=== PATIENT | female | born 1955 | race Two or more races ===

== ENCOUNTER 2022-07-23 09:26 | Emergency (ER) | payer MEDICARE, BC ==
[2022-07-23 09:34] VITALS: TEMP 98.5
[2022-07-23] MEDS ORDERED: SODIUM CHLORIDE 0.9% 500 ML 500 ML IV STA (09:45)
--- NOTE | 2022-07-23 09:54 | ED ---
General Adult HPI - General Chief complaint: Neuro Symptoms/Deficit Stated complaint: poss stroke Time Seen by Provider: 07/23/22 09:26 Source: patient, family, EMS, RN notes reviewed, old records reviewed Mode of arrival: ambulatory Limitations: no limitations - History of Present Illness Initial comments: This is a 67-year-old female who was last seen completely normally p.m. prior to bed last night. In the middle of night she got up and try to go to bathroom and fell she also fell out of bed both times she needed to be helped back to bed by her . This morning when the patient got up she was having some facial droop which was worse than it had been in the past. states she's had just a slight facial droop on the right for the last 6 months and they are having that worked up as an outpatient. Patient now has weakness of the arm and leg such that it's difficult for her to stand or walk. Patient cannot coordinate the left arm at all. did not state that the speech was slurred. Patient has no pain. Patient did not get injured in the fall. Patient denies chest pain difficulty breathing shortness breath per patient denies any palpitations. Patient denies abdominal pain patient denies nausea vomiting diarrhea per patient denies any recent fever chills or cough. - Related Data Allergies Allergy/AdvReac Type Severity Reaction Status Date / Time No Known Allergies Allergy Verified 07/23/22 09:34 Review of Systems ROS Statement: Those systems with pertinent positive or pertinent negative responses have been documented in the HPI. ROS Other: All systems not noted in ROS Statement are negative. Past Medical History Past Medical History: Neurologic Disorder History of Any Multi-Drug Resistant Organisms: None Reported Past Surgical History: Section, Tonsillectomy Past Psychological History: Depression Smoking Status: Never smoker Past Alcohol Use History: Occasional Past Drug Use History: Marijuana General Exam - General Exam Comments Initial Comments: GENERAL: Patient is well-developed and well-nourished. Patient is nontoxic and well- hydrated and is in no acute distress. ENT: Neck is soft and supple. No significant lymphadenopathy is noted. Oropharynx is clear. Moist mucous membranes. Neck has full range of motion without eliciting any pain. EYES: The sclera were anicteric and conjunctiva were pink and moist. Extraocular movements were intact and pupils were equal round and reactive to light. Eyelid s were unremarkable. PULMONARY: Unlabored respirations. Good breath sounds bilaterally. No audible rales rhonchi or wheezing was noted. CARDIOVASCULAR: There is a regular rate and rhythm without any murmurs gallops or rubs. ABDOMEN: Soft and nontender with normal bowel sounds. SKIN: Skin is clear with no lesions or rashes and otherwise unremarkable. NEUROLOGIC: Patient is alert and oriented x3. Patient has left-sided facial droop. Patient also has significant left arm weakness 1 out of 5 strength in lockstitch sleeve setter and patient has some dorsi flexion weakness which is 3 out of 5 compared to the right side. MUSCULOSKELETAL: Normal extremities with adequate strength and full range of motion. No lower extremity swelling or edema. No calf tenderness. LYMPHATICS: No significant lymphadenopathy is noted PSYCHIATRIC: Normal psychiatric evaluation. Patient is very flat affect but has a history of depression Limitations: no limitations Course Vital Signs 07/23/22 07/23/22 07/23/22 09:29 10:00 10:15 Temperature 98.5 F Pulse Rate 93 86 85 Respiratory 18 16 15 Rate Blood Pressure 169/94 185/103 184/98 O2 Sat by Pulse 100 99 100 Oximetry 07/23/22 10:30 Temperature Pulse Rate 82 Respiratory 15 Rate Blood Pressure 176/96 O2 Sat by Pulse 98 Oximetry Medical Decision Making - Medical Decision Making A code stroke was called on this patient after I interviewed the patient and her . I interpreted the EKG. EKG shows a sinus rhythm at 86 bpm [place] interval is 141 QRS is 76 QT interval 354 QTC is 397. Patient's EKG shows no ST segment elevation or depression. Computed tomography scan of the brain was interpreted by me. Scan showed some areas of hypodensity consistent with stroke. CTA showed some narrowing of the right internal carotid but only moderate and a narrowing basilar artery. I spoke with [facility] hospitalist and they agreed to admit the patient admitted the patient remaining orders I consult the neurology. Because of the elevated troponin I also consulted cardiology and I repeated the troponin levels After the patient was admitted the neurointerventionalist called back at 1137 and determined that it would be better if the patient came to [facility] when he can potentially do a procedure and open up the basilar artery. I gave the patient Proventil into 180 mg. I spoke with [facility] and they agreed to accept the patient and I transfer the patient. - Lab Data Result diagrams: 07/23/22 09:53 07/23/22 09:53 Lab Results 07/23/22 07/23/22 07/23/22 Range/Units 09:53 09:53 09:53 WBC 15.5 H (3.8-10.6) k/uL RBC 5.00 (3.80-5.40) m/uL Hgb 15.6 (11.4-16.0) gm/dL Hct 44.6 (34.0-46.0) % MCV 89.1 (80.0-100.0) fL MCH 31.1 (25.0-35.0) pg MCHC 35.0 (31.0-37.0) g/dL RDW 11.8 (11.5-15.5) % Plt Count 351 (150-450) k/uL MPV 7.8 Neutrophils % 84 % Lymphocytes % 10 % Monocytes % 5 % Eosinophils % 1 % Basophils % 0 % Neutrophils # 13.0 H (1.3-7.7) k/uL Lymphocytes # 1.6 (1.0-4.8) k/uL Monocytes # 0.7 (0-1.0) k/uL Eosinophils # 0.1 (0-0.7) k/uL Basophils # 0.0 (0-0.2) k/uL PT 9.9 (9.0-12.0) sec INR 0.9 (<1.2) APTT 22.5 (22.0-30.0) sec Sodium 137 (137-145) mmol/L Potassium 4.4 (3.5-5.1) mmol/L Chloride 99 (98-107) mmol/L Carbon Dioxide 26 (22-30) mmol/L Anion Gap 12 mmol/L BUN 37 H (7-17) mg/dL Creatinine 0.99 (0.52-1.04) mg/dL Est GFR (CKD-EPI)AfAm 69 (>60 ml/min/1.73 sqM) Est GFR (CKD-EPI)NonAf 60 (>60 ml/min/1.73 sqM) Glucose 345 H (74-99) mg/dL Calcium 9.7 (8.4-10.2) mg/dL Total Bilirubin 0.9 (0.2-1.3) mg/dL AST 16 (14-36) U/L ALT 17 (4-34) U/L Alkaline Phosphatase 104 (38-126) U/L Troponin I (0.000-0.034) ng/mL Total Protein 7.2 (6.3-8.2) g/dL Albumin 4.6 (3.5-5.0) g/dL 07/23/22 Range/Units 09:53 WBC (3.8-10.6) k/uL RBC (3.80-5.40) m/uL Hgb (11.4-16.0) gm/dL Hct (34.0-46.0) % MCV (80.0-100.0) fL MCH (25.0-35.0) pg MCHC (31.0-37.0) g/dL RDW (11.5-15.5) % Plt Count (150-450) k/uL MPV Neutrophils % % Lymphocytes % % Monocytes % % Eosinophils % % Basophils % % Neutrophils # (1.3-7.7) k/uL Lymphocytes # (1.0-4.8) k/uL Monocytes # (0-1.0) k/uL Eosinophils # (0-0.7) k/uL Basophils # (0-0.2) k/uL PT (9.0-12.0) sec INR (<1.2) APTT (22.0-30.0) sec Sodium (137-145) mmol/L Potassium (3.5-5.1) mmol/L Chloride (98-107) mmol/L Carbon Dioxide (22-30) mmol/L Anion Gap mmol/L BUN (7-17) mg/dL Creatinine (0.52-1.04) mg/dL Est GFR (CKD-EPI)AfAm (>60 ml/min/1.73 sqM) Est GFR (CKD-EPI)NonAf (>60 ml/min/1.73 sqM) Glucose (74-99) mg/dL Calcium (8.4-10.2) mg/dL Total Bilirubin (0.2-1.3) mg/dL AST (14-36) U/L ALT (4-34) U/L Alkaline Phosphatase (38-126) U/L Troponin I 0.108 H* (0.000-0.034) ng/mL Total Protein (6.3-8.2) g/dL Albumin (3.5-5.0) g/dL Critical Care Time Critical Care Time: Yes Total Critical Care Time: 35 Disposition Clinical Impression: Cerebrovascular accident (CVA), Elevated troponin Disposition: OTHER INSTITUTION NOT DEFINED Referrals: Laura Casas DO [Primary Care Provider] - 1-2 days Time of Disposition: 10:46 - Out of Hospital Transfer - Req. Specs Out of Hospital Transfer - Requested Specifics: Other Emergency Center ([facility])
[2022-07-23 10:04] LABS: Basophils % (A) 0 %; Eosinophils # (A) 0.1 k/uL (0-0.7); Eosinophils % (A) 1 %; HCT 44.6 % (34.0-46.0); HGB 15.6 gm/dL (11.4-16.0); Lymphocytes # (A) 1.6 k/uL (1.0-4.8); Lymphocytes % (A) 10 %; MCH 31.1 pg (25.0-35.0); MCV 89.1 fL (80.0-100.0); Mean Platelet Volume 7.8; Monocytes # (A) 0.7 k/uL (0-1.0); Monocytes % (A) 5 %; Neutrophils % (A) 84 %; Platelet Count 351 k/uL (150-450); RDW 11.8 % (11.5-15.5); WBC 15.5 k/uL (3.8-10.6)
[2022-07-23 10:13] LABS: Albumin 4.6 g/dL (3.5-5.0); Calcium 9.7 mg/dL (8.4-10.2); Potassium 4.4 mmol/L (3.5-5.1); Total Bilirubin 0.9 mg/dL (0.2-1.3); Total Protein 7.2 g/dL (6.3-8.2)
[2022-07-23 10:22] LABS: INR 0.9 (<1.2); Partial Thromboplastin Time 22.5 sec (22.0-30.0); Prothrombin Time 9.9 sec (9.0-12.0)
--- NOTE | 2022-07-23 10:26 | CT ---
EXAMINATION TYPE: CT brain wo con DATE OF EXAM: 07/23/2022 COMPARISON: None HISTORY: 67-year-old female left-sided facial droop and left-sided weakness, Neuro deficit TECHNIQUE: Examination was done in axial plane without intravenous contrast. Coronal and sagittal r econstructions performed. CT DLP: 1155.1 mGycm Automated exposure control for dose reduction was used. FINDINGS: There is a small area of cortical hypodensity right precentral gyrus and a couple larger areas anteri or right parietal lobe, and right parieto-occipital junction. A few areas of encephalomalacia are noted, inferior left frontal lobe and subinsular white matter on the right. On the right, this results in asymmetric enlargement of the anterior body of the right lat eral ventricle due to ex vacuo enlargement. No evidence for acute intracranial hemorrhage. No extra-axial fluid collection. No effacement of basa l subarachnoid cisterns or herniation. Benign basal ganglia calcifications are noted. Leftward nasal septal deviation. Paranasal sinuses and mastoid air cells are well pneumatized. Orbits and globes are intact. IMPRESSION: 1. Areas of cortical/subcortical hypodensity on the right. Small area precentral gyrus and a couple m ore moderate sized areas anterior right parietal lobe and right parieto-occipital junction. Evolving acute infarcts are suspected. No mass effect, midline shift, or acute intracranial hemorrhage is seen . 2. A couple areas of encephalomalacia suggesting old infarcts as above. Critical findings called to Dr. Lopez in the ER at 10:20 AM.
--- NOTE | 2022-07-23 10:38 | CT ---
EXAMINATION TYPE: CT angio head neck DATE OF EXAM: 07/23/2022 COMPARISON: Brain CT same date HISTORY: 67-year-old female left-sided weakness, CODE STROKE TECHNIQUE: Contiguous axial scanning of the head and neck performed with IV Contrast, patient injecte d with 65 ml mL of Isovue 370. Coronal/sagittal MIP reconstructions performed. 3-D reconstructions ge nerated on a dedicated independent workstation. CT DLP: 384.8 mGycm Automated exposure control for dose reduction was used. FINDINGS: Head: Very diminutive vertebral and basilar arteries. There is some loss of opacification of the V4 segment right vertebral artery after the PICA take off suggesting possible severe stenosis. Additional sever e focal stenosis mid basilar artery. Persistent origin bilateral posterior cerebral arteries. Moderate focal stenosis proximal aspec t of the right posterior communicating artery. Otherwise, the posterior circulation appears patent. Atherosclerotic changes are present in the bilateral carotid siphons. There is moderate focal stenosi s cavernous segment right ICA. No hemodynamically significant stenosis of either internal carotid art liam. Slightly hypoplastic A1 segment right anterior cerebral artery. Remainder of the anterior circulation appears patent. No aneurysmal changes seen. NECK: Mild to moderate atherosclerotic plaque is present along the proximal to mid subclavian artery. There is severe focal stenoses at the origin of the bilateral vertebral arteries. Vertebral arteries otherwise patent throughout their cervical course. The right common carotid artery is patent. Moderate atherosclerotic plaque at the right carotid bifurcation with mild, less than 30% narrowing r ight carotid bulb by NASCET criteria. Remainder of the cervical right ICA is patent. The left common carotid artery is patent. Moderate atherosclerotic calcification left carotid bulb with a mild to moderate, just under 50% narr owing at the left carotid bulb by NASCET criteria. Remainder of the cervical left ICA is patent. Asymmetric hypertrophy of soft tissue in the left vallecular space. IMPRESSION: HEAD: 1. 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 Correlate for any chronic symptoms of vertebrobasilar insufficie ncy. Suspect focal severe stenoses distal V4 segment right vertebral artery and mid basilar artery. M oderate focal stenosis proximal right posterior communicating artery. 2. Moderate stenosis cavernous segment right ICA. 3. No aneurysmal change is seen. NECK: 4. Incidental asymmetric hypertrophy of soft tissue in the left vallecular space. This may reflect as ymmetric lingual tonsil hypertrophy. Consider referring the patient for direct inspection to exclude a mucosal lesion. 5. Moderate atherosclerotic change at the bilateral carotid bifurcations. Mild to moderate, just unde r 50% proximal left ICA stenosis. Mild, less than 30% proximal right ICA stenosis. 6. Note severe stenoses at the origin of the bilateral vertebral arteries. This may exacerbate the is maru of the diminutive intracranial caliber of the vertebral and basilar arteries.
--- NOTE | 2022-07-23 10:39 | XR ---
EXAMINATION TYPE: XR chest 2V DATE OF EXAM: 07/23/2022 COMPARISON: None HISTORY: 67-year-old female confusion, stroke like symptoms, altered mental status TECHNIQUE: AP and lateral views FINDINGS: Heart normal size. Mild elongation/ectasia of the thoracic aorta. Mild interstitial prominence of a c hronic appearance. Mild hyperinflation. No consolidation or pleural effusion. IMPRESSION: Correlate for underlying COPD. No acute process seen.
[2022-07-23] MEDS ORDERED: ASPIRIN 325 MG TAB PO STA (10:46)
[2022-07-23] MEDS ORDERED: hydrALAZINE HCL 20 MG/ML 1 ML VIAL IVP STA ×2 (10:51)
[2022-07-23] MEDS ORDERED: TICAGRELOR 90 MG TAB PO STA (11:36)
[2022-07-23 12:13] LABS: Appearance,Urine Clear (Clear); Bacteria,Urine Rare /hpf; Bilirubin,Urine Negative (Negative); Blood,Urine Moderate (Negative); Color,Urine Yellow; Glucose,Urine (UA) 4+ (Negative); Ketones,Urine 1+ (Negative); Leukocyte Esterase,Urine Negative (Negative); Mucus,Urine Rare /hpf; Nitrite,Urine Negative (Negative); Protein,Urine Trace (Negative); RBC,Urine 31 /hpf (0-5); Squamous Epithelial Cell,Urine <1 /hpf (0-4); Urobilinogen,Urine <2.0 mg/dL (<2.0); WBC,Urine 6 /hpf (0-5)
[2022-07-23 12:42] VITALS: BP 169/92; PULSE 89; RESP 18
[2022-07-24] MEDS ORDERED: ASPIRIN 325 MG TAB PO SCH (09:00)
== END 2022-07-23 13:00 | disposition other institution (70) ==
LOC: EC 09:26 → 3SCARD 10:48 → UNDOADMIN 10:48 → 3SCARD 11:26 → EC 13:00
DX: I63.9 Cerebral infarction, unspecified (principal); F32.A Depression, unspecified; F12.90 Cannabis use, unspecified, uncomplicated
CPT/HCPCS: 99291 ×2; 96374 ×2; 36415; 93005; 80053; 84484; 85025; 85610; 85730; 81001; 71046; 70496; 70450; 70498; J0360; Q9967

== ENCOUNTER → 2022-09-14 | Outpatient (CLI) | payer MEDICARE ==
[2022-09-14 14:53] LABS: Basophils # (A) 0.05 X 10*3/uL (0.00-0.10); Basophils % (A) 0.3 %; Eosinophils # (A) 0.09 X 10*3/uL (0.04-0.35); Eosinophils % (A) 0.6 %; HCT 41.4 % (37.2-46.3); HGB 13.1 g/dL (12.0-15.0); Immature Grans, Automated 0.3 %; Lymphocytes # (A) 1.86 X 10*3/uL (0.90-5.00); Lymphocytes % (A) 11.6 %; MCHC 31.6 g/dL (32.0-37.0); MCV 91.6 fL (80.0-97.0); Mean Platelet Volume 9.1 fL (9.5-12.2); Monocytes # (A) 1.15 X 10*3/uL (0.20-1.00); Monocytes % (A) 7.2 %; NRBC Per 100 WBC 0 /100 WBCS (0.0-0.0); Neutrophils # (A) 12.83 X 10*3/uL (1.80-7.70); Platelet Count 566 X 10*3/uL (140-440); RBC 4.52 X 10*6/uL (4.10-5.20); RDW 11.8 % (11.5-14.5); WBC 16.03 X 10*3/uL (4.50-10.00)
[2022-09-14 16:34] LABS: African American GFR (CKD) 105.2 (60.0-200.0); Albumin/Globulin Ratio 1.53 (1.60-3.17); Anion Gap 11.8 mmol/L (10.00-18.00); BUN/Creat Ratio 29.39 Ratio (12.00-20.00); Blood Urea Nitrogen 20.6 mg/dL (9.0-27.0); Calcium 9.5 mg/dL (8.7-10.3); Carbon Dioxide 26.1 mmol/L (20.0-27.5); Globulin 2.6 g/dL (1.6-3.3); Non-African American GFR(CKD) 90.8 (60.0-200.0); Potassium 4.5 mmol/L (3.5-5.5); T4, Free (Free Thyroxine) 1.63 ng/dL (0.800-1.800); Total Bilirubin 0.2 mg/dL (0.30-1.20); Total Protein 6.5 g/dL (6.2-8.2)
[2022-09-14 18:34] LABS: C-Peptide 3.67 ng/mL (0.81-3.85)
== END | disposition home or self-care (01) ==
LOC: LABWHC1 09:06
PROVIDERS: ATTEND Internal Medicine Endocrinology, Diabetes & Metabolism
DX: E11.65 Type 2 diabetes mellitus with hyperglycemia (principal)
CPT/HCPCS: 36415; 80053; 82024; 82533; 83519; 84439; 84443; 84681; 85025

== ENCOUNTER 2023-02-01 07:04 | Day surgery (SDC) | payer MEDICARE, OTHER ==
[2023-01-26 14:03] VITALS: BMI 19.7
[~2023-02-01 07:04] MED LIST: DEXAMETHASONE SOD PHOSPHATE 4 MG/ML 1 ML VIAL IV ONE; ENOXAPARIN 30 MG/0.3 ML SYRINGE SQ PRN; HYDROmorphone 0.5 MG/0.5 ML SYRINGE IVP PRN; LACTATED RINGERS 1,000 ML IV SCH; LIDOCAINE 1% (10MG/ML) FOR IV START INTRADERMA PRN; ONDANSETRON 4 MG/2 ML VIAL IVP ONE
[2023-02-01] MEDS ORDERED: LACTATED RINGERS 1,000 ML IV ONE (07:31)
[2023-02-01 07:56] LABS: Glucose,Whole Blood 172 mg/dL (70-110)
[2023-02-01 08:03] VITALS: TEMP 97.8
[2023-02-01] MEDS ORDERED: MIDAZOLAM 2 MG/2 ML VIAL IV ONE (08:46)
[2023-02-01] MEDS ORDERED: fentaNYL (PF) 50 MCG/ML 2 ML AMP IV ONE (08:46)
[2023-02-01] MEDS ORDERED: ROPIVACAINE 5 MG/ML 30 ML VIAL ONE (09:01)
[2023-02-01] MEDS ORDERED: KETAMINE 10 MG/ML 20 ML VIAL ONE (09:01)
[2023-02-01] MEDS ORDERED: MIDAZOLAM 2 MG/2 ML VIAL ONE (09:01)
--- NOTE | 2023-02-01 10:26 | P.OP ---
Date of Procedure: 02/01/23 Preoperative Diagnosis: Gangrene second, third and fourth toes right foot. Postoperative Diagnosis: Same. Procedure(s) Performed: Transmetatarsal amputation second, third and fourth toes right foot. Implants: None Anesthesia: regional Surgeon: Blayne Iglesias Estimated Blood Loss (ml): 20 Urine output (ml): 0 Pathology: other (Amputated second third and fourth toes right foot) Condition: stable Disposition: no change Indications for Procedure: Patient is a 67-year-old female with a long history of vascular disease status post surgical revascularization for ischemic rest pain and tissue loss of the right foot. Most of her wounds have healed of the right foot after revascularization however the patient did experience gangrene of the second third and fourth toes which is irreversible. Because of the suspicion is off ered transmetatarsal amputation. We discussed transmetatarsal amputation of all 5 digits or the family wished to proceed with transmetatarsal amputation of the 3 digits involved. Risk and benefits were discussed. All questions were answered. Consent form signed. Description of Procedure: Patient is brought the upper and placed in supine position having previously received a regional block administered by the department anesthesiology. She received intravenously administered prophylactic antibiotics in the perioperative phase. The right lower extremity sterilely prepped and draped in usual manner. She was made along the plantar surface of the foot at the base of the second, third and fourth toes. Bleeding was very satisfying. Incision was then carried down in thebetween the first and second toes as well as the fourth and fifth toes and brought anteriorly. Hemostasis was achieved using electrocautery. Soft tissues were taken down to the level of bone. Periosteal elevator was utilized to separate soft tissues from the bony tissues and utilizing power saw transmetatarsal amputation of the second third and fourth toes was performed. Remaining tendon sheaths etc. were debrided. The wound was irrigated. Hemostasis appeared adequate. Surgical hemostatic powder was placed within the wound. Deep tissues were closed with 3-0 Vicryl and skin was reapproximated with 4-0 nylon in vertical mattress form. The patient did have a second wound on the lateral aspect of her foot which had an eshar which was taken down revealing a nearly completely healed wound on the lateral aspect of the foot. Appropriate dressing was applied this area as well. Patient tolerated procedure well and was taken to the recovery area satisfactory and stable condition. Plan - Discharge Summary New Discharge Prescriptions: No Action Sertraline [Zoloft] 75 mg PO DAILY carvediloL [Coreg] 6.25 mg PO BID Atorvastatin [Lipitor] 40 mg PO HS Albuterol Inhaler [Ventolin Hfa Inhaler] 2 puff INHALATION Q6HR PRN PRN Reason: Shortness Of Breath Or Wheezing Multivitamins, Thera [Multivitamin (formulary)] 1 tab PO DAILY Memantine [Namenda] 5 mg PO Q12HR tiZANidine HCL [Zanaflex] 2 mg PO BID PRN PRN Reason: Pain Aspirin EC [Ecotrin Low Dose] 81 mg PO DAILY Acetaminophen [Tylenol] 650 mg PO Q8HR PRN PRN Reason: Pain Ticagrelor [Brilinta] 90 mg PO BID Tamsulosin HCl [Flomax] 0.4 mg PO DAILY Furosemide [Lasix] 20 mg PO DAILY tab amLODIPine [Norvasc] 5 mg PO HS tab lisinopriL [Zestril] 20 mg PO BID tab HYDROcodone/APAP 5-325MG [[place] 5-325] 1 tab PO Q6H PRN #12 tab PRN Reason: Pain metFORMIN HCL [Glucophage] 500 mg PO BID INSULIN ASPART (NovoLOG) [NovoLOG (formulary)] 0 unit SQ TID PRN PRN Reason: CBG ABOVE 151 Insulin Glargine,Hum.rec.anlog [Lantus Solostar Pen] 12 units SQ HS Gabapentin [Neurontin] 300 mg PO TID Melatonin 3 mg PO HS Salonpas Pain Patch 1 dose TOPICAL DAILY Cephalexin [Keflex] 500 mg PO Q8HR Discharge Medication List Aspirin EC [Ecotrin Low Dose] 81 mg PO DAILY 07/23/22 [History] Sertraline [Zoloft] 75 mg PO DAILY 07/23/22 [History] Acetaminophen [Tylenol] 650 mg PO Q8HR PRN 11/03/22 [History] Atorvastatin [Lipitor] 40 mg PO HS 11/03/22 [History] Tamsulosin HCl [Flomax] 0.4 mg PO DAILY 11/03/22 [History] Ticagrelor [Brilinta] 90 mg PO BID 11/03/22 [History] carvediloL [Coreg] 6.25 mg PO BID 11/03/22 [History] Furosemide [Lasix] 20 mg PO DAILY tab 11/10/22 [Rx] HYDROcodone/APAP 5-325MG [[place] 5-325] 1 tab PO Q6H PRN #12 tab 11/10/22 [Rx] amLODIPine [Norvasc] 5 mg PO HS tab 11/10/22 [Rx] lisinopriL [Zestril] 20 mg PO BID tab 11/10/22 [Rx] Albuterol Inhaler [Ventolin Hfa Inhaler] 2 puff INHALATION Q6HR PRN 01/26/23 [History] Cephalexin [Keflex] 500 mg PO Q8HR 01/26/23 [History] Gabapentin [Neurontin] 300 mg PO TID 01/26/23 [History] INSULIN ASPART (NovoLOG) [NovoLOG (formulary)] 0 unit SQ TID PRN 01/26/23 [History] Insulin Glargine,Hum.rec.anlog [Lantus Solostar Pen] 12 units SQ HS 01/26/23 [History] Melatonin 3 mg PO HS 01/26/23 [History] Memantine [Namenda] 5 mg PO Q12HR 01/26/23 [History] Multivitamins, Thera [Multivitamin (formulary)] 1 tab PO DAILY 01/26/23 [History] Salonpas Pain Patch 1 dose TOPICAL DAILY 01/26/23 [History] metFORMIN HCL [Glucophage] 500 mg PO BID 01/26/23 [History] tiZANidine HCL [Zanaflex] 2 mg PO BID PRN 01/26/23 [History]
[2023-02-01 10:48] VITALS: BP 150/77; PULSE 73; RESP 18
--- NOTE | 2023-02-01 11:09 | P.ANPRN ---
Procedure Note - Anesthesia - Nerve Block Performed Right Popliteal Single Time Out Performed: Yes (0845) Date of Procedure: 02/01/23 Procedure Start Time: 08:46 Procedure Stop Time: 08:50 Location of Patient: PreOp Indication: Acute Post-Operative Pain, Requested by Surgeon Specifically requested for management of pain by DrJuliann: Blayne Iglesias Sedation Type: Sedate with meaningful contact maintained Preparation: Sterile Prep Position: Supine Catheter: None Needle Types: Pajunk Needle Gauge: 21 Ultrasound used to visualize needle placement: Yes Ultrasound used to observe medication spread: Yes Injectate: 0.5% Ropivacaine (see comment for volume) (15cc +10cc nacl pf) Blood Aspirated: No Pain Paresthesia on Injection Noted: No Resistance on Injection: Normal Image Stored and Saved: Yes Events: Uneventful and Well Tolerated
--- NOTE | 2023-02-01 11:10 | P.ANPRN ---
Procedure Note - Anesthesia - Nerve Block Performed Right Adductor Canal Single Time Out Performed: Yes (0845) Date of Procedure: 02/01/23 Procedure Start Time: 08:51 Procedure Stop Time: 08:54 Location of Patient: PreOp Indication: Acute Post-Operative Pain, Requested by Surgeon Specifically requested for management of pain by DrJuliann: Blayne Iglesias Sedation Type: Sedate with meaningful contact maintained Preparation: Sterile Prep Position: Supine Catheter: None Needle Types: Pajunk Needle Gauge: 21 Ultrasound used to visualize needle placement: Yes Ultrasound used to observe medication spread: Yes Injectate: 0.5% Ropivacaine (see comment for volume) (15cc +10cc nacl pf) Blood Aspirated: No Pain Paresthesia on Injection Noted: No Resistance on Injection: Normal Image Stored and Saved: Yes Events: Uneventful and Well Tolerated
== END 2023-02-01 11:21 | disposition other institution (70) ==
LOC: OR 07:04
PROVIDERS: ATTEND Surgery
DX: I96 Gangrene, not elsewhere classified (principal); G89.18 Other acute postprocedural pain; I11.0 Hypertensive heart disease with heart failure; I50.9 Heart failure, unspecified; E11.52 Type 2 diabetes mellitus with diabetic peripheral angiopathy with gangrene; K21.9 Gastro-esophageal reflux disease without esophagitis; E78.5 Hyperlipidemia, unspecified; Z86.73 Personal history of transient ischemic attack (TIA), and cerebral infarction without residual deficits; Z79.1 Long term (current) use of non-steroidal anti-inflammatories (NSAID); Z79.84 Long term (current) use of oral hypoglycemic drugs; Z79.899 Other long term (current) drug therapy
CPT/HCPCS: 64447; 64445; 28805; J2250; J1100; J0690; J2405; J3010; J1650; J2795; 88305; 88311

== ENCOUNTER → 2023-03-03 | Outpatient (CLI) | payer MEDICARE, OTHER ==
--- NOTE | 2023-03-03 11:45 | CT ---
EXAMINATION TYPE: CT brain wo con DATE OF EXAM: 03/03/2023 COMPARISON: 07/23/2022 INDICATION: follow up for stroke DLP: 1047.1 mGycm, Automated exposure control for dose reduction was used. CONTRAST: None CT of the brain is performed utilizing 3 mm thick sections through the posterior fossa and 3 mm thick sections through the remaining calvarium. Study is performed within 24 hours of arrival to the hosp ital. No abnormal hyperdensity is present to suggest an acute intracranial hemorrhage. No mass lesion is evident. No acute infarcts are evident. Scattered deep white matter hypodensities are present, likely on the b asis of chronic white matter ischemic changes. This may include an area within the left brain stem. F indings appear stable from comparison. An old infarct within the posterior right occipital lobe is ag ain evident. Additional old infarcts in the right posterior parietal-occipital region and posterior r ight parietal region are noted. Ventricles and sulci are normal in for the patient age. Paranasal sinuses and mastoid air cells within the [id number] are clear. Left septal deviation is noted. IMPRESSIONS: 1. 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 2. Patchy to confluent periventricular and deep chronic appearing white matter ischemic type changes. 2. No acute intracranial process.
== END | disposition home or self-care (01) ==
LOC: RADCTMAIN 09:47
PROVIDERS: ATTEND Psychiatry & Neurology Neurology
DX: I63.541 Cerebral infarction due to unspecified occlusion or stenosis of right cerebellar artery (principal); G90.09 Other idiopathic peripheral autonomic neuropathy; I67.82 Cerebral ischemia
CPT/HCPCS: 70496; 70450; 70498; Q9967

== ENCOUNTER → 2023-03-03 | Outpatient (CLI) | payer MEDICARE, OTHER | END | disposition home or self-care (01) | LOC: RADCTMAIN 09:49 | PROVIDERS: ATTEND Psychiatry & Neurology Neurology | DX: Z53.9 Procedure and treatment not carried out, unspecified reason (principal) ==

== ENCOUNTER 2023-05-09 10:06 | Day surgery (SDC) | payer MEDICARE ==
[~2023-05-09 10:06] MED LIST changes: +ALPRAZolam 0.25 MG TAB PO PRN; +ALPRAZolam 0.5 MG TAB PO PRN; +ASPIRIN 325 MG TAB PO STA; +ATORVASTATIN 80 MG TAB PO STA; -DEXAMETHASONE SOD PHOSPHATE 4 MG/ML 1 ML VIAL IV ONE; -ENOXAPARIN 30 MG/0.3 ML SYRINGE SQ PRN; +HEPARIN SODIUM,PORCINE (1 ML) 2,500 UNIT in SODIUM CHLORIDE 0.9% 250 ML IRRIGATION PRN; +HEPARIN SODIUM,PORCINE 10,000 UNIT in SODIUM CHLORIDE 0.9% 1,000 ML IRRIGATION PRN; -HYDROmorphone 0.5 MG/0.5 ML SYRINGE IVP PRN; -LACTATED RINGERS 1,000 ML IV SCH; -LIDOCAINE 1% (10MG/ML) FOR IV START INTRADERMA PRN; +NITROGLYCERIN SL TABS 0.4 MG TAB SUBLINGUAL PRN; -ONDANSETRON 4 MG/2 ML VIAL IVP ONE; +SODIUM CHLORIDE 0.9% 1,000 ML in EMPTY BAG 1 BAG IV SCH
[2023-05-09 10:43] LABS: Glucose,Whole Blood 179 mg/dL (70-110)
[2023-05-09] MEDS ORDERED: SODIUM CHLORIDE 0.9% 1,000 ML IV ONE (10:43)
[2023-05-09 10:47] VITALS: RESP 16; TEMP 98.8
[2023-05-09] MEDS ORDERED: TAMSULOSIN 0.4 MG CAP.ER.24H PO STA (10:58)
[2023-05-09] MEDS ORDERED: GABAPENTIN 300 MG CAP PO STA (10:58)
[2023-05-09] MEDS ORDERED: lisinopriL 10 MG TAB PO STA (10:58)
[2023-05-09] MEDS ORDERED: carvediloL 6.25 MG TAB PO STA (10:58)
[2023-05-09] MEDS ORDERED: amLODIPine 5 MG TAB PO STA (10:58)
[2023-05-09] MEDS ORDERED: SERTRALINE 25 MG TAB PO STA (10:58)
[2023-05-09] MEDS ORDERED: MEMANTINE 5 MG TAB PO STA (10:58)
[2023-05-09] MEDS ORDERED: ASPIRIN 81 MG ONE (11:03)
[2023-05-09] MEDS: amLODIPine 5 MG TAB ONE ×2 (11:04→11:12)
[2023-05-09] MEDS ORDERED: VERAPAMIL 2.5 MG/ML 2 ML AMP ONE (11:58)
[2023-05-09] MEDS ORDERED: HEPARIN SODIUM 1,000 UN/ML (10ML VL) ONE (11:58)
[2023-05-09] MEDS ORDERED: MIDAZOLAM 2 MG/2 ML VIAL IVP ONE (12:09)
[2023-05-09] MEDS ORDERED: LIDOCAINE 1% INJ 10MG/ML (30 ML VIAL-PF) SQ ONE (12:10)
[2023-05-09] MEDS ORDERED: VERAPAMIL SYRINGE (5 MG/10 ML) INTRAARTER ONE (12:11)
[2023-05-09] MEDS ORDERED: HEPARIN SODIUM 1,000 UN/ML (10ML VL) IV ONE (12:14)
[2023-05-09] MEDS ORDERED: IOPAMIDOL-370 200ML BTL INJ ONE (12:25)
[2023-05-09] MEDS ORDERED: RX INFO: IV CONTRAST WAS GIVEN 1 EACH MISC MISCELLANE PRN (12:27)
[2023-05-09] MEDS ORDERED: SODIUM CHLORIDE 0.9% 1,000 ML IV SCH (12:30)
--- NOTE | 2023-05-09 12:32 | P.PCN ---
Date of Procedure: 05/09/23 Operative Findings: CARDIAC CATHETERIZATION PERFORMING PHYSICIAN: Manpreet Bergeron MD, RPVI PROCEDURE PERFORMED: 1. Selective right and left coronary angiogram 2. Left heart catheterization INDICATION: This is a 68-year-old female patient with lower extremity PAD and prior revascularization surgically as well as history of stroke as well as diabetes and hypertension and dyslipidemia and chronic kidney disease was seen in the office recently for an episode of syncope. She underwent myocardial perfusion imaging stress test and that showed at least moderate area of reversibility in the inferolateral segment of the left ventricle. In the light of that the heart catheterization was advised COMPLICATION: None APPROACH: Right radial artery LEVEL OF SEDATION: Moderate with a sedation length of 13 minutes PROCEDURE DESCRIPTION: After obtaining an informed consent, the patient was brought to cardiac laborer tanbark. Local anesthesia was performed using lidocaine subcutaneously. The right radial artery was cannulated using Seldinger technique, the guidewire passed easily, following that we advanced a 5-Jamaican sheath dilator assembly, the wire and dilator were removed and sheath was flushed. Following that, 2 mg of verapamil along with 5000 unit heparin were given. Selective right and left coronary angiogram using a 6-Jamaican JR4 and JL 3.5 catheters. Following that we did left heart catheterization using 6-Jamaican pigtail [address] ter. The procedure was completed there was no complication. SELECTIVE CORONARY ANGIOGRAM: The right coronary artery: Large caliber vessel and dominant vessel. The RCA is chronically occluded by the proximal portion and fills by contralateral collaterals filled the RCA all the way to the midportion Left main: Calcified was mild disease only. Bifurcates into an ulcer X and LAD The left circumflex: Large caliber vessel nondominant vessel. The proximal and mid LCx are critically diseased. This is by the bifurcation of OM1 and OM 2. The left anterior descending artery: Large caliber vessel. The proximal LAD has severe disease with a tubular lesion appears to be in the range of 80-90%. The mid LAD has another long tubular lesion appears to be in the range of 90-95%. The LAD gives rises into a large diagonal branch which appeared to be also severely diseased with a long tubular lesion HEMODYNAMICS: LVEDP was 22 mmHg was no significant gradient across aortic valve CONCLUSION: 1. Severe triple-vessel coronary artery disease with chronic total occlusion of the right coronary artery and critical long lesions involving the left circumflex and left anterior descending artery 2. Elevated left-sided filling pressure POSTPROCEDURE MANAGEMENT: Medical treatment Consider surgical opinion Follow-up with the patient
[2023-05-09 13:42] LABS: Glucose,Whole Blood 149 mg/dL (70-110)
[2023-05-09] MEDS ORDERED: INSULIN ASPART (NovoLOG) 100 UNIT/ML VIAL SQ SCH (13:43)
--- NOTE | 2023-05-09 16:41 | P.GSCN ---
History of Present Illness Consult date: 05/09/23 Reason for Consult: Multivessel coronary artery disease Requesting physician: Manpreet Bergeron History of present illness: This is a 68-year-old female patient who follows on an outpatient basis with Dr. Laura Casas for her primary care and with Dr. Bergeron for her cardiology care. 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 Currently she is living at an extended care facility where she is working with physical and occupational therapy and is able to occasionally stand with assistance. Recently, the patient has had complaints of progressive fatigue, feeling of having no stamina, shortness of breath and syncope. She denies any recent fever, chills, nausea, vomiting, constipation, headache, palpitations, chest pain/chest pressure, hematemesis, hemoptysis, or lightheadedness. Due to the patient's symptoms she underwent a nuclear Lexiscan Cardiolite stress test on 03/13/2023 which demonstrated nondiagnostic electrocardiographic stress testing in response to Lexiscan, abnormal myocardial perfusion imaging with evidence of reversible defect of moderate size and moderate intensity involving the inferolateral segment of the left ventricle, impaired LV function with an ejection fraction around 45% with mid inferior wall dyskinesia. The patient also underwent a carotid duplex study on 04/03/2023 which showed 16-49% stenosis to her bilateral internal carotid arteries. In November 2022 the patient underwent a 2-D echocardiogram which showed a normal ejection fraction, mild to moderate tricuspid valve regurgitation and mild to moderate mitral valve regurgitation. Subsequently, due to the patient's symptoms and findings on the stress test she was recommended to undergo a cardiac catheterization which was completed today by Dr. Bergeron. The cardiac catheterization severe triple-vessel coronary artery disease with chronic total occlusion of the right coronary artery, critical lung lesions involving the circumflex coronary artery and left anterior descending coronary artery with a proximal 80-90% stenosis to her left anterior descending coronary artery, and a 90-95% stenosis to her mid left anterior descending coronary artery. Also during heart catheterization her LVEDP was 22 mmHg with no significant gradient across aortic valve. Due to the findings on the cardiac catheterization a consult was placed to cardiothoracic surgery for further evaluation and treatment recommendations including myocardial revascularization surgery. Review of Systems A 14 point review of systems was completed and was negative except as mentioned in the HPI. Past Medical History Past Medical History: No Reported History, Heart Failure, CVA/TIA, Diabetes Mellitus, Hyperlipidemia, Hypertension, Pneumonia, Skin Disorder, Vascular Disorder Additional Past Medical History / Comment(s): CVA 2021 with residual left side weakness. , Hx falls, Diverticulitis., PAD, pt has peg tube but is not in use-on regular diet, needs 1-2 staff to pivot -transfer pt., wound on right foot mostly resolved-scabbed, currently resides at [facility] since November 2022. History of Any Multi-Drug Resistant Organisms: None Reported Past Surgical History: Section, Tonsillectomy Additional Past Surgical History / Comment(s): Right Femoral Popliteal bypass 10/19/22, at [facility], amputation of second third and fourth toes on right foot, history of , tonsillectomy Past Anesthesia/Blood Transfusion Reactions: No Reported Reaction Additional Past Anesthesia/Blood Transfusion Reaction / Comm: Never received blood. Past Psychological History: Depression Smoking Status: Never smoker Past Alcohol Use History: None Reported Past Drug Use History: Marijuana (Smokes 1 joint per week) - Past Family History Mother Family Medical History: Cancer (Pancreatic cancer) Additional Family Medical History / Comment(s): History of lower back fusion Father Family Medical History: Coronary Artery Disease (CAD) (History of 5 vessel bypass and mitral valve repair) Medications and Allergies Home Medications Medication Instructions Recorded Confirmed Type Aspirin EC [Ecotrin Low Dose] 81 mg PO DAILY 07/23/22 05/09/23 History Sertraline [Zoloft] 75 mg PO DAILY 07/23/22 05/09/23 History Acetaminophen [Tylenol] 650 mg PO Q8HR PRN 11/03/22 05/05/23 History Atorvastatin [Lipitor] 40 mg PO HS 11/03/22 05/09/23 History Tamsulosin HCl [Flomax] 0.4 mg PO DAILY 11/03/22 05/09/23 History carvediloL [Coreg] 6.25 mg PO BID 11/03/22 05/09/23 History Furosemide [Lasix] 20 mg PO DAILY tab 11/10/22 05/09/23 Rx HYDROcodone/APAP 5-325MG [[place] 1 tab PO Q6H PRN #12 tab 11/10/22 05/05/23 Rx 5-325] amLODIPine [Norvasc] 5 mg PO HS tab 11/10/22 05/09/23 Rx Albuterol Inhaler [Ventolin Hfa 2 puff INHALATION Q6HR PRN 01/26/23 05/05/23 History Inhaler] Gabapentin [Neurontin] 300 mg PO TID 01/26/23 05/05/23 History INSULIN ASPART (NovoLOG) [NovoLOG See Protocol SQ TID PRN 01/26/23 05/09/23 His tory (formulary)] Insulin Glargine,Hum.rec.anlog 12 units SQ HS 01/26/23 05/09/23 History [Lantus Solostar Pen] Melatonin 3 mg PO HS 01/26/23 05/09/23 History Memantine [Namenda] 5 mg PO Q12HR 01/26/23 05/09/23 History Multivitamins, Thera [Multivitamin 1 tab PO DAILY 01/26/23 05/09/23 History (formulary)] metFORMIN HCL [Glucophage] 500 mg PO BID 01/26/23 05/09/23 History tiZANidine HCL [Zanaflex] 2 mg PO HS PRN 01/26/23 05/05/23 History Cetirizine HCl [Zyrtec] 10 mg PO DAILY 05/05/23 05/09/23 History Diflorasone Ointment 1 dose TOPICAL HS 05/05/23 History Ferrous Sulfate [Iron (65 MG 325 mg PO DAILY 05/05/23 05/09/23 History Elemental)] Glucerna Shake 1 can PO TID 05/05/23 05/09/23 History Hydrocortisone 1% Lotion 1 applic TOPICAL HS 05/05/23 05/05/23 History INSULIN LISPRO (HumaLOG) [humaLOG] 3 units SQ BID 05/05/23 05/09/23 History Lactulose 20 gm PO DIRECTED PRN 05/05/23 05/05/23 History Sennosides/Docusate Sodium [Senna 1 each PO DIRECTED PRN 05/05/23 05/05/23 History Plus 8.6-50 mg Softgel] lisinopriL [Zestril] 20 mg PO DAILY 05/05/23 05/09/23 History Allergies Allergy/AdvReac Type Severity Reaction Status Date / Time unknown sleep aid Allergy Rash/Hives Uncoded 05/05/23 09:50 Surgical - Exam Vital Signs Temp Pulse Resp BP Pulse Ox 98.8 F 67 16 170/92 100 05/09/23 10:45 05/09/23 10:45 05/09/23 10:45 05/09/23 10:45 05/09/23 10:45 - General well nourished, no distress, no pain, chronically ill - Eyes PERRL, normal ocular movement, no pale, no icteric - ENT normal pinna, normal nares, normal mucosa, no hearing loss, no congestion, poor retirement - Neck Neck is supple, no lymphadenopathy no masses, no bruits, trachea midline, no venous distension - Respiratory Lungs essentially clear throughout. No wheezes, rhonchi or crackles. Respirations are symmetrical and nonlabored. - Cardiovascular Regular rhythm and rate. S1 and S2 present, negative for S3, or gallop. Soft systolic murmur. - Abdomen Abdomen is soft, nontender nondistended. Active bowel sounds present in all 4 abdominal quadrants. No guarding or rigidity. No organomegaly appreciated. - Genitourinary Deferred - Rectum Deferred - Integumentary Several old scars to her right lower extremity no rash, no growths - Neurologic Left sided hemiparesis - Musculoskeletal Able to move right upper lower extremity. Mostly wheelchair bound. - Psychiatric oriented to time, oriented to person, oriented to place, speech is normal, memory intact Results - Labs Abnormal Lab Results - Last 24 Hours (Table) 05/09/23 05/09/23 Range/Units 10:40 13:39 POC Glucose (mg/dL) 179 H 149 H (70-110) mg/dL - Imaging Additional studies: Cardiac catheterization results reviewed by Dr. Carlos Enrique Arreola. Assessment and Plan Assessment: Severe triple-vessel coronary artery disease Hypertension Dyslipidemia Diastolic dysfunction with chronic congestive heart failure Insulin-dependent diabetes mellitus type 2 Peripheral vascular disease status post right fem-pop bypass and peripheral stenting and subsequent application of toes 2 through 4 on her right foot CVA with left-sided hemiparesis, wheelchair bound History of depression Frequent UTIs Lifetime nonsmoker Marijuana use, smokes one joint per week Plan: The patient was seen and examined at her bedside in the extended stay unit. Her chart diagnostics were reviewed. Her case was discussed in detail with Dr. Carlos Enrique Arreola from cardiothoracic surgery. Due to her multiple comorbidities and her being wheelchair bound, the patient would be considered a high risk surgical candidate. Cardiothoracic surgeon to discuss treatment options with Dr. Bergeron to the possibly pursue PCI versus medical management. The patient and her agree with this plan and also feel like she would be a high risk surgical candidate due to her multiple comorbidities. Continue to maximize her medical management. Thank you Dr. Bergeron for this consult. I have personally seen and examined the patient, performed the documentation and the assessment and plan as written. Number of minutes spent on the visit, 30 minutes. Didier JOINER
[2023-05-09 17:26] VITALS: BP 160/72; PULSE 63
== END 2023-05-09 16:45 | disposition home or self-care (01) ==
LOC: CATHCVL 10:06
PROVIDERS: ATTEND Internal Medicine Interventional Cardiology
DX: I25.10 Atherosclerotic heart disease of native coronary artery without angina pectoris (principal); I25.82 Chronic total occlusion of coronary artery; I13.0 Hypertensive heart and chronic kidney disease with heart failure and stage 1 through stage 4 chronic kidney disease, or unspecified chronic kidney disease; I50.32 Chronic diastolic (congestive) heart failure; N18.9 Chronic kidney disease, unspecified; E78.5 Hyperlipidemia, unspecified; E11.22 Type 2 diabetes mellitus with diabetic chronic kidney disease; F12.90 Cannabis use, unspecified, uncomplicated; F32.A Depression, unspecified; I65.23 Occlusion and stenosis of bilateral carotid arteries; I08.1 Rheumatic disorders of both mitral and tricuspid valves; Z93.1 Gastrostomy status; Z90.89 Acquired absence of other organs; Z98.891 History of uterine scar from previous surgery; Z98.890 Other specified postprocedural states; Z82.49 Family history of ischemic heart disease and other diseases of the circulatory system; Z79.82 Long term (current) use of aspirin; Z79.899 Other long term (current) drug therapy; Z79.51 Long term (current) use of inhaled steroids
CPT/HCPCS: 93458; C1769; C1894; J2250; J2001; J1644; Q9967

== ENCOUNTER 2023-07-06 06:34 | Day surgery (SDC) | payer MEDICARE ==
[~2023-07-06 06:34] MED LIST changes: -SODIUM CHLORIDE 0.9% 1,000 ML in EMPTY BAG 1 BAG IV SCH
[2023-07-06] MEDS ORDERED: SODIUM CHLORIDE 0.9% 1,000 ML IV ONE (06:42)
[2023-07-06] MEDS ORDERED: carvediloL 6.25 MG TAB PO STA (07:00)
[2023-07-06] MEDS ORDERED: lisinopriL 20 MG TAB PO STA (07:00)
[2023-07-06 07:11] LABS: Glucose,Whole Blood 187 mg/dL (70-110)
[2023-07-06] MEDS ORDERED: TICAGRELOR 90 MG TAB ONE (07:58)
[2023-07-06] MEDS ORDERED: fentaNYL (PF) 50 MCG/ML 2 ML AMP ONE (08:04)
[2023-07-06] MEDS ORDERED: LIDOCAINE 1% INJ 10MG/ML (20 ML MDV) SQ ONE (08:14)
[2023-07-06] MEDS ORDERED: fentaNYL (PF) 50 MCG/1 ML VIAL IVP ONE ×2 (08:18)
[2023-07-06] MEDS ORDERED: MIDAZOLAM 2 MG/2 ML VIAL IVP ONE (08:18)
[2023-07-06] MEDS ORDERED: TICAGRELOR 90 MG TAB PO ONE (08:18)
[2023-07-06] MEDS: HEPARIN SODIUM 1,000 UN/ML (10ML VL) IVP ONE ×2 (08:18→08:46)
[2023-07-06] MEDS ORDERED: ENALAPRILAT 1.25 MG/ML 1 ML VIAL ONE (08:39)
[2023-07-06] MEDS ORDERED: hydrALAZINE HCL 20 MG/ML 1 ML VIAL ONE (08:39)
[2023-07-06] MEDS ORDERED: niCARdipine 25 MG/10 ML VIAL ONE (08:42)
[2023-07-06] MEDS ORDERED: ENALAPRILAT 1.25 MG/ML 1 ML VIAL IV ONE (08:43)
[2023-07-06] MEDS ORDERED: hydrALAZINE HCL 20 MG/ML 1 ML VIAL IV ONE (08:46)
[2023-07-06] MEDS ORDERED: IOPAMIDOL-370 200ML BTL INJ ONE (09:08)
[2023-07-06] MEDS ORDERED: ACETAMINOPHEN TAB 325 MG TAB PO PRN (09:11)
[2023-07-06] MEDS ORDERED: LACTULOSE 20 GM/30 ML CUP PO PRN (09:11)
[2023-07-06] MEDS ORDERED: tiZANidine 4 MG TAB PO PRN (09:11)
[2023-07-06] MEDS ORDERED: HYDROcodone/APAP 5-325MG 1 EACH TAB PO PRN (09:11)
[2023-07-06] MEDS ORDERED: SIMETHICONE 80 MG CHEWABLE PO PRN (09:11)
[2023-07-06] MEDS ORDERED: ALBUTEROL HFA INHALER INHALATION PRN (09:11)
[2023-07-06] MEDS ORDERED: SENNOSIDES-DOCUSATE SODIUM 1 EACH TAB PO PRN (09:11)
[2023-07-06] MEDS ORDERED: RX INFO: IV CONTRAST WAS GIVEN 1 EACH MISC MISCELLANE PRN (09:14)
[2023-07-06] MEDS ORDERED: ZOLPIDEM 5 MG TAB PO PRN (09:14)
[2023-07-06] MEDS ORDERED: ATROPINE SULFATE 0.1 MG/ML 10ML SYRINGE IV PRN (09:14)
[2023-07-06] MEDS ORDERED: NITROGLYCERIN SL TABS 0.4 MG TAB SUBLINGUAL PRN (09:14)
[2023-07-06] MEDS ORDERED: MAG HYDROX/AL HYDROX/SIMETH 30 ML CUP PO PRN (09:14)
[2023-07-06] MEDS ORDERED: SODIUM CHLORIDE 0.9% 1,000 ML in EMPTY BAG 1 BAG IV SCH (09:15)
--- NOTE | 2023-07-06 09:22 | P.PCN ---
Date of Procedure: 07/06/23 Operative Findings: PERCUTANEOUS CORONARY INTERVENTION Performing physician Manpreet Bergeron M.D. Procedure Performed: 1. Successful stenting of the distal LAD using 3.25 x 38 mm Xience drug-eluting stent with an excellent angiographic results. 2. Successful stending of the mid LAD using 3.5 x 38 Xience drug-eluting stent with an excellent angiographic result. 3. Adjunctive use of intravascular imaging 4. Left coronary angiogram 5. Ultrasound-guided access of the right radial artery Indication: This is a 68-year-old female patient with multiple comorbidities including history of stroke with severe consequences after the stroke as well as lower extremities PAD with prior revascularization as well as diabetes and hypertension and dyslipidemia who was seen in the office several months ago for further evaluation of syncope concerning for cardiac syncope. She underwent further investigation including an echo which revealed impaired LV function was EF around 45% as well as myocardial perfusion imaging stress test came in to be abnormal. Subsequently she underwent a heart catheterization and that revealed severe triple-vessel coronary artery disease was chronic total occlusion of the RCA and critical disease involving the left circumflex and LAD. She was seen by cardiothoracic surgeon and she was deemed to be high risk for percutaneous coronary intervention. Subsequently after that the patient was treated medically. The family including the hospital and the patient requiring further revascularization with stenting. The patient was brought today to undergo stenting of the LAD. Approach: Right radial artery Complications: None Level of Sedation: Moderate with a sedation length of 57 minutes Procedure Discussion: After obtaining an informed consent the patient was brought to the cardiac laboratory chemical assistant. The right radial artery was cannulated using micropuncture technique under ultrasound guidance and the micropuncture wire passed easily then I placed a 6- [place] sheath 11 cm at the right radial artery. Anticoagulation was initiated using heparin and the patient was given initially 4000 use of heparin at the beginning of the procedure with continuous ACT monitoring additional 5000 use of heparin 2 given as well. After that also the patient was given at the beginning of the procedure 2 mg of verapamil intra-arterial. Subsequently I did engage the left main using a CLS 3 guiding catheter. Left coronary angiogram was performed and showed critical disease involving the LAD and left circumflex appears to be unchanged compared to before. After that I did wire the LAD using a run-through wire. The wire was advanced to the apical LAD. After that I did intravascular ultrasound of the left anterior descending artery and that showed a diameter appeared to be in the range of about 3.25-3.5 mm was calcified but not extremely calcified artery. I did balloon angioplasty using 2.5 mm noncompliant balloon and I did balloon angioplasty of the distal and mid left anterior descending artery. After that I did attempt advancing 3.25 x 38 mm stent but the stent would not cross from the left main to the LAD in spite of using guide liner. Subsequently I did use a sean wire with another run-through wire and the wire was advanced to the distal LAD again. I did at that point balloon angioplasty this time using 3 mm noncompliant balloon of the mid and proximal left anterior descending artery. With that I was able to advance 3.25 x 38 mm stent to the distal LAD and 3.5 x 38 mm stent to the mid LAD. There was about 3 mm overlap between the 2 stents. Both stents were deployed under fluoroscopy guidance and under nominal pressure. Post-isolation asked that was performed using 3.5 mm balloon for the whole stented segments. Final angiogram was performed and showed good angiographic results and the procedure was completed was no complication Postprocedure Management: 1. Dual antiplatelet therapy using Brilinta and aspirin for at least 6 months 2. Aggressive cholesterol control 3. Risk factors modification
[2023-07-06 14:36] VITALS: BMI 20.9
[2023-07-06] MEDS: SODIUM CHLORIDE 0.9% 1,000 ML in EMPTY BAG 1 BAG IV SCH ×2 (15:32→22:16)
[2023-07-06 17:05] LABS: Glucose,Whole Blood 167 mg/dL (70-110)
[2023-07-06] MEDS: TAMSULOSIN 0.4 MG CAP.ER.24H PO SCH (17:54)
[2023-07-06] MEDS: FERROUS SULFATE 325 MG TAB PO SCH (17:55)
[2023-07-06] MEDS: SERTRALINE 50 MG TAB PO SCH (17:55)
[2023-07-06] MEDS: LORATADINE 10 MG TAB PO SCH (17:55)
[2023-07-06] MEDS: GABAPENTIN 300 MG CAP PO SCH ×2 (17:55→20:51)
[2023-07-06 19:32] LABS: Glucose,Whole Blood 180 mg/dL (70-110)
[2023-07-06] MEDS: MEMANTINE 5 MG TAB PO SCH (20:50)
[2023-07-06] MEDS: TICAGRELOR 90 MG TAB PO SCH (20:50)
[2023-07-06] MEDS: carvediloL 6.25 MG TAB PO SCH (20:50)
[2023-07-06] MEDS: INSULIN ASPART (NovoLOG) 100 UNIT/ML VIAL SQ SCH (20:51)
[2023-07-06] MEDS ORDERED: amLODIPine 5 MG TAB PO SCH (21:00)
[2023-07-06] MEDS ORDERED: ATORVASTATIN 80 MG TAB PO SCH (21:00)
[2023-07-06] MEDS ORDERED: MELATONIN 3 MG TABLET PO SCH (21:00)
[2023-07-06] MEDS ORDERED: INSULIN DETEMIR (LEVEMIR) 100 UNIT/ML SYR SQ SCH (21:00)
[2023-07-06] MEDS ORDERED: KETOCONAZOLE 2% SHAMPOO 1 APPLIC/ML TOPICAL PRN (21:00)
[2023-07-06] MEDS ORDERED: ADAPALENE 0.1% TOPICAL SCH (21:00)
[2023-07-07 06:21] LABS: Glucose,Whole Blood 118 mg/dL (70-110)
[2023-07-07 08:20] VITALS: BP 147/89; PULSE 73; RESP 18; TEMP 98.4
[2023-07-07] MEDS ORDERED: MULTIVITAMINS, THERA 1 EACH TAB PO SCH (09:00)
[2023-07-07] MEDS ORDERED: ASPIRIN 81 MG PO SCH (09:00)
[2023-07-07] MEDS ORDERED: FUROSEMIDE 20 MG TAB PO SCH (09:00)
[2023-07-07] MEDS ORDERED: lisinopriL 20 MG TAB PO SCH (09:00)
[2023-07-07] MEDS: FERROUS SULFATE 325 MG TAB PO SCH (09:02)
[2023-07-07] MEDS: TICAGRELOR 90 MG TAB PO SCH (09:02)
[2023-07-07] MEDS: LORATADINE 10 MG TAB PO SCH (09:03)
[2023-07-07] MEDS: carvediloL 6.25 MG TAB PO SCH (09:03)
[2023-07-07] MEDS: GABAPENTIN 300 MG CAP PO SCH (09:03)
[2023-07-07] MEDS: SERTRALINE 50 MG TAB PO SCH (09:03)
[2023-07-07] MEDS: MEMANTINE 5 MG TAB PO SCH (09:03)
[2023-07-07] MEDS: TAMSULOSIN 0.4 MG CAP.ER.24H PO SCH (09:03)
[2023-07-07] MEDS: INSULIN ASPART (NovoLOG) 100 UNIT/ML VIAL SQ SCH (09:03)
[2023-07-07 09:44] LABS: African American GFR (CKD) >90 (>60 ml/min/1.73 sqM); Non-African American GFR(CKD) >90 (>60 ml/min/1.73 sqM)
--- NOTE | 2023-07-07 12:58 | P.DS ---
Providers Attending physician: Manpreet Bergeron Consults: 07/06/23 09:14 Consult Physician Routine Consulting Provider: [facility] Consult Reason/Comments: Post Interventional patient Do you want consulting provider notified?: Already Contacted Primary care physician: Laura Casas [facility] Course: The patient is a pleasant 68-year-old female patient who underwent yesterday successful stenting of the distal and mid left anterior descending artery with a good angiographic results She was seen this morning. She is feeling overall better. The shortness of breath is better. No pain in the chest. She remains hemodynamically stable. The patient is going to be discharged on dual antiplatelet therapy along with a statin. She will be seen in the office in a week The patient was informed about the importance of taking her medications especially dual antiplatelet therapy. Plan - Discharge Summary Discharge Rx Participant: No New Discharge Prescriptions: New Ticagrelor [Brilinta] 90 mg PO BID #180 tab Continue Sertraline [Zoloft] 50 mg PO DAILY carvediloL [Coreg] 6.25 mg PO BID Atorvastatin [Lipitor] 80 mg PO HS Albuterol Inhaler [Ventolin Hfa Inhaler] 2 puff INHALATION Q6HR PRN PRN Reason: Shortness Of Breath Or Wheezing Multivitamins, Thera [Multivitamin (formulary)] 1 tab PO DAILY Memantine [Namenda] 5 mg PO Q12HR tiZANidine HCL [Zanaflex] 2 mg PO HS PRN PRN Reason: Pain lisinopriL [Zestril] 20 mg PO DAILY Ammonium Lactate Lotion [Lac-Hydrin 12% Lotion] 1 applic TOPICAL BID Insulin Aspart [NovoLOG] 3 units SQ BID Simethicone Chew [Mylicon Chew] 80 mg PO QID PRN PRN Reason: gas pain Aspirin EC [Ecotrin Low Dose] 81 mg PO DAILY Acetaminophen [Tylenol] 650 mg PO Q8HR PRN PRN Reason: Pain Tamsulosin HCl [Flomax] 0.4 mg PO DAILY Furosemide [Lasix] 20 mg PO DAILY tab amLODIPine [Norvasc] 5 mg PO HS tab HYDROcodone/APAP 5-325MG [[place] 5-325] 1 tab PO Q6H PRN #12 tab PRN Reason: Pain INSULIN ASPART (NovoLOG) [NovoLOG (formulary)] See Protocol SQ BID PRN PRN Reason: scale Insulin Glargine,Hum.rec.anlog [Lantus Solostar Pen] 12 units SQ HS Gabapentin [Neurontin] 300 mg PO TID Melatonin 3 mg PO HS Cetirizine HCl [Zyrtec] 10 mg PO DAILY Ferrous Sulfate [Iron (65 MG Elemental)] 325 mg PO DAILY Sennosides/Docusate Sodium [Senna Plus 8.6-50 mg Softgel] 1 each PO DIRECTED PRN PRN Reason: Constipation Lactulose 20 gm PO DIRECTED PRN PRN Reason: Constipation Adapalene [Adapalene 0.1% Cream] 1 applic TOPICAL HS Ketoconazole 2% Shampoo [Nizoral] 1 applic TOPICAL DIRECTED Discontinued metFORMIN HCL [Glucophage] 500 mg PO BID Discharge Medication List Aspirin EC [Ecotrin Low Dose] 81 mg PO DAILY 07/23/22 [History] Sertraline [Zoloft] 50 mg PO DAILY 07/23/22 [History] Acetaminophen [Tylenol] 650 mg PO Q8HR PRN 11/03/22 [History] Atorvastatin [Lipitor] 80 mg PO HS 11/03/22 [History] Tamsulosin HCl [Flomax] 0.4 mg PO DAILY 11/03/22 [History] carvediloL [Coreg] 6.25 mg PO BID 11/03/22 [History] Furosemide [Lasix] 20 mg PO DAILY tab 11/10/22 [Rx] HYDROcodone/APAP 5-325MG [[place] 5-325] 1 tab PO Q6H PRN #12 tab 11/10/22 [Rx] amLODIPine [Norvasc] 5 mg PO HS tab 11/10/22 [Rx] Albuterol Inhaler [Ventolin Hfa Inhaler] 2 puff INHALATION Q6HR PRN 01/26/23 [History] Gabapentin [Neurontin] 300 mg PO TID 01/26/23 [History] INSULIN ASPART (NovoLOG) [NovoLOG (formulary)] See Protocol SQ BID PRN 01/26/23 [History] Insulin Glargine,Hum.rec.anlog [Lantus Solostar Pen] 12 units SQ HS 01/26/23 [History] Melatonin 3 mg PO HS 01/26/23 [History] Memantine [Namenda] 5 mg PO Q12HR 01/26/23 [History] Multivitamins, Thera [Multivitamin (formulary)] 1 tab PO DAILY 01/26/23 [History] tiZANidine HCL [Zanaflex] 2 mg PO HS PRN 01/26/23 [History] Cetirizine HCl [Zyrtec] 10 mg PO DAILY 05/05/23 [History] Ferrous Sulfate [Iron (65 MG Elemental)] 325 mg PO DAILY 05/05/23 [History] Lactulose 20 gm PO DIRECTED PRN 05/05/23 [History] Sennosides/Docusate Sodium [Senna Plus 8.6-50 mg Softgel] 1 each PO DIRECTED PRN 05/05/23 [History] lisinopriL [Zestril] 20 mg PO DAILY 05/05/23 [History] Adapalene [Adapalene 0.1% Cream] 1 applic TOPICAL HS 07/05/23 [History] Ammonium Lactate Lotion [Lac-Hydrin 12% Lotion] 1 applic TOPICAL BID 07/05/23 [History] Insulin Aspart [NovoLOG] 3 units SQ BID 07/05/23 [History] Ketoconazole 2% Shampoo [Nizoral] 1 applic TOPICAL DIRECTED 07/05/23 [History] Simethicone Chew [Mylicon Chew] 80 mg PO QID PRN 07/05/23 [History] Ticagrelor [Brilinta] 90 mg PO BID #180 tab 07/07/23 [Rx] Follow up Appointment(s)/Referral(s): Manpreet Bergeron MD [STAFF PHYSICIAN] - 07/14/23 1:30 pm (OFFICE WILL CALL WITH APPOINTMENT. ) Patient Instructions/Handouts: *Surgery [facility] - After Heart Catheterization - Lard Mixer Instructions, After Radial Heart Catheterization (GEN) Activity/Diet/Wound Care/Special Instructions: NO METFORMIN FOR 48 HOURS. No driving for two days Ok to shower tomorrow but no baths, pools, lakes, doing dishes by hand for five days. Signs of infection IE: fever, rash, drainage from puncture site, swelling go to ER/doctor for immediate evaluation. Avoid using right wrist/hand to bend, flex, lift greater than 5 lbs for five days. For Heavy Bleeding of puncture site apply firm direct pressure and return to ER. Do not attempt to drive self. low sodium/low fat diet medications as directed by Cardiologists Discharge Disposition: TRANSFER TO SNF/ECF
== END 2023-07-07 11:35 ==
LOC: CATHCVL 06:34 → 3SCARD 11:15 → CATHCVL 07-07 11:35
PROVIDERS: ATTEND Internal Medicine Interventional Cardiology
DX: I25.10 Atherosclerotic heart disease of native coronary artery without angina pectoris (principal); I38 Endocarditis, valve unspecified; I10 Essential (primary) hypertension; E78.5 Hyperlipidemia, unspecified; Z95.5 Presence of coronary angioplasty implant and graft; Z79.02 Long term (current) use of antithrombotics/antiplatelets; Z79.4 Long term (current) use of insulin; Z79.82 Long term (current) use of aspirin; Z79.899 Other long term (current) drug therapy; Z79.84 Long term (current) use of oral hypoglycemic drugs
CPT/HCPCS: 92978; 82565; C9600; C1887 ×2; C1769 ×3; C1894; C1753; C1874 ×2; C1725 ×3; J2250; J0360; J2001; J1644; J3010; Q9967

== ENCOUNTER → 2023-07-11 | Outpatient (CLI) | payer MEDICARE ==
[2023-07-11 15:59] LABS: Albumin 3.7 d/dL (3.8-4.9); Immunoglobulin M 53.8 mg/dL (40.0-280.0); Protein, Total 6.3 d/dL (6.2-8.2)
[2023-07-11 19:41] LABS: Anti-DNA, DS unit <1.0 IU/mL; Anti-Smith Ab Interp Negative (Negative); Chromatin Antibody <0.2 AI; DNA Double-Stranded Negative (Negative); Scleroderma SC-70 Ab <0.2 AI
== END | disposition home or self-care (01) ==
LOC: LABWHC1 10:46
PROVIDERS: ATTEND Family Medicine
DX: R20.2 Paresthesia of skin (principal); R76.8 Other specified abnormal immunological findings in serum
CPT/HCPCS: 36415; 84165; 86225; 86235; 86334

== ENCOUNTER 2023-08-09 07:54 | Day surgery (SDC) | payer MEDICARE ==
[2023-08-03 16:06] VITALS: BMI 20.8
--- NOTE | 2023-08-08 08:44 | P.HPOR ---
History of Present Illness H&P Date: 08/08/23 Subjective: This is a 68 year old female that presents today for initial evaluation regarding a year history of progressively worsening right hand paresthesias in the thumb, index, middle and ring fingers. The patient has tried a carpal tunnel injection with Dr. Greco on 04/27/23 and has 3 weeks of symptoms relief. She has a history of stroke that has resolved in significant left sided weakness over 1 year ago and has been relying heavily on the right hand since which she thinks may have started some of her symptoms. Physical Examination: RUE: AIN/PIN/Radial/Ulnar/Median motor intact. Radial/Ulnar/SILT. Sensation diminished in median nerve distribution. 2+/4 Radial/Ulnar pulses palpated. 4/5 APB, 5/5 FDI. Negative Finkelsteins, negative CMC grind, positive Durkan's compression. EMG/NCV: EMG/NCV performed on 05/03/23 demonstrates severe right carpal tunnel syndrome Impression: 1.) Right carpal tunnel syndrome Plan: Diagnosis and treatment options were discussed with the patient. The patient has failed conservative treatment and would like to pursue a right open carpal tunnel release under straight local anesthetic due to multiple medical comorbidities. Risks and benefits of surgery including bleeding, infection, damage to surrounding tissue, need for further surgery, residual numbness due to severe findings on EMG were discussed and the patient wished to go forward with surgery. 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 Smoking Status: Never smoker - Past Family History Mother Family Medical History: Cancer Additional Family Medical History / Comment(s): History of lower back fusion Father Family Medical History: Coronary Artery Disease (CAD) Medications and Allergies Home Medications Medication Instructions Recorded Confirmed Type Aspirin EC [Ecotrin Low Dose] 81 mg PO DAILY 07/23/22 08/07/23 History Sertraline [Zoloft] 50 mg PO DAILY 07/23/22 08/07/23 History Acetaminophen [Tylenol] 650 mg PO Q8HR PRN 11/03/22 08/07/23 History Atorvastatin [Lipitor] 80 mg PO HS 11/03/22 08/07/23 History Tamsulosin HCl [Flomax] 0.4 mg PO DAILY 11/03/22 08/07/23 History carvediloL [Coreg] 6.25 mg PO BID 11/03/22 08/07/23 History Furosemide [Lasix] 20 mg PO DAILY tab 11/10/22 08/07/23 Rx HYDROcodone/APAP 5-325MG [[place] 1 tab PO Q6H PRN #12 tab 11/10/22 08/07/23 Rx 5-325] amLODIPine [Norvasc] 5 mg PO HS tab 11/10/22 08/07/23 Rx Albuterol Inhaler [Ventolin Hfa 2 puff INHALATION Q6HR PRN 01/26/23 08/07/23 History Inhaler] Gabapentin [Neurontin] 300 mg PO TID 01/26/23 08/07/23 History INSULIN ASPART (NovoLOG) [NovoLOG See Protocol SQ BID PRN 01/26/23 08/07/23 History (formulary)] Insulin Glargine,Hum.rec.anlog 12 units SQ HS 01/26/23 08/07/23 History [Lantus Solostar Pen] Melatonin 3 mg PO HS 01/26/23 08/07/23 History Memantine [Namenda] 5 mg PO Q12HR 01/26/23 08/07/23 History Multivitamins, Thera [Multivitamin 1 tab PO DAILY 01/26/23 08/07/23 History (formulary)] tiZANidine HCL [Zanaflex] 2 mg PO HS PRN 01/26/23 08/07/23 History Cetirizine HCl [Zyrtec] 10 mg PO DAILY 05/05/23 08/07/23 History Ferrous Sulfate [Iron (65 MG 325 mg PO DAILY 05/05/23 08/07/23 History Elemental)] Lactulose 20 gm PO DIRECTED PRN 05/05/23 08/07/23 History Sennosides/Docusate Sodium [Senna 1 each PO DIRECTED PRN 05/05/23 08/07/23 History Plus 8.6-50 mg Softgel] lisinopriL [Zestril] 20 mg PO DAILY 05/05/23 08/07/23 History Adapalene [Adapalene 0.1% Cream] 1 applic TOPICAL HS 07/05/23 08/07/23 History Ammonium Lactate Lotion 1 applic TOPICAL BID 07/05/23 08/07/23 History [Lac-Hydrin 12% Lotion] Insulin Aspart [NovoLOG] 3 units SQ BID 07/05/23 08/07/23 History Ketoconazole 2% Shampoo [Nizoral] 1 applic TOPICAL DIRECTED 07/05/23 08/07/23 History Simethicone Chew [Mylicon Chew] 80 mg PO QID PRN 07/05/23 08/07/23 History Ticagrelor [Brilinta] 90 mg PO BID #180 tab 07/07/23 08/07/23 Rx Allergies Allergy/AdvReac Type Severity Reaction Status Date / Time unknown sleep aid Allergy Rash/Hives Uncoded 08/03/23 15:48 Physical Examination Osteopathic Statement: *. No significant issues noted on an osteopathic structural exam other than those noted in the History and Physical/Consult.
[~2023-08-09 07:54] MED LIST changes: -ALPRAZolam 0.25 MG TAB PO PRN; -ALPRAZolam 0.5 MG TAB PO PRN; -ASPIRIN 325 MG TAB PO STA; -ATORVASTATIN 80 MG TAB PO STA; +DEXAMETHASONE SOD PHOSPHATE 4 MG/ML 1 ML VIAL IV ONE; -HEPARIN SODIUM,PORCINE (1 ML) 2,500 UNIT in SODIUM CHLORIDE 0.9% 250 ML IRRIGATION PRN; -HEPARIN SODIUM,PORCINE 10,000 UNIT in SODIUM CHLORIDE 0.9% 1,000 ML IRRIGATION PRN; +HYDROmorphone 0.5 MG/0.5 ML SYRINGE IVP PRN; +LACTATED RINGERS 1,000 ML IV SCH; +LIDOCAINE 1% (10MG/ML) FOR IV START INTRADERMA PRN; +MIDAZOLAM 2 MG/2 ML VIAL IV PRN; -NITROGLYCERIN SL TABS 0.4 MG TAB SUBLINGUAL PRN; +ONDANSETRON 4 MG/2 ML VIAL IVP ONE; +Pre Op ABX Message 1 EACH MISC MISCELLANE ONE
[2023-08-09 08:35] LABS: Glucose,Whole Blood 270 mg/dL (70-110)
[2023-08-09 08:44] VITALS: TEMP 97.2
[2023-08-09] MEDS ORDERED: LIDOCAINE 2%-EPI 1:100,000 20 ML VIAL INTRAARTIC ONE (09:03)
--- NOTE | 2023-08-09 09:25 | P.OP ---
Date of Procedure: 08/09/23 Preoperative Diagnosis: Right carpal tunnel syndrome Postoperative Diagnosis: Right carpal tunnel syndrome Procedure(s) Performed: Right open carpal tunnel release Anesthesia: local Surgeon: Jake Moulton Estimated Blood Loss (ml): 10 Pathology: none sent Condition: stable Disposition: PACU Description of Procedure: This is a 68 year old female who presents today for a right open carpal tunnel release after having failed conservative treatment in the past. Risks and benefits of surgery were discussed with the patient including bleeding, damage to surrounding tissue, infection, need for further surgery as well as risks of anesthesia including pulmonary embolism and even and the patient wished to proceed with surgical intervention. The patients was seen in the pre-operative area by myself. Consent and H&P were completed and updated. The correct extremity was marked in the pre-operative area by myself and all other questions were answered. Operative Narrative: The patient was brought to the operating room by the department of anesthes ia. They remained on the portable stretcher and a rolling hand table was brought to the side of the operative extremity. Pre-operative time out was performed indicating the correct patient, procedure and laterality. All in the room agreed. The procedure was done under local anesthetic with 1% Lidocaine with epinephrine which was injected into the subcutaneous tissues of the palmar skin, 12ccs total. A nonsterile tourniquet was then applied to the operative extremity and the right upper extremity was then prepped and draped in normal sterile fashion. The operative extremity was the exsanguinated with an esmarch bandage and the tourniquet was inflated to 250mmHg. 15 blade scalpel was utilized to make a longitudinal incision on the palmar skin in line with the radial boarder of the ring finger to a point distally at the intersection of Kaplans cardinal line. Heiss retractor was utilized to spread subcutaneous tissue and scalpel was used to cut through the superficial palmar fascia to reveal the transverse carpal ligament. The transverse carpal ligament was then sharply incised in line with the incision and tenotomy scissors were used to spread distally and the distal portion of the transverse carpal ligament was released using tenotomy scissors from distal to proximal under direct visualization. The median nerve was directly visualized and was intact. Proximal fascia of the distal forearm was also released under direct visualization taking care to preserve the palmar cutaneous branch of the median nerve. The median nerve was identified and appeared very flattened and compressed in the carpal tunnel. The wound was then closed with 4-0 nylon suture in a horizontal mattress fashion. Sterile dressing was applied consisting of adaptic, 4x4s, webril, and an lima bandage. Tourniquet was let down and the hand immediately was well perfused. The patient was then woken by the department of anesthesia and transferred to PACU in stable condition. Jake Moulton D.O. Orthopedic Hand/Upper Extremity Surgeon
[2023-08-09 09:38] LABS: Glucose,Whole Blood 248 mg/dL (70-110)
[2023-08-09 09:54] VITALS: BP 139/80; PULSE 69; RESP 16
[2023-08-09] MEDS ORDERED: INSULIN ASPART (NovoLOG) 100 UNIT/ML VIAL SQ ONE (09:55)
== END 2023-08-09 10:16 | disposition home or self-care (01) ==
LOC: OR 07:54
PROVIDERS: ATTEND Orthopaedic Surgery Hand Surgery
DX: G56.01 Carpal tunnel syndrome, right upper limb (principal); I25.10 Atherosclerotic heart disease of native coronary artery without angina pectoris; I11.0 Hypertensive heart disease with heart failure; Z86.73 Personal history of transient ischemic attack (TIA), and cerebral infarction without residual deficits; E11.9 Type 2 diabetes mellitus without complications; J18.9 Pneumonia, unspecified organism; I99.9 Unspecified disorder of circulatory system; G81.90 Hemiplegia, unspecified affecting unspecified side; Z93.1 Gastrostomy status; Z82.49 Family history of ischemic heart disease and other diseases of the circulatory system; Z79.82 Long term (current) use of aspirin; Z79.51 Long term (current) use of inhaled steroids; Z79.899 Other long term (current) drug therapy; Z79.4 Long term (current) use of insulin; Z79.02 Long term (current) use of antithrombotics/antiplatelets

== ENCOUNTER → 2023-11-09 | Outpatient (CLI) | payer MEDICARE | END | disposition home or self-care (01) | LOC: LABWHC1 06:55 | PROVIDERS: ATTEND Nurse Practitioner Family | DX: R76.8 Other specified abnormal immunological findings in serum (principal) | CPT/HCPCS: 36415; 86235 ==

== ENCOUNTER → 2024-01-31 | Day surgery (SDC) | payer MEDICARE, OTHER ==
[2024-01-30 12:45] VITALS: BMI 21.9
[~2024-01-31] MED LIST changes: +ALPRAZolam 0.25 MG TAB PO PRN; +ALPRAZolam 0.5 MG TAB PO PRN; +ASPIRIN 325 MG TAB PO PRN; -DEXAMETHASONE SOD PHOSPHATE 4 MG/ML 1 ML VIAL IV ONE; +HEPARIN SODIUM 1,000 UN/ML (10ML VL) ONE; +HEPARIN SODIUM,PORCINE (1 ML) 2,500 UNIT in SODIUM CHLORIDE 0.9% 250 ML IRRIGATION PRN; +HEPARIN SODIUM,PORCINE 10,000 UNIT in SODIUM CHLORIDE 0.9% 1,000 ML IRRIGATION PRN; -HYDROmorphone 0.5 MG/0.5 ML SYRINGE IVP PRN; +INSULIN ASPART (NovoLOG) 100 UNIT/ML VIAL SQ SCH; -LACTATED RINGERS 1,000 ML IV SCH; -LIDOCAINE 1% (10MG/ML) FOR IV START INTRADERMA PRN; +LIDOCAINE 1% INJ 10MG/ML (20 ML MDV) ONE; -MIDAZOLAM 2 MG/2 ML VIAL IV PRN; -ONDANSETRON 4 MG/2 ML VIAL IVP ONE; -Pre Op ABX Message 1 EACH MISC MISCELLANE ONE; +ZOLPIDEM 5 MG TAB PO PRN; +fentaNYL (PF) 50 MCG/ML 2 ML AMP ONE
[2024-01-31] MEDS: IV FLUID CONTINUATION 1,000 ML IV ONE (06:41)
[2024-01-31] MEDS: EMPTY BAG 1 BAG with SODIUM CHLORIDE 0.9% 1,000 ML IV SCH (06:41)
[2024-01-31 07:05] LABS: Glucose,Whole Blood 181 mg/dL (70-110)
[2024-01-31 07:14] VITALS: RESP 16; TEMP 99.3
[2024-01-31] MEDS: LIDOCAINE 1% INJ 10MG/ML (20 ML MDV) SQ ONE (07:39)
[2024-01-31] MEDS: MIDAZOLAM 2 MG/2 ML VIAL IVP ONE (07:39)
[2024-01-31] MEDS: fentaNYL (PF) 50 MCG/ML 2 ML AMP IVP ONE (07:40)
[2024-01-31] MEDS: SODIUM CHLORIDE 0.9% 1,000 ML IV ONE (08:42)
[2024-01-31] MEDS: IOPAMIDOL-370 100ML BTL INJ ONE (08:50)
--- NOTE | 2024-01-31 09:31 | P.OP ---
Date of Procedure: 01/31/24 Preoperative Diagnosis: High-grade stenosis of a right femoral to tibial in situ vein bypass graft. Hemodynamically significant on ultrasound. Postoperative Diagnosis: Same. Procedure(s) Performed: 1: Ultrasound-guided cannulation left common femoral artery. 2: Selective catheterization of the contralateral femoral artery. 3: Right femoral angiogram. 4: Ultrasound-guided cannulation right femoral to tibial artery in situ vein bypass graft. 5: Balloon dilation right common femoral artery and origin of the femoral to tibial in situ vein bypass graft Implants: None. Anesthesia: MAC (With 50 mcg of fentanyl and 2 mg of Versed administered intravenously for moderate conscious sedation purposes.), local (1% Xylocaine) Surgeon: Blayne Iglesias Estimated Blood Loss (ml): 50 Urine output (ml): 0 Pathology: none sent Condition: stable Disposition: no change Indications for Procedure: Patient is a 68-year-old female who had previously presented with ischemia of her right lower extremity for which she underwent a femoral to tibial in situ vein bypass graft. This bypass graft has been well functional for the patient and all her ischemic wounds of healed. In follow-up ultrasound duplex imaging demonstrated a progressively severe origin stenosis of the bypass graft. Otherwise the bypass graft appeared normally patent. Because of the increasing degree of stenosis and concern for graft thrombosis the patient is offered percutaneous intervention. The procedure, risk and benefits were discussed. All questions were answered to patient and spouse satisfaction. Consent form was signed. Description of Procedure: Patient was brought to the cardiac Patient Financial Counselor. She was placed in the supine position. The left groin was sterilely prepped and draped in the usual manner. Patient did receive 2 mg of Versed and 50 mcg of fentanyl for moderate conscious sedation purposes. Utilizing ultrasound the left common femoral artery was identified. 1% Xylocaine was utilized for local anesthesia of the tissues overlying this arterial segment. Through this anesthetized area a multipurpose needle was utilized to cannulate the artery. Once cannulated soft tipped guidewire was advanced easily. The needle was withdrawn and a 6 Slovak sheath was placed. Catheter and guidewire combination were utilized to cannulate the origin of the right common femoral artery. Guidewire was advanced down and into the profundus femoris artery. A angled glide catheter was then advanced over the wire and a right femoral angiogram was performed. The origin of the profundus, superficial femoral as well as the bypass graft were identified. The stenosis was identified. In spite of utilizing multiple guidewire and catheter combinations and obtaining multiple oblique views the origin of the bypass graft could not be successfully cannulated. In an attempt to aid in cannulation of the bypass graft a 5 mm diameter balloon catheter was utilized to balloon dilate the common femoral artery. In spite of this the origin of the bypass graft could be cannulated and this approach was abandoned. As such it was decided to approach the bypass graft stenosis from the mid thigh area of the bypass graft. The right thigh was then sterilely prepped and draped in usual manner. Ultrasound was utilized to identify the bypass graft. 1% Xylocaine was utilized for local anesthesia tissues overlying the bypass graft. Through this anesthetized area with the aid of ultrasound the graft was cannulated and a 5 Slovak sheath was placed. Angiogram was performed and utilizing roadmapping guidewire was advanced into the iliac system. The 5 Slovak sheath was exchanged for a 6 Slovak sheath and a 6 mm drug coated balloon was utilized to balloon dilate the stenotic area. Completion angiogram demonstrated the bypass graft Martin to be widely patent as was the origin of both the superficial femoral and profundus femoris segments. With the above findings noted and an excellent pulse width and the graft both sheaths were withdrawn and pressure was held at each puncture site until all evidence of bleeding ceased. Appropriate dressings were applied to each wound. Patient tolerated the procedure well and was taken to the outpatient area in satisfactory and stable condition. Total fluoroscopy time: 25 minutes. Total contrast volume utilized: 30 mL of [id number]. Total moderate conscious sedation time: 60 minutes. Plan - Discharge Summary Discharge Rx Participant: No New Discharge Prescriptions: No Action carvediloL [Coreg] 6.25 mg PO BID Atorvastatin [Lipitor] 80 mg PO HS tiZANidine HCL [Zanaflex] 2 mg PO HS lisinopriL [Zestril] 20 mg PO DAILY Ammonium Lactate Lotion [Lac-Hydrin 12% Lotion] 1 applic TOPICAL BID Simethicone Chew [Mylicon Chew] 80 mg PO QID PRN PRN Reason: gas pain Ticagrelor [Brilinta] 90 mg PO BID #180 tab Albuterol Inhaler [Ventolin Hfa Inhaler] 2 puff INHALATION Q6H PRN PRN Reason: Shortness Of Breath traMADol HCL 50 mg PO Q6H PRN PRN Reason: Pain Vit C/E/Zn/Coppr/Lutein/Zeaxan [Preservision Areds 2 Softgel] 1 each PO DAILY INSULIN LISPRO (humaLOG) [humaLOG] 5 units SQ AC-TID Insulin Lispro [Insulin Lispro Kwikpen U-100] 100 unit SQ TID PRN PRN Reason: Blood Sugar - High Aspirin EC [Ecotrin Low Dose] 81 mg PO DAILY Acetaminophen [Tylenol] 650 mg PO Q8HR PRN PRN Reason: Pain Tamsulosin HCl [Flomax] 0.4 mg PO DAILY Furosemide [Lasix] 20 mg PO DAILY tab amLODIPine [Norvasc] 5 mg PO HS tab Insulin Glargine,Hum.rec.anlog [Lantus Solostar Pen] 18 units SQ HS Gabapentin [Neurontin] 300 mg PO TID Melatonin 3 mg PO HS Cetirizine HCl [Zyrtec] 10 mg PO DAILY Ferrous Sulfate [Iron (65 MG Elemental)] 325 mg PO DAILY Sennosides/Docusate Sodium [Senna Plus 8.6-50 mg Softgel] 1 each PO Q24H PRN PRN Reason: Constipation Lactulose 30 ml PO Q24H PRN PRN Reason: Constipation Ketoconazole 2% Shampoo [Nizoral] 1 applic TOPICAL MOFR Acetaminophen [Tylenol] 650 mg PO Q4H PRN PRN Reason: Pain/Fever Hydrocortisone Cream [Hydrocortisone 1% Cream] 1 applic TOPICAL BID PRN PRN Reason: Hyperkeratosis Discharge Medication List Aspirin EC [Ecotrin Low Dose] 81 mg PO DAILY 07/23/22 [History] Acetaminophen [Tylenol] 650 mg PO Q8HR PRN 11/03/22 [History] Atorvastatin [Lipitor] 80 mg PO HS 11/03/22 [History] Tamsulosin HCl [Flomax] 0.4 mg PO DAILY 11/03/22 [History] carvediloL [Coreg] 6.25 mg PO BID 11/03/22 [History] Furosemide [Lasix] 20 mg PO DAILY tab 11/10/22 [Rx] amLODIPine [Norvasc] 5 mg PO HS tab 11/10/22 [Rx] Gabapentin [Neurontin] 300 mg PO TID 01/26/23 [History] Insulin Glargine,Hum.rec.anlog [Lantus Solostar Pen] 18 units SQ HS 01/26/23 [History] Melatonin 3 mg PO HS 01/26/23 [History] tiZANidine HCL [Zanaflex] 2 mg PO HS 01/26/23 [History] Cetirizine HCl [Zyrtec] 10 mg PO DAILY 05/05/23 [History] Ferrous Sulfate [Iron (65 MG Elemental)] 325 mg PO DAILY 05/05/23 [History] Lactulose 30 ml PO Q24H PRN 05/05/23 [History] Sennosides/Docusate Sodium [Senna Plus 8.6-50 mg Softgel] 1 each PO Q24H PRN 05/05/23 [History] lisinopriL [Zestril] 20 mg PO DAILY 05/05/23 [History] Ammonium Lactate Lotion [Lac-Hydrin 12% Lotion] 1 applic TOPICAL BID 07/05/23 [History] Ketoconazole 2% Shampoo [Nizoral] 1 applic TOPICAL MOFR 07/05/23 [History] Simethicone Chew [Mylicon Chew] 80 mg PO QID PRN 07/05/23 [History] Ticagrelor [Brilinta] 90 mg PO BID #180 tab 07/07/23 [Rx] Acetaminophen [Tylenol] 650 mg PO Q4H PRN 01/30/24 [History] Albuterol Inhaler [Ventolin Hfa Inhaler] 2 puff INHALATION Q6H PRN 01/30/24 [History] Hydrocortisone Cream [Hydrocortisone 1% Cream] 1 applic TOPICAL BID PRN 01/30/24 [History] INSULIN LISPRO (humaLOG) [humaLOG] 5 units SQ AC-TID 01/30/24 [History] Insulin Lispro [Insulin Lispro Kwikpen U-100] 100 unit SQ TID PRN 01/30/24 [History] Vit C/E/Zn/Coppr/Lutein/Zeaxan [Preservision Areds 2 Softgel] 1 each PO DAILY 01/30/24 [History] traMADol HCL 50 mg PO Q6H PRN 01/30/24 [History] Follow up Appointment(s)/Referral(s): Blayne Iglesias DO [Doctor of Osteopathic Medicine] - 1 Week Patient Instructions/Handouts: Moderate Sedation (DC), Peripheral Vascular Angioplasty (DC), Angiography (DC) Activity/Diet/Wound Care/Special Instructions: RESUME BRILINTA TONIGHT. RESUME ALL REST OF MEDS TODAY. MONITOR PUNCTURE SITE FOR THREE DAYS FOR : RASH, SWELLING OR HARD KNOT, UNUSUAL DRAINAGE, FEVER, OR BLEEDING. FOR HEAVY BLEEDING, APPLY FIRM DIRECT PRESSURE AND CALL [address] BY CAR. FOR PAIN, ACETAMINOPHEN DIRECTED/NEEDED. OK TO SHOWER TOMORROW BUT NO BATHS/SOAKING FOR THREE DAYS TO AVOID RISK OF INFECTION.
--- NOTE | 2024-01-31 09:55 | IR ---
EXAMINATION TYPE: IR group captain femoral popliteal DATE OF EXAM: 01/31/2024 COMPARISON: NONE HISTORY: Fluoroscopy time. Fluoroscopy was provided to the referring clinician.
[2024-01-31 10:03] LABS: Glucose,Whole Blood 175 mg/dL (70-110)
[2024-01-31] MEDS: LORATADINE 10 MG TAB PO STA (10:34)
[2024-01-31] MEDS: TAMSULOSIN 0.4 MG CAP.ER.24H PO SCH (10:34)
[2024-01-31] MEDS: GABAPENTIN 300 MG CAP PO STA (10:45)
[2024-01-31] MEDS: carvediloL 6.25 MG TAB PO STA (11:00)
[2024-01-31 12:20] LABS: Glucose,Whole Blood 180 mg/dL (70-110)
[2024-01-31] MEDS: INSULIN ASPART (NovoLOG) 100 UNIT/ML VIAL SQ SCH (13:01)
[2024-01-31 19:23] VITALS: BP 143/82; PULSE 80
== END ==
LOC: CATHCVL 06:34
PROVIDERS: ATTEND Surgery
DX: T82.858A Stenosis of other vascular prosthetic devices, implants and grafts, initial encounter (principal); I10 Essential (primary) hypertension; E78.5 Hyperlipidemia, unspecified; E11.9 Type 2 diabetes mellitus without complications; I70.92 Chronic total occlusion of artery of the extremities; Z79.02 Long term (current) use of antithrombotics/antiplatelets; Z79.82 Long term (current) use of aspirin; Z86.73 Personal history of transient ischemic attack (TIA), and cerebral infarction without residual deficits; Y83.8 Other surgical procedures as the cause of abnormal reaction of the patient, or of later complication, without mention of misadventure at the time of the procedure
CPT/HCPCS: 37224; 75710; 76937; C1894 ×2; C1769 ×5; C1725; C2623; C1760; J2250; J2001; J3010; Q9967

== ENCOUNTER 2024-05-31 11:09 | Inpatient (IN) | payer MEDICARE, OTHER ==
[2024-05-31] MEDS ORDERED: VANCOMYCIN IV PER PHARMACY 1 EACH MISC MISCELLANE PRN (12:28)
--- NOTE | 2024-05-31 12:51 | ED ---
General Adult HPI - General Chief complaint: Skin/Abscess/Foreign Body Stated complaint: Pressure wound on left foot Time Seen by Provider: 05/31/24 12:11 Source: patient, RN notes reviewed, old records reviewed Mode of arrival: ambulatory Limitations: no limitations - History of Present Illness Initial comments: 69 yo female presenting with wound to the left foot lateral aspect. Patient developed a small pressure ulcer a 1 week ago and this has rapidly progressed. She does follow with wound care for nonhealing wounds on the right foot and has history of both diabetes and peripheral vascular disease. She has been on Keflex for the past 1 week but the wound continues to worsen, there is purulent drainage. There is erythema. - Related Data Home Medications Medication Instructions Recorded Confirmed Aspirin EC [Ecotrin Low Dose] 81 mg PO DAILY 07/23/22 05/31/24 Acetaminophen [Tylenol] 650 mg PO Q4H PRN 11/03/22 05/31/24 carvediloL [Coreg] 6.25 mg PO BID 11/03/22 05/31/24 Gabapentin [Neurontin] 300 mg PO TID@0600,1300,2100 01/26/23 05/31/24 Insulin Glargine,Hum.rec.anlog 18 units SQ HS 01/26/23 05/31/24 [Lantus Solostar Pen] Melatonin 3 mg PO HS 01/26/23 05/31/24 tiZANidine HCL [Zanaflex] 2 mg PO HS 01/26/23 05/31/24 Cetirizine HCl [Zyrtec] 10 mg PO DAILY 05/05/23 05/31/24 Ferrous Sulfate [Iron (65 MG 325 mg PO DAILY 05/05/23 05/31/24 Elemental)] Sennosides/Docusate Sodium [Senna 1 cap PO Q24H PRN 05/05/23 05/31/24 Plus 8.6-50 mg Softgel] lisinopriL [Zestril] 20 mg PO DAILY 05/05/23 05/31/24 Ammonium Lactate Lotion 1 applic TOPICAL BID 07/05/23 05/31/24 [Lac-Hydrin 12% Lotion] Ketoconazole 2% Shampoo [Nizoral] 1 applic TOPICAL MOFR 07/05/23 05/31/24 Simethicone Chew [Mylicon Chew] 80 mg PO Q6H PRN 07/05/23 05/31/24 Acetaminophen [Tylenol] 650 mg PO Q8H 01/30/24 05/31/24 Albuterol Inhaler [Ventolin Hfa 2 puff INHALATION RT-Q6H PRN 01/30/24 05/31/24 Inhaler] Vit C/E/Zn/Coppr/Lutein/Zeaxan 1 cap PO DAILY 01/30/24 05/31/24 [Preservision Areds 2 Softgel] traMADol HCL 50 mg PO Q6H PRN 01/30/24 05/31/24 Atorvastatin [Lipitor] 80 mg PO HS 05/31/24 05/31/24 Cephalexin [Keflex] 500 mg PO TID@0900,1300,2100 05/31/24 05/31/24 Collagenase [Santyl Ointment] 1 applic TOPICAL DAILY 05/31/24 05/31/24 Collagenase [Santyl Ointment] 1 applic TOPICAL DAILY PRN 05/31/24 05/31/24 Furosemide [Lasix] 20 mg PO DAILY@0600 05/31/24 05/31/24 Hydrocortisone Cream 1 applic TOPICAL BID PRN 05/31/24 05/31/24 [Hydrocortisone 1% Cream] INSULIN LISPRO (humaLOG) [humaLOG] 5 units SQ AC-TID@08,,05/31/24 05/31/24 INSULIN LISPRO (humaLOG) [humaLOG] See Protocol SQ AC-TID@08,,18 05/31/24 05/31/24 Lactulose 20 gm PO DAILY PRN 05/31/24 05/31/24 Levothyroxine Sodium [Synthroid] 25 mcg PO DAILY@0600 05/31/24 05/31/24 Previous Rx's Medication Instructions Recorded Ticagrelor [Brilinta] 90 mg PO BID #180 tab 07/07/23 Allergies Allergy/AdvReac Type Severity Reaction Status Date / Time unknown sleep aid Allergy Rash/Hives Uncoded 05/31/24 13:36 Review of Systems ROS Statement: Those systems with pertinent positive or pertinent negative responses have been documented in the HPI. ROS Other: All systems not noted in ROS Statement are negative. 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 Hx falls. Diverticulitis. PVD. Dysphagia. Has peg tube but is not in use. Needs 2 staff to pivot/transfer pt. Currently resides at [facility] since November 2022. Hx acute respiratory failure. Neuromuscular dysfunction of bladder. History of Any Multi-Drug Resistant Organisms: MRSA Date of last positivie culture/infection: 02/15/23 MDRO Source:: rt foot Past Surgical History: Section, Heart Catheterization, Orthopedic Surgery, Tonsillectomy Additional Past Surgical History / Comment(s): Right Femoral Popliteal bypass 10/19/22, at [facility], amputation of second third and fourth toes on right foot, carpal tunnel surgery. Past Anesthesia/Blood Transfusion Reactions: No Reported Reaction Additional Past Anesthesia/Blood Transfusion Reaction / Comment(s): Never received blood. Past Psychological History: Depression Smoking Status: Never smoker Past Alcohol Use History: None Reported Past Drug Use History: None Reported - Past Family History Mother Family Medical History: Cancer Additional Family Medical History / Comment(s): History of lower back fusion Father Family Medical History: Coronary Artery Disease (CAD) General Exam Limitations: no limitations General appearance: alert, in no apparent distress Head exam: Present: atraumatic, normocephalic Respiratory exam: Present: normal lung sounds bilaterally. Absent: respiratory distress, wheezes Cardiovascular Exam: Present: regular rate, normal rhythm Extremities exam: Present: other (Open ulceration at the base of the fifth digit left foot with purulent drainage, surrounding erythema and the fifth digit is purple) Course Vital Signs 05/31/24 05/31/24 11:12 14:05 Temperature 98.5 F Pulse Rate 76 69 Respiratory 18 16 Rate Blood Pressure 136/85 143/78 O2 Sat by Pulse 95 98 Oximetry Medical Decision Making - Medical Decision Making Was pt. sent in by a medical professional or institution (, PA, GLASS BLOCK INSTALLER, urgent care, hospital, or [facility]...) When possible be specific @ -No Did you speak to anyone other than the patient for history (EMS, parent, family, police, friend...)? What history was obtained from this source @ -No Did you review nursing and triage notes (agree or disagree)? Why? @ -I reviewed and agree with nursing and triage notes Were old charts reviewed (outside hosp., previous admission, EMS record, old EKG, old radiological studies, urgent care reports/EKG's, [facility] records)? Report findings @ -No old charts were reviewed Differential Diagnosis diabetic foot ulcer, gangrene, cellulitis, osteomyelitis EKG interpreted by me (3pts min.). @ -As above X-rays interpreted by me (1pt min.). @ -[X-ray of the left foot ordered, results pending CT interpreted by me (1pt min.). @ -None done U/S interpreted by me (1pt. min.). @ -None done What testing was considered but not performed or refused? (CT, X-rays, U/S, labs)? Why? @ -None What meds were considered but not given or refused? Why? @ -None Did you discuss the management of the patient with other professionals (professionals i.e. , PA, GL[employer] BLOCK INSTALLER, lab, RT, psych nurse, oncology social worker, steam and power supervisor, teacher, customs and immigration officer, major case detective)? Give summary @ - Sheet Was smoking cessation discussed for >3mins.? @ -No Was critical care preformed (if so, how long)? @ -No Were there social determinants of health that impacted care today? How? (Homelessness, low income, unemployed, alcoholism, drug addiction, transportation, low edu. Level, literacy, decrease access to med. care, nursing home, rehab)? @ -No Was there de-escalation of care discussed even if they declined (Discuss DNR or withdrawal of care, Hospice)? DNR status @ -No What co-morbidities impacted this encounter? (DM, HTN, Smoking, COPD, CAD, Cancer, CVA, ARF, Chemo, Hep., AIDS, mental health diagnosis, sleep apnea, morbid obesity)? @ -[Diabetes, peripheral vascular disease Was patient admitted / discharged? Hospital course, mention meds given and route, prescriptions, significant lab abnormalities, going to OR and other pertinent info. @69-year-old female with gangrene and ulceration of the left lateral foot at the base of the fifth digit. Patient started on Zosyn and vancomycin. She has an elevated white blood cell count. Remainder of laboratory testing is otherwise unremarkable. Patient admitted to internal medicine with vascular on consult. Undiagnosed new problem with uncertain prognosis? @ -No Drug Therapy requiring intensive monitoring for toxicity (Heparin, Nitro, Insulin, Cardizem)? @ -No Were any procedures done? @ -No Diagnosis/symptom? @ -Gangrene, failed outpatient treatment Acute, or Chronic, or Acute on Chronic? @ -Acute Uncomplicated (without systemic symptoms) or Complicated (systemic symptoms)? @ -Default Side effects of treatment? @ -No Exacerbation, Progression, or Severe Exacerbation? @ -No Poses a threat to life or bodily function? How? (Chest pain, USA, ME, pneumonia, PE, COPD, DKA, ARF, appy, cholecystitis, CVA, Diverticulitis, Homicidal, Suicidal, threat to staff... and all critical care pts) @ -[Yes, sepsis - Lab Data Result diagrams: 05/31/24 13:17 05/31/24 13:17 Lab Results 05/31/24 05/31/24 05/31/24 Range/Units 13:17 13:17 13:17 WBC 17.1 H (3.8-10.6) k/uL RBC 3.92 (3.80-5.40) m/uL Hgb 11.8 (11.4-16.0) gm/dL Hct 36.4 (34.0-46.0) % MCV 92.9 (80.0-100.0) fL MCH 30.2 (25.0-35.0) pg MCHC 32.5 (31.0-37.0) g/dL RDW 12.3 (11.5-15.5) % Plt Count 543 H (150-450) k/uL MPV 6.6 Neutrophils % 79 % Lymphocytes % 14 % Monocytes % 4 % Eosinophils % 2 % Basophils % 0 % Neutrophils # 13.5 H (1.3-7.7) k/uL Lymphocytes # 2.4 (1.0-4.8) k/uL Monocytes # 0.7 (0-1.0) k/uL Eosinophils # 0.3 (0-0.7) k/uL Basophils # 0.0 (0-0.2) k/uL PT 10.1 (10.0-12.5) sec INR 0.9 (<1.2) APTT 27.6 (22.0-30.0) sec Sodium 138 (137-145) mmol/L Potassium 4.2 (3.5-5.1) mmol/L Chloride 106 (98-107) mmol/L Carbon Dioxide 24 (22-30) mmol/L Anion Gap 8 mmol/L BUN 25 H (7-17) mg/dL Creatinine 0.79 (0.52-1.04) mg/dL Est GFR (CKD-EPI)AfAm >90 (>60 ml/min/1.73 sqM) Est GFR (CKD-EPI)NonAf 78 (>60 ml/min/1.73 sqM) Glucose 175 H (74-99) mg/dL Plasma Lactic Acid Jacky (0.7-2.0) mmol/L Calcium 9.4 (8.4-10.2) mg/dL Total Bilirubin 0.5 (0.2-1.3) mg/dL AST 25 (14-36) U/L ALT 22 (4-34) U/L Alkaline Phosphatase 129 H (38-126) U/L Total Protein 6.9 (6.3-8.2) g/dL Albumin 3.7 (3.5-5.0) g/dL 05/31/24 Range/Units 13:17 WBC (3.8-10.6) k/uL RBC (3.80-5.40) m/uL Hgb (11.4-16.0) gm/dL Hct (34.0-46.0) % MCV (80.0-100.0) fL MCH (25.0-35.0) pg MCHC (31.0-37.0) g/dL RDW (11.5-15.5) % Plt Count (150-450) k/uL MPV Neutrophils % % Lymphocytes % % Monocytes % % Eosinophils % % Basophils % % Neutrophils # (1.3-7.7) k/uL Lymphocytes # (1.0-4.8) k/uL Monocytes # (0-1.0) k/uL Eosinophils # (0-0.7) k/uL Basophils # (0-0.2) k/uL PT (10.0-12.5) sec INR (<1.2) APTT (22.0-30.0) sec Sodium (137-145) mmol/L Potassium (3.5-5.1) mmol/L Chloride (98-107) mmol/L Carbon Dioxide (22-30) mmol/L Anion Gap mmol/L BUN (7-17) mg/dL Creatinine (0.52-1.04) mg/dL Est GFR (CKD-EPI)AfAm (>60 ml/min/1.73 sqM) Est GFR (CKD-EPI)NonAf (>60 ml/min/1.73 sqM) Glucose (74-99) mg/dL Plasma Lactic Acid Jacky 0.9 (0.7-2.0) mmol/L Calcium (8.4-10.2) mg/dL Total Bilirubin (0.2-1.3) mg/dL AST (14-36) U/L ALT (4-34) U/L Alkaline Phosphatase (38-126) U/L Total Protein (6.3-8.2) g/dL Albumin (3.5-5.0) g/dL Disposition Clinical Impression: Gangrene, Cellulitis Disposition: ADMITTED IP TO THIS HOSP Condition: Stable Is patient prescribed a controlled substance at d/c from ED?: No Time of Disposition: 13:40
[2024-05-31] MEDS: SODIUM CHLORIDE 0.9% 1,000 ML IV SCH (13:22)
[2024-05-31] MEDS: PIPERACILLIN-TAZOBACTAM 3.375 GM in SODIUM CHLORIDE 0.9% 100 ML IVPB STA (13:25)
[2024-05-31 13:26] LABS: Basophils % (A) 0 %; Eosinophils # (A) 0.3 k/uL (0-0.7); Eosinophils % (A) 2 %; HCT 36.4 % (34.0-46.0); HGB 11.8 gm/dL (11.4-16.0); Lymphocytes # (A) 2.4 k/uL (1.0-4.8); Lymphocytes % (A) 14 %; MCH 30.2 pg (25.0-35.0); MCHC 32.5 g/dL (31.0-37.0); MCV 92.9 fL (80.0-100.0); Mean Platelet Volume 6.6; Monocytes # (A) 0.7 k/uL (0-1.0); Monocytes % (A) 4 %; Neutrophils # (A) 13.5 k/uL (1.3-7.7); Neutrophils % (A) 79 %; Platelet Count 543 k/uL (150-450); RBC 3.92 m/uL (3.80-5.40); RDW 12.3 % (11.5-15.5); WBC 17.1 k/uL (3.8-10.6)
[2024-05-31] MEDS ORDERED: NALOXONE 0.4 MG/ML 1 ML VIAL IV PRN (13:26)
[2024-05-31 13:41] LABS: INR 0.9 (<1.2); Partial Thromboplastin Time 27.6 sec (22.0-30.0); Prothrombin Time 10.1 sec (10.0-12.5)
[2024-05-31 13:58] LABS: ALT 22 U/L (4-34); AST 25 U/L (14-36); African American GFR (CKD) >90 (>60 ml/min/1.73 sqM); Albumin 3.7 g/dL (3.5-5.0); Alkaline Phosphatase 129 U/L (38-126); Anion Gap 8 mmol/L; Blood Urea Nitrogen 25 mg/dL (7-17); Calcium 9.4 mg/dL (8.4-10.2); Carbon Dioxide 24 mmol/L (22-30); Chloride 106 mmol/L (98-107); Glucose 175 mg/dL (74-99); Non-African American GFR(CKD) 78 (>60 ml/min/1.73 sqM); Potassium 4.2 mmol/L (3.5-5.1); Sodium 138 mmol/L (137-145); Total Bilirubin 0.5 mg/dL (0.2-1.3); Total Protein 6.9 g/dL (6.3-8.2)
[2024-05-31] MEDS: VANCOMYCIN 1,250 MG in SODIUM CHLORIDE 0.9% 250 ML IVPB ONE (14:00)
--- NOTE | 2024-05-31 15:03 | P.GSCN ---
History of Present Illness Consult date: 05/31/24 Reason for Consult: Left foot wound, gangrene Requesting physician: Tutu Bhatti History of present illness: This a pleasant 69-year-old female with a history of peripheral arterial disease with previous right femoral to tibial in situ bypass with Dr. Iglesias in 2022 done at [facility] requiring balloon angioplasty in January of this year, diabetes mellitus, CVA with residual left-sided hemiplegia, coronary artery disease, hyperlipidemia, and hypertension. Patient resides at [facility] on the [address], she states that she started with a little pressure wound on her left foot about a week ago and it has progressively gotten worse. She came in for further evaluation. States that she had seen Dr. Iglesias last week but said the wound did not look like it does now. She does have reported pain in the area of the wound on the left foot. She states it has been draining, does not report any fever. Patient with leukocytosis on admission. Foot x-ray ordered, however not completed yet. She currently denies any shortness of breath, chest pain, abdominal pain, nausea or vomiting. No fevers, chills, body aches, diarrhea. Review of Systems A 14 point review systems was completed all pertinent positives and negatives as stated in the HPI. Past Medical History Past Medical History: Coronary Artery Disease (CAD), Heart Failure, CVA/TIA, Diabetes Mellitus, Hyperlipidemia, Hypertension, Pneumonia, Skin Disorder, Vascular Disorder Additional Past Medical History / Comment(s): Hx CVA Jul 2022/Oct 2022 with res idual/hemiplegia left arm and leg, dysphonia/dysarthia - speech is now understandable. Hx falls. Diverticulitis. PVD. Dysphagia. Has peg tube but is not in use. Needs 2 staff to pivot/transfer pt. Currently resides at [facility] since November 2022. Hx acute respiratory failure. Neuromuscular dysfunction of bladder. History of Any Multi-Drug Resistant Organisms: MRSA Year Discovered:: 02/15/23 MDRO Source:: rt foot Past Surgical History: Section, Heart Catheterization, Orthopedic Surgery, Tonsillectomy Additional Past Surgical History / Comment(s): Right Femoral Popliteal bypass 10/19/22, at [facility], amputation of second third and fourth toes on right foot, carpal tunnel surgery. Past Anesthesia/Blood Transfusion Reactions: No Reported Reaction Additional Past Anesthesia/Blood Transfusion Reaction / Comm: Never received blood. Past Psychological History: Depression Smoking Status: Never smoker Past Alcohol Use History: None Reported Past Drug Use History: None Reported - Past Family History Mother Family Medical History: Cancer Additional Family Medical History / Comment(s): History of lower back fusion Father Family Medical History: Coronary Artery Disease (CAD) Medications and Allergies Home Medications Medication Instructions Recorded Confirmed Type Aspirin EC [Ecotrin Low Dose] 81 mg PO DAILY 07/23/22 05/31/24 History Acetaminophen [Tylenol] 650 mg PO Q4H PRN 11/03/22 05/31/24 History carvediloL [Coreg] 6.25 mg PO BID 11/03/22 05/31/24 History Gabapentin [Neurontin] 300 mg PO TID@0600,1300,2100 01/26/23 05/31/24 History Insulin Glargine,Hum.rec.anlog 18 units SQ HS 01/26/23 05/31/24 History [Lantus Solostar Pen] Melatonin 3 mg PO HS 01/26/23 05/31/24 History tiZANidine HCL [Zanaflex] 2 mg PO HS 01/26/23 05/31/24 History Cetirizine HCl [Zyrtec] 10 mg PO DAILY 05/05/23 05/31/24 History Ferrous Sulfate [Iron (65 MG 325 mg PO DAILY 05/05/23 05/31/24 History Elemental)] Sennosides/Docusate Sodium [Senna 1 cap PO Q24H PRN 05/05/23 05/31/24 History Plus 8.6-50 mg Softgel] lisinopriL [Zestril] 20 mg PO DAILY 05/05/23 05/31/24 History Ammonium Lactate Lotion 1 applic TOPICAL BID 07/05/23 05/31/24 History [Lac-Hydrin 12% Lotion] Ketoconazole 2% Shampoo [Nizoral] 1 applic TOPICAL MOFR 07/05/23 05/31/24 History Simethicone Chew [Mylicon Chew] 80 mg PO Q6H PRN 07/05/23 05/31/24 History Ticagrelor [Brilinta] 90 mg PO BID #180 tab 07/07/23 05/31/24 Rx Acetaminophen [Tylenol] 650 mg PO Q8H 01/30/24 05/31/24 History Albuterol Inhaler [Ventolin Hfa 2 puff INHALATION RT-Q6H PRN 01/30/24 05/31/24 History Inhaler] Vit C/E/Zn/Coppr/Lutein/Zeaxan 1 cap PO DAILY 01/30/24 05/31/24 History [Preservision Areds 2 Softgel] traMADol HCL 50 mg PO Q6H PRN 01/30/24 05/31/24 History Atorvastatin [Lipitor] 80 mg PO HS 05/31/24 05/31/24 History Cephalexin [Keflex] 500 mg PO TID@0900,1300,2100 05/31/24 05/31/24 History Collagenase [Santyl Ointment] 1 applic TOPICAL DAILY 05/31/24 05/31/24 History Collagenase [Santyl Ointment] 1 applic TOPICAL DAILY PRN 05/31/24 05/31/24 History Furosemide [Lasix] 20 mg PO DAILY@0600 05/31/24 05/31/24 History Hydrocortisone Cream 1 applic TOPICAL BID PRN 05/31/24 05/31/24 History [Hydrocortisone 1% Cream] INSULIN LISPRO (humaLOG) [humaLOG] 5 units SQ AC-TID@08,,05/31/24 05/31/24 History INSULIN LISPRO (humaLOG) [humaLOG] See Protocol SQ AC-TID@08,13,18 05/31/24 05/31/24 History Lactulose 20 gm PO DAILY PRN 05/31/24 05/31/24 History Levothyroxine Sodium [Synthroid] 25 mcg PO DAILY@0600 05/31/24 05/31/24 History Allergies Allergy/AdvReac Type Severity Reaction Status Date / Time unknown sleep aid Allergy Rash/Hives Uncoded 05/31/24 13:36 Surgical - Exam Vital Signs Temp Pulse Resp BP Pulse Ox 98.5 F 76 18 136/85 95 05/31/24 11:12 05/31/24 11:12 05/31/24 11:12 05/31/24 11:12 05/31/24 11:12 General appearance: The patient is alert, oriented, appears in no acute distress. HET: Head is normocephalic and atraumatic. Pupils are equal and reactive. Neck: Supple. Heart: Regular. Lungs: Equal expansion, normal respiratory effort. Abdomen: Soft, nontender, nondistended. Extremities: Right lower extremity palpable femoral bypass. Left lower extremity contracted. Left palpable femoral pulse, difficult to palpate PT or DP pulse on left foot. PT and DP Doppler signals obtained. Patient with pressure wound to the lateral aspect of distal portion of left foot and fifth toe with nonviable tissue, serosanguineous drainage, erythema along dorsal aspect of foot. Neurological: Left upper and lower extremity hemiparesis. Results - Labs 05/31/24 13:17 05/31/24 13:17 Abnormal Lab Results - Last 24 Hours (Table) 05/31/24 05/31/24 Range/Units 13:17 13:17 WBC 17.1 H (3.8-10.6) k/uL Plt Count 543 H (150-450) k/uL Neutrophils # 13.5 H (1.3-7.7) k/uL BUN 25 H (7-17) mg/dL Glucose 175 H (74-99) mg/dL Alkaline Phosphatase 129 H (38-126) U/L Diabetes panel 05/31/24 Range/Units 13:17 Sodium 138 (137-145) mmol/L Potassium 4.2 (3.5-5.1) mmol/L Chloride 106 (98-107) mmol/L Carbon Dioxide 24 (22-30) mmol/L BUN 25 H (7-17) mg/dL Creatinine 0.79 (0.52-1.04) mg/dL Glucose 175 H (74-99) mg/dL Calcium 9.4 (8.4-10.2) mg/dL AST 25 (14-36) U/L ALT 22 (4-34) U/L Alkaline Phosphatase 129 H (38-126) U/L Total Protein 6.9 (6.3-8.2) g/dL Albumin 3.7 (3.5-5.0) g/dL Calcium panel 05/31/24 Range/Units 13:17 Calcium 9.4 (8.4-10.2) mg/dL Albumin 3.7 (3.5-5.0) g/dL Pituitary panel 05/31/24 Range/Units 13:17 Sodium 138 (137-145) mmol/L Potassium 4.2 (3.5-5.1) mmol/L Chloride 106 (98-107) mmol/L Carbon Dioxide 24 (22-30) mmol/L BUN 25 H (7-17) mg/dL Creatinine 0.79 (0.52-1.04) mg/dL Glucose 175 H (74-99) mg/dL Calcium 9.4 (8.4-10.2) mg/dL Adrenal panel 05/31/24 Range/Units 13:17 Sodium 138 (137-145) mmol/L Potassium 4.2 (3.5-5.1) mmol/L Chloride 106 (98-107) mmol/L Carbon Dioxide 24 (22-30) mmol/L BUN 25 H (7-17) mg/dL Creatinine 0.79 (0.52-1.04) mg/dL Glucose 175 H (74-99) mg/dL Calcium 9.4 (8.4-10.2) mg/dL Total Bilirubin 0.5 (0.2-1.3) mg/dL AST 25 (14-36) U/L ALT 22 (4-34) U/L Alkaline Phosphatase 129 H (38-126) U/L Total Protein 6.9 (6.3-8.2) g/dL Albumin 3.7 (3.5-5.0) g/dL Assessment and Plan Assessment: 1. Left foot/fifth toe diabetic pressure ulcer, gangrene 2. History of peripheral arterial disease 3. History of CVA with left hemiparesis 4. Nonambulatory 5. Diabetes mellitus Plan: 1. Patient may have consistent carbohydrate diet 2. N.p.o. after midnight 3. X-ray pending 4. Plan for left foot debridement and fifth toe amputation with deep tissue cultures tomorrow 5. Continue with recommendations from infectious disease 6. Rest of medical management per primary medical team Thank you for this consultation, we will continue to follow, The impression and plan of care has been dictated as directed. I performed a history and examination of this patient, discussed the same with the dictator. I agree with the dictator's note ,documented as a scribe. Any additional findings or plans will be noted.
--- NOTE | 2024-05-31 16:16 | XR ---
Left foot limited HISTORY: Fifth digit infection COMPARISON: None. TECHNIQUE: 2 portable views of left foot were obtained. FINDINGS: There is marked diffuse osteopenia. There is destruction of the distal aspect of the fifth metatarsal consistent with osteomyelitis. Remaining osseous structures are intact. There is mild degeneration of the talonavicular joint. There is a tiny plantar calcaneal spur. IMPRESSION: 1. Destruction of the distal aspect of the fifth metatarsal consistent with osteomyelitis. 2. Marked diffuse osteopenia [facility], , 05/31/2024 4:14 PM
[2024-05-31] MEDS: PIPERACILLIN-TAZOBACTAM 3.375 GM in SODIUM CHLORIDE 0.9% 100 ML IVPB SCH (16:25)
[2024-05-31] MEDS ORDERED: ALBUTEROL NEBULIZED 2.5 MG/3 ML INHALATION PRN (17:38)
[2024-05-31] MEDS ORDERED: LACTULOSE 20 GM/30 ML CUP PO PRN (18:05)
[2024-05-31] MEDS: HYDROmorphone 0.5 MG/0.5 ML SYRINGE IVP PRN (18:08)
[2024-05-31] MEDS ORDERED: MELATONIN 3 MG TABLET PO PRN (18:28)
[2024-05-31] MEDS ORDERED: SIMETHICONE 80 MG CHEWABLE PO PRN (18:28)
[2024-05-31] MEDS ORDERED: SENNOSIDES-DOCUSATE SODIUM 1 EACH TAB PO PRN (18:28)
--- NOTE | 2024-05-31 19:13 | P.HPIM ---
History of Present Illness This is a pleasant 69 years old female with past medical history of multiple medical problems Patient presents because of infected left foot wound. Information were obtained with the at bedside. Patient has been in [facility] for the last 1-1/2 years related to her history of stroke and left hemiplegia. Patient had a small wound on her left lateral foot about 3 weeks ago, patient underwent wound treatment and she was on antibiotic Keflex prior to hospitalization. Patient presents with worsening infection. Over the last 3 days was really bad Patient denies chest pain or dyspnea. No other new complaint Patient is afebrile Labs showing leukocytosis, BMP and liver enzymes unremarkable Foot x-ray showing dissections of the distal fifth metatarsal bone: Consistent with osteomyelitis Review of Systems Review of systems CONSTITUTIONAL: No fever, no malaise, no fatigue. HEENT: No recent visual problems or hearing problems. Denied any sore throat. CARDIOVASCULAR: No orthopnea, PND, no palpitations, no syncope. PULMONARY: No shortness of breath, no cough, no hemoptysis. GASTROINTESTINAL: No diarrhea, no nausea, no vomiting, no abdominal pain. Normoactive bowel sounds. NEUROLOGICAL: No headaches, no weakness, no numbness. HEMATOLOGICAL: Denies any bleeding or petechiae. GENITOURINARY: Denies any burning micturition, frequency, or urgency. MUSCULOSKELETAL/RHEUMATOLOGICAL: Denies any joint pain, swelling, or any muscle pain. ENDOCRINE: Denies any polyuria or polydipsia. 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 Hx falls. Diverticulitis. PVD. Dysphagia. Has peg tube but is not in use. Needs 2 staff to pivot/transfer pt. Currently resides at [facility] since November 2022. Hx acute respiratory failure. Neuromuscular dysfunction of bladder. History of Any Multi-Drug Resistant Organisms: MRSA Date of last positivie culture/infection: 02/15/23 MDRO Source:: rt foot Past Surgical History: Section, Heart Catheterization, Orthopedic Surgery, Tonsillectomy Additional Past Surgical History / Comment(s): Right Femoral Popliteal bypass 2/15/23, at [facility], amputation of second third and fourth toes on right foot, carpal tunnel surgery. Past Anesthesia/Blood Transfusion Reactions: No Reported Reaction Additional Past Anesthesia/Blood Transfusion Reaction / Comment(s): Never received blood. Past Psychological History: Depression Smoking Status: Never smoker Past Alcohol Use History: None Reported Past Drug Use History: None Reported - Past Family History Mother Family Medical History: Cancer Additional Family Medical History / Comment(s): History of lower back fusion Father Family Medical History: Coronary Artery Disease (CAD) Medications and Allergies Home Medications Medication Instructions Recorded Confirmed Type Aspirin EC [Ecotrin Low Dose] 81 mg PO DAILY 07/23/22 05/31/24 History Acetaminophen [Tylenol] 650 mg PO Q4H PRN 11/03/22 05/31/24 History carvediloL [Coreg] 6.25 mg PO BID 11/03/22 05/31/24 History Gabapentin [Neurontin] 300 mg PO TID@0600,1300,2100 01/26/23 05/31/24 History Insulin Glargine,Hum.rec.anlog 18 units SQ HS 01/26/23 05/31/24 History [Lantus Solostar Pen] Melatonin 3 mg PO HS 01/26/23 05/31/24 History tiZANidine HCL [Zanaflex] 2 mg PO HS 01/26/23 05/31/24 History Cetirizine HCl [Zyrtec] 10 mg PO DAILY 05/05/23 05/31/24 History Ferrous Sulfate [Iron (65 MG 325 mg PO DAILY 05/05/23 05/31/24 History Elemental)] Sennosides/Docusate Sodium [Senna 1 cap PO Q24H PRN 05/05/23 05/31/24 History Plus 8.6-50 mg Softgel] lisinopriL [Zestril] 20 mg PO DAILY 05/05/23 05/31/24 History Ammonium Lactate Lotion 1 applic TOPICAL BID 07/05/23 05/31/24 History [Lac-Hydrin 12% Lotion] Ketoconazole 2% Shampoo [Nizoral] 1 applic TOPICAL MOFR 07/05/23 05/31/24 History Simethicone Chew [Mylicon Chew] 80 mg PO Q6H PRN 07/05/23 05/31/24 History Ticagrelor [Brilinta] 90 mg PO BID #180 tab 07/07/23 05/31/24 Rx Acetaminophen [Tylenol] 650 mg PO Q8H 01/30/24 05/31/24 History Albuterol Inhaler [Ventolin Hfa 2 puff INHALATION RT-Q6H PRN 01/30/24 05/31/24 History Inhaler] Vit C/E/Zn/Coppr/Lutein/Zeaxan 1 cap PO DAILY 01/30/24 05/31/24 History [Preservision Areds 2 Softgel] traMADol HCL 50 mg PO Q6H PRN 01/30/24 05/31/24 History Atorvastatin [Lipitor] 80 mg PO HS 05/31/24 05/31/24 History Cephalexin [Keflex] 500 mg PO TID@0900,1300,2100 05/31/24 05/31/24 History Collagenase [Santyl Ointment] 1 applic TOPICAL DAILY 05/31/24 05/31/24 History Collagenase [Santyl Ointment] 1 applic TOPICAL DAILY PRN 05/31/24 05/31/24 History Furosemide [Lasix] 20 mg PO DAILY@0600 05/31/24 05/31/24 History Hydrocortisone Cream 1 applic TOPICAL BID PRN 05/31/24 05/31/24 History [Hydrocortisone 1% Cream] INSULIN LISPRO (humaLOG) [humaLOG] 5 units SQ AC-TID@08,,05/31/24 05/31/24 History INSULIN LISPRO (humaLOG) [humaLOG] See Protocol SQ AC-TID@08,,18 05/31/24 05/31/24 History Lactulose 20 gm PO DAILY PRN 05/31/24 05/31/24 History Levothyroxine Sodium [Synthroid] 25 mcg PO DAILY@0600 05/31/24 05/31/24 History Allergies Allergy/AdvReac Type Severity Reaction Status Date / Time unknown sleep aid Allergy Rash/Hives Uncoded 05/31/24 13:36 Physical Exam Vitals: Vital Signs Temp Pulse Resp BP Pulse Ox 05/31/24 11:12 98.5 F 76 18 136/85 95 Intake and Output 05/30/24 05/31/24 05/31/24 22:59 06:59 14:59 Other: Weight 58.967 kg GENERAL: The patient is alert and oriented x3, not in any acute distress. Well developed, well nourished. HEENT: Pupils are round and equally reacting to light. EOMI. No scleral icterus. No conjunctival pallor. Normocephalic, atraumatic. No pharyngeal erythema. No thyromegaly. CARDIOVASCULAR: S1 and S2 present. No murmurs, rubs, or gallops. PULMONARY: Chest is clear to auscultation, no wheezing , no crackles. ABDOMEN: Soft, nontender, nondistended, normoactive bowel sounds. No palpable organomegaly. MUSCULOSKELETAL: No joint swelling or deformity. -EXTREMITIES: No cyanosis, clubbing, or pedal edema. Infected left toe with blackish discoloration of the whole fifth toe with surrounding nearby forefoot ulceration. NEUROLOGICAL: Gross neurological examination did not reveal any focal deficits. SKIN: No rashes. no petechiae. Results CBC & Chem 7: 05/31/24 13:17 05/31/24 13:17 Labs: Abnormal Lab Results - Last 24 Hours (Table) 05/31/24 Range/Units 13:17 WBC 17.1 H (3.8-10.6) k/uL Plt Count 543 H (150-450) k/uL Neutrophils # 13.5 H (1.3-7.7) k/uL Assessment and Plan Assessment: Diabetic foot ulcer with gangrene of the left fifth toe, x-ray showing evidence of fifth metatarsal osteomyelitis History of stroke with left hemiplegia Coronary artery disease CHF CVA/TIA Diabetes mellitus Hypertension Hyperlipidemia Peripheral vascular disease, status post right femoropopliteal bypass on 10/2022, amputation of the second, third and fourth right toes Plan: Continue with antibiotic, currently Zosyn and IV vancomycin Follow-up wound culture Patient plan for amputation with deep tissue culture tomorrow Infectious disease consult Vascular surgery team on the case Continue with aspirin. Hold Brilinta. Labs and medication were reviewed.. Continue same treatment. Continue with symptomatic treatment. Resume home medication. Monitor labs and vitals. DVT and GI prophylaxis. Further recommendations as per clinical course of the patient DVT prophylaxis: Subcutaneous heparin GI Prophylaxis: Pepcid PT/OT: Pending Prognosis is guarded
[2024-05-31] MEDS: carvediloL 6.25 MG TAB PO SCH (21:28)
[2024-05-31] MEDS: ATORVASTATIN 80 MG TAB PO SCH (21:28)
[2024-05-31] MEDS: GABAPENTIN 300 MG CAP PO SCH (21:28)
--- NOTE | 2024-05-31 23:09 | P.CONS ---
History of Present Illness - Reason for Consult Consult date: 05/31/24 Diabetic foot ulcer of the left foot Requesting physician: Aramis E Sheet - Chief Complaint Left foot wound and discoloration x days - History of Present Illness Patient is a 69-year-old female with a past medical history significant for diabetes mellitus hypertension hyperlipidemia pneumonia CVA TIA peripheral arterial disease in this patient who did have a right femoral to tibial in situ bypass and balloon angioplasty by Dr. Olguin patient apparently started having a problem with the left foot fifth toe/lateral border pressure ulcer that has been taking care by the wound care physician at the intermediate and apparently the patient has been evaluated by vascular surgeon outpatient setting and did have a vascular workup and noticed to have a good blood flow patient mention the area started getting worse over the last few days and the patient was started on oral Keflex however the patient did have persistent discoloration of the wound to the left foot lateral border and discoloration of the left toe for the patient has been brought into the hospital patient denies having any fever or any chills and no fever was recorded on presentation to the hospital patient was not tachycardic hypotensive or hypoxic patient did have white count of 17.1 creatinine 0.7 and electrolytes are normal liver isms are normal patient was started on Zosyn and vancomycin infectious disease was consulted for further management of antibiotic therapy patient has been complaining of pain to the left leg mostly throbbing moderate intense without radiation and has had minimal foul-smelling drainage Review of Systems Positive point and negatives has been mentioned in the HPI, complete review of systems was performed and all other systems are negative Past Medical History Past Medical History: Coronary Artery Disease (CAD), Heart Failure, CVA/TIA, Diabetes Mellitus, Hyperlipidemia, Hypertension, Pneumonia, Skin Disorder, Vascular Disorder Additional Past Medical History / Comment(s): 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 Hx falls. Diverticulitis. PVD. Dysphagia. Has peg tube but is not in use. Needs 2 staff to pivot/transfer pt. Currently resides at [facility] since November 2022. Hx acute respiratory failure. Neuromuscular dysfunction of bladder. History of Any Multi-Drug Resistant Organisms: MRSA Year Discovered:: 02/15/23 MDRO Source:: rt foot Past Surgical History: Section, Heart Catheterization, Orthopedic Surgery, Tonsillectomy Additional Past Surgical History / Comment(s): Right Femoral Popliteal bypass 10/19/22, at [facility], amputation of second third and fourth toes on right foot, carpal tunnel surgery. Past Anesthesia/Blood Transfusion Reactions: No Reported Reaction Additional Past Anesthesia/Blood Transfusion Reaction / Comm: Never received blood. Past Psychological History: Depression Smoking Status: Never smoker Past Alcohol Use History: None Reported Past Drug Use History: None Reported - Past Family History Mother Family Medical History: Cancer Additional Family Medical History / Comment(s): History of lower back fusion Father Family Medical History: Coronary Artery Disease (CAD) Medications and Allergies Home Medications Medication Instructions Recorded Confirmed Type Aspirin EC [Ecotrin Low Dose] 81 mg PO DAILY 07/23/22 05/31/24 History Acetaminophen [Tylenol] 650 mg PO Q4H PRN 11/03/22 05/31/24 History carvediloL [Coreg] 6.25 mg PO BID 11/03/22 05/31/24 History Gabapentin [Neurontin] 300 mg PO TID@0600,1300,2100 01/26/23 05/31/24 History Insulin Glargine,Hum.rec.anlog 18 units SQ HS 01/26/23 05/31/24 History [Lantus Solostar Pen] Melatonin 3 mg PO HS 01/26/23 05/31/24 History tiZANidine HCL [Zanaflex] 2 mg PO HS 01/26/23 05/31/24 History Cetirizine HCl [Zyrtec] 10 mg PO DAILY 05/05/23 05/31/24 History Ferrous Sulfate [Iron (65 MG 325 mg PO DAILY 05/05/23 05/31/24 History Elemental)] Sennosides/Docusate Sodium [Senna 1 cap PO Q24H PRN 05/05/23 05/31/24 History Plus 8.6-50 mg Softgel] lisinopriL [Zestril] 20 mg PO DAILY 05/05/23 05/31/24 History Ammonium Lactate Lotion 1 applic TOPICAL BID 07/05/23 05/31/24 History [Lac-Hydrin 12% Lotion] Ketoconazole 2% Shampoo [Nizoral] 1 applic TOPICAL MOFR 07/05/23 05/31/24 History Simethicone Chew [Mylicon Chew] 80 mg PO Q6H PRN 07/05/23 05/31/24 History Ticagrelor [Brilinta] 90 mg PO BID #180 tab 07/07/23 05/31/24 Rx Acetaminophen [Tylenol] 650 mg PO Q8H 01/30/24 05/31/24 History Albuterol Inhaler [Ventolin Hfa 2 puff INHALATION RT-Q6H PRN 01/30/24 05/31/24 History Inhaler] Vit C/E/Zn/Coppr/Lutein/Zeaxan 1 cap PO DAILY 01/30/24 05/31/24 History [Preservision Areds 2 Softgel] traMADol HCL 50 mg PO Q6H PRN 01/30/24 05/31/24 History Atorvastatin [Lipitor] 80 mg PO HS 05/31/24 05/31/24 History Cephalexin [Keflex] 500 mg PO TID@0900,1300,2100 05/31/24 05/31/24 History Collagenase [Santyl Ointment] 1 applic TOPICAL DAILY 05/31/24 05/31/24 History Collagenase [Santyl Ointment] 1 applic TOPICAL DAILY PRN 05/31/24 05/31/24 History Furosemide [Lasix] 20 mg PO DAILY@0600 05/31/24 05/31/24 History Hydrocortisone Cream 1 applic TOPICAL BID PRN 05/31/24 05/31/24 History [Hydrocortisone 1% Cream] INSULIN LISPRO (humaLOG) [humaLOG] 5 units SQ AC-TID@,,05/31/24 05/31/24 History INSULIN LISPRO (humaLOG) [humaLOG] See Protocol SQ AC-TID@,,18 05/31/24 05/31/24 History Lactulose 20 gm PO DAILY PRN 05/31/24 05/31/24 History Levothyroxine Sodium [Synthroid] 25 mcg PO DAILY@0600 05/31/24 05/31/24 History Allergies Allergy/AdvReac Type Severity Reaction Status Date / Time unknown sleep aid Allergy Rash/Hives Uncoded 05/31/24 13:36 Physical Exam Vitals: Vital Signs Temp Pulse Resp BP Pulse Ox 05/31/24 14:05 69 16 143/78 98 05/31/24 11:12 98.5 F 76 18 136/85 95 Intake and Output 05/30/24 05/31/24 05/31/24 22:59 06:59 14:59 Other: Weight 58.967 kg GENERAL DESCRIPTION: Elderly female lying in bed, no distress. No tachypnea or accessory muscle of respiration use. HEENT: Shows Pallor , no scleral icterus. Oral mucous membrane is dry. No pharyngeal erythema or thrush NECK: Trachea central, no thyromegaly. LUNGS: Unlabored breathing. Clear to auscultation anteriorly. No wheeze or crackle. HEART: S1, S2, regular rate and rhythm. No loud murmur ABDOMEN: Soft, no tenderness , guarding or rigidity, no organomegaly EXTREMITIES: Left foot lateral border with a necrotic wound some foul-smelling drainage left fifth toe is also discolored minimal foul-smelling SKIN: No rash, no masses palpable. NEUROLOGICAL: The patient is awake, alert, oriented x3, mood and affect normal. Results CBC & Chem 7: 05/31/24 13:17 05/31/24 13:17 Labs: Abnormal Lab Results - Last 24 Hours (Table) 05/31/24 05/31/24 Range/Units 13:17 13:17 WBC 17.1 H (3.8-10.6) k/uL Plt Count 543 H (150-450) k/uL Neutrophils # 13.5 H (1.3-7.7) k/uL BUN 25 H (7-17) mg/dL Glucose 175 H (74-99) mg/dL Alkaline Phosphatase 129 H (38-126) U/L Assessment and Plan (1) Pressure ulcer of left foot, stage 3 Current Visit: Yes Status: Acute Code(s): L89.893 - PRESSURE ULCER OF OTHER SITE, STAGE 3 SNOMED Code(s): 600673058 (2) Gangrene of toe of left foot Current Visit: Yes Status: Acute Code(s): I96 - GANGRENE, NOT ELSEWHERE CLASSIFIED SNOMED Code(s): 22441095807899101 (3) Type 2 diabetes mellitus with foot ulcer Current Visit: No Status: Acute Code(s): E11.621 - TYPE 2 DIABETES MELLITUS WITH FOOT ULCER; L97.509 - NON-PRESSURE CHRONIC ULCER OTH PRT UNSP FOOT W UNSP SEVERITY SNOMED Code(s): 5937535869529 Plan: 1patient presented to hospital with left foot lateral border pressure ulcer with left fifth toe gangrene failing outpatient oral Keflex therapy we will need to cover for the polymicrobial associated with diabetic foot infection as the patient has been having more of a wet gangrene. 2local culture has been obtained to guide further antibiotic therapy and await possible debridement amputation and deep culture by vascular surgery. 3patient to continue with vancomycin pharmacy dose while watching her kidney function closely however switch Zosyn to Unasyn to decrease risk of nephrotoxicity We will follow on clinical condition and cultures to further adjust medication if needed Thank you for this consultation we will follow the patient along with you Dictation was produced using [employer] dictation software. please excuse any grammatical, word or spelling errors. Time with Patient: Greater than 30
[2024-06-01] MEDS: AMPICILLIN-SULBACTAM 3 GM in SODIUM CHLORIDE 0.9% 100 ML IVPB SCH (02:08)
[2024-06-01 05:11] LABS: African American GFR (CKD) >90 (>60 ml/min/1.73 sqM); Non-African American GFR(CKD) 80 (>60 ml/min/1.73 sqM)
[2024-06-01] MEDS ORDERED: DEXTROSE 50% SYRINGE 50 ML IVP PRN ×2 (05:31)
[2024-06-01] MEDS: LEVOTHYROXINE 25 MCG TAB PO SCH (07:48)
[2024-06-01] MEDS: FERROUS SULFATE 325 MG TAB PO SCH (08:53)
[2024-06-01] MEDS: INSULIN ASPART (NovoLOG) 100 UNIT/ML VIAL SQ SCH (08:54)
[2024-06-01] MEDS: VANCOMYCIN 1,000 MG in SODIUM CHLORIDE 0.9% 250 ML IVPB SCH (08:54)
[2024-06-01] MEDS: ASPIRIN 81 MG PO SCH (12:24)
[2024-06-01] MEDS: IV FLUID CONTINUATION 1,000 ML IV ONE (13:37)
[2024-06-01 13:49] LABS: ABG Base Excess 1.1 mmol/L; ABG HCO3 25 mmol/L (21-25); ABG Oxygen Saturation 96.5 % (94-97); ABG PCO2 35 mmHg (35-45); ABG PH 7.46 (7.35-7.45); ABG PO2 75 mmHg (83-108); ABG TCO2 26 mmol/L (19-24); Allen Test Performed? Yes
[2024-06-01] MEDS ORDERED: PROPOFOL 10 MG/ML 20 ML VIAL IV ONE (14:16)
--- NOTE | 2024-06-01 14:56 | P.ANPRN ---
Procedure Note - Anesthesia - Nerve Block Performed Left Popliteal Single Time Out Performed: Yes Date of Procedure: 06/01/24 Procedure Start Time: 14:00 Procedure Stop Time: 14:10 Location of Patient: PreOp Indication: Acute Post-Operative Pain, Requested by Surgeon Sedation Type: Awake Position: Supine Catheter: None Needle Types: Facet Needle Gauge: 20 Ultrasound used to visualize needle placement: Yes Ultrasound used to observe medication spread: Yes Injectate: 0.5% Ropivacaine (see comment for volume) (30 ml) Blood Aspirated: No Pain Paresthesia on Injection Noted: No Resistance on Injection: Normal Image Stored and Saved: Yes Events: Uneventful and Well Tolerated (D/w . Risk and benefit considering pt anticoagulation status)
--- NOTE | 2024-06-01 15:03 | P.OP ---
Date of Procedure: 06/01/24 Preoperative Diagnosis: Left fifth toe gangrene with left foot wound Postoperative Diagnosis: Same Procedure(s) Performed: Left 5th toe amputation with foot wound debridement with wound VAC placement Anesthesia: regional Surgeon: Robert Wong Estimated Blood Loss (ml): 20 Pathology: other (deep wound and tissue culture) Condition: stable Disposition: PACU Indications for Procedure: 69-year-old female who presented to the hospital due to left foot wound and altered mental status presents to the operative suite for left fifth toe amputation and deep wound culture. Description of Procedure: After written and informed consent was obtained with the patient's family and all risk, benefits and complications were described the patient was brought to the operative suite and laid in a supine position. The area of the left foot was prepped and draped in usual sterile fashion. An incision was made at the base of the fifth toe deep into skin and fascia on plantar and dorsal aspect until we reached the head of the metatarsal bone. The head of the metatarsal was from the fifth toe and had osteomyelitis of the head of the metatarsal bone. The tendons were divided in plantar and dorsal aspects. The fifth toe was removed. There was substantial bleeding which were controlled with electrocautery and surgicel. The wound was copiously irrigated with saline. The wound was unable to be closed and therfore a small wound vac was placed in usual fashion. The patient tolerated the procedure well and was sent to PACU for recovery.
--- NOTE | 2024-06-01 17:25 | P.PN ---
Subjective Progress Note Date: 06/01/24 Principal diagnosis: Reason for follow-up is left fifth toe gangrene and osteomyelitis Patient is a 69-year-old female with a past medical history significant for diabetes mellitus hypertension hyperlipidemia pneumonia CVA TIA peripheral arterial disease in this patient who did have a right femoral to tibial in situ bypass and balloon angioplasty by Dr. Olguin patient now presented to the hospital with nonhealing wound to the left foot lateral border and discoloration of the left fifth toe. Patient is status post left fifth toe amputation debridement of the wound bed and wound VAC application wound has reached to the head of metatarsal cultures obtained. On today's evaluation that is 06/01/2024, patient has been afebrile, patient is breathing comfortably and is currently on room air, patient seen to be slightly lethargic postsurgery no vomiting or diarrhea has been reported. No new lab has been repeated today cultures are currently pending Objective - Vital Signs Vital signs: Vital Signs Temp 98.3 F 06/01/24 15:40 Pulse 85 06/01/24 16:11 Resp 18 06/01/24 15:40 BP 179/89 06/01/24 16:11 Pulse Ox 97 06/01/24 16:11 FiO2 Intake & Output 05/31/24 06/01/24 06/01/24 18:59 06:59 18:59 Intake Total 100 Output Total 30 Balance 70 Weight 58.967 kg 58.967 kg Intake: IV 100 Output: Estimated Blood Loss 30 Other: Voiding Method Diaper Incontinent # Voids 1 # Bowel Movements 2 - Exam GENERAL DESCRIPTION: An elderly female lying in bed in no distress RESPIRATORY SYSTEM: Unlabored breathing , decreased breath sounds at bases HEART: S1 S2 regular rate and rhythm , ABDOMEN: Soft , no tenderness EXTREMITIES: Left foot fifth toe amputation site wound is covered with a wound VAC - Labs CBC & Chem 7: 05/31/24 13:17 06/01/24 04:11 Labs: Abnormal Lab Results - Last 24 Hours (Table) 06/01/24 Range/Units 13:45 ABG pH 7.46 H (7.35-7.45) ABG pO2 75 L (83-108) mmHg ABG Total CO2 26 H (19-24) mmol/L Assessment and Plan (1) Pressure ulcer of left foot, stage 3 Current Visit: Yes Status: Acute Code(s): L89.893 - PRESSURE ULCER OF OTHER SITE, STAGE 3 SNOMED Code(s): 104646820 (2) Gangrene of toe of left foot Current Visit: Yes Status: Acute Code(s): I96 - GANGRENE, NOT ELSEWHERE CLASSIFIED SNOMED Code(s): 27322595199899138 (3) Type 2 diabetes mellitus with foot ulcer Current Visit: No Status: Acute Code(s): E11.621 - TYPE 2 DIABETES MELLITUS WITH FOOT ULCER; L97.509 - NON-PRESSURE CHRONIC ULCER OTH PRT UNSP FOOT W UNSP SEVERITY SNOMED Code(s): 6748119020116 Plan: 1patient presented to hospital with left foot lateral border pressure ulcer with left fifth toe gangrene failing outpatient oral Keflex therapy we will need to cover for the polymicrobial associated with diabetic foot infection as the patient has been having more of a wet gangrene. 2local culture has been obtained to guide further antibiotic therapy patient is status post left fifth toe amputation debridement of the wound extending down to the bony and culture which are currently pending 3patient to continue with vancomycin pharmacy dose and Unasyn while waiting for the culture to finalize Dictation was produced using [employer] dictation software. please excuse any grammatical, word or spelling errors. Time with Patient: Less than 30
[2024-06-01] MEDS: INSULIN DETEMIR (LEVEMIR) 100 UNIT/ML SYR SQ SCH (21:26)
[2024-06-01] MEDS: ACETAMINOPHEN TAB 325 MG TAB PO PRN (21:28)
--- NOTE | 2024-06-02 00:17 | P.PN ---
Subjective This is a pleasant 69 years old female with past medical history of multiple medical problems Patient presents because of infected left foot wound. Information were obtained with the at bedside. Patient has been in [facility] for the last 1-1/2 years related to her history of stroke and left hemiplegia. Patient had a small wound on her left lateral foot about 3 weeks ago, patient underwent wound treatment and she was on antibiotic Keflex prior to hospitalization. Patient presents with worsening infection. Over the last 3 days was really bad Patient denies chest pain or dyspnea. No other new complaint Patient is afebrile Labs showing leukocytosis, BMP and liver enzymes unremarkable Foot x-ray showing dissections of the distal fifth metatarsal bone: Consistent with osteomyelitis 06/01 Patient is status post left fifth toe amputation with I&D and wound debridement and wound VAC placement Patient also was found somewhat sleepy earlier this morning but later woke up, ammonia level was low, ABG showing pH within the reference range, pO2 75. Later on her oxygen saturation was 95 to 96% Currently covered with Unasyn and IV vancomycin Also she is on Normal Saline 100 mL/h. Currently patient is on aspirin and Brilinta Objective - Vital Signs Vital signs: Vital Signs Temp 99.8 F H 06/01/24 19:34 Pulse 83 06/01/24 19:34 Resp 18 06/01/24 19:34 BP 163/84 06/01/24 19:34 Pulse Ox 91 L 06/01/24 19:34 FiO2 Intake & Output 06/01/24 06/01/24 06/02/24 06:59 18:59 06:59 Intake Total 100 Output Total 30 Balance 70 Weight 58.967 kg Intake: IV 100 Output: Estimated Blood Loss 30 Other: Voiding Method Diaper Diaper Incontinent Incontinent # Voids 2 # Bowel Movements 2 1 - Exam GENERAL: The patient is alert and oriented x3, not in any acute distress. Well developed, well nourished. HEENT: Pupils are round and equally reacting to light. EOMI. No scleral icterus. No conjunctival pallor. Normocephalic, atraumatic. No pharyngeal erythema. No thyromegaly. CARDIOVASCULAR: S1 and S2 present. No murmurs, rubs, or gallops. PULMONARY: Chest is clear to auscultation, no wheezing , no crackles. ABDOMEN: Soft, nontender, nondistended, normoactive bowel sounds. No palpable organomegaly. MUSCULOSKELETAL: No joint swelling or deformity. -EXTREMITIES: No cyanosis, clubbing, or pedal edema. Left small toe gangrene with surrounding cellulitis NEUROLOGICAL: Gross neurological examination did not reveal any focal deficits. SKIN: No rashes. no petechiae. - Labs CBC & Chem 7: 05/31/24 13:17 06/01/24 04:11 Labs: Abnormal Lab Results - Last 24 Hours (Table) 06/01/24 Range/Units 13:45 ABG pH 7.46 H (7.35-7.45) ABG pO2 75 L (83-108) mmHg ABG Total CO2 26 H (19-24) mmol/L Microbiology - Last 24 Hours (Table) 05/31/24 13:17 Blood Culture - Preliminary Blood Assessment and Plan Assessment: Diabetic foot ulcer with gangrene of the left fifth toe, x-ray showing evidence of fifth metatarsal osteomyelitis. Status post I&D, left fifth toe debridement and I&D of the surgical bed with wound VAC placement on 06/01 History of stroke with left hemiplegia Coronary artery disease CHF CVA/TIA Diabetes mellitus Hypertension Hyperlipidemia Peripheral vascular disease, status post right femoropopliteal bypass on 10/2022, amputation of the second, third and fourth right toes Plan: Continue with antibiotic, currently Unasyn and IV vancomycin Follow-up wound culture Infectious disease consult Vascular surgery team on the case Continue with aspirin. And Brilinta. Labs and medication were reviewed.. Continue same treatment. Continue with symptomatic treatment. Resume home medication. Monitor labs and vitals. DVT and GI prophylaxis. Further recommendations as per clinical course of the patient DVT prophylaxis: Subcutaneous heparin GI Prophylaxis: Pepcid PT/OT: Pending Prognosis is guarded
[2024-06-02] MEDS: TICAGRELOR 90 MG TAB PO SCH (09:50)
[2024-06-02] MEDS: VANCOMYCIN TROUGH DUE 1 EACH MISC MISCELLANE ONE (12:58)
[2024-06-02 13:06] LABS: African American GFR (CKD) >90 (>60 ml/min/1.73 sqM); Non-African American GFR(CKD) >90 (>60 ml/min/1.73 sqM)
--- NOTE | 2024-06-02 14:49 | P.PN ---
Subjective Progress Note Date: 06/02/24 Principal diagnosis: Reason for follow-up is left fifth toe gangrene and osteomyelitis Patient is a 69-year-old female with a past medical history significant for diabetes mellitus hypertension hyperlipidemia pneumonia CVA TIA peripheral arterial disease in this patient who did have a right femoral to tibial in situ bypass and balloon angioplasty by Dr. Olguin patient now presented to the hospital with nonhealing wound to the left foot lateral border and discoloration of the left fifth toe. Patient is status post left fifth toe amputation debridement of the wound bed and wound VAC application wound has reached to the head of metatarsal cultures obtained. On today's evaluation that is 06/02/2024, Patient did have a low-grade fever of 99.8 F last night however is afebrile this morning patient denies having any chest pain shortness of breath did have occasional cough, the patient is breathing comfortably on room air, patient denies any abdominal pain no diarrhea no nausea no vomiting, denies pain to the left foot wound. Patient did have a creatinine 0.64 Vanco trough is 11.3 culture growing Proteus Mirabella's Objective - Vital Signs Vital signs: Vital Signs Temp 98.6 F 06/02/24 11:54 Pulse 78 06/02/24 11:54 Resp 16 06/02/24 11:54 BP 161/67 06/02/24 11:54 Pulse Ox 96 06/02/24 11:54 FiO2 Intake & Output 06/01/24 06/02/24 06/02/24 18:59 06:59 18:59 Intake Total 100 Output Total 30 Balance 70 Weight 58.967 kg Intake: IV 100 Output: Estimated Blood Loss 30 Other: Voiding Method Diaper Diaper Diaper Incontinent Incontinent Incontinent # Voids 2 1 4 # Bowel Movements 2 1 1 - Exam GENERAL DESCRIPTION: An elderly female lying in bed in no distress RESPIRATORY SYSTEM: Unlabored breathing , decreased breath sounds at bases HEART: S1 S2 regular rate and rhythm , ABDOMEN: Soft , no tenderness EXTREMITIES: Left foot fifth toe amputation site wound is covered with a wound VAC - Labs CBC & Chem 7: 05/31/24 13:17 06/02/24 12:35 Labs: Microbiology - Last 24 Hours (Table) 06/01/24 01:30 Gram Stain - Preliminary Foot - Left Wound Culture - Preliminary Proteus mirabilis 06/01/24 14:45 Gram Stain - Preliminary Toe - Left Fifth 05/31/24 13:17 Blood Culture - Preliminary Blood Assessment and Plan (1) Pressure ulcer of left foot, stage 3 Current Visit: Yes Status: Acute Code(s): L89.893 - PRESSURE ULCER OF OTHER SITE, STAGE 3 SNOMED Code(s): 923695730 (2) Gangrene of toe of left foot Current Visit: Yes Status: Acute Code(s): I96 - GANGRENE, NOT ELSEWHERE CLASSIFIED SNOMED Code(s): 00509830346390701 (3) Type 2 diabetes mellitus with foot ulcer Current Visit: No Status: Acute Code(s): E11.621 - TYPE 2 DIABETES MELLITUS WITH FOOT ULCER; L97.509 - NON-PRESSURE CHRONIC ULCER OTH PRT UNSP FOOT W UNSP SEVERITY SNOMED Code(s): 1186583768877 Plan: 1patient presented to hospital with left foot lateral border pressure ulcer with left fifth toe gangrene failing outpatient oral Keflex therapy we will need to cover for the polymicrobial associated with diabetic foot infection as the patient has been having more of a wet gangrene. 2local culture has been obtained to guide further antibiotic therapy patient is status post left fifth toe amputation debridement of the wound extending down to the bony and culture which are currently growing Proteus sensitivities pending 3patient to continue with vancomycin pharmacy dose and Unasyn while waiting for the culture to finalize to determine discharge antibiotic will likely need PICC line and outpatient IV antibiotics Family at the bedside questions answered Dictation was produced using [employer] dictation software. please excuse any grammatical, word or spelling errors. Time with Patient: Less than 30
[2024-06-02] MEDS: traMADol 50 MG TAB PO PRN (17:06)
[2024-06-03] MEDS: VANCOMYCIN 1,000 MG in SODIUM CHLORIDE 0.9% 250 ML IVPB SCH (01:17)
[2024-06-03 06:50] LABS: African American GFR (CKD) >90 (>60 ml/min/1.73 sqM); Non-African American GFR(CKD) >90 (>60 ml/min/1.73 sqM)
--- NOTE | 2024-06-03 12:09 | P.PN ---
Subjective This is a pleasant 69 years old female with past medical history of multiple medical problems Patient presents because of infected left foot wound. Information were obtained with the at bedside. Patient has been in [facility] for the last 1-1/2 years related to her history of stroke and left hemiplegia. Patient had a small wound on her left lateral foot about 3 weeks ago, patient underwent wound treatment and she was on antibiotic Keflex prior to hospitalization. Patient presents with worsening infection. Over the last 3 days was really bad Patient denies chest pain or dyspnea. No other new complaint Patient is afebrile Labs showing leukocytosis, BMP and liver enzymes unremarkable Foot x-ray showing dissections of the distal fifth metatarsal bone: Consistent with osteomyelitis 06/01 Patient is status post left fifth toe amputation with I&D and wound debridement and wound VAC placement Patient also was found somewhat sleepy earlier this morning but later woke up, ammonia level was low, ABG showing pH within the reference range, pO2 75. Later on her oxygen saturation was 95 to 96% Currently covered with Unasyn and IV vancomycin Also she is on Normal Saline 100 mL/h. Currently patient is on aspirin and Brilinta 06/03 Patient feels better today, she is more awake and alert Pain controlled in her wound site Wound culture is growing Proteus pending final culture results Currently on IV vancomycin and Unasyn No IV fluids Objective - Vital Signs Vital signs: Vital Signs Temp 99.0 F 06/03/24 07:08 Pulse 76 06/03/24 07:08 Resp 16 06/03/24 07:08 BP 153/89 06/03/24 07:08 Pulse Ox 94 L 06/03/24 07:08 FiO2 Intake & Output 06/02/24 06/03/24 06/03/24 18:59 06:59 18:59 Weight 75.3 kg Other: Voiding Method Diaper Diaper Diaper Incontinent Incontinent Incontinent # Voids 0 1 # Bowel Movements 1 - Exam GENERAL: The patient is alert and oriented x3, not in any acute distress. Well developed, well nourished. HEENT: Pupils are round and equally reacting to light. EOMI. No scleral icterus. No conjunctival pallor. Normocephalic, atraumatic. No pharyngeal erythema. No thyromegaly. CARDIOVASCULAR: S1 and S2 present. No murmurs, rubs, or gallops. PULMONARY: Chest is clear to auscultation, no wheezing , no crackles. ABDOMEN: Soft, nontender, nondistended, normoactive bowel sounds. No palpable organomegaly. MUSCULOSKELETAL: No joint swelling or deformity. -EXTREMITIES: No cyanosis, clubbing, or pedal edema. Left small toe gangrene with surrounding cellulitis NEUROLOGICAL: Gross neurological examination did not reveal any focal deficits. SKIN: No rashes. no petechiae. - Labs CBC & Chem 7: 05/31/24 13:17 06/03/24 05:18 Labs: Abnormal Lab Results - Last 24 Hours (Table) 05/31/24 Range/Units 13:17 Hemoglobin A1c 7.9 H (<=6.0) % Microbiology - Last 24 Hours (Table) 05/28/24 16:45 Gram Stain - Final Foot - Left Wound Culture - Final Proteus mirabilis 06/01/24 01:30 Gram Stain - Final Foot - Left Wound Culture - Final Proteus mirabilis 05/31/24 13:17 Blood Culture - Preliminary Blood 06/01/24 14:45 Gram Stain - Preliminary Toe - Left Fifth Tissue Culture - Preliminary Proteus mirabilis Assessment and Plan Assessment: Diabetic foot ulcer with gangrene of the left fifth toe, x-ray showing evidence of fifth metatarsal osteomyelitis. Status post I&D, left fifth toe debridement and I&D of the surgical bed with wound VAC placement on 06/01 History of stroke with left hemiplegia Coronary artery disease CHF CVA/TIA Diabetes mellitus Hypertension Hyperlipidemia Peripheral vascular disease, status post right femoropopliteal bypass on 10/2022, amputation of the second, third and fourth right toes Plan: Continue with antibiotic, currently Unasyn and IV vancomycin Follow-up wound culture Infectious disease consult Vascular surgery team on the case Continue with aspirin. And Brilinta. Labs and medication were reviewed.. Continue same treatment. Continue with symptomatic treatment. Resume home medication. Monitor labs and vitals. DVT and GI prophylaxis. Further recommendations as per clinical course of the patient DVT prophylaxis: Subcutaneous heparin GI Prophylaxis: Pepcid PT/OT: Pending Prognosis is guarded
--- NOTE | 2024-06-03 12:17 | P.PN ---
Subjective Progress Note Date: 06/03/24 Principal diagnosis: Reason for follow-up is left fifth toe gangrene and osteomyelitis Patient is a 69-year-old female with a past medical history significant for diabetes mellitus hypertension hyperlipidemia pneumonia CVA TIA peripheral arterial disease in this patient who did have a right femoral to tibial in situ bypass and balloon angioplasty by Dr. Olguin patient now presented to the hospital with nonhealing wound to the left foot lateral border and discoloration of the left fifth toe. Patient is status post left fifth toe amputation debridement of the wound bed and wound VAC application wound has reached to the head of metatarsal cultures obtained. On today's evaluation that is 06/03/2024,the patient denies any fever or any chills, patient is breathing comfortably on room air, the patient denies chest pain shortness of breath and no significant cough, patient denies abdominal pain, no nausea vomiting or diarrhea. Denies pain to the left foot wound, mention feeling better. Patient did have a creatinine 0.67 local culture finalized with the Bharti Disla'karla Objective - Vital Signs Vital signs: Vital Signs Temp 99.0 F 06/03/24 07:08 Pulse 76 06/03/24 07:08 Resp 16 06/03/24 07:08 BP 153/89 06/03/24 07:08 Pulse Ox 94 L 06/03/24 07:08 FiO2 Intake & Output 06/02/24 06/03/24 06/03/24 18:59 06:59 18:59 Weight 75.3 kg Other: Voiding Method Diaper Diaper Diaper Incontinent Incontinent Incontinent # Voids 0 1 # Bowel Movements 1 - Exam GENERAL DESCRIPTION: An elderly female lying in bed in no distress RESPIRATORY SYSTEM: Unlabored breathing , decreased breath sounds at bases HEART: S1 S2 regular rate and rhythm , ABDOMEN: Soft , no tenderness EXTREMITIES: Left foot fifth toe amputation site wound is covered with a wound VAC - Labs CBC & Chem 7: 05/31/24 13:17 06/03/24 05:18 Labs: Abnormal Lab Results - Last 24 Hours (Table) 05/31/24 Range/Units 13:17 Hemoglobin A1c 7.9 H (<=6.0) % Microbiology - Last 24 Hours (Table) 05/28/24 16:45 Gram Stain - Final Foot - Left Wound Culture - Final Proteus mirabilis 06/01/24 01:30 Gram Stain - Final Foot - Left Wound Culture - Final Proteus mirabilis 05/31/24 13:17 Blood Culture - Preliminary Blood 06/01/24 14:45 Gram Stain - Preliminary Toe - Left Fifth Tissue Culture - Preliminary Proteus mirabilis Assessment and Plan (1) Pressure ulcer of left foot, stage 3 Current Visit: Yes Status: Acute Code(s): L89.893 - PRESSURE ULCER OF OTHER SITE, STAGE 3 SNOMED Code(s): 566785507 (2) Gangrene of toe of left foot Current Visit: Yes Status: Acute Code(s): I96 - GANGRENE, NOT ELSEWHERE CLASSIFIED SNOMED Code(s): 47045035925130798 (3) Type 2 diabetes mellitus with foot ulcer Current Visit: No Status: Acute Code(s): E11.621 - TYPE 2 DIABETES MELLITUS WITH FOOT ULCER; L97.509 - NON-PRESSURE CHRONIC ULCER OTH PRT UNSP FOOT W UNSP SEVERITY SNOMED Code(s): 2802649679261 Plan: 1patient presented to hospital with left foot lateral border pressure ulcer with left fifth toe gangrene failing outpatient oral Keflex therapy we will need to cover for the polymicrobial associated with diabetic foot infection as the patient has been having more of a wet gangrene. 2local culture has been obtained to guide further antibiotic therapy patient is status post left fifth toe amputation debridement of the wound extending down to the bony and culture which are currently growing Proteus that is resistant to Unasyn 3we will discontinue vancomycin and Unasyn, start the patient on Rocephin 2 g daily and oral Flagyl we will evaluate the wound at the time of next wound VAC change hopefully tomorrow discussed with the nursing staff Dictation was produced using [employer] software. please excuse any grammatical, word or spelling errors. Time with Patient: Less than 30
--- NOTE | 2024-06-03 13:10 | P.PN ---
Subjective Progress Note Date: 06/03/24 Principal diagnosis: left foot wound patient seen and examined. Doing well with current wound vac therapy after amputation Objective - Vital Signs Vital signs: Vital Signs Temp 98.5 F 06/03/24 11:54 Pulse 71 06/03/24 11:54 Resp 16 06/03/24 11:54 BP 174/94 06/03/24 11:54 Pulse Ox 96 06/03/24 11:54 FiO2 Intake & Output 06/02/24 06/03/24 06/03/24 18:59 06:59 18:59 Weight 75.3 kg Other: Voiding Method Diaper Diaper Diaper Incontinent Incontinent Incontinent # Voids 0 1 3 # Bowel Movements 1 - Exam left foot amputation site with wound vac intact no significant purulent drainage noted minimal pain - Labs CBC & Chem 7: 05/31/24 13:17 06/03/24 05:18 Labs: Abnormal Lab Results - Last 24 Hours (Table) 05/31/24 Range/Units 13:17 Hemoglobin A1c 7.9 H (<=6.0) % Microbiology - Last 24 Hours (Table) 05/28/24 16:45 Gram Stain - Final Foot - Left Wound Culture - Final Proteus mirabilis 06/01/24 01:30 Gram Stain - Final Foot - Left Wound Culture - Final Proteus mirabilis 05/31/24 13:17 Blood Culture - Preliminary Blood 06/01/24 14:45 Gram Stain - Preliminary Toe - Left Fifth Tissue Culture - Preliminary Proteus mirabilis Assessment and Plan Assessment: left 5th toe gangrene and foot wound POD 2 left 5th toe amputation and foot debridement with wound VAC placement Plan: Continue wound VAC and antibiotics no further surgical intervention at this time.
[2024-06-03 13:36] LABS: Basophils % (A) 0 %; Eosinophils # (A) 0.2 k/uL (0-0.7); Eosinophils % (A) 2 %; Hypochromasia Slight; Lymphocytes # (A) 1.9 k/uL (1.0-4.8); Lymphocytes % (A) 14 %; MCH 30.7 pg (25.0-35.0); MCHC 32.9 g/dL (31.0-37.0); MCV 93.4 fL (80.0-100.0); Mean Platelet Volume 6.9; Monocytes # (A) 0.8 k/uL (0-1.0); Monocytes % (A) 6 %; Neutrophils # (A) 10.8 k/uL (1.3-7.7); Neutrophils % (A) 78 %; Platelet Count 446 k/uL (150-450); RBC 3.21 m/uL (3.80-5.40); RDW 12.3 % (11.5-15.5); WBC 13.9 k/uL (3.8-10.6)
[2024-06-03 13:45] LABS: HGB 9.9 gm/dL (11.4-16.0)
[2024-06-03] MEDS: LIDOCAINE 1% INJ 10MG/ML (20 ML MDV) SQ ONE (14:35)
[2024-06-03] MEDS: IOPAMIDOL-250 100ML BTL IVP ONE (14:35)
[2024-06-03] MEDS: metroNIDAZOLE 500 MG TAB PO SCH (15:36)
--- NOTE | 2024-06-03 15:56 | P.OP ---
Date of Procedure: 06/03/24 Preoperative Diagnosis: 1: Need for long-term IV antibiotic therapy. 2: Inability to properly obtain positioning of PICC line. Postoperative Diagnosis: Same. Procedure(s) Performed: 1: Repositioning of PICC line with fluoroscopic guidance. 2: Superior venacavogram. Anesthesia: local, none Surgeon: Blayne Iglesias Estimated Blood Loss (ml): 0 IV fluids (ml): 0 Urine output (ml): 0 Pathology: none sent Condition: stable Disposition: no change Indications for Procedure: Patient is a 69-year-old female who presented with ischemic changes of her left fifth toe. She underwent left fifth toe amputation and has felt that the pa tient will require long-term IV antibiotic therapy. The PICC team was unable to properly position the catheter and consultation was requested regarding repositioning. Description of Procedure: Patient was brought to the catheterization laboratory. The PICC line was noted to cross into the contralateral innominate vein. Under fluoroscopy and with the use of a guidewire the catheter was properly positioned. Superior venacavogram demonstrated no anatomic abnormalities within the central venous system. The catheter was then flushed and secured to the skin with nylon suture. Patient tolerated the procedure well. Total fluoroscopy time: 0.7 seconds. Total contrast volume utilized: 10 mL.
[2024-06-04 08:36] LABS: Basophils # (A) 0.05 X 10*3/uL (0.00-0.10); Basophils % (A) 0.4 %; Eosinophils # (A) 0.32 X 10*3/uL (0.04-0.35); Eosinophils % (A) 2.4 %; HCT 30.1 % (37.2-50.0); HGB 9.9 g/dL (12.0-17.0); Lymphocytes # (A) 1.84 X 10*3/uL (0.90-5.00); MCH 30.1 pg (27.0-32.0); MCHC 32.9 g/dL (32.0-37.0); MCV 91.5 FL (80.0-97.0); Mean Platelet Volume 9.1 FL (9.5-12.2); Monocytes % (A) 7.6 %; NRBC Per 100 WBC 0 X 10*3/uL (0.00-0.01); Neutrophils # (A) 9.87 X 10*3/uL (1.80-7.70); Neutrophils % (A) 75.3 %; Platelet Count 410 X 10*3/uL (140-440); RBC 3.29 X 10*6/uL (4.10-5.60); RDW 12.3 % (11.5-14.5); WBC 13.12 X 10*3/uL (4.50-10.00)
[2024-06-04 08:40] LABS: BUN/Creat Ratio 9.71 Ratio (12.00-20.00); Blood Urea Nitrogen 6.8 mg/dL (9.0-27.0); Calcium 7.9 mg/dL (8.7-10.3); Carbon Dioxide 23.2 mmol/L (21.6-31.8); Chloride 107 mmol/L (96-109); Glucose 123 mg/dL (70-110); Potassium 3.1 mmol/L (3.5-5.5); Sodium 140 mmol/L (135-145)
--- NOTE | 2024-06-04 11:00 | P.PN ---
Subjective Progress Note Date: 06/04/24 Principal diagnosis: Left foot wound Patient is seen and examined today as a follow-up. She is postop day #3 for left fifth toe amputation. Wound VAC is currently in place with good suction. Patient had PICC line placed yesterday. Deep tissue cultures positive for Proteus Mirabilis. Objective - Vital Signs Vital signs: Vital Signs Temp 98.0 F 06/04/24 00:50 Pulse 73 06/04/24 00:50 Resp 16 06/04/24 00:50 BP 165/93 06/04/24 00:50 Pulse Ox 93 L 06/04/24 00:50 FiO2 Intake & Output 06/03/24 06/04/24 06/04/24 18:59 06:59 18:59 Weight 71 kg Other: Voiding Method Diaper Diaper Incontinent Incontinent # Voids 1 1 - Exam General appearance: The patient is alert, oriented, appears in no acute distress. HET: Head is normocephalic and atraumatic. Neck: Supple. Abdomen: Soft, nondistended. Extremities: Left fifth toe amputation site with wound VAC in place with good suction. Neurological: Left-sided hemiparesis, left lower extremity contracture. - Labs CBC & Chem 7: 06/04/24 05:08 06/04/24 05:08 Labs: Abnormal Lab Results - Last 24 Hours (Table) 06/03/24 06/04/24 Range/Units 12:08 05:08 WBC 13.9 H 13.12 H (3.8-10.6) k/uL RBC 3.21 L 3.29 L (3.80-5.40) m/uL Hgb 9.9 L D 9.9 L (11.4-16.0) gm/dL Hct 30.0 L 30.1 L (34.0-46.0) % MPV 9.1 L (9.5-12.2) FL Neutrophils # 10.8 H 9.87 H (1.3-7.7) k/uL Microbiology - Last 24 Hours (Table) 05/31/24 13:17 Blood Culture - Preliminary Blood 06/01/24 14:45 Gram Stain - Preliminary Toe - Left Fifth Tissue Culture - Preliminary Proteus mirabilis 05/28/24 16:45 Gram Stain - Final Foot - Left Wound Culture - Final Proteus mirabilis 06/01/24 01:30 Gram Stain - Final Foot - Left Wound Culture - Final Proteus mirabilis Assessment and Plan Assessment: 1. Left foot/fifth toe diabetic pressure ulcer, gangrene status post fifth toe amputation and wound debridement with wound VAC placement 2. History of peripheral arterial disease 3. History of CVA with left hemiparesis 4. Nonambulatory 5. Diabetes mellitus Plan: 1. Continue wound VAC, change today, then schedule will be Tuesdays, and Saturdays 2. Consult to wound center for care of wound VAC and outpatient follow-up 3. Antibiotics per recommendations from infectious disease 4. Offload pressure to left foot, apply soft green offloading boot Patient is cleared from vascular surgery for discharge, recommend outpatient follow-up with [facility] Thank you for this consultation, we will sign off at this time. The impression and plan of care has been dictated as directed. I performed a history and examination of this patient, discussed the same with the dictator. I agree with the dictator's note ,documented as a scribe. Any additional findings or plans will be noted.
[2024-06-04] MEDS ORDERED: Potassium Replacement Protocol 1 EACH MISC MISCELLANE PRN (11:22)
[2024-06-04 11:27] VITALS: BMI 26.0
[2024-06-04] MEDS: PANTOPRAZOLE 40 MG TABLET PO SCH (12:36)
[2024-06-04] MEDS: POTASSIUM CHLORIDE ER 20 MEQ TAB.ER PO SCH (12:36)
--- NOTE | 2024-06-04 12:38 | P.CONS ---
History of Present Illness - Reason for Consult Consult date: 06/04/24 wound care - History of Present Illness This is a 69-year-old patient being seen on 5 N. for a nonhealing ulceration to the left lateral foot. Patient underwent a amputation of her fifth digit currently has a negative pressure wound VAC in place. Wound VAC was removed today revealing a ulceration measuring approximately 3 x 3 x 1.2 cm with granulation seen throughout the wound bed slough and nonviable tissue present. Wound edges are attached to the wound base there is no tunneling or undermining noted. Review Of Systems: Constitutional: No fever, no chills, no night sweats. No weight change. No weakness, fatigue or lethargy. No daytime sleepiness. Integumentary:reports wounds, no lesions. No rash or pruritus. No unusual bruising. No change in hair or nails. Physical exam: General Appearance: Alert, cooperative, no distress, appears stated age. Skin: See HPI all other Skin color, texture, tugor normal, no rashes or lesions. Neurologic: Alert oriented x3 Assessment: 1. Nonhealing ulceration with bone necrosis left foot 2. Atherosclerosis with ulceration of left forefoot 3. Diabetic foot ulcer Plan: 1.Apply skin prep, Negative pressure wound VAC with black foam at 125 mmHg continuous pressure. Patient would benefit from advanced wound care and wound care clinic. Would be happy to see her upon discharge. Thank you for the consultation any questions please contact the wound care center DNP note has been reviewed and discussed with Dr. Kaplan and the impression and plan of care has been directed as dictated. 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 Hx falls. Diverticulitis. PVD. Dysphagia. Needs 2 staff to pivot/transfer pt. Currently resides at [facility] since November 2022. Hx acute respiratory failure. Neuromuscular dysfunction of bladder. History of Any Multi-Drug Resistant Organisms: MRSA Year Discovered:: 02/15/23 MDRO Source:: rt foot Past Surgical History: Section, Heart Catheterization, Orthopedic Surgery, Tonsillectomy Additional Past Surgical History / Comment(s): Right Femoral Popliteal bypass 10/19/22, at [facility], amputation of second third and fourth toes on right foot, carpal tunnel surgery. Past Anesthesia/Blood Transfusion Reactions: No Reported Reaction Additional Past Anesthesia/Blood Transfusion Reaction / Comm: Never received blood. Past Psychological History: Depression Smoking Status: Never smoker Past Alcohol Use History: None Reported Past Drug Use History: None Reported - Past Family History Mother Family Medical History: Cancer Additional Family Medical History / Comment(s): History of lower back fusion Father Family Medical History: Coronary Artery Disease (CAD) Medications and Allergies Home Medications Medication Instructions Recorded Confirmed Type Aspirin EC [Ecotrin Low Dose] 81 mg PO DAILY 07/23/22 05/31/24 History Acetaminophen [Tylenol] 650 mg PO Q4H PRN 11/03/22 05/31/24 History carvediloL [Coreg] 6.25 mg PO BID 11/03/22 05/31/24 History Gabapentin [Neurontin] 300 mg PO TID@0600,1300,2100 01/26/23 05/31/24 History Insulin Glargine,Hum.rec.anlog 18 units SQ HS 01/26/23 05/31/24 History [Lantus Solostar Pen] Melatonin 3 mg PO HS 01/26/23 05/31/24 History tiZANidine HCL [Zanaflex] 2 mg PO HS 01/26/23 05/31/24 History Cetirizine HCl [Zyrtec] 10 mg PO DAILY 05/05/23 05/31/24 History Ferrous Sulfate [Iron (65 MG 325 mg PO DAILY 05/05/23 05/31/24 History Elemental)] Sennosides/Docusate Sodium [Senna 1 cap PO Q24H PRN 05/05/23 05/31/24 History Plus 8.6-50 mg Softgel] lisinopriL [Zestril] 20 mg PO DAILY 05/05/23 05/31/24 History Ammonium Lactate Lotion 1 applic TOPICAL BID 07/05/23 05/31/24 History [Lac-Hydrin 12% Lotion] Ketoconazole 2% Shampoo [Nizoral] 1 applic TOPICAL MOFR 07/05/23 05/31/24 History Simethicone Chew [Mylicon Chew] 80 mg PO Q6H PRN 07/05/23 05/31/24 History Ticagrelor [Brilinta] 90 mg PO BID #180 tab 07/07/23 05/31/24 Rx Acetaminophen [Tylenol] 650 mg PO Q8H 01/30/24 05/31/24 History Albuterol Inhaler [Ventolin Hfa 2 puff INHALATION RT-Q6H PRN 01/30/24 05/31/24 History Inhaler] Vit C/E/Zn/Coppr/Lutein/Zeaxan 1 cap PO DAILY 01/30/24 05/31/24 History [Preservision Areds 2 Softgel] traMADol HCL 50 mg PO Q6H PRN 01/30/24 05/31/24 History Atorvastatin [Lipitor] 80 mg PO HS 05/31/24 05/31/24 History Cephalexin [Keflex] 500 mg PO TID@0900,1300,2100 05/31/24 05/31/24 History Collagenase [Santyl Ointment] 1 applic TOPICAL DAILY 05/31/24 05/31/24 History Collagenase [Santyl Ointment] 1 applic TOPICAL DAILY PRN 05/31/24 05/31/24 History Furosemide [Lasix] 20 mg PO DAILY@0600 05/31/24 05/31/24 History Hydrocortisone Cream 1 applic TOPICAL BID PRN 05/31/24 05/31/24 History [Hydrocortisone 1% Cream] INSULIN LISPRO (humaLOG) [humaLOG] 5 units SQ AC-TID@08,,05/31/24 05/31/24 History INSULIN LISPRO (humaLOG) [humaLOG] See Protocol SQ AC-TID@08,,18 05/31/24 05/31/24 History Lactulose 20 gm PO DAILY PRN 05/31/24 05/31/24 History Levothyroxine Sodium [Synthroid] 25 mcg PO DAILY@0600 05/31/24 05/31/24 History Allergies Allergy/AdvReac Type Severity Reaction Status Date / Time unknown sleep aid Allergy Rash/Hives Uncoded 05/31/24 13:36 Physical Exam Vitals: Vital Signs Temp Pulse Resp BP Pulse Ox 06/04/24 08:00 18 06/04/24 07:04 98.2 F 72 17 154/88 93 L 10/01/24 00:50 98.0 F 73 16 165/93 93 L 06/03/24 20:00 18 06/03/24 18:59 98.7 F 83 18 170/96 96 06/03/24 17:56 78 159/90 Intake and Output 06/03/24 06/04/24 06/04/24 22:59 06:59 14:59 Other: Voiding Method Diaper Diaper Incontinent Incontinent # Voids 1 1 1 Weight 71 kg 71 kg Results CBC & Chem 7: 06/04/24 05:08 06/04/24 05:08 Labs: Abnormal Lab Results - Last 24 Hours (Table) 06/03/24 06/04/24 06/04/24 Range/Units 12:08 05:08 05:08 WBC 13.9 H 13.12 H (3.8-10.6) k/uL RBC 3.21 L 3.29 L (3.80-5.40) m/uL Hgb 9.9 L D 9.9 L (11.4-16.0) gm/dL Hct 30.0 L 30.1 L (34.0-46.0) % MPV 9.1 L (9.5-12.2) FL Neutrophils # 10.8 H 9.87 H (1.3-7.7) k/uL Potassium 3.1 L (3.5-5.5) mmol/L BUN 6.8 L (9.0-27.0) mg/dL BUN/Creatinine Ratio 9.71 L (12.00-20.00) Ratio Glucose 123 H (70-110) mg/dL Calcium 7.9 L (8.7-10.3) mg/dL Microbiology - Last 24 Hours (Table) 05/31/24 13:17 Blood Culture - Preliminary Blood 06/01/24 14:45 Gram Stain - Preliminary Toe - Left Fifth Tissue Culture - Preliminary Proteus mirabilis 05/28/24 16:45 Gram Stain - Final Foot - Left Wound Culture - Final Proteus mirabilis 06/01/24 01:30 Gram Stain - Final Foot - Left Wound Culture - Final Proteus mirabilis Assessment and Plan (1) Non-pressure 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 Current Visit: Yes Status: Acute Code(s): L97.524 - NON-PRS CHRONIC ULCER OTH PRT LEFT FOOT W NECROSIS OF BONE SNOMED Code(s): 85942823024021676 (2) Atherosclerosis of [place] arteries of left leg with ulceration of other part of foot Current Visit: Yes Status: Acute Code(s): I70.245 - ATHSCL [place] ARTERIES OF LEFT LEG W ULCERATION OTH PRT FOOT SNOMED Code(s): 4943442588 (3) Type 2 diabetes mellitus with foot ulcer Current Visit: No Status: Acute Code(s): E11.621 - TYPE 2 DIABETES MELLITUS WITH FOOT ULCER; L97.509 - NON-PRESSURE CHRONIC ULCER OTH PRT UNSP FOOT W UNSP SEVERITY SNOMED Code(s): 7208679449554
[2024-06-04] MEDS ORDERED: VANCOMYCIN TROUGH DUE 1 EACH MISC MISCELLANE ONE (13:00)
--- NOTE | 2024-06-04 13:06 | P.PN ---
Subjective Progress Note Date: 06/04/24 Principal diagnosis: Reason for follow-up is left fifth toe gangrene and osteomyelitis Patient is a 69-year-old female with a past medical history significant for diabetes mellitus hypertension hyperlipidemia pneumonia CVA TIA peripheral arterial disease in this patient who did have a right femoral to tibial in situ bypass and balloon angioplasty by Dr. Olguin patient now presented to the hospital with nonhealing wound to the left foot lateral border and discoloration of the left fifth toe. Patient is status post left fifth toe amputation debridement of the wound bed and wound VAC application wound has reached to the head of metatarsal cultures obtained. On today's evaluation that is 06/04/2024,the patient remains to be afebrile, patient is on room air not requiring supplemental oxygen and denies any shortness of breath no chest pain or cough.Patient denies having any nausea or vomiting, no abdominal pain and no diarrhea has been reported pain to the left foot is controlled. Patient white count is 13.12, creatinine 0.7 Objective - Vital Signs Vital signs: Vital Signs Temp 98.2 F 06/04/24 07:04 Pulse 72 06/04/24 07:04 Resp 18 06/04/24 08:00 BP 154/88 06/04/24 07:04 Pulse Ox 93 L 06/04/24 07:04 FiO2 Intake & Output 06/03/24 06/04/24 06/04/24 18:59 06:59 18:59 Weight 71 kg 71 kg Other: Voiding Method Diaper Diaper Diaper Incontinent Incontinent Incontinent # Voids 1 1 1 - Exam GENERAL DESCRIPTION: An elderly female lying in bed in no distress RESPIRATORY SYSTEM: Unlabored breathing , decreased breath sounds at bases HEART: S1 S2 regular rate and rhythm , ABDOMEN: Soft , no tenderness EXTREMITIES: Left foot fifth toe amputation site wound is covered with a wound VAC - Labs CBC & Chem 7: 06/04/24 05:08 06/04/24 05:08 Labs: Abnormal Lab Results - Last 24 Hours (Table) 06/03/24 06/04/24 06/04/24 Range/Units 12:08 05:08 05:08 WBC 13.9 H 13.12 H (3.8-10.6) k/uL RBC 3.21 L 3.29 L (3.80-5.40) m/uL Hgb 9.9 L D 9.9 L (11.4-16.0) gm/dL Hct 30.0 L 30.1 L (34.0-46.0) % MPV 9.1 L (9.5-12.2) FL Neutrophils # 10.8 H 9.87 H (1.3-7.7) k/uL Potassium 3.1 L (3.5-5.5) mmol/L BUN 6.8 L (9.0-27.0) mg/dL BUN/Creatinine Ratio 9.71 L (12.00-20.00) Ratio Glucose 123 H (70-110) mg/dL Calcium 7.9 L (8.7-10.3) mg/dL Microbiology - Last 24 Hours (Table) 05/31/24 13:17 Blood Culture - Preliminary Blood 06/01/24 14:45 Gram Stain - Preliminary Toe - Left Fifth Tissue Culture - Preliminary Proteus mirabilis 05/28/24 16:45 Gram Stain - Final Foot - Left Wound Culture - Final Proteus mirabilis 06/01/24 01:30 Gram Stain - Final Foot - Left Wound Culture - Final Proteus mirabilis Assessment and Plan (1) Pressure ulcer of left foot, stage 3 Current Visit: Yes Status: Acute Code(s): L89.893 - PRESSURE ULCER OF OTHER SITE, STAGE 3 SNOMED Code(s): 209555289 (2) Gangrene of toe of left foot Current Visit: Yes Status: Acute Code(s): I96 - GANGRENE, NOT ELSEWHERE CLASSIFIED SNOMED Code(s): 13666842639231153 (3) Type 2 diabetes mellitus with foot ulcer Current Visit: No Status: Acute Code(s): E11.621 - TYPE 2 DIABETES MELLITUS WITH FOOT ULCER; L97.509 - NON-PRESSURE CHRONIC ULCER OTH PRT UNSP FOOT W UNSP SEVERITY SNOMED Code(s): 4406248084260 Plan: 1patient presented to hospital with left foot lateral border pressure ulcer with left fifth toe gangrene failing outpatient oral Keflex therapy we will need to cover for the polymicrobial associated with diabetic foot infection as the patient has been having more of a wet gangrene. 2local culture has been obtained to guide further antibiotic therapy patient is status post left fifth toe amputation debridement of the wound extending down to the bony and culture which are currently growing Proteus that is resistant to Unasyn 3patient to continue with Rocephin 2 g daily and oral Flagyl patient only has a PICC line plan is for 5 weeks of antibiotic on discharge Dictation was produced using [employer] dictation software. please excuse any grammatical, word or spelling errors. Time with Patient: Less than 30
[2024-06-04 13:28] VITALS: RESP 16
--- NOTE | 2024-06-04 18:14 | IR ---
EXAMINATION TYPE: IR cvc insert >=5 years DATE OF EXAM: 06/03/2024 2:57 PM COMPARISON: Pre Operative Images if available both CT/MRI or plain film CLINICAL INDICATION: Female, 69 years old with history of Abx, 0.7m/4.7DAP, Lt brachial 42cm 4F picc line; TECHNIQUE: IR cvc insert >=5 years, multiple fluoroscopic images provided for procedure. Total fluoroscopy time: 0.7 minutes Total submitted images to PACS: 50 DAP: 0.441 Gycm2 . FINDINGS: Fluoroscopic images during venography for central venous catheter insertion. No evidence for pneumoth orax or extravasation of contrast outside the vasculature.. IMPRESSION: 1. No evidence for intraoperative complication. 2. Please see the operative/procedural note for further details. [facility], , 06/04/2024 6:11 PM
--- NOTE | 2024-06-05 05:45 | P.PN ---
Subjective Progress Note Date: 06/04/24 This is a pleasant 69 years old female with past medical history of multiple medical problems Patient presents because of infected left foot wound. Information were obtained with the at bedside. Patient has been in [facility] for the last 1-1/2 years related to her history of stroke and left hemiplegia. Patient had a small wound on her left lateral foot about 3 weeks ago, patient underwent wound treatment and she was on antibiotic Keflex prior to hospitalization. Patient presents with worsening infection. Over the last 3 days was really bad Patient denies chest pain or dyspnea. No other new complaint Patient is afebrile Labs showing leukocytosis, BMP and liver enzymes unremarkable Foot x-ray showing dissections of the distal fifth metatarsal bone: Consistent with osteomyelitis 06/01 Patient is status post left fifth toe amputation with I&D and wound debridement and wound VAC placement Patient also was found somewhat sleepy earlier this morning but later woke up, ammonia level was low, ABG showing pH within the reference range, pO2 75. Later on her oxygen saturation was 95 to 96% Currently covered with Unasyn and IV vancomycin Also she is on Normal Saline 100 mL/h. Currently patient is on aspirin and Brilinta 06/03 Patient feels better today, she is more awake and alert Pain controlled in her wound site Wound culture is growing Proteus pending final culture results Currently on IV vancomycin and Unasyn No IV fluids 06/04/2024 Patient is seen in follow-up with infectious disease and vascular surgery following. Wound care consulted for left foot recommendations. Patient is currently maintained on a wound VAC along with IV antibiotics and has received a PICC line. Patient will continue on Rocephin along with oral Flagyl for 5 weeks per ID recommendations. Plan is to return to [facility] with case management following and making arrangements for probable discharge planning in the next 24 hours. Potassium mildly low and will replace per protocol and follow-up on r epeat labs. Review of systems: Constitutional: No reports of fatigue, fever, or chills Cardiovascular: No reports of chest pain or palpitations Respiratory: No reports of shortness of breath or cough GI: No reports of nausea, vomiting, or diarrhea : No reports of dysuria or retention Neurovascular: reports of generalized weakness and some left foot pain. All medications have been reviewed Physical exam: GENERAL: The patient is alert and oriented x3, not in any acute distress. Well developed, well nourished. HEENT: Pupils are round and equally reacting to light. EOMI. No scleral icterus. No conjunctival pallor. Normocephalic, atraumatic. No pharyngeal erythema. No thyromegaly. CARDIOVASCULAR: S1 and S2 present. No murmurs, rubs, or gallops. PULMONARY: Chest is clear to auscultation, no wheezing , no crackles. ABDOMEN: Soft, nontender, nondistended, normoactive bowel sounds. No palpable organomegaly. MUSCULOSKELETAL: No joint swelling or deformity. -EXTREMITIES: No cyanosis, clubbing, or pedal edema. Left small toe gangrene with surrounding cellulitis NEUROLOGICAL: Gross neurological examination did not reveal any focal deficits. Diffusely weak, wound VAC noted on the left foot SKIN: No rashes. no petechiae. Assessment: Diabetic foot ulcer with gangrene of the left fifth toe, x-ray showing evidence of fifth metatarsal osteomyelitis. Status post I&D, left fifth toe debridement and I&D of the surgical bed with wound VAC placement on 06/01 History of stroke with left hemiplegia Coronary artery disease Hypokalemia, being replaced CHF CVA/TIA Diabetes mellitus Hypertension Hyperlipidemia Peripheral vascular disease, status post right femoropopliteal bypass on 10/2022, amputation of the second, third and fourth right toes GI prophylaxis DVT prophylaxis Full code Plan: Continue with antibiotic, currently on Rocephin and oral Flagyl and will continue for 5-week course per ID recommendations. Patient has received a PICC line and will be returning to [facility] Follow-up wound culture showing Proteus [facility] Vascular surgery team on the case and have cleared the patient for discharge, wound care nurse consulted and appreciate input and recommendations Continue with aspirin. And Brilinta. Given significant comorbidities, overall prognosis is guarded Probable discharge to [facility] on the porum in the next 24 hours The impression and plan of care has been dictated by Britany Zavala, Nurse Practitioner as directed. Dr. Jitendra MD I have performed a history and examination and MDM of this patient, discussed t he same with the dictator, and agree with the dictator's assessment and plan as written ,documented as a scribe. Based on total visit time, I have performed more than 50% of the visit. Objective - Vital Signs Vital signs: Vital Signs Temp 98.2 F 06/04/24 07:04 Pulse 72 06/04/24 07:04 Resp 18 06/04/24 08:00 BP 154/88 06/04/24 07:04 Pulse Ox 93 L 06/04/24 07:04 FiO2 Intake & Output 06/03/24 06/04/24 06/04/24 18:59 06:59 18:59 Weight 71 kg Other: Voiding Method Diaper Diaper Diaper Incontinent Incontinent Incontinent # Voids 1 1 - Labs CBC & Chem 7: 06/04/24 05:08 06/04/24 05:08 Labs: Abnormal Lab Results - Last 24 Hours (Table) 06/03/24 06/04/24 06/04/24 Range/Units 12:08 05:08 05:08 WBC 13.9 H 13.12 H (3.8-10.6) k/uL RBC 3.21 L 3.29 L (3.80-5.40) m/uL Hgb 9.9 L D 9.9 L (11.4-16.0) gm/dL Hct 30.0 L 30.1 L (34.0-46.0) % MPV 9.1 L (9.5-12.2) FL Neutrophils # 10.8 H 9.87 H (1.3-7.7) k/uL Potassium 3.1 L (3.5-5.5) mmol/L BUN 6.8 L (9.0-27.0) mg/dL BUN/Creatinine Ratio 9.71 L (12.00-20.00) Ratio Glucose 123 H (70-110) mg/dL Calcium 7.9 L (8.7-10.3) mg/dL Microbiology - Last 24 Hours (Table) 05/31/24 13:17 Blood Culture - Preliminary Blood 06/01/24 14:45 Gram Stain - Preliminary Toe - Left Fifth Tissue Culture - Preliminary Proteus mirabilis 05/28/24 16:45 Gram Stain - Final Foot - Left Wound Culture - Final Proteus mirabilis 06/01/24 01:30 Gram Stain - Final Foot - Left Wound Culture - Final Proteus mirabilis
[2024-06-05 08:48] LABS: BUN/Creat Ratio 7.14 Ratio (12.00-20.00); Calcium 8.5 mg/dL (8.7-10.3); Carbon Dioxide 23.2 mmol/L (21.6-31.8); Chloride 108 mmol/L (96-109); Glucose 139 mg/dL (70-110); Magnesium 1.7 mg/dL (1.5-2.4); Potassium 3.5 mmol/L (3.5-5.5); Sodium 141 mmol/L (135-145)
[2024-06-05 08:56] LABS: Basophils # (A) 0.05 X 10*3/uL (0.00-0.10); Basophils % (A) 0.4 %; Eosinophils # (A) 0.28 X 10*3/uL (0.04-0.35); Eosinophils % (A) 2.2 %; HCT 31.4 % (37.2-50.0); HGB 10.2 g/dL (12.0-17.0); Lymphocytes # (A) 1.84 X 10*3/uL (0.90-5.00); Lymphocytes % (A) 14.7 %; MCH 29.4 pg (27.0-32.0); MCHC 32.5 g/dL (32.0-37.0); MCV 90.5 FL (80.0-97.0); Mean Platelet Volume 9.1 FL (9.5-12.2); Monocytes # (A) 0.89 X 10*3/uL (0.20-1.00); Monocytes % (A) 7.1 %; NRBC Per 100 WBC 0 X 10*3/uL (0.00-0.01); Neutrophils # (A) 9.42 X 10*3/uL (1.80-7.70); Neutrophils % (A) 75.2 %; Platelet Count 438 X 10*3/uL (140-440); RBC 3.47 X 10*6/uL (4.10-5.60); RDW 12.3 % (11.5-14.5); WBC 12.53 X 10*3/uL (4.50-10.00)
--- NOTE | 2024-06-05 11:48 | P.PN ---
Subjective Progress Note Date: 06/05/24 Principal diagnosis: Reason for follow-up is left fifth toe gangrene and osteomyelitis Patient is a 69-year-old female with a past medical history significant for diabetes mellitus hypertension hyperlipidemia pneumonia CVA TIA peripheral arterial disease in this patient who did have a right femoral to tibial in situ bypass and balloon angioplasty by Dr. Olguin patient now presented to the hospital with nonhealing wound to the left foot lateral border and discoloration of the left fifth toe. Patient is status post left fifth toe amputation debridement of the wound bed and wound VAC application wound has reached to the head of metatarsal cultures obtained. On today's evaluation that is 06/05/2024, the patient continues to be afebrile, the patient is on room air and breathing comfortably, the Pt denies having any chest pain or cough, the patient denies having any abdominal pain no vomiting or any diarrhea has been reported by the nursing staff, denies pain to the left foot wound. Patient white count is down to 12.53, creatinine 0.7 local culture growing bacteroids and Proteus with repeat 1 hours ESBL Objective - Vital Signs Vital signs: Vital Signs Temp 98.3 F 06/05/24 08:00 Pulse 79 06/05/24 08:00 Resp 16 06/05/24 08:00 BP 183/96 06/05/24 08:00 Pulse Ox 94 L 06/05/24 08:00 FiO2 Intake & Output 06/04/24 06/05/24 06/05/24 18:59 06:59 18:59 Intake Total 1320 590 Balance 1320 590 Weight 71 kg 68.5 kg Intake: Oral 1320 590 Other: Voiding Method Diaper Diaper Diaper Incontinent Incontinent # Voids 3 4 - Exam GENERAL DESCRIPTION: An elderly female lying in bed in no distress RESPIRATORY SYSTEM: Unlabored breathing , decreased breath sounds at bases HEART: S1 S2 regular rate and rhythm , ABDOMEN: Soft , no tenderness EXTREMITIES: Left foot fifth toe amputation site wound is covered with a wound VAC - Labs CBC & Chem 7: 06/05/24 05:13 06/05/24 05:13 Labs: Abnormal Lab Results - Last 24 Hours (Table) 06/05/24 06/05/24 Range/Units 05:13 05:13 WBC 12.53 H (4.50-10.00) X 10*3/uL RBC 3.47 L (4.10-5.60) X 10*6/uL Hgb 10.2 L (12.0-17.0) g/dL Hct 31.4 L (37.2-50.0) % MPV 9.1 L (9.5-12.2) FL Immature Gran # 0.05 H (0.00-0.04) X 10*3/uL Neutrophils # 9.42 H (1.80-7.70) X 10*3/uL BUN 5.0 L (9.0-27.0) mg/dL BUN/Creatinine Ratio 7.14 L (12.00-20.00) Ratio Glucose 139 H (70-110) mg/dL Calcium 8.5 L (8.7-10.3) mg/dL Microbiology - Last 24 Hours (Table) 06/01/24 14:45 Gram Stain - Final Toe - Left Fifth Tissue Culture - Final Proteus mirabilis 06/01/24 14:45 Anaerobic Culture - Final Toe - Left Fifth Bacteroides fragilis Group Assessment and Plan (1) Pressure ulcer of left foot, stage 3 Current Visit: Yes Status: Acute Code(s): L89.893 - PRESSURE ULCER OF OTHER SITE, STAGE 3 SNOMED Code(s): 375669796 (2) Gangrene of toe of left foot Current Visit: Yes Status: Acute Code(s): I96 - GANGRENE, NOT ELSEWHERE CLASSIFIED SNOMED Code(s): 55131990252958919 (3) Type 2 diabetes mellitus with foot ulcer Current Visit: No Status: Acute Code(s): E11.621 - TYPE 2 DIABETES MELLITUS WITH FOOT ULCER; L97.509 - NON-PRESSURE CHRONIC ULCER OTH PRT UNSP FOOT W UNSP SEVERITY SNOMED Code(s): 7097513044144 Plan: 1patient presented to hospital with left foot lateral border pressure ulcer with left fifth toe gangrene failing outpatient oral Keflex therapy we will need to cover for the polymicrobial associated with diabetic foot infection as the patient has been having more of a wet gangrene. 2local culture has been obtained to guide further antibiotic therapy patient is status post left fifth toe amputation debridement of the wound extending down to the bony and culture which are currently growing Proteus that is resistant to Unasyn 3patient OR culture from the left fifth toe is now growing ESBL Proteus along with Bacteroides species we will discontinue Rocephin start the patient on Invanz 1 g daily with the patient will need to continue on discharge to finish 6-week course of therapy. at the bedside questions were answered Dictation was produced using [employer] software. please excuse any grammatical, word or spelling errors. Time with Patient: Less than 30
[2024-06-05] MEDS: ERTAPENEM 1 GM in SODIUM CHLORIDE 0.9% 50 ML IVPB SCH (13:23)
[2024-06-05 13:27] VITALS: BP 117/62; PULSE 71; TEMP 98.5
--- NOTE | 2024-06-05 13:52 | P.DS ---
Providers Date of admission: 05/31/24 13:26 Expected date of discharge: 06/05/24 Attending physician: Aramis Galeano MD Consults: 05/31/24 13:26 Consult Physician Routine Consulting Provider: Blayne Iglesias Consult Reason/Comments: Gangrene left foot Do you want consulting provider notified?: Yes 05/31/24 13:48 Consult Physician Routine Consulting Provider: Jose Thapa Consult Reason/Comments: diabetic foot ulcer of the left foot Do you want consulting provider notified?: Yes Primary care physician: [facility] Hospital Course: Final diagnosis Diabetic foot ulcer with gangrene of the left fifth toe, x-ray showing evidence of fifth metatarsal osteomyelitis. Status post I&D, left fifth toe debridement and I&D of the surgical bed with wound VAC placement on 06/01 History of stroke with left hemiplegia Coronary artery disease Hypokalemia, being replaced CHF CVA/TIA Diabetes mellitus Hypertension Hyperlipidemia Peripheral vascular disease, status post right femoropopliteal bypass on 10/2022, amputation of the second, third and fourth right toes GI prophylaxis DVT prophylaxis Full code Discharge disposition Patient is being discharged in a stable condition with guarded prognosis to [facility]. Patient will follow-up with Dr. Hartman in the outpatient setting upon discharge. Patient is to continue with IV antibiotics and has received a PICC line along with oral antibiotics and close outpatient follow-up with infectious disease in 1 to 2 weeks as scheduled. Patient to continue with local wound care as well. Total time taken is greater than 35 minutes. Hospital course This is a 69-year-old female who was recently admitted with diabetic foot ulcer with cellulitis and x-ray evidence showing fifth metatarsal osteomyelitis status postdebridement and continues with a wound VAC with multiple consultations following. Patient was evaluated by vascular surgery underwent debridement and wound culture showing Proteus Mirabella's with a ESBL and multi resistance. Patient being followed by infectious disease maintained on IV antibiotics showing some clinical improvement and will continue on IV Invanz along with oral Flagyl for the next 6 weeks and has received a PICC line. Patient will be going to [facility] for continued PT/OT therapy as well as IV antibiotics and wound care. Patient does have a wound VAC as mentioned below and will continue with close outpatient follow-up. Patient has been cleared by consultations for discharge and will be discharged to [facility] today. Please refer to other consultation notes for further HPI. Currently no reports of chest pain, shortness of breath, or palpitations. Patient is afebrile. No reports of nausea or vomiting and patient is tolerating diet. Patient will be going to [facility] [place] today. High risk for readmissions given significant comorbidities Physical exam: Gen: This is a 69-year-old female who is awake, alert and oriented x 3, well-developed, elderly appearing HEENT: Head is atraumatic, normocephalic. Pupils equal, round. Sclerae is anicteric. NECK: Supple. No JVD. No lymphadenopathy. No thyromegaly. LUNGS: Diminished breath sounds bilaterally otherwise clear to auscultation. No wheezes or rhonchi. No intercostal retractions. HEART: S1, S2 are muffled ABDOMEN: Soft. Bowel sounds are present. No masses. No tenderness. EXTREMITIES: No pedal edema. No calf tenderness. Left fifth toe foot noted to have a wound VAC with good suction NEUROLOGICAL: Patient is awake, alert and oriented x3. Cranial nerves 2 through 12 are grossly intact. Diffusely weak Please refer to medication reconciliation sheet for a list of medications. The impression and plan of care has been dictated by Britany Zavala, Nurse Practitioner as directed. Dr. Jitendra MD I have performed a history and examination and MDM of this patient, discussed the same with the dictator, and agree with the dictator's assessment and plan as written ,documented as a scribe. Based on total visit time, I have performed more than 50% of the visit. Patient Condition at Discharge: Stable Plan - Discharge Summary Discharge Rx Participant: No New Discharge Prescriptions: New INSULIN ASPART (NovoLOG) [NovoLOG (formulary)] 0 unit SQ ACHS each metroNIDAZOLE [Flagyl] 500 mg PO TID 42 Days #126 tab Ertapenem [INVanz] 1 gm IVPB DAILY@1300 42 Days #42 each Pantoprazole [Protonix] 40 mg PO AC-BRKFST tab Continue carvediloL [Coreg] 6.25 mg PO BID Ammonium Lactate Lotion [Lac-Hydrin 12% Lotion] 1 applic TOPICAL BID Simethicone Chew [Mylicon Chew] 80 mg PO Q6H PRN PRN Reason: gas pain Ticagrelor [Brilinta] 90 mg PO BID #180 tab Albuterol Inhaler [Ventolin Hfa Inhaler] 2 puff INHALATION RT-Q6H PRN PRN Reason: Shortness Of Breath Vit C/E/Zn/Coppr/Lutein/Zeaxan [Preservision Areds 2 Softgel] 1 cap PO DAILY Lactulose 20 gm PO DAILY PRN PRN Reason: Constipation traMADol HCL 50 mg PO Q6H PRN #4 tab PRN Reason: Pain Aspirin EC [Ecotrin Low Dose] 81 mg PO DAILY Acetaminophen [Tylenol] 650 mg PO Q4H PRN PRN Reason: Fever And/ Or Pain Insulin Glargine,Hum.rec.anlog [Lantus Solostar Pen] 18 units SQ HS Gabapentin [Neurontin] 300 mg PO TID@0600,1300,2100 Melatonin 3 mg PO HS Cetirizine HCl [Zyrtec] 10 mg PO DAILY Ferrous Sulfate [Iron (65 MG Elemental)] 325 mg PO DAILY Sennosides/Docusate Sodium [Senna Plus 8.6-50 mg Softgel] 1 cap PO Q24H PRN PRN Reason: Constipation Ketoconazole 2% Shampoo [Nizoral] 1 applic TOPICAL MOFR Atorvastatin [Lipitor] 80 mg PO HS Levothyroxine Sodium [Synthroid] 25 mcg PO DAILY@0600 Discontinued tiZANidine HCL [Zanaflex] 2 mg PO HS lisinopriL [Zestril] 20 mg PO DAILY INSULIN LISPRO (humaLOG) [humaLOG] 5 units SQ AC-TID@, Acetaminophen [Tylenol] 650 mg PO Q8H Collagenase [Santyl Ointment] 1 applic TOPICAL DAILY PRN PRN Reason: LEFT LATERAL FOOT WOUND CARE Collagenase [Santyl Ointment] 1 applic TOPICAL DAILY Hydrocortisone Cream [Hydrocortisone 1% Cream] 1 applic TOPICAL BID PRN PRN Reason: FACE INFLAMMATION INSULIN LISPRO (humaLOG) [humaLOG] See Protocol SQ AC-TID@,, Cephalexin [Keflex] 500 mg PO TID@0900,1300,2100 Furosemide [Lasix] 20 mg PO DAILY@0600 Discharge Medication List Aspirin EC [Ecotrin Low Dose] 81 mg PO DAILY 07/23/22 [History] Acetaminophen [Tylenol] 650 mg PO Q4H PRN 11/03/22 [History] carvediloL [Coreg] 6.25 mg PO BID 11/03/22 [History] Gabapentin [Neurontin] 300 mg PO TID@0600,1300,2100 01/26/23 [History] Insulin Glargine,Hum.rec.anlog [Lantus Solostar Pen] 18 units SQ HS 01/26/23 [History] Melatonin 3 mg PO HS 01/26/23 [History] Cetirizine HCl [Zyrtec] 10 mg PO DAILY 05/05/23 [History] Ferrous Sulfate [Iron (65 MG Elemental)] 325 mg PO DAILY 05/05/23 [History] Sennosides/Docusate Sodium [Senna Plus 8.6-50 mg Softgel] 1 cap PO Q24H PRN 05/05/23 [History] Ammonium Lactate Lotion [Lac-Hydrin 12% Lotion] 1 applic TOPICAL BID 07/05/23 [History] Ketoconazole 2% Shampoo [Nizoral] 1 applic TOPICAL MOFR 07/05/23 [History] Simethicone Chew [Mylicon Chew] 80 mg PO Q6H PRN 07/05/23 [History] Ticagrelor [Brilinta] 90 mg PO BID #180 tab 07/07/23 [Rx] Albuterol Inhaler [Ventolin Hfa Inhaler] 2 puff INHALATION RT-Q6H PRN 01/30/24 [History] Vit C/E/Zn/Coppr/Lutein/Zeaxan [Preservision Areds 2 Softgel] 1 cap PO DAILY 01/30/24 [History] Atorvastatin [Lipitor] 80 mg PO HS 05/31/24 [History] Lactulose 20 gm PO DAILY PRN 05/31/24 [History] Levothyroxine Sodium [Synthroid] 25 mcg PO DAILY@0600 05/31/24 [History] Ertapenem [INVanz] 1 gm IVPB DAILY@1300 42 Days #42 each 06/05/24 [Rx] INSULIN ASPART (NovoLOG) [NovoLOG (formulary)] 0 unit SQ ACHS each 06/05/24 [Rx] Pantoprazole [Protonix] 40 mg PO AC-BRKFST tab 06/05/24 [Rx] metroNIDAZOLE [Flagyl] 500 mg PO TID 42 Days #126 tab 06/05/24 [Rx] traMADol HCL 50 mg PO Q6H PRN #4 tab 06/05/24 [Rx] Follow up Appointment(s)/Referral(s): Blayne Iglesias DO [Doctor of Osteopathic Medicine] - 2 Weeks [facility] [NON-STAFF] - 1 Week [facility] on the [place], [Primary Care Provider] - 1-2 days Jose Thapa MD [STAFF PHYSICIAN] - 1 Week Ambulatory/Diagnostic Orders: Basic Metabolic Panel [LAB.AMB] Location: None Selected C Reactive Protein [LAB.AMB] Location: None Selected Complete Blood Count w/diff [LAB.AMB] Location: None Selected Erythrocyte Sedimentation Rate [LAB.AMB] Location: None Selected Activity/Diet/Wound Care/Special Instructions: Patient is going to [facility] [place] Activity as tolerated Continue with antibiotic therapy of Flagyl and advance per ID recommendations for 6 weeks Continue with local wound care Follow-up with infectious disease Dr. Thapa in 1 to 2 weeks Continue diabetic diet with Accu-Cheks before meals and at bedtime along with sliding scale and long-acting NovoLog sliding scale 0-150 equals 0 units 151-200 equals 2 units 201-250 equals 4 units 251-300 equals 6 units 301-350 equals 8 units 351-400 equals 10 units Please notify provider if blood sugar is 400 or above Negative pressure wound VAC to left foot surgical wound at 125 mmHg, change Saturdays Discharge Disposition: TRANSFER TO SNF/ECF
[2024-06-07 11:54] LABS: Glucose,Whole Blood 217 mg/dL (70-110)
[2024-06-07 11:54] LABS: Glucose,Whole Blood 206 mg/dL (70-110)
[2024-06-07 11:55] LABS: Glucose,Whole Blood 133 mg/dL (70-110)
[2024-06-07 11:55] LABS: Glucose,Whole Blood 143 mg/dL (70-110)
[2024-06-07 11:55] LABS: Glucose,Whole Blood 189 mg/dL (70-110)
[2024-06-07 11:55] LABS: Glucose,Whole Blood 114 mg/dL (70-110)
[2024-06-07 11:55] LABS: Glucose,Whole Blood 164 mg/dL (70-110)
[2024-06-07 11:55] LABS: Glucose,Whole Blood 145 mg/dL (70-110)
[2024-06-07 11:55] LABS: Glucose,Whole Blood 189 mg/dL (70-110)
[2024-06-07 11:56] LABS: Glucose,Whole Blood 107 mg/dL (70-110)
[2024-06-07 11:56] LABS: Glucose,Whole Blood 101 mg/dL (70-110)
[2024-06-07 11:56] LABS: Glucose,Whole Blood 183 mg/dL (70-110)
[2024-06-07 11:56] LABS: Glucose,Whole Blood 154 mg/dL (70-110)
[2024-06-07 11:57] LABS: Glucose,Whole Blood 139 mg/dL (70-110)
[2024-06-07 11:57] LABS: Glucose,Whole Blood 182 mg/dL (70-110)
[2024-06-07 11:57] LABS: Glucose,Whole Blood 165 mg/dL (70-110)
[2024-06-07 11:57] LABS: Glucose,Whole Blood 100 mg/dL (70-110)
[2024-06-07 11:58] LABS: Glucose,Whole Blood 134 mg/dL (70-110)
[2024-06-07 11:58] LABS: Glucose,Whole Blood 289 mg/dL (70-110)
== END 2024-06-05 16:22 | DRG 616 ==
LOC: EC 11:09 → 4SSUR 13:26 → 5NMEDONC 21:09
PROVIDERS: ADMIT Internal Medicine; ATTEND Internal Medicine
PROC: 0Y6Y0Z0 Detachment at Left 5th Toe, Complete, Open Approach (ICD-10-PCS; principal; 2024-05-31)
PROC: 3E0T3BZ Introduction of Anesthetic Agent into Peripheral Nerves and Plexi, Percutaneous Approach (ICD-10-PCS; principal; 2024-05-31)
PROC: 02HV33Z Insertion of Infusion Device into Superior Vena Cava, Percutaneous Approach (ICD-10-PCS; 2024-05-31)
PROC: B5181ZZ Fluoroscopy of Superior Vena Cava using Low Osmolar Contrast (ICD-10-PCS; 2024-05-31)
PROC: 3E0T3BZ Introduction of Anesthetic Agent into Peripheral Nerves and Plexi, Percutaneous Approach (ICD-10-PCS; 2024-05-31)
DX: E11.621 Type 2 diabetes mellitus with foot ulcer (principal); L89.893 Pressure ulcer of other site, stage 3; I69.354 Hemiplegia and hemiparesis following cerebral infarction affecting left non-dominant side; E11.52 Type 2 diabetes mellitus with diabetic peripheral angiopathy with gangrene; M86.8X7 Other osteomyelitis, ankle and foot; E11.69 Type 2 diabetes mellitus with other specified complication; I11.0 Hypertensive heart disease with heart failure; I25.10 Atherosclerotic heart disease of native coronary artery without angina pectoris; I50.9 Heart failure, unspecified; L97.529 Non-pressure chronic ulcer of other part of left foot with unspecified severity; I70.245 Atherosclerosis of native arteries of left leg with ulceration of other part of foot; L97.524 Non-pressure chronic ulcer of other part of left foot with necrosis of bone; B96.4 Proteus (mirabilis) (morganii) as the cause of diseases classified elsewhere; E78.5 Hyperlipidemia, unspecified; E87.6 Hypokalemia; F32.A Depression, unspecified; N31.9 Neuromuscular dysfunction of bladder, unspecified; Z79.01 Long term (current) use of anticoagulants; Z79.02 Long term (current) use of antithrombotics/antiplatelets; Z79.4 Long term (current) use of insulin; Z79.82 Long term (current) use of aspirin; Z79.899 Other long term (current) drug therapy; Z82.49 Family history of ischemic heart disease and other diseases of the circulatory system; Z93.1 Gastrostomy status; Z79.890 Hormone replacement therapy; Z95.828 Presence of other vascular implants and grafts; L03.032 Cellulitis of left toe
CPT/HCPCS: 36415; 36573; 80048; 80053; 80202; 82140; 82565; 82805; 83036; 83605; 83735; 85025; 85610; 85730; 87040; 87070; 87075; 87077; 87186; 87205; 87324; 88305; 88311; 96365; 96366; 96367; 96368; 99285

== ENCOUNTER 2024-06-20 01:05 | Emergency (ER) | payer MEDICARE, OTHER ==
[2024-06-20] MEDS: SODIUM CHLORIDE 0.9% 500 ML 500 ML IV ONE (01:37)
[2024-06-20 01:42] LABS: Basophils % (A) 0 %; Eosinophils # (A) 0.1 k/uL (0-0.7); Eosinophils % (A) 1 %; HCT 43.2 % (34.0-46.0); Lymphocytes # (A) 0.7 k/uL (1.0-4.8); Lymphocytes % (A) 4 %; MCH 29.2 pg (25.0-35.0); MCHC 31.6 g/dL (31.0-37.0); MCV 92.2 fL (80.0-100.0); Mean Platelet Volume 6.5; Monocytes # (A) 0.3 k/uL (0-1.0); Monocytes % (A) 2 %; Neutrophils # (A) 16.2 k/uL (1.3-7.7); Neutrophils % (A) 93 %; Platelet Count 490 k/uL (150-450); RBC 4.68 m/uL (3.80-5.40); RDW 13.2 % (11.5-15.5); WBC 17.3 k/uL (3.8-10.6)
[2024-06-20 01:54] LABS: HGB 13.7 gm/dL (11.4-16.0)
[2024-06-20] MEDS: amLODIPine 5 MG TAB PO STA (02:15)
--- NOTE | 2024-06-20 02:25 | ED ---
General Adult HPI - General Chief complaint: Recheck/Abnormal Lab/Rx Stated complaint: Hypertension Time Seen by Provider: 06/20/24 01:12 Source: patient, EMS, RN notes reviewed, old records reviewed Mode of arrival: EMS - History of Present Illness Initial comments: 69-year-old female presented from jail for evaluation of elevated blood pressure. Patient denies specific complaints, does report some mild nausea, no headache, no chest pain, no dyspnea. She has history of hypertension and takes 6.25 mg of Coreg, no other antihypertensive medications. Patient was noted to have elevated blood pressure at the jail and was sent to the emergency department for evaluation. - Related Data Home Medications Medication Instructions Recorded Confirmed Aspirin EC [Ecotrin Low Dose] 81 mg PO DAILY 07/23/22 05/31/24 Acetaminophen [Tylenol] 650 mg PO Q4H PRN 11/03/22 05/31/24 carvediloL [Coreg] 6.25 mg PO BID 11/03/22 05/31/24 Gabapentin [Neurontin] 300 mg PO TID@0600,1300,2100 01/26/23 05/31/24 Insulin Glargine,Hum.rec.anlog 18 units SQ HS 01/26/23 05/31/24 [Lantus Solostar Pen] Melatonin 3 mg PO HS 01/26/23 05/31/24 Cetirizine HCl [Zyrtec] 10 mg PO DAILY 05/05/23 05/31/24 Ferrous Sulfate [Iron (65 MG 325 mg PO DAILY 05/05/23 05/31/24 Elemental)] Sennosides/Docusate Sodium [Senna 1 cap PO Q24H PRN 05/05/23 05/31/24 Plus 8.6-50 mg Softgel] Ammonium Lactate Lotion 1 applic TOPICAL BID 07/05/23 05/31/24 [Lac-Hydrin 12% Lotion] Ketoconazole 2% Shampoo [Nizoral] 1 applic TOPICAL MOFR 07/05/23 05/31/24 Simethicone Chew [Mylicon Chew] 80 mg PO Q6H PRN 07/05/23 05/31/24 Albuterol Inhaler [Ventolin Hfa 2 puff INHALATION RT-Q6H PRN 01/30/24 05/31/24 Inhaler] Vit C/E/Zn/Coppr/Lutein/Zeaxan 1 cap PO DAILY 01/30/24 05/31/24 [Preservision Areds 2 Softgel] Atorvastatin [Lipitor] 80 mg PO HS 05/31/24 05/31/24 Lactulose 20 gm PO DAILY PRN 05/31/24 05/31/24 Levothyroxine Sodium [Synthroid] 25 mcg PO DAILY@0600 05/31/24 05/31/24 Previous Rx's Medication Instructions Recorded Ticagrelor [Brilinta] 90 mg PO BID #180 tab 07/07/23 Ertapenem [INVanz] 1 gm IVPB DAILY@1300 42 Days #42 06/05/24 each INSULIN ASPART (NovoLOG) [NovoLOG 0 unit SQ ACHS each 06/05/24 (formulary)] Pantoprazole [Protonix] 40 mg PO AC-BRKFST tab 06/05/24 metroNIDAZOLE [Flagyl] 500 mg PO TID 42 Days #126 tab 06/05/24 traMADol HCL 50 mg PO Q6H PRN #4 tab 06/05/24 amLODIPine [Norvasc] 5 mg PO DAILY 15 Days #15 tab 06/20/24 Allergies Allergy/AdvReac Type Severity Reaction Status Date / Time unknown sleep aid Allergy Severe Rash/Hives Uncoded 06/20/24 01:14 Review of Systems ROS Statement: Those systems with pertinent positive or pertinent negative responses have been documented in the HPI. ROS Other: All systems not noted in ROS Statement are negative. 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 Hx falls. Diverticulitis. PVD. Dysphagia. Has peg tube but is not in use. Needs 2 staff to pivot/transfer pt. Currently resides at [facility] since November 2022. Hx acute respiratory failure. Neuromuscular dysfunction of bladder. History of Any Multi-Drug Resistant Organisms: MRSA Date of last positivie culture/infection: 02/15/23 MDRO Source:: rt foot Past Surgical History: Section, Heart Catheterization, Orthopedic Surgery, Tonsillectomy Additional Past Surgical History / Comment(s): Right Femoral Popliteal bypass 10/19/22, at [facility], amputation of second third and fourth toes on right foot, carpal tunnel surgery. Past Anesthesia/Blood Transfusion Reactions: No Reported Reaction Additional Past Anesthesia/Blood Transfusion Reaction / Comment(s): Never receiv ed blood. Past Psychological History: Depression Smoking Status: Never smoker Past Alcohol Use History: None Reported Past Drug Use History: None Reported - Past Family History Mother Family Medical History: Cancer Additional Family Medical History / Comment(s): History of lower back fusion Father Family Medical History: Coronary Artery Disease (CAD) General Exam General appearance: alert, in no apparent distress Head exam: Present: atraumatic, normocephalic Eye exam: Present: normal appearance ENT exam: Present: mucous membranes dry Neck exam: Present: normal inspection. Absent: tenderness, meningismus Respiratory exam: Present: normal lung sounds bilaterally. Absent: respiratory distress, wheezes Cardiovascular Exam: Present: regular rate, normal rhythm GI/Abdominal exam: Present: soft, distended. Absent: tenderness Neurological exam: Present: alert, motor sensory deficit (Hemiplegic on the left) Skin exam: Present: warm, dry, intact Course Vital Signs 06/20/24 06/20/24 06/20/24 01:06 01:39 02:17 Temperature 98.3 F Pulse Rate 81 82 Respiratory 20 Rate Blood Pressure 205/109 196/113 207/100 O2 Sat by Pulse 97 Oximetry 06/20/24 06/20/24 02:52 03:16 Temperature Pulse Rate 86 84 Respiratory 20 Rate Blood Pressure 189/112 165/91 O2 Sat by Pulse 96 94 L Oximetry Medical Decision Making - Medical Decision Making Was pt. sent in by a medical professional or institution (, PA, OPTICAL BRIGHTENER MAKER HELPER, urgent care, hospital, or jail...) When possible be specific @ -No Did you speak to anyone other than the patient for history (EMS, parent, family, police, friend...)? What history was obtained from this source @ -No Did you review nursing and triage notes (agree or disagree)? Why? @ -I reviewed and agree with nursing and triage notes Were old charts reviewed (outside hosp., previous admission, EMS record, old EKG, old radiological studies, urgent care reports/EKG's, jail records)? Report findings @ -No old charts were reviewed Differential Diagnosis: asymptomatic hypertension, hypertensive urgency or emergency, EKG interpreted by me (3pts min.). @ -Sinus rhythm rate of 80, ND interval 164, QRS duration 85, QTc 429 X-rays interpreted by me (1pt min.). @KUB shows moderate stool burden CT interpreted by me (1pt min.). @ -None done U/S interpreted by me (1pt. min.). @ -None done What testing was considered but not performed or refused? (CT, X-rays, U/S, labs)? Why? @ -None What meds were considered but not given or refused? Why? @ -None Did you discuss the management of the patient with other professionals (professionals i.e. , PA, OPTICAL BRIGHTENER MAKER HELPER, lab, RT, psych nurse, social services director, freight tallier, teacher, community liaison officer, dependency case manager)? Give summary @ -No Was smoking cessation discussed for >3mins.? @ -No Was critical care preformed (if so, how long)? @ -No Were there social determinants of health that impacted care today? How? (Homelessness, low income, unemployed, alcoholism, drug addiction, transportation, low edu. Level, literacy, decrease access to med. care, chcf, rehab)? @ -No Was there de-escalation of care discussed even if they declined (Discuss DNR or withdrawal of care, Hospice)? DNR status @ -No What co-morbidities impacted this encounter? (DM, HTN, Smoking, COPD, CAD, Cancer, CVA, ARF, Chemo, Hep., AIDS, mental health diagnosis, sleep apnea, morbid obesity)? @ -[Previous CVA, left foot infection currently on parenteral antibiotics with wound VAC. Was patient admitted / discharged? Hospital course, mention meds given and route, prescriptions, significant lab abnormalities, going to OR and other pertinent info. @69-year-old female presenting for elevated blood pressure. No chest pain, no headache, history of CVA with left hemiplegia which is unchanged no new neurologic findings. Patient did complain of some mild nausea and constipation. X-ray does confirm moderate stool burden. Patient is given an enema. She is also given 1 dose of Norvasc in the emergency department with downtrending blood pressure. She is stable for discharge back to the jail, will prescribe Norvasc for blood pressure control. Undiagnosed new problem with uncertain prognosis? @ -No Drug Therapy requiring intensive monitoring for toxicity (Heparin, Nitro, Insulin, Cardizem)? @ -No Were any procedures done? @ -No Diagnosis/symptom? @ -Elevated blood pressure Acute, or Chronic, or Acute on Chronic? @ -Acute on chronic Uncomplicated (without systemic symptoms) or Complicated (systemic symptoms)? @ -Default Side effects of treatment? @ -No Exacerbation, Progression, or Severe Exacerbation? @ -No Poses a threat to life or bodily function? How? (Chest pain, USA, VT, pneumonia, PE, COPD, DKA, ARF, appy, cholecystitis, CVA, Diverticulitis, Homicidal, Suicidal, threat to staff... and all critical care pts) @Low risk - Lab Data Result diagrams: 06/20/24 01:35 06/20/24 01:35 Lab Results 06/20/24 06/20/24 Range/Units 01:35 01:35 WBC 17.3 H (3.8-10.6) k/uL RBC 4.68 (3.80-5.40) m/uL Hgb 13.7 D (11.4-16.0) gm/dL Hct 43.2 (34.0-46.0) % MCV 92.2 (80.0-100.0) fL MCH 29.2 (25.0-35.0) pg MCHC 31.6 (31.0-37.0) g/dL RDW 13.2 (11.5-15.5) % Plt Count 490 H (150-450) k/uL MPV 6.5 Neutrophils % 93 % Lymphocytes % 4 % Monocytes % 2 % Eosinophils % 1 % Basophils % 0 % Neutrophils # 16.2 H (1.3-7.7) k/uL Lymphocytes # 0.7 L (1.0-4.8) k/uL Monocytes # 0.3 (0-1.0) k/uL Eosinophils # 0.1 (0-0.7) k/uL Basophils # 0.0 (0-0.2) k/uL Sodium 135 L (137-145) mmol/L Potassium 5.3 H (3.5-5.1) mmol/L Chloride 104 (98-107) mmol/L Carbon Dioxide 24 (22-30) mmol/L Anion Gap 7 mmol/L BUN 20 H (7-17) mg/dL Creatinine 0.75 (0.52-1.04) mg/dL Est GFR (CKD-EPI)AfAm >90 (>60 ml/min/1.73 sqM) Est GFR (CKD-EPI)NonAf 83 (>60 ml/min/1.73 sqM) Glucose 239 H (74-99) mg/dL Calcium 9.3 (8.4-10.2) mg/dL Total Bilirubin 1.2 (0.2-1.3) mg/dL AST 83 H (14-36) U/L ALT 27 (4-34) U/L Alkaline Phosphatase 123 (38-126) U/L Total Protein 7.4 (6.3-8.2) g/dL Albumin 3.8 (3.5-5.0) g/dL Disposition Clinical Impression: Hypertension Disposition: HOME SELF-CARE Condition: Fair Instructions (If sedation given, give patient instructions): Hypertension (ED) Prescriptions: amLODIPine [Norvasc] 5 mg PO DAILY 15 Days #15 tab Is patient prescribed a controlled substance at d/c from ED?: No Referrals: Artemio Hartman MD [Primary Care Provider] - 1-2 days Time of Disposition: 03:30
[2024-06-20 02:26] LABS: ALT 27 U/L (4-34); African American GFR (CKD) >90 (>60 ml/min/1.73 sqM); Anion Gap 7 mmol/L; Blood Urea Nitrogen 20 mg/dL (7-17); Calcium 9.3 mg/dL (8.4-10.2); Carbon Dioxide 24 mmol/L (22-30); Chloride 104 mmol/L (98-107); Non-African American GFR(CKD) 83 (>60 ml/min/1.73 sqM); Sodium 135 mmol/L (137-145)
[2024-06-20 02:31] LABS: Glucose 239 mg/dL (74-99)
[2024-06-20 02:32] LABS: AST 83 U/L (14-36); Albumin 3.8 g/dL (3.5-5.0); Alkaline Phosphatase 123 U/L (38-126); Potassium 5.3 mmol/L (3.5-5.1); Total Bilirubin 1.2 mg/dL (0.2-1.3); Total Protein 7.4 g/dL (6.3-8.2)
--- NOTE | 2024-06-20 02:51 | XR ---
EXAM: XR Abdomen, 1 View CLINICAL HISTORY: nausea TECHNIQUE: AP supine view of the abdomen/pelvis. COMPARISON: No relevant prior studies available. FINDINGS: Gastrointestinal tract: Moderate amount of stool throughout the colon. Nonspecific bowel gas pattern. Bones/joints: Moderate degenerative changes. Vasculature: Vascular calcifications. IMPRESSION: Moderate amount of stool throughout the colon.
[2024-06-20 06:14] VITALS: BP 172/98; TEMP 98.8
[2024-06-20 06:31] VITALS: PULSE 86; RESP 20
== END 2024-06-20 06:35 | disposition home or self-care (01) ==
LOC: EC 01:05
CPT/HCPCS: 36415; 74018; 80053; 85025; 93005; 96360; 96361; 99284

== ENCOUNTER 2024-06-24 12:19 | Inpatient (IN) | payer MEDICARE, OTHER ==
--- NOTE | 2024-06-24 12:43 | ED ---
General Adult HPI - General Chief complaint: Recheck/Abnormal Lab/Rx Stated complaint: Elevated White Blood Cell count Time Seen by Provider: 06/24/24 12:22 Source: patient, EMS Mode of arrival: EMS Limitations: no limitations - History of Present Illness Initial comments: Dictation was produced using [employer] dictation software. please excuse any grammatical, word or spelling errors. Chief Complaint: 69-year-old female with multiple comorbidities presents to the emergency department for leukocytosis. History of Present Illness: Patient 69-year-old female she has left upper extremity PICC line. She has multiple comorbidities. Apparently she has PICC line for treatment of antibiotics. Patient is a poor historian due to mental debility. States that she feels fatigued. Apparently she is here because she had blood work drawn recently. According to EMS patient recently had amputation of the left foot. The ROS documented in this emergency department record has been reviewed and confirmed by me. Those systems with pertinent positive or negative responses have been documented in the HPI. All other systems are other negative and/or noncontributory. - Related Data Home Medications Medication Instructions Recorded Confirmed Aspirin EC [Ecotrin Low Dose] 81 mg PO DAILY@0907/23/22 06/24/24 Acetaminophen [Tylenol] 650 mg PO Q4H PRN 11/03/22 06/24/24 carvediloL [Coreg] 6.25 mg PO BID@0900,209911/03/22 06/24/24 Gabapentin [Neurontin] 300 mg PO TID@0600,1300,209901/26/23 06/24/24 Insulin Glargine,Hum.rec.anlog 18 units SQ HS@209901/26/23 06/24/24 [Lantus Solostar Pen] Melatonin 3 mg PO HS@209901/26/23 06/24/24 Cetirizine HCl [Zyrtec] 10 mg PO DAILY@89905/05/23 06/24/24 Ferrous Sulfate [Iron (65 MG 325 mg PO DAILY@89905/05/23 06/24/24 Elemental)] Sennosides/Docusate Sodium [Senna 1 cap PO DAILY PRN 05/05/23 06/24/24 Plus 8.6-50 mg Softgel] Ammonium Lactate Lotion 1 applic TOPICAL BID 07/05/23 06/24/24 [Lac-Hydrin 12% Lotion] Ketoconazole 2% Shampoo [Nizoral] 1 applic TOPICAL MOFR 07/05/23 06/24/24 Simethicone Chew [Mylicon Chew] 80 mg PO Q6H PRN 07/05/23 06/24/24 Albuterol Inhaler [Ventolin Hfa 2 puff INHALATION RT-Q6H PRN 01/30/24 06/24/24 Inhaler] Vit C/E/Zn/Coppr/Lutein/Zeaxan 1 cap PO DAILY@0900 01/30/24 06/24/24 [Preservision Areds 2 Softgel] Atorvastatin [Lipitor] 80 mg PO HS@2100 05/31/24 06/24/24 Lactulose 20 gm PO DAILY PRN 05/31/24 06/24/24 Levothyroxine Sodium [Synthroid] 25 mcg PO SUTUTHSA@0600 05/31/24 06/24/24 Ertapenem [INVanz] 1 gm IVPB HS 06/24/24 06/24/24 Glucerna Shake 1 can PO DAILY@0900 06/24/24 06/24/24 Insulin Aspart [NovoLOG Flexpen] See Protocol SQ ACHS 06/24/24 06/24/24 Levothyroxine Sodium [Synthroid] 50 mcg PO MOWEFR@0600 06/24/24 06/24/24 Magnesium Hydroxide [Milk of 2,400 mg PO ONETIME 06/24/24 06/24/24 Magnesia] Nuclezyme Forte Dietary Supplement 1 cap PO TID@0900,1300,1700 06/24/24 06/24/24 Pantoprazole [Protonix] 40 mg PO AC-BRKFST@0600 06/24/24 06/24/24 Ticagrelor [Brilinta] 90 mg PO BID@0900,2100 06/24/24 06/24/24 Z-Guard 1 applic TOPICAL HS 06/24/24 06/24/24 amLODIPine [Norvasc] 5 mg PO HS@2100 06/24/24 06/24/24 metroNIDAZOLE [Flagyl] 500 mg PO TID@0600,1300,2100 06/24/24 06/24/24 Previous Rx's Medication Instructions Recorded traMADol HCL 50 mg PO Q6H PRN #4 tab 06/05/24 Allergies Allergy/AdvReac Type Severity Reaction Status Date / Time unknown sleep aid Allergy Severe Rash/Hives Uncoded 06/24/24 12:52 Review of Systems ROS Statement: Those systems with pertinent positive or pertinent negative responses have been documented in the HPI. ROS Other: All systems not noted in ROS Statement are negative. 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 Hx falls. Diverticulitis. PVD. Dysphagia. Has peg tube but is not in use. Needs 2 staff to pivot/transfer pt. Currently resides at [facility] since November 2022. Hx acute respiratory failure. Neuromuscular dysfunction of bladder. History of Any Multi-Drug Resistant Organisms: MRSA Date of last positivie culture/infection: 02/15/23 MDRO Source:: rt foot Past Surgical History: Section, Heart Catheterization, Orthopedic Surgery, Tonsillectomy Additional Past Surgical History / Comment(s): Right Femoral Popliteal bypass , at [facility], amputation of second third and fourth toes on right foot, carpal tunnel surgery. Past Anesthesia/Blood Transfusion Reactions: No Reported Reaction Additional Past Anesthesia/Blood Transfusion Reaction / Comment(s): Never re ceived blood. Past Psychological History: Depression Smoking Status: Never smoker Past Alcohol Use History: None Reported Past Drug Use History: None Reported - Past Family History Mother Family Medical History: Cancer Additional Family Medical History / Comment(s): History of lower back fusion Father Family Medical History: Coronary Artery Disease (CAD) General Exam - General Exam Comments Initial Comments: PHYSICAL EXAM: General Impression: Alert and oriented x3, not in acute distress HEENT: Normocephalic atraumatic, extra-ocular movements intact, pupils equal and reactive to light bilaterally, mucous membranes moist. Cardiovascular: Heart regular rate and rhythm Chest: Able to complete full sentences, no retractions, no tachypnea Abdomen: abdomen soft, non-tender, non-distended, no organomegaly Musculoskeletal: Pulses present and equal in all extremities, no peripheral edema Motor: no focal deficits noted Neurological: CN II-XII grossly intact, no focal motor or sensory deficits noted Skin: Chronic wound to the left lateral foot without any surrounding erythema or drainage Psych: Normal affect and mood Limitations: no limitations Course Vital Signs 06/24/24 06/24/24 06/24/24 12:37 13:45 15:04 Temperature 98.4 F 98.2 F Pulse Rate 72 74 71 Respiratory 18 18 16 Rate Blood Pressure 125/69 120/70 107/53 O2 Sat by Pulse 95 96 95 Oximetry EKG Findings - EKG Comments: EKG Findings:: My EKG interpretation: Ventricular rate 73, sinus rhythm,. 167, QRS 85, QTc 412. No NV prolongation, no QTC prolongation, no ST or T-wave changes noted. Overall, this EKG is unremarkable Medical Decision Making - Medical Decision Making Was pt. sent in by a medical professional or institution (, PA, PROMOTIONS EXECUTIVE, urgent care, hospital, or [place] health care facility...) When possible be specific @ -No Did you speak to anyone other than the patient for history (EMS, parent, family, police, friend...)? What history was obtained from this source @ -No Did you review nursing and triage notes (agree or disagree)? Why? @ -I reviewed and agree with nursing and triage notes Were old charts reviewed (outside hosp., previous admission, EMS record, old EKG, old radiological studies, urgent care reports/EKG's, [place] health care facility records)? Report findings @ -No old charts were reviewed Differential Diagnosis (chest pain, altered mental status, abdominal pain women, abdominal pain men, vaginal bleeding, musculoskeletal, weakness, fever, dyspnea, syncope, headache, dizziness, GI bleed, back pain, seizure, CVA, palpat ations, mental health)? @ -Bacteremia, pneumonia, serious bacterial illness EKG interpreted by me (3pts min.). @ -See above X-rays interpreted by me (1pt min.). @ -Chest x-ray shows no acute processes CT interpreted by me (1pt min.). @ -None done U/S interpreted by me (1pt. min.). @ -None done What testing was considered but not performed or refused? (CT, X-rays, U/S, labs)? Why? @ -None What meds were considered but not given or refused? Why? @ -None Was smoking cessation discussed for >3mins.? @ -No Were there social determinants of health that impacted care today? How? (Homelessness, low income, unemployed, alcoholism, drug addiction, transportation, low edu. Level, literacy, decrease access to med. care, longterm, rehab)? @ -No Was there de-escalation of care discussed even if they declined (Discuss DNR or withdrawal of care, Hospice)? DNR status @ -No What co-morbidities impacted this encounter? (DM, HTN, Smoking, COPD, CAD, Cancer, CVA, ARF, Chemo, Hep., AIDS, mental health diagnosis, sleep apnea, morbid obesity)? @ -Indwelling PICC line Was patient admitted / discharged? Hospital course, mention meds given and route, prescriptions, significant lab abnormalities, going to OR and other pertinent info. @ -69-year-old female presents with leukocytosis. Vital signs stable. Patient has no focal symptoms. She does appear to be fatigued. Patient has indwelling PICC line. Recent labs from 2 days ago were reviewed showing leukocytosis. Patient is white count of 18.4 initial hemoglobin 6.4 however repeat is 10.7 she appears to make more sense. Coag panel metabolic panel is unremarkable. C stool occult blood is negative. Viral testing negative. Patient covered with antibiotics will be admitted with consultation to infectious disease Did you discuss the management of the patient with other professionals (professionals i.e. , PA, PROMOTIONS EXECUTIVE, lab, RT, psych nurse, social service assistant, yarn dumper, teacher, aoc airspace control officer, manager case management)? Give summary @ -Case discussed with hospitalist for admission Was critical care preformed (if so, how long)? @ -No Undiagnosed new problem with uncertain prognosis? @ -No Drug Therapy requiring intensive monitoring for toxicity (Heparin, Nitro, Insulin, Cardizem)? @ -No Were any procedures done? @ -No Diagnosis/symptom? Acute, or Chronic, or Acute on Chronic? Uncomplicated (without systemic symptoms) or Complicated (systemic symptoms)? @ -Leukocytosis, suspect bacteremia secondary to PICC line Side effects of treatment? @ -No Exacerbation, Progression, or Severe Exacerbation? @ -No Poses a threat to life or bodily function? How? (Chest pain, [place], [place], pneumonia, PE, COPD, DKA, ARF, appy, cholecystitis, CVA, Diverticulitis, Homicidal, Suicidal, threat to staff... and all critical care pts) @ -yes - Lab Data Result diagrams: 06/24/24 14:30 06/24/24 12:53 Lab Results 06/24/24 06/24/24 06/24/24 Range/Units 12:53 12:53 12:53 WBC 18.4 H (3.8-10.6) k/uL RBC 2.12 L (3.80-5.40) m/uL Hgb 6.4 L* D (11.4-16.0) gm/dL Hct 19.3 L* (34.0-46.0) % MCV 91.3 (80.0-100.0) fL MCH 30.2 (25.0-35.0) pg MCHC 33.0 (31.0-37.0) g/dL RDW 13.7 (11.5-15.5) % Plt Count 589 H (150-450) k/uL MPV 7.4 Neutrophils % 76 % Lymphocytes % 13 % Monocytes % 7 % Eosinophils % 3 % Basophils % 0 % Neutrophils # 14.0 H (1.3-7.7) k/uL Lymphocytes # 2.4 (1.0-4.8) k/uL Monocytes # 1.2 H (0-1.0) k/uL Eosinophils # 0.5 (0-0.7) k/uL Basophils # 0.0 (0-0.2) k/uL PT 11.3 (10.0-12.5) sec INR 1.0 (<1.2) APTT 24.3 (22.0-30.0) sec Sodium 136 L (137-145) mmol/L Potassium 4.3 (3.5-5.1) mmol/L Chloride 107 (98-107) mmol/L Carbon Dioxide 23 (22-30) mmol/L Anion Gap 6 mmol/L BUN 33 H (7-17) mg/dL Creatinine 1.12 H (0.52-1.04) mg/dL Est GFR (CKD-EPI)AfAm 59 (>60 ml/min/1.73 sqM) Est GFR (CKD-EPI)NonAf 51 (>60 ml/min/1.73 sqM) Glucose 186 H (74-99) mg/dL Plasma Lactic Acid Jacky (0.7-2.0) mmol/L Calcium 8.2 L (8.4-10.2) mg/dL Magnesium 2.1 (1.6-2.3) mg/dL Total Bilirubin 0.5 (0.2-1.3) mg/dL AST 25 (14-36) U/L ALT 14 (4-34) U/L Alkaline Phosphatase 106 (38-126) U/L Total Protein 5.4 L (6.3-8.2) g/dL Albumin 2.7 L (3.5-5.0) g/dL Stool Occult Blood (Negative) Influenza Type A (PCR) (Not Detectd) Influenza Type B (PCR) (Not Detectd) RSV (PCR) (Not Detectd) SARS-CoV-2 (PCR) (Not Detectd) 06/24/24 06/24/24 06/24/24 Range/Units 12:53 12:53 14:30 WBC 12.9 H (3.8-10.6) k/uL RBC 3.60 L (3.80-5.40) m/uL Hgb 10.7 L D (11.4-16.0) gm/dL Hct 33.3 L (34.0-46.0) % MCV 92.4 (80.0-100.0) fL MCH 29.8 (25.0-35.0) pg MCHC 32.2 (31.0-37.0) g/dL RDW 13.3 (11.5-15.5) % Plt Count 438 (150-450) k/uL MPV 7.2 Neutrophils % % Lymphocytes % % Monocytes % % Eosinophils % % Basophils % % Neutrophils # (1.3-7.7) k/uL Lymphocytes # (1.0-4.8) k/uL Monocytes # (0-1.0) k/uL Eosinophils # (0-0.7) k/uL Basophils # (0-0.2) k/uL PT (10.0-12.5) sec INR (<1.2) APTT (22.0-30.0) sec Sodium (137-145) mmol/L Potassium (3.5-5.1) mmol/L Chloride (98-107) mmol/L Carbon Dioxide (22-30) mmol/L Anion Gap mmol/L BUN (7-17) mg/dL Creatinine (0.52-1.04) mg/dL Est GFR (CKD-EPI)AfAm (>60 ml/min/1.73 sqM) Est GFR (CKD-EPI)NonAf (>60 ml/min/1.73 sqM) Glucose (74-99) mg/dL Plasma Lactic Acid Jacky 1.3 (0.7-2.0) mmol/L Calcium (8.4-10.2) mg/dL Magnesium (1.6-2.3) mg/dL Total Bilirubin (0.2-1.3) mg/dL AST (14-36) U/L ALT (4-34) U/L Alkaline Phosphatase (38-126) U/L Total Protein (6.3-8.2) g/dL Albumin (3.5-5.0) g/dL Stool Occult Blood (Negative) Influenza Type A (PCR) Not Detected (Not Detectd) Influenza Type B (PCR) Not Detected (Not Detectd) RSV (PCR) Not Detected (Not Detectd) SARS-CoV-2 (PCR) Not Detected (Not Detectd) 06/24/24 Range/Units 14:30 WBC (3.8-10.6) k/uL RBC (3.80-5.40) m/uL Hgb (11.4-16.0) gm/dL Hct (34.0-46.0) % MCV (80.0-100.0) fL MCH (25.0-35.0) pg MCHC (31.0-37.0) g/dL RDW (11.5-15.5) % Plt Count (150-450) k/uL MPV Neutrophils % % Lymphocytes % % Monocytes % % Eosinophils % % Basophils % % Neutrophils # (1.3-7.7) k/uL Lymphocytes # (1.0-4.8) k/uL Monocytes # (0-1.0) k/uL Eosinophils # (0-0.7) k/uL Basophils # (0-0.2) k/uL PT (10.0-12.5) sec INR (<1.2) APTT (22.0-30.0) sec Sodium (137-145) mmol/L Potassium (3.5-5.1) mmol/L Chloride (98-107) mmol/L Carbon Dioxide (22-30) mmol/L Anion Gap mmol/L BUN (7-17) mg/dL Creatinine (0.52-1.04) mg/dL Est GFR (CKD-EPI)AfAm (>60 ml/min/1.73 sqM) Est GFR (CKD-EPI)NonAf (>60 ml/min/1.73 sqM) Glucose (74-99) mg/dL Plasma Lactic Acid Jacky (0.7-2.0) mmol/L Calcium (8.4-10.2) mg/dL Magnesium (1.6-2.3) mg/dL Total Bilirubin (0.2-1.3) mg/dL AST (14-36) U/L ALT (4-34) U/L Alkaline Phosphatase (38-126) U/L Total Protein (6.3-8.2) g/dL Albumin (3.5-5.0) g/dL Stool Occult Blood Negative (Negative) Influenza Type A (PCR) (Not Detectd) Influenza Type B (PCR) (Not Detectd) RSV (PCR) (Not Detectd) SARS-CoV-2 (PCR) (Not Detectd) Disposition Clinical Impression: Leukocytosis Disposition: ADMITTED IP TO THIS HOSP Condition: Fair Referrals: Artemio Hartman MD [Primary Care Provider] - 1-2 days Decision Time: 15:22
[2024-06-24 13:24] LABS: Basophils % (A) 0 %; Eosinophils # (A) 0.5 k/uL (0-0.7); Eosinophils % (A) 3 %; Lymphocytes # (A) 2.4 k/uL (1.0-4.8); Lymphocytes % (A) 13 %; MCH 30.2 pg (25.0-35.0); MCV 91.3 fL (80.0-100.0); Mean Platelet Volume 7.4; Monocytes # (A) 1.2 k/uL (0-1.0); Monocytes % (A) 7 %; Neutrophils % (A) 76 %; Platelet Count 589 k/uL (150-450); RBC 2.12 m/uL (3.80-5.40); RDW 13.7 % (11.5-15.5); WBC 18.4 k/uL (3.8-10.6)
[2024-06-24 13:33] LABS: ALT 14 U/L (4-34); AST 25 U/L (14-36); African American GFR (CKD) 59 (>60 ml/min/1.73 sqM); Albumin 2.7 g/dL (3.5-5.0); Alkaline Phosphatase 106 U/L (38-126); Anion Gap 6 mmol/L; Blood Urea Nitrogen 33 mg/dL (7-17); Calcium 8.2 mg/dL (8.4-10.2); Carbon Dioxide 23 mmol/L (22-30); Chloride 107 mmol/L (98-107); Glucose 186 mg/dL (74-99); Magnesium 2.1 mg/dL (1.6-2.3); Non-African American GFR(CKD) 51 (>60 ml/min/1.73 sqM); Potassium 4.3 mmol/L (3.5-5.1); Sodium 136 mmol/L (137-145); Total Bilirubin 0.5 mg/dL (0.2-1.3); Total Protein 5.4 g/dL (6.3-8.2)
[2024-06-24 13:43] LABS: HGB 6.4 gm/dL (11.4-16.0)
[2024-06-24 13:44] LABS: HCT 19.3 % (34.0-46.0)
[2024-06-24 13:49] LABS: Prothrombin Time 11.3 sec (10.0-12.5)
[2024-06-24 13:50] LABS: Partial Thromboplastin Time 24.3 sec (22.0-30.0)
--- NOTE | 2024-06-24 13:56 | XR ---
EXAMINATION TYPE: XR chest 2V DATE OF EXAM: 06/24/2024 1:51 PM COMPARISON: Chest radiographs from TECHNIQUE: XR chest 2V . CLINICAL INDICATION:Female, 69 years old with history of leukocytosis; FINDINGS: Lungs/Pleura: There is no evidence of pleural effusion, focal consolidation, or pneumothorax. Pulmonary vascularity: Mild pulmonary vascular congestion. Heart/mediastinum: Cardiomediastinal silhouette is enlarged and stable. Musculoskeletal: No acute osseous pathology. Other findings: Anterior left chest loop recorder. Left PICC line with distal tip terminating at this mid SVC. IMPRESSION: Cardiomegaly and mild pulmonary vascular congestion. Correlate with BNP for congestive heart failure. [facility], , 06/24/2024 1:54 PM
[2024-06-24 14:49] LABS: MCH 29.8 pg (25.0-35.0); MCHC 32.2 g/dL (31.0-37.0); MCV 92.4 fL (80.0-100.0); Mean Platelet Volume 7.2; Platelet Count 438 k/uL (150-450); RDW 13.3 % (11.5-15.5); WBC 12.9 k/uL (3.8-10.6)
[2024-06-24 14:59] LABS: HCT 33.3 % (34.0-46.0); HGB 10.7 gm/dL (11.4-16.0)
[2024-06-24] MEDS ORDERED: VANCOMYCIN IV PER PHARMACY 1 EACH MISC MISCELLANE PRN (15:15)
[2024-06-24] MEDS ORDERED: NALOXONE 0.4 MG/ML 1 ML VIAL IV PRN (15:18)
[2024-06-24] MEDS: SODIUM CHLORIDE 0.9% 1,000 ML IV SCH (15:25)
[2024-06-24] MEDS: VANCOMYCIN 1,000 MG in SODIUM CHLORIDE 0.9% 250 ML IVPB STA (16:13)
[2024-06-24] MEDS ORDERED: ALBUTEROL NEBULIZED 2.5 MG/3 ML INHALATION PRN (17:34)
[2024-06-24] MEDS ORDERED: SIMETHICONE 80 MG CHEWABLE PO PRN (17:34)
[2024-06-24] MEDS ORDERED: LACTULOSE 20 GM/30 ML CUP PO PRN (17:34)
[2024-06-24] MEDS: TICAGRELOR 90 MG TAB PO SCH (20:59)
[2024-06-24] MEDS: carvediloL 6.25 MG TAB PO SCH (20:59)
[2024-06-24] MEDS: ATORVASTATIN 80 MG TAB PO SCH (20:59)
[2024-06-24] MEDS: GABAPENTIN 300 MG CAP PO SCH (20:59)
[2024-06-24 21:08] LABS: Glucose,Whole Blood 120 mg/dL (70-110)
[2024-06-24] MEDS: INSULIN DETEMIR (LEVEMIR) 100 UNIT/ML SYR SQ SCH (21:21)
--- NOTE | 2024-06-24 21:23 | P.CONS ---
History of Present Illness - Reason for Consult Consult date: 06/24/24 Leukocytosis Requesting physician: Ho Smith - Chief Complaint Elevated white count x 1 day - History of Present Illness Patient is a 69-year-old female with a past medical history significant for diabetes mellitus hypertension hyperlipidemia pneumonia coronary artery disease who was recently admitted at this facility with left fifth toe gangrene diabetic foot infection status post amputation local culture positive for ESBL Proteus Mirabella's and Bacteroides patient is patient did get a PICC line and was advised a 6-week course of IV Invanz 1 g daily with initial local wound care with wound VAC patient has been sent to the ER from the local long-term concerning for elevated white count patient denies having any fever or any chills denies any headache or URI symptoms no chest pain shortness of breath or cough denies any nausea no vomiting no abdominal pain no diarrhea patient denies any problem with her PICC line or any worsening pain to the left foot wound wound VAC has been discontinued she is not very clear about the local treatment being provided to the left foot or any drainage patient on presentation to the hospital was afebrile and no fever have been ordered subsequently patient was not tachycardic or hypotensive he did have hemoglobin of 6.4 white count of 18.4 with a repeat white count down to 12.9 creatinine is 1.12 liver isms are normal influenza RSV COVID testing was negative stool for occult blood is negative blood cultures obtained which are currently pending urine is pending patient has been admitted to hospital infectious he was consulted for elevated white count Review of Systems Positive point and negatives has been mentioned in the HPI, complete review of systems was performed and all other systems are negative Past Medical History Past Medical History: Coronary Artery Disease (CAD), Heart Failure, CVA/TIA, Diabetes Mellitus, Hyperlipidemia, Hypertension, Pneumonia, Skin Disorder, Vascular Disorder Additional Past Medical History / Comment(s): 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 Hx falls. Diverticulitis. PVD. Dysphagia. Has peg tube but is not in use. Needs 2 staff to pivot/transfer pt. Currently resides at [facility] November 2022. Hx acute respiratory failure. Neuromuscular dysfunction of bladder. History of Any Multi-Drug Resistant Organisms: MRSA Year Discovered:: 02/15/23 MDRO Source:: rt foot Past Surgical History: Section, Heart Catheterization, Orthopedic Surgery, Tonsillectomy Additional Past Surgical History / Comment(s): Right Femoral Popliteal bypass 10/19/22, at [facility], amputation of second third and fourth toes on right foot, carpal tunnel surgery. Past Anesthesia/Blood Transfusion Reactions: No Reported Reaction Additional Past Anesthesia/Blood Transfusion Reaction / Comm: Never received blood. Past Psychological History: Depression Smoking Status: Never smoker Past Alcohol Use History: None Reported Past Drug Use History: None Reported - Past Family History Mother Family Medical History: Cancer Additional Family Medical History / Comment(s): History of lower back fusion Father Family Medical History: Coronary Artery Disease (CAD) Medications and Allergies Home Medications Medication Instructions Recorded Confirmed Type Aspirin EC [Ecotrin Low Dose] 81 mg PO DAILY@0900 07/23/22 06/24/24 History Acetaminophen [Tylenol] 650 mg PO Q4H PRN 11/03/22 06/24/24 History carvediloL [Coreg] 6.25 mg PO BID@0900,209911/03/22 06/24/24 History Gabapentin [Neurontin] 300 mg PO TID@0600,1300,209901/26/23 06/24/24 History Insulin Glargine,Hum.rec.anlog 18 units SQ HS@209901/26/23 06/24/24 History [Lantus Solostar Pen] Melatonin 3 mg PO HS@209901/26/23 06/24/24 History Cetirizine HCl [Zyrtec] 10 mg PO DAILY@89905/05/23 06/24/24 History Ferrous Sulfate [Iron (65 MG 325 mg PO DAILY@89905/05/23 06/24/24 History Elemental)] Sennosides/Docusate Sodium [Senna 1 cap PO DAILY PRN 05/05/23 06/24/24 History Plus 8.6-50 mg Softgel] Ammonium Lactate Lotion 1 applic TOPICAL BID 07/05/23 06/24/24 History [Lac-Hydrin 12% Lotion] Ketoconazole 2% Shampoo [Nizoral] 1 applic TOPICAL MOFR 07/05/23 06/24/24 History Simethicone Chew [Mylicon Chew] 80 mg PO Q6H PRN 07/05/23 06/24/24 History Albuterol Inhaler [Ventolin Hfa 2 puff INHALATION RT-Q6H PRN 01/30/24 06/24/24 History Inhaler] Vit C/E/Zn/Coppr/Lutein/Zeaxan 1 cap PO DAILY@0900 01/30/24 06/24/24 History [Preservision Areds 2 Softgel] Atorvastatin [Lipitor] 80 mg PO HS@209905/31/24 06/24/24 History Lactulose 20 gm PO DAILY PRN 05/31/24 06/24/24 History Levothyroxine Sodium [Synthroid] 25 mcg PO SUTUTHSA@0600 05/31/24 06/24/24 History traMADol HCL 50 mg PO Q6H PRN #4 tab 06/05/24 06/24/24 Rx Ertapenem [INVanz] 1 gm IVPB HS 06/24/24 06/24/24 History Glucerna Shake 1 can PO DAILY@0900 06/24/24 06/24/24 History Insulin Aspart [NovoLOG Flexpen] See Protocol SQ ACHS 06/24/24 06/24/24 History Levothyroxine Sodium [Synthroid] 50 mcg PO MOWEFR@0600 06/24/24 06/24/24 History Magnesium Hydroxide [Milk of 2,400 mg PO ONETIME 06/24/24 06/24/24 History Magnesia] Nuclezyme Forte Dietary Supplement 1 cap PO TID@0900,1300,1700 06/24/24 06/24/24 History Pantoprazole [Protonix] 40 mg PO AC-BRKFST@0600 06/24/24 06/24/24 History Ticagrelor [Brilinta] 90 mg PO BID@0900,2100 06/24/24 06/24/24 History Z-Guard 1 applic TOPICAL HS 06/24/24 06/24/24 History amLODIPine [Norvasc] 5 mg PO HS@209906/24/24 06/24/24 History metroNIDAZOLE [Flagyl] 500 mg PO TID@0600,1300,2100 06/24/24 06/24/24 History Allergies Allergy/AdvReac Type Severity Reaction Status Date / Time unknown sleep aid Allergy Severe Rash/Hives Uncoded 06/24/24 12:52 Physical Exam Vitals: Vital Signs Temp Pulse Resp BP Pulse Ox 06/24/24 15:04 71 16 107/53 95 06/24/24 13:45 98.2 F 74 18 120/70 96 06/24/24 12:37 98.4 F 72 18 125/69 95 Intake and Output 06/24/24 06/24/24 06/24/24 06:59 14:59 22:59 Other: Weight 58.967 kg GENERAL DESCRIPTION: Elderly female lying in bed, no distress. No tachypnea or accessory muscle of respiration use. HEENT: Shows Pallor , no scleral icterus. Oral mucous membrane is dry. NECK: Trachea central, no thyromegaly. LUNGS: Unlabored breathing. Clear to auscultation anteriorly. No wheeze or crackle. HEART: S1, S2, regular rate and rhythm. No loud murmur ABDOMEN: Soft, no tenderness , guarding or rigidity, no organomegaly EXTREMITIES: Left foot lateral border wound which is deep tendon exposed some slough tissue no significant redness or drainage SKIN: No rash, no masses palpable. NEUROLOGICAL: The patient is lethargic but arousable, mood and affect normal. Results CBC & Chem 7: 06/25/24 02:48 06/25/24 02:48 Labs: Abnormal Lab Results - Last 24 Hours (Table) 06/24/24 06/24/24 06/24/24 Range/Units 12:53 12:53 14:30 WBC 18.4 H 12.9 H (3.8-10.6) k/uL RBC 2.12 L 3.60 L (3.80-5.40) m/uL Hgb 6.4 L* D 10.7 L D (11.4-16.0) gm/dL Hct 19.3 L* 33.3 L (34.0-46.0) % Plt Count 589 H (150-450) k/uL Neutrophils # 14.0 H (1.3-7.7) k/uL Monocytes # 1.2 H (0-1.0) k/uL Sodium 136 L (137-145) mmol/L BUN 33 H (7-17) mg/dL Creatinine 1.12 H (0.52-1.04) mg/dL Glucose 186 H (74-99) mg/dL Calcium 8.2 L (8.4-10.2) mg/dL Total Protein 5.4 L (6.3-8.2) g/dL Albumin 2.7 L (3.5-5.0) g/dL Assessment and Plan (1) Diabetic foot infection Current Visit: Yes Status: Acute Code(s): E11.628 - TYPE 2 DIABETES MELLITUS WITH OTHER SKIN COMPLICATIONS; L08.9 - LOCAL INFECTION OF THE SKIN AND SUBCUTANEOUS TISSUE, UNSP SNOMED Code(s): 727996192 (2) Foot osteomyelitis, left Current Visit: Yes Status: Acute Code(s): M86.9 - OSTEOMYELITIS, UNSPECIFIED SNOMED Code(s): 2321215034561594 (3) Leukocytosis Current Visit: Yes Status: Acute Code(s): D72.829 - ELEVATED WHITE BLOOD CELL COUNT, UNSPECIFIED SNOMED Code(s): 053653290 Plan: 1patient presented to hospital from local long-term for elevated white count questionably reactive and the patient was noticed to have a drop in her hemoglobin with subsequent white count has shown a downward trend patient not running any fever other etiology could be PICC line however have no significant swelling redness was noticed at the left arm PICC site 2-blood culture have been obtained results we will follow check inflammatory markers 3-continue the vancomycin watching kidney function closely will restart her Invanz 1 g daily for left foot osteomyelitis 4-local wound care per the wound care team which has been consulted We will follow on clinical condition and cultures to further adjust medication if needed Thank you for this consultation we will follow the patient along with you Dictation was produced using [employer] dictation software. please excuse any grammatical, word or spelling errors. Time with Patient: Greater than 30
--- NOTE | 2024-06-24 22:02 | P.HPIM ---
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 Patient had left fifth metatarsal osteomyelitis and currently on antibiotics, ertapenem and Flagyl via PICC line on the left upper extremity. Otherwise denies any fever or chills. No cough or sputum production. No nausea or vomiting or diarrhea. Denied any worsening left foot pain. Chest x-ray showed cardiomegaly and mild pulmonary vascular congestion. Correlate with BNP for CHF. EKG showed sinus rhythm Laboratory showed WBC 18.4 and hemoglobin 6.4and subsequently repeated CBC showed WBC improved to 12.9 hemoglobin 10.7 and platelets 438 Sodium 136 potassium 4.3 chloride 107 bicarb is 23 BUN 33 and creatinine 1.12 and blood sugar 186 and calcium 8.2 liver enzymes not elevated albumin 2.7 FOBT negative Influenza A B RSV and and COVID-19 PCR not detected. Review of Systems Constitutional: Patient denies any fever or chills . No generalized weakness or weight loss. Abdomen: Patient denied nausea vomiting and diarrhea and abdominal pain. Cardiovascular: Patient denies any chest pain or short of breath no palpitations. Respiratory: patient denied any cough or sputum production. No shortness of breath Neurologic: Patient denied any numbness or tingling. no headache. Musculoskeletal: Patient denies any complaints of joint swelling or deformity. Skin: Negative Psychiatric: Negative Endocrine: No heat or cold intolerance. No recent weight gain. Genitourinary: No dysuria or hematuria. All other 14 point ROS negative except the above Past Medical History Past Medical History: Coronary Artery Disease (CAD), Heart Failure, CVA/TIA, Diabetes Mellitus, Hyperlipidemia, Hypertension, Pneumonia, Skin Disorder, Vascular Disorder Additional Past Medical History / Comment(s): 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 Hx falls. Diverticulitis. PVD. Dysphagia. Has peg tube but is not in use. Needs 2 staff to pivot/transfer pt. Currently resides at [facility] since November 2022. Hx acute respiratory failure. Neuromuscular dysfunction of bladder. History of Any Multi-Drug Resistant Organisms: MRSA Date of last positivie culture/infection: 02/15/23 MDRO Source:: rt foot Past Surgical History: Section, Heart Catheterization, Orthopedic Surgery, Tonsillectomy Additional Past Surgical History / Comment(s): Right Femoral Popliteal bypass 10/19/22, at [facility], amputation of second third and fourth toes on right foot, carpal tunnel surgery. Past Anesthesia/Blood Transfusion Reactions: No Reported Reaction Additional Past Anesthesia/Blood Transfusion Reaction / Comment(s): Never received blood. Past Psychological History: Depression Smoking Status: Never smoker Past Alcohol Use History: None Reported Past Drug Use History: None Reported - Past Family History Mother Family Medical History: Cancer Additional Family Medical History / Comment(s): History of lower back fusion Father Family Medical History: Coronary Artery Disease (CAD) Medications and Allergies Home Medications Medication Instructions Recorded Confirmed Type Aspirin EC [Ecotrin Low Dose] 81 mg PO DAILY@0907/23/22 06/24/24 History Acetaminophen [Tylenol] 650 mg PO Q4H PRN 11/03/22 06/24/24 History carvediloL [Coreg] 6.25 mg PO BID@0900,209911/03/22 06/24/24 History Gabapentin [Neurontin] 300 mg PO TID@0600,1300,209901/26/23 06/24/24 History Insulin Glargine,Hum.rec.anlog 18 units SQ HS@209901/26/23 06/24/24 History [Lantus Solostar Pen] Melatonin 3 mg PO HS@209901/26/23 06/24/24 History Cetirizine HCl [Zyrtec] 10 mg PO DAILY@89905/05/23 06/24/24 History Ferrous Sulfate [Iron (65 MG 325 mg PO DAILY@89905/05/23 06/24/24 History Elemental)] Sennosides/Docusate Sodium [Senna 1 cap PO DAILY PRN 05/05/23 06/24/24 History Plus 8.6-50 mg Softgel] Ammonium Lactate Lotion 1 applic TOPICAL BID 07/05/23 06/24/24 History [Lac-Hydrin 12% Lotion] Ketoconazole 2% Shampoo [Nizoral] 1 applic TOPICAL MOFR 07/05/23 06/24/24 History Simethicone Chew [Mylicon Chew] 80 mg PO Q6H PRN 07/05/23 06/24/24 History Albuterol Inhaler [Ventolin Hfa 2 puff INHALATION RT-Q6H PRN 01/30/24 06/24/24 History Inhaler] Vit C/E/Zn/Coppr/Lutein/Zeaxan 1 cap PO DAILY@0900 01/30/24 06/24/24 History [Preservision Areds 2 Softgel] Atorvastatin [Lipitor] 80 mg PO HS@209905/31/24 06/24/24 History Lactulose 20 gm PO DAILY PRN 05/31/24 06/24/24 History Levothyroxine Sodium [Synthroid] 25 mcg PO SUTUTHSA@0600 05/31/24 06/24/24 History traMADol HCL 50 mg PO Q6H PRN #4 tab 06/05/24 06/24/24 Rx Ertapenem [INVanz] 1 gm IVPB HS 06/24/24 06/24/24 History Glucerna Shake 1 can PO DAILY@0900 06/24/24 06/24/24 History Insulin Aspart [NovoLOG Flexpen] See Protocol SQ ACHS 06/24/24 06/24/24 History Levothyroxine Sodium [Synthroid] 50 mcg PO MOWEFR@0600 06/24/24 06/24/24 History Magnesium Hydroxide [Milk of 2,400 mg PO ONETIME 06/24/24 06/24/24 History Magnesia] Nuclezyme Forte Dietary Supplement 1 cap PO TID@0900,1300,1700 06/24/24 06/24/24 History Pantoprazole [Protonix] 40 mg PO AC-BRKFST@0600 06/24/24 06/24/24 History Ticagrelor [Brilinta] 90 mg PO BID@0900,2100 06/24/24 06/24/24 History Z-Guard 1 applic TOPICAL HS 06/24/24 06/24/24 History amLODIPine [Norvasc] 5 mg PO HS@2100 06/24/24 06/24/24 History metroNIDAZOLE [Flagyl] 500 mg PO TID@0600,1300,2100 06/24/24 06/24/24 History Allergies Allergy/AdvReac Type Severity Reaction Status Date / Time unknown sleep aid Allergy Severe Rash/Hives Uncoded 06/24/24 12:52 Physical Exam Vitals: Vital Signs Temp Pulse Resp BP Pulse Ox 06/24/24 16:35 74 16 124/61 96 06/24/24 15:04 71 16 107/53 95 06/24/24 13:45 98.2 F 74 18 120/70 96 06/24/24 12:37 98.4 F 72 18 125/69 95 Intake and Output 06/24/24 06/24/24 06/24/24 06:59 14:59 22:59 Other: Weight 58.967 kg PHYSICAL EXAMINATION: Patient is lying in the bed comfortably, no acute distress, awake alert and oriented but dysarthric.. HEENT: Normocephalic. Neck is supple. Pupils reactive. Nostrils clear. Oral cavity is moist. Neck reveals no JVD, carotid bruits, or thyromegaly. CHEST EXAMINATION: Trachea is central. Symmetrical expansion. Lung m[place] clear to auscultation and percussion. CARDIAC: Normal S1, S2 with no gallops. No murmurs ABDOMEN: Soft. Bowel sounds normal. No organomegaly. No abdominal bruits. Extremities: Right foot second third and fourth toe amputation and left fifth toe diabetic ulcer/wound.. No clubbing or cyanosis Neurologically awake, alert, oriented x3 with left-sided weakness and dysarthria. Skin: No rash or skin lesions. Psychiatric: Coperative. Nonsuicidal Musculoskeletal: No joint swelling or deformity. Results CBC & Chem 7: 06/24/24 14:30 06/24/24 12:53 Labs: Abnormal Lab Results - Last 24 Hours (Table) 06/24/24 06/24/24 06/24/24 Range/Units 12:53 12:53 14:30 WBC 18.4 H 12.9 H (3.8-10.6) k/uL RBC 2.12 L 3.60 L (3.80-5.40) m/uL Hgb 6.4 L* D 10.7 L D (11.4-16.0) gm/dL Hct 19.3 L* 33.3 L (34.0-46.0) % Plt Count 589 H (150-450) k/uL Neutrophils # 14.0 H (1.3-7.7) k/uL Monocytes # 1.2 H (0-1.0) k/uL Sodium 136 L (137-145) mmol/L BUN 33 H (7-17) mg/dL Creatinine 1.12 H (0.52-1.04) mg/dL Glucose 186 H (74-99) mg/dL Calcium 8.2 L (8.4-10.2) mg/dL Total Protein 5.4 L (6.3-8.2) g/dL Albumin 2.7 L (3.5-5.0) g/dL Thrombosis Risk Factor Assmnt - DVT/VTE Prophylaxis DVT/VTE Prophylaxis: Pharmacologic Prophylaxis ordered Assessment and Plan Assessment: Worsening leukocytosis possible reactive with no complaints of fever or chills and no signs of infection of the left upper extremity PICC line insertion site. Diabetic foot infection with left fifth metatarsal osteomyelitis currently on antibiotics Flagyl via left arm PICC line History of CVA with left-sided weakness and dysarthria Coronary artery disease no history of PCI Peripheral vascular disease status post right Fuentes popliteal bypass on 10/17/2022 and an amputation of the second third and fourth on the right foot. Chronic CHF with raster dysfunction Hypertension Diabetes type 2 Hyperlipidemia Medical debility DVT prophylax with heparin subcu Plan: Patient will be continued on Vanco and also started back on ertapenem. Blood cultures were obtained. Wound dressing.. Continue with insulin regimen and titrate dose as needed. Continue with other home medications. Continue with aspirin and Brilinta and statins. ID consult for evaluation. Ordered CBC and BMP. Follow-up closely. Time with Patient: Greater than 30
[2024-06-25 03:47] LABS: African American GFR (CKD) 52 (>60 ml/min/1.73 sqM); Anion Gap 2 mmol/L; Blood Urea Nitrogen 32 mg/dL (7-17); Calcium 8.4 mg/dL (8.4-10.2); Carbon Dioxide 27 mmol/L (22-30); Chloride 108 mmol/L (98-107); Glucose 104 mg/dL (74-99); Non-African American GFR(CKD) 45 (>60 ml/min/1.73 sqM); Potassium 4.1 mmol/L (3.5-5.1); Sodium 137 mmol/L (137-145)
[2024-06-25] MEDS: PANTOPRAZOLE 40 MG TABLET PO SCH (06:30)
[2024-06-25] MEDS: LEVOTHYROXINE 25 MCG TAB PO SCH (06:30)
[2024-06-25 06:50] LABS: Glucose,Whole Blood 108 mg/dL (70-110)
[2024-06-25] MEDS: ASPIRIN 81 MG PO SCH (08:34)
[2024-06-25] MEDS: ERTAPENEM 1 GM in SODIUM CHLORIDE 0.9% 50 ML IVPB SCH (08:34)
[2024-06-25] MEDS: VANCOMYCIN 1,000 MG in SODIUM CHLORIDE 0.9% 250 ML IVPB SCH (08:35)
[2024-06-25 08:54] LABS: Basophils # (A) 0.06 X 10*3/uL (0.00-0.10); Basophils % (A) 0.4 %; Eosinophils # (A) 0.47 X 10*3/uL (0.04-0.35); Eosinophils % (A) 3.5 %; HCT 33.4 % (37.2-50.0); HGB 10.6 g/dL (12.0-17.0); Lymphocytes # (A) 2.22 X 10*3/uL (0.90-5.00); Lymphocytes % (A) 16.5 %; MCH 29.7 pg (27.0-32.0); MCHC 31.7 g/dL (32.0-37.0); MCV 93.6 FL (80.0-97.0); Monocytes # (A) 1.36 X 10*3/uL (0.20-1.00); Monocytes % (A) 10.1 %; NRBC Per 100 WBC 0 X 10*3/uL (0.00-0.01); Neutrophils # (A) 9.29 X 10*3/uL (1.80-7.70); Neutrophils % (A) 69.1 %; Platelet Count 393 X 10*3/uL (140-440); RBC 3.57 X 10*6/uL (4.10-5.60); RDW 13.7 % (11.5-14.5); WBC 13.45 X 10*3/uL (4.50-10.00)
[2024-06-25] MEDS ORDERED: NON FORMULARY DRUG (Glucerna Shake 1 CAN Ml) PO SCH (09:00)
[2024-06-25 11:54] LABS: Glucose,Whole Blood 162 mg/dL (70-110)
[2024-06-25] MEDS: SODIUM CHLORIDE 0.9% 1,000 ML IV SCH (13:09)
[2024-06-25] MEDS ORDERED: ZINC OXIDE PASTE (Z-GUARD) 1 APPLIC TOPICAL PRN (13:11)
[2024-06-25 15:01] LABS: Appearance,Urine Cloudy (Clear); Bacteria,Urine Occasional /hpf; Bilirubin,Urine Negative (Negative); Blood,Urine Large (Negative); Budding Yeast,Urine Many /hpf; Color,Urine Yellow; Glucose,Urine (UA) Negative (Negative); Ketones,Urine Negative (Negative); Leukocyte Esterase,Urine Large (Negative); Nitrite,Urine Negative (Negative); Protein,Urine 1+ (Negative); RBC,Urine 55 /hpf (0-5); Squamous Epithelial Cell,Urine 2 /hpf (0-4); Urobilinogen,Urine <2.0 mg/dL (<2.0); WBC,Urine >182 /hpf (0-5)
[2024-06-25 16:57] LABS: Glucose,Whole Blood 204 mg/dL (70-110)
[2024-06-25] MEDS: SENNOSIDES-DOCUSATE SODIUM 1 EACH TAB PO PRN (18:26)
[2024-06-25] MEDS: traMADol 50 MG TAB PO PRN (20:46)
[2024-06-25 21:12] LABS: Glucose,Whole Blood 185 mg/dL (70-110)
--- NOTE | 2024-06-25 22:42 | P.PN ---
Subjective Progress Note Date: 06/25/24 Principal diagnosis: Reason for follow-up is leukocytosis Patient is a 69-year-old female with a past medical history significant for diabetes mellitus hypertension hyperlipidemia pneumonia coronary artery disease who was recently admitted at this facility with left fifth toe gangrene diabetic foot infection status post amputation local culture positive for ESBL Proteus was on IV Invanz has been brought to the hospital concerning for elevated white count patient also noticed to have significant anemia no fever. On today's evaluation that is 06/25/2024, patient has been afebrile, patient is breathing comfortably and is currently on room air, patient denies having any significant cough no chest pain, patient denies nausea vomiting or diarrhea and no abdominal pain, no worsening pain to the left foot. Patient white count is down to 13.45 creatinine is 1.25 urine is positive cultures are currently pending Objective - Vital Signs Vital signs: Vital Signs Temp 99.1 F 06/25/24 07:44 Pulse 74 06/25/24 07:44 Resp 12 06/25/24 07:44 BP 129/77 06/25/24 07:44 Pulse Ox 95 06/25/24 02:00 FiO2 Intake & Output 06/24/24 06/25/24 06/25/24 18:59 06:59 18:59 Intake Total 240 Balance 240 Weight 58.967 kg 58.967 kg Intake: Oral 240 Other: Voiding Method External Catheter External Catheter - Exam GENERAL DESCRIPTION: An elderly female lying in bed in no distress RESPIRATORY SYSTEM: Unlabored breathing , decreased breath sounds at bases HEART: S1 S2 regular rate and rhythm , ABDOMEN: Soft , no tenderness EXTREMITIES: Left foot is currently dressed - Labs CBC & Chem 7: 06/25/24 02:48 06/25/24 02:48 Labs: Abnormal Lab Results - Last 24 Hours (Table) 06/24/24 06/24/24 06/25/24 Range/Units 14:30 21:06 02:48 WBC 12.9 H (3.8-10.6) k/uL RBC 3.60 L (3.80-5.40) m/uL Hgb 10.7 L D (11.4-16.0) gm/dL Hct 33.3 L (34.0-46.0) % MCHC (32.0-37.0) g/dL Immature Gran # (0.00-0.04) X 10*3/uL Neutrophils # (1.80-7.70) X 10*3/uL Monocytes # (0.20-1.00) X 10*3/uL Eosinophils # (0.04-0.35) X 10*3/uL Chloride 108 H (98-107) mmol/L BUN 32 H (7-17) mg/dL Creatinine 1.25 H (0.52-1.04) mg/dL Glucose 104 H (74-99) mg/dL POC Glucose (mg/dL) 120 H (70-110) mg/dL 06/25/24 06/25/24 Range/Units 02:48 11:31 WBC 13.45 H (3.8-10.6) k/uL RBC 3.57 L (3.80-5.40) m/uL Hgb 10.6 L (11.4-16.0) gm/dL Hct 33.4 L (34.0-46.0) % MCHC 31.7 L (32.0-37.0) g/dL Immature Gran # 0.05 H (0.00-0.04) X 10*3/uL Neutrophils # 9.29 H (1.80-7.70) X 10*3/uL Monocytes # 1.36 H (0.20-1.00) X 10*3/uL Eosinophils # 0.47 H (0.04-0.35) X 10*3/uL Chloride (98-107) mmol/L BUN (7-17) mg/dL Creatinine (0.52-1.04) mg/dL Glucose (74-99) mg/dL POC Glucose (mg/dL) 162 H (70-110) mg/dL Assessment and Plan (1) Diabetic foot infection Current Visit: Yes Status: Acute Code(s): E11.628 - TYPE 2 DIABETES MELLITUS WITH OTHER SKIN COMPLICATIONS; L08.9 - LOCAL INFECTION OF THE SKIN AND SUBCUTANEOUS TISSUE, UNSP SNOMED Code(s): 525704655 (2) Foot osteomyelitis, left Current Visit: Yes Status: Acute Code(s): M86.9 - OSTEOMYELITIS, UNSPECIFIED SNOMED Code(s): 0918029703168788 (3) Leukocytosis Current Visit: Yes Status: Acute Code(s): D72.829 - ELEVATED WHITE BLOOD CELL COUNT, UNSPECIFIED SNOMED Code(s): 255291039 Plan: 1patient presented to hospital from local correction for elevated white count questionably reactive and the patient was noticed to have a drop in her hemoglobin with subsequent white count has shown a downward trend patient not running any fever other etiology could be PICC line however have no significant swelling redness was noticed at the left arm PICC site 2-blood culture have been obtained which are currently pending 3-patient to continue the vancomycin watching kidney function closely along with Invanz 1 g daily for left foot osteomyelitis 4-local wound care per the wound care team which has been consulted Dictation was produced using [employer] dictation software. please excuse any grammatical, word or spelling errors. Time with Patient: Less than 30
[2024-06-26] MEDS: LEVOTHYROXINE 50 MCG TAB PO SCH (06:00)
[2024-06-26 07:01] LABS: Glucose,Whole Blood 60 mg/dL (70-110)
[2024-06-26 08:47] LABS: Basophils # (A) 0.06 X 10*3/uL (0.00-0.10); Basophils % (A) 0.5 %; Eosinophils # (A) 0.51 X 10*3/uL (0.04-0.35); HCT 31.8 % (37.2-50.0); HGB 10.1 g/dL (12.0-17.0); Lymphocytes # (A) 1.92 X 10*3/uL (0.90-5.00); Lymphocytes % (A) 15.2 %; MCHC 31.8 g/dL (32.0-37.0); MCV 91.4 FL (80.0-97.0); Mean Platelet Volume 9.7 FL (9.5-12.2); Monocytes # (A) 1.26 X 10*3/uL (0.20-1.00); NRBC Per 100 WBC 0 X 10*3/uL (0.00-0.01); Neutrophils # (A) 8.79 X 10*3/uL (1.80-7.70); Neutrophils % (A) 69.8 %; Platelet Count 400 X 10*3/uL (140-440); RBC 3.48 X 10*6/uL (4.10-5.60); RDW 13.6 % (11.5-14.5)
--- NOTE | 2024-06-26 10:14 | P.PN ---
Subjective Progress Note Date: 06/25/24 Patient is a 69-year-old female with a past medical history of coronary artery disease, peripheral vascular disease with history of right femoral popliteal bypass on 10/19/2022, amputation of the second third and fourth of right foot, history of CVA with residual left-sided weakness and dysarthria, neurogenic bladder, depression who is currently at retirement was sent to hospital due to worsening leukocytosis. Patient had left fifth metatarsal osteomyelitis and currently on antibiotics, ertapenem and Flagyl via PICC line on the left upper extremity. Otherwise denies any fever or chills. No cough or sputum production. No nausea or vomiting or diarrhea. Denied any worsening left foot pain. Chest x-ray showed cardiomegaly and mild pulmonary vascular congestion. Correlate with BNP for CHF. EKG showed sinus rhythm Laboratory showed WBC 18.4 and hemoglobin 6.4and subsequently repeated CBC minal wed WBC improved to 12.9 hemoglobin 10.7 and platelets 438 Sodium 136 potassium 4.3 chloride 107 bicarb is 23 BUN 33 and creatinine 1.12 and blood sugar 186 and calcium 8.2 liver enzymes not elevated albumin 2.7 FOBT negative Influenza A B RSV and and COVID-19 PCR not detected. 06/25/2024 Patient is lying in the bed. Awake alert and oriented. Currently on room air. Has been afebrile overnight. No complaints of chest pain or shortness of breath. Leg pain is controlled. Patient has been continued on antibiotics of vancomycin. Lab data showed WBC increased to 13.4 hemoglobin 10.6 and platelets 393 Sodium 137 potassium 4.1 chloride 108 bicarb is 27 BUN 32 and creatinine 1.25 and blood sugar 104 and calcium 8.4. FOBT negative. Urinalysis showed cloudy with 1+ protein large blood large leukocyte esterase with RBCs 55 and WBCs greater than 182. ID is on board. Current medications reviewed. Objective - Vital Signs Vital signs: Vital Signs Temp 99.1 F 06/25/24 07:44 Pulse 74 06/25/24 07:44 Resp 12 06/25/24 07:44 BP 129/77 06/25/24 07:44 Pulse Ox 95 06/25/24 02:00 FiO2 Intake & Output 06/24/24 06/25/24 06/25/24 18:59 06:59 18:59 Weight 58.967 kg 58.967 kg Other: Voiding Method External Catheter - Exam PHYSICAL EXAMINATION: Patient is lying in the bed comfortably, no acute distress, awake alert and oriented but dysarthric.. HEENT: Normocephalic. Neck is supple. Pupils reactive. Nostrils clear. Oral cavity is moist. Neck reveals no JVD, carotid bruits, or thyromegaly. CHEST EXAMINATION: Trachea is central. Symmetrical expansion. Lung [place] clear to auscultation and percussion. CARDIAC: Normal S1, S2 with no gallops. No murmurs ABDOMEN: Soft. Bowel sounds normal. No organomegaly. No abdominal bruits. Extremities: Right foot second third and fourth toe amputation and left fifth toe diabetic ulcer/wound.. No clubbing or cyanosis Neurologically awake, alert, oriented x3 with left-sided weakness and dysarthria . Skin: No rash or skin lesions. Psychiatric: Coperative. Nonsuicidal Musculoskeletal: No joint swelling or deformity. - Labs CBC & Chem 7: 06/26/24 04:18 06/25/24 02:48 Labs: Abnormal Lab Results - Last 24 Hours (Table) 06/24/24 06/24/24 06/24/24 Range/Units 12:53 12:53 14:30 WBC 18.4 H 12.9 H (3.8-10.6) k/uL RBC 2.12 L 3.60 L (3.80-5.40) m/uL Hgb 6.4 L* D 10.7 L D (11.4-16.0) gm/dL Hct 19.3 L* 33.3 L (34.0-46.0) % MCHC (32.0-37.0) g/dL Plt Count 589 H (150-450) k/uL Immature Gran # (0.00-0.04) X 10*3/uL Neutrophils # 14.0 H (1.3-7.7) k/uL Monocytes # 1.2 H (0-1.0) k/uL Eosinophils # (0.04-0.35) X 10*3/uL Sodium 136 L (137-145) mmol/L Chloride (98-107) mmol/L BUN 33 H (7-17) mg/dL Creatinine 1.12 H (0.52-1.04) mg/dL Glucose 186 H (74-99) mg/dL POC Glucose (mg/dL) (70-110) mg/dL Calcium 8.2 L (8.4-10.2) mg/dL Total Protein 5.4 L (6.3-8.2) g/dL Albumin 2.7 L (3.5-5.0) g/dL 06/24/24 06/25/24 06/25/24 Range/Units 21:06 02:48 02:48 WBC 13.45 H (3.8-10.6) k/uL RBC 3.57 L (3.80-5.40) m/uL Hgb 10.6 L (11.4-16.0) gm/dL Hct 33.4 L (34.0-46.0) % MCHC 31.7 L (32.0-37.0) g/dL Plt Count (150-450) k/uL Immature Gran # 0.05 H (0.00-0.04) X 10*3/uL Neutrophils # 9.29 H (1.3-7.7) k/uL Monocytes # 1.36 H (0-1.0) k/uL Eosinophils # 0.47 H (0.04-0.35) X 10*3/uL Sodium (137-145) mmol/L Chloride 108 H (98-107) mmol/L BUN 32 H (7-17) mg/dL Creatinine 1.25 H (0.52-1.04) mg/dL Glucose 104 H (74-99) mg/dL POC Glucose (mg/dL) 120 H (70-110) mg/dL Calcium (8.4-10.2) mg/dL Total Protein (6.3-8.2) g/dL Albumin (3.5-5.0) g/dL Assessment and Plan Assessment: Worsening leukocytosis possible reactive with no complaints of fever or chills and no signs of infection of the left upper extremity PICC line insertion site. Diabetic foot infection with left fifth metatarsal osteomyelitis currently on antibiotics Flagyl via left arm PICC line Possible urinary tract infection History of CVA with left-sided weakness and dysarthria Coronary artery disease no history of PCI Peripheral vascular disease status post right Fuentes popliteal bypass on 10/17/2022 and an amputation of the second third and fourth on the right foot. Chronic CHF with raster dysfunction Hypertension Diabetes type 2 Hyperlipidemia Medical debility DVT prophylax with heparin subcu Plan: Patient will be continued on Vanco and also started back on ertapenem. Blood cultures negative so far.. Wound dressing is being done.. Continue with insulin regimen and titrate dose as needed. Continue with other home medications. Continue with aspirin and Brilinta and statins. ID consult for evaluation. Ordered CBC and BMP. Follow-up closely. Time with Patient: Greater than 30
--- NOTE | 2024-06-26 11:20 | P.CONS ---
History of Present Illness - Reason for Consult Consult date: 06/26/24 wound care - History of Present Illness This is a 69-year-old patient known to the wound care center with a nonhealing ulceration to the left lateral foot. Patient had a amputation of her fifth digit of the left foot with Dr. Olguin. Patient was utilizing a negative pressure wound VAC. However the wound VAC was removed prior to coming to the hospital for concerns of constipation. Due to the appearance of the ulceration wound cultures were obtained that showed a positive infection to the ulceration. Ulceration measures 6 x 3.5 x 0.8 with significant amount of nonviable tissue including slough and necrotic tissue. Minimal granulation noted to the site. At this time we will discontinue the negative pressure wound VAC. voiced concerns of a ulceration to the sacrum. Patient has a stage II ulceration to the midline sacrum measuring approximately 0.1 x 0.2 x 0.1 cm excoriation noted to the periwound. Review Of Systems: Constitutional: No fever, no chills, no night sweats. No weight change. No wea kness, fatigue or lethargy. No daytime sleepiness. Integumentary:reports wounds, no lesions. No rash or pruritus. No unusual bruising. No change in hair or nails. Physical exam: General Appearance: Alert, cooperative, no distress, appears stated age. Skin: See HPI all other Skin color, texture, tugor normal, no rashes or lesions. Neurologic: Alert oriented x3 Assessment: 1. Nonpressure ulcer of other part of left foot with necrosis of muscle 2. Peripheral vascular disease 3. Stage II pressure ulcer sacrum 4. Osteomyelitis of left fifth digit Plan: 1.Left lateral foot: Apply Santyl, saline moist gauze, dry gauze, rolled gauze and secure with tape. Continue to use heel protectors. Sacrum: Zinc barrier cream. Turn [id number], air filled cushion when sitting. Patient will return to the wound care center July 05 at 9 AM Thank you for the consultation any questions please contact the wound care center DNP note has been reviewed and discussed with Dr. Kaplan and the impression and plan of care has been directed as dictated. 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 Hx falls. Diverticulitis. PVD. Dysphagia. Has peg tube but is not in use. Needs 2 staff to pivot/transfer pt. Currently resides at [facility] since November 2022. Hx acute respiratory failure. Neuromuscular dysfunction of bladder. History of Any Multi-Drug Resistant Organisms: MRSA Year Discovered:: 02/15/23 MDRO Source:: rt foot Past Surgical History: Section, Heart Catheterization, Orthopedic Surgery, Tonsillectomy Additional Past Surgical History / Comment(s): Right Femoral Popliteal bypass 10/19/22, at [facility], amputation of second third and fourth toes on right foot, carpal tunnel surgery. Past Anesthesia/Blood Transfusion Reactions: No Reported Reaction Additional Past Anesthesia/Blood Transfusion Reaction / Comm: Never received blood. Past Psychological History: Depression Smoking Status: Never smoker Past Alcohol Use History: None Reported Past Drug Use History: None Reported - Past Family History Mother Family Medical History: Cancer Additional Family Medical History / Comment(s): History of lower back fusion Father Family Medical History: Coronary Artery Disease (CAD) Medications and Allergies Home Medications Medication Instructions Recorded Confirmed Type Aspirin EC [Ecotrin Low Dose] 81 mg PO DAILY@0900 07/23/22 06/24/24 History Acetaminophen [Tylenol] 650 mg PO Q4H PRN 11/03/22 06/24/24 History carvediloL [Coreg] 6.25 mg PO BID@0900,209911/03/22 06/24/24 History Gabapentin [Neurontin] 300 mg PO TID@0600,1300,209901/26/23 06/24/24 History Insulin Glargine,Hum.rec.anlog 18 units SQ HS@209901/26/23 06/24/24 History [Lantus Solostar Pen] Melatonin 3 mg PO HS@209901/26/23 06/24/24 History Cetirizine HCl [Zyrtec] 10 mg PO DAILY@00 05/05/23 06/24/24 History Ferrous Sulfate [Iron (65 MG 325 mg PO DAILY@89905/05/23 06/24/24 History Elemental)] Sennosides/Docusate Sodium [Senna 1 cap PO DAILY PRN 05/05/23 06/24/24 History Plus 8.6-50 mg Softgel] Ammonium Lactate Lotion 1 applic TOPICAL BID 07/05/23 06/24/24 History [Lac-Hydrin 12% Lotion] Ketoconazole 2% Shampoo [Nizoral] 1 applic TOPICAL MOFR 07/05/23 06/24/24 History Simethicone Chew [Mylicon Chew] 80 mg PO Q6H PRN 07/05/23 06/24/24 History Albuterol Inhaler [Ventolin Hfa 2 puff INHALATION RT-Q6H PRN 01/30/24 06/24/24 History Inhaler] Vit C/E/Zn/Coppr/Lutein/Zeaxan 1 cap PO DAILY@0900 01/30/24 06/24/24 History [Preservision Areds 2 Softgel] Atorvastatin [Lipitor] 80 mg PO HS@2100 05/31/24 06/24/24 History Lactulose 20 gm PO DAILY PRN 05/31/24 06/24/24 History Levothyroxine Sodium [Synthroid] 25 mcg PO SUTUTHSA@0600 05/31/24 06/24/24 History traMADol HCL 50 mg PO Q6H PRN #4 tab 06/05/24 06/24/24 Rx Ertapenem [INVanz] 1 gm IVPB HS 06/24/24 06/24/24 History Glucerna Shake 1 can PO DAILY@0900 06/24/24 06/24/24 History Insulin Aspart [NovoLOG Flexpen] See Protocol SQ ACHS 06/24/24 06/24/24 History Levothyroxine Sodium [Synthroid] 50 mcg PO MOWEFR@0600 06/24/24 06/24/24 History Magnesium Hydroxide [Milk of 2,400 mg PO ONETIME 06/24/24 06/24/24 History Magnesia] Nuclezyme Forte Dietary Supplement 1 cap PO TID@0900,1300,1700 06/24/24 06/24/24 History Pantoprazole [Protonix] 40 mg PO AC-BRKFST@0600 06/24/24 06/24/24 History Ticagrelor [Brilinta] 90 mg PO BID@0900,2100 06/24/24 06/24/24 History Z-Guard 1 applic TOPICAL HS 06/24/24 06/24/24 History amLODIPine [Norvasc] 5 mg PO HS@2100 06/24/24 06/24/24 History metroNIDAZOLE [Flagyl] 500 mg PO TID@0600,1300,2100 06/24/24 06/24/24 History Allergies Allergy/AdvReac Type Severity Reaction Status Date / Time unknown sleep aid Allergy Severe Rash/Hives Uncoded 06/24/24 12:52 Physical Exam Vitals: Vital Signs Temp Pulse Resp BP Pulse Ox 06/26/24 07:58 97.8 F 76 113/73 92 L 06/26/24 01:43 99.3 F 77 17 105/66 96 06/25/24 20:44 99.9 F H 84 17 133/80 92 L 06/25/24 14:00 97.8 F 83 109/49 Intake and Output 06/25/24 06/26/24 06/26/24 22:59 06:59 14:59 Intake Total 360 650 120 Balance 360 650 120 Intake: Intake, IV Titration 650 Amount Sodium Chloride 0.9% 1, 400 000 ml @ 75 mls/hr IV . [id number] [facility] Rx#:[id number] Vancomycin 1,000 mg In 250 Sodium Chloride 0.9% 250 ml @ 125 mls/hr IVPB Q16H [facility] Rx#:[id number] Oral 360 120 Other: Voiding Method External Catheter Diaper # Voids 1 1 1 # Bowel Movements 1 Results CBC & Chem 7: 06/26/24 04:18 06/25/24 02:48 Labs: Abnormal Lab Results - Last 24 Hours (Table) 06/25/24 06/25/24 06/25/24 Range/Units 11:31 14:30 16:54 WBC (4.50-10.00) X 10*3/uL RBC (4.10-5.60) X 10*6/uL Hgb (12.0-17.0) g/dL Hct (37.2-50.0) % MCHC (32.0-37.0) g/dL Immature Gran # (0.00-0.04) X 10*3/uL Neutrophils # (1.80-7.70) X 10*3/uL Monocytes # (0.20-1.00) X 10*3/uL Eosinophils # (0.04-0.35) X 10*3/uL POC Glucose (mg/dL) 162 H 204 H (70-110) mg/dL Urine Appearance Cloudy H (Clear) Urine Protein 1+ H (Negative) Urine Blood Large H (Negative) Ur Leukocyte Esterase Large H (Negative) Urine RBC 55 H (0-5) /hpf Urine WBC >182 H (0-5) /hpf Urine Bacteria Occasional H (None) /hpf Urine Yeast (Budding) Many H (None) /hpf 06/25/24 06/26/24 06/26/24 Range/Units 21:11 04:18 06:59 WBC 12.60 H (4.50-10.00) X 10*3/uL RBC 3.48 L (4.10-5.60) X 10*6/uL Hgb 10.1 L (12.0-17.0) g/dL Hct 31.8 L (37.2-50.0) % MCHC 31.8 L (32.0-37.0) g/dL Immature Gran # 0.06 H (0.00-0.04) X 10*3/uL Neutrophils # 8.79 H (1.80-7.70) X 10*3/uL Monocytes # 1.26 H (0.20-1.00) X 10*3/uL Eosinophils # 0.51 H (0.04-0.35) X 10*3/uL POC Glucose (mg/dL) 185 H 60 L (70-110) mg/dL Urine Appearance (Clear) Urine Protein (Negative) Urine Blood (Negative) Ur Leukocyte Esterase (Negative) Urine RBC (0-5) /hpf Urine WBC (0-5) /hpf Urine Bacteria (None) /hpf Urine Yeast (Budding) (None) /hpf Microbiology - Last 24 Hours (Table) 06/24/24 13:03 Blood Culture - Preliminary Blood Assessment and Plan (1) Non-pressure chronic ulcer of other part of left foot with necrosis of muscle Current Visit: Yes Status: Acute Code(s): L97.523 - NON-PRS CHRONIC ULCER OTH PRT LEFT FOOT W NECROSIS OF MUSCLE SNOMED Code(s): 11827292475752802 (2) Foot osteomyelitis, left Current Visit: Yes Status: Acute Code(s): M86.9 - OSTEOMYELITIS, UNSPECIFIED SNOMED Code(s): 7424161553882472 (3) Atherosclerosis of [place] arteries of left leg with ulceration of other part of foot Current Visit: No Status: Acute Code(s): I70.245 - ATHSCL [place] ARTERIES OF LEFT LEG W ULCERATION OTH PRT FOOT SNOMED Code(s): 5262398909 (4) Stage II pressure ulcer of sacral region Current Visit: No Status: Acute Code(s): L89.152 - PRESSURE ULCER OF SACRAL REGION, STAGE 2 SNOMED Code(s): 25799646753876 (5) Type 2 diabetes mellitus with foot ulcer Current Visit: No Status: Acute Code(s): E11.621 - TYPE 2 DIABETES MELLITUS WITH FOOT ULCER; L97.509 - NON-PRESSURE CHRONIC ULCER OTH PRT UNSP FOOT W UNSP SEVERITY SNOMED Code(s): 0483147495699
[2024-06-26 11:27] LABS: Glucose,Whole Blood 165 mg/dL (70-110)
--- NOTE | 2024-06-26 12:32 | US ---
EXAMINATION TYPE: US venous doppler duplex UE LT DATE OF EXAM: 06/26/2024 COMPARISON: NONE CLINICAL INDICATION: Female, 69 years old with history of swollen arm; Swelling. TECHNIQUE: Grayscale, color Doppler and spectral Doppler imaging of the upper extremity. SIDE PERFORMED: Left FINDINGS: Color and Doppler ultrasound images of the bilateral internal jugular veins, bilateral subclavian, le ft axillary, left cephalic, left basilic, left brachial, left radial and ulnar veins were obtained. Left Arm: Echoes seen within all of the visualized subclavian vein, axillary vein, and basilic vein. Line seen within subclavian vein and basilic vein. These veins do not compress or show color flow. Color flow seen within remaining veins. Unable to visualize lower brachial veins due to large bandag e. IMPRESSION: 1. Deep venous thrombosis within the left subclavian vein, axillary, and basilic veins. 2. Central venous catheter identified within the left subclavian and basilic veins. [facility], , 06/26/2024 12:30 PM
[2024-06-26 14:46] LABS: Basophils % (A) 0 %; Eosinophils # (A) 0.4 k/uL (0-0.7); Eosinophils % (A) 3 %; Lymphocytes # (A) 1.7 k/uL (1.0-4.8); Lymphocytes % (A) 14 %; MCH 29.3 pg (25.0-35.0); MCHC 32.3 g/dL (31.0-37.0); MCV 90.8 fL (80.0-100.0); Mean Platelet Volume 7.2; Monocytes # (A) 0.8 k/uL (0-1.0); Monocytes % (A) 6 %; Neutrophils # (A) 9.7 k/uL (1.3-7.7); Neutrophils % (A) 76 %; Platelet Count 380 k/uL (150-450); RBC 3.74 m/uL (3.80-5.40); RDW 13.6 % (11.5-15.5); WBC 12.7 k/uL (3.8-10.6)
[2024-06-26 14:49] LABS: Partial Thromboplastin Time 24.7 sec (22.0-30.0); Prothrombin Time 10.9 sec (10.0-12.5)
[2024-06-26] MEDS: COLLAGENASE 250 UNIT/GM OINTMENT 30 GM TUBE TOPICAL SCH (14:58)
[2024-06-26] MEDS: HEPARIN SOD,PORK IN 0.45% NACL 25,000 UNIT in 0.45% NACL 1 250ML.BAG IV SCH (14:58)
[2024-06-26] MEDS: bisacodyL 10 MG SUPP RECTAL STA (14:58)
[2024-06-26 15:02] LABS: African American GFR (CKD) 54 (>60 ml/min/1.73 sqM); Anion Gap 7 mmol/L; Blood Urea Nitrogen 24 mg/dL (7-17); Calcium 8.2 mg/dL (8.4-10.2); Carbon Dioxide 25 mmol/L (22-30); Chloride 107 mmol/L (98-107); Glucose 135 mg/dL (74-99); Non-African American GFR(CKD) 47 (>60 ml/min/1.73 sqM); Potassium 4.1 mmol/L (3.5-5.1); Sodium 139 mmol/L (137-145)
[2024-06-26] MEDS: HEPARIN SODIUM 1,000 UN/ML (10ML VL) IV ONE (15:13)
[2024-06-26 16:18] LABS: Glucose,Whole Blood 183 mg/dL (70-110)
[2024-06-26] MEDS: VANCOMYCIN TROUGH DUE 1 EACH MISC MISCELLANE ONE (16:59)
[2024-06-26 21:02] LABS: Glucose,Whole Blood 172 mg/dL (70-110)
[2024-06-26] MEDS: HEPARIN SODIUM 1,000 UN/ML (10ML VL) IV PRN (22:29)
[2024-06-27 05:43] LABS: INR 1.4 (<1.2); Partial Thromboplastin Time 46.4 sec (22.0-30.0); Prothrombin Time 14.3 sec (10.0-12.5)
[2024-06-27 05:51] LABS: African American GFR (CKD) 53 (>60 ml/min/1.73 sqM); Anion Gap 3 mmol/L; Blood Urea Nitrogen 23 mg/dL (7-17); Calcium 8.1 mg/dL (8.4-10.2); Carbon Dioxide 22 mmol/L (22-30); Chloride 109 mmol/L (98-107); Glucose 85 mg/dL (74-99); Non-African American GFR(CKD) 46 (>60 ml/min/1.73 sqM); Potassium 3.8 mmol/L (3.5-5.1); Sodium 134 mmol/L (137-145)
[2024-06-27 06:50] LABS: Glucose,Whole Blood 98 mg/dL (70-110)
[2024-06-27 08:27] LABS: Basophils # (A) 0.06 X 10*3/uL (0.00-0.10); Basophils % (A) 0.5 %; Eosinophils # (A) 0.58 X 10*3/uL (0.04-0.35); Eosinophils % (A) 4.8 %; HCT 31.3 % (37.2-50.0); Lymphocytes # (A) 1.94 X 10*3/uL (0.90-5.00); Lymphocytes % (A) 16.1 %; MCH 29.7 pg (27.0-32.0); MCHC 31.9 g/dL (32.0-37.0); MCV 92.9 FL (80.0-97.0); Mean Platelet Volume 10.2 FL (9.5-12.2); Monocytes # (A) 1.18 X 10*3/uL (0.20-1.00); Monocytes % (A) 9.8 %; NRBC Per 100 WBC 0 X 10*3/uL (0.00-0.01); Neutrophils # (A) 8.25 X 10*3/uL (1.80-7.70); Neutrophils % (A) 68.2 %; Platelet Count 373 X 10*3/uL (140-440); RBC 3.37 X 10*6/uL (4.10-5.60); RDW 13.6 % (11.5-14.5); WBC 12.08 X 10*3/uL (4.50-10.00)
[2024-06-27 09:59] LABS: Glucose,Whole Blood 41 mg/dL (70-110)
[2024-06-27] MEDS: DEXTROSE 50% SYRINGE 50 ML IVP PRN (10:00)
[2024-06-27 10:12] LABS: Glucose,Whole Blood 204 mg/dL (70-110)
[2024-06-27] MEDS ORDERED: DEXTROSE 50% SYRINGE 50 ML IVP PRN (10:34)
[2024-06-27 11:18] LABS: Glucose,Whole Blood 139 mg/dL (70-110)
[2024-06-27 12:33] LABS: Glucose,Whole Blood 98 mg/dL (70-110)
[2024-06-27 12:41] LABS: Glucose,Whole Blood 92 mg/dL (70-110)
[2024-06-27 12:54] LABS: Glucose,Whole Blood 93 mg/dL (70-110)
[2024-06-27] MEDS: VANCOMYCIN 1,000 MG in SODIUM CHLORIDE 0.9% 250 ML IVPB SCH (13:15)
--- NOTE | 2024-06-27 13:24 | P.PN ---
Subjective Progress Note Date: 06/26/24 Principal diagnosis: Reason for follow-up is leukocytosis Patient is a 69-year-old female with a past medical history significant for diabetes mellitus hypertension hyperlipidemia pneumonia coronary artery disease who was recently admitted at this facility with left fifth toe gangrene diabetic foot infection status post amputation local culture positive for ESBL Proteus was on IV Invanz has been brought to the hospital concerning for elevated white count patient also noticed to have significant anemia no fever. On today's evaluation that is 06/26/2024, Patient is afebrile this morning patient is breathing comfortably on room air , patient slightly more awake and alert today denies any chest pain shortness of breath or cough no abdominal pain or diarrhea. Patient white count is 12.7, creatinine is 1.20 blood and urine cultures currently pending Objective - Vital Signs Vital signs: Vital Signs Temp 97.8 F 06/26/24 07:58 Pulse 76 06/26/24 07:58 Resp 17 06/26/24 01:43 BP 113/73 06/26/24 07:58 Pulse Ox 92 L 06/26/24 07:58 FiO2 Intake & Output 06/25/24 06/26/24 06/26/24 18:59 06:59 18:59 Intake Total 462 1010 120 Output Total 600 Balance -138 1010 120 Intake: Intake, IV Titration 650 Amount Sodium Chloride 0.9% 1, 400 000 ml @ 75 mls/hr IV . [id number] [facility] Rx#:[id number] Vancomycin 1,000 mg In 250 Sodium Chloride 0.9% 250 ml @ 125 mls/hr IVPB Q16H [facility] Rx#:[id number] Oral 462 360 120 Output: Urine 600 Other: Voiding Method External Catheter External Catheter Diaper # Voids 1 1 # Bowel Movements 1 1 - Exam GENERAL DESCRIPTION: An elderly female lying in bed in no distress RESPIRATORY SYSTEM: Unlabored breathing , decreased breath sounds at bases HEART: S1 S2 regular rate and rhythm , ABDOMEN: Soft , no tenderness EXTREMITIES: Left foot is currently dressed - Labs CBC & Chem 7: 06/27/24 05:07 06/27/24 05:07 Labs: Abnormal Lab Results - Last 24 Hours (Table) 06/25/24 06/25/24 06/25/24 Range/Units 14:30 16:54 21:11 WBC (4.50-10.00) X 10*3/uL RBC (4.10-5.60) X 10*6/uL Hgb (12.0-17.0) g/dL Hct (37.2-50.0) % MCHC (32.0-37.0) g/dL Immature Gran # (0.00-0.04) X 10*3/uL Neutrophils # (1.80-7.70) X 10*3/uL Monocytes # (0.20-1.00) X 10*3/uL Eosinophils # (0.04-0.35) X 10*3/uL POC Glucose (mg/dL) 204 H 185 H (70-110) mg/dL Urine Appearance Cloudy H (Clear) Urine Protein 1+ H (Negative) Urine Blood Large H (Negative) Ur Leukocyte Esterase Large H (Negative) Urine RBC 55 H (0-5) /hpf Urine WBC >182 H (0-5) /hpf Urine Bacteria Occasional H (None) /hpf Urine Yeast (Budding) Many H (None) /hpf 06/26/24 06/26/24 06/26/24 Range/Units 04:18 06:59 11:25 WBC 12.60 H (4.50-10.00) X 10*3/uL RBC 3.48 L (4.10-5.60) X 10*6/uL Hgb 10.1 L (12.0-17.0) g/dL Hct 31.8 L (37.2-50.0) % MCHC 31.8 L (32.0-37.0) g/dL Immature Gran # 0.06 H (0.00-0.04) X 10*3/uL Neutrophils # 8.79 H (1.80-7.70) X 10*3/uL Monocytes # 1.26 H (0.20-1.00) X 10*3/uL Eosinophils # 0.51 H (0.04-0.35) X 10*3/uL POC Glucose (mg/dL) 60 L 165 H (70-110) mg/dL Urine Appearance (Clear) Urine Protein (Negative) Urine Blood (Negative) Ur Leukocyte Esterase (Negative) Urine RBC (0-5) /hpf Urine WBC (0-5) /hpf Urine Bacteria (None) /hpf Urine Yeast (Budding) (None) /hpf Microbiology - Last 24 Hours (Table) 06/24/24 13:03 Blood Culture - Preliminary Blood Assessment and Plan (1) Diabetic foot infection Current Visit: Yes Status: Acute Code(s): E11.628 - TYPE 2 DIABETES MELLITUS WITH OTHER SKIN COMPLICATIONS; L08.9 - LOCAL INFECTION OF THE SKIN AND SUBCUTANEOUS TISSUE, UNSP SNOMED Code(s): 568207809 (2) Foot osteomyelitis, left Current Visit: Yes Status: Acute Code(s): M86.9 - OSTEOMYELITIS, UNSPECIFIED SNOMED Code(s): 5684033968388466 (3) Leukocytosis Current Visit: Yes Status: Acute Code(s): D72.829 - ELEVATED WHITE BLOOD CELL COUNT, UNSPECIFIED SNOMED Code(s): 909594506 Plan: 1patient presented to hospital from local senior care for elevated white count questionably reactive and the patient was noticed to have a drop in her hemoglobin with subsequent white count has shown a downward trend patient not running any fever other etiology could be PICC line however have no significant swelling redness was noticed at the left arm PICC site 2-blood culture are currently pending, also have a positive UA with cultures currently pending 3-patient to continue the vancomycin and Invanz 1 g daily for left foot osteomyelitis while waiting for repeat culture to be finalized Dictation was produced using [employer] dictation software. please excuse any grammatical, word or spelling errors. Time with Patient: Less than 30
[2024-06-27 13:32] VITALS: BMI 21.6
[2024-06-27] MEDS: DEXTROSE 5%-0.9% NACL 1,000 ML IV SCH (13:35)
--- NOTE | 2024-06-27 13:59 | XR ---
EXAMINATION TYPE: XR chest 1V portable DATE OF EXAM: 06/27/2024 1:54 PM COMPARISON: Chest radiographs from 06/24/2024 TECHNIQUE: XR chest 1V portable Portable AP radiograph of the chest. CLINICAL INDICATION:Female, 69 years old with history of history DVT, AMS; FINDINGS: Lungs/Pleura: There is no evidence of pleural effusion, focal consolidation, or pneumothorax. Pulmonary vascularity: Mild pulmonary vascular congestion. Heart/mediastinum: Cardiomediastinal silhouette is enlarged and stable. Musculoskeletal: No acute osseous pathology. Other findings: Loop recorder overlies the left anterior chest. IMPRESSION: Cardiomegaly and mild pulmonary vascular congestion. Correlate with BNP for congestive heart failure. [facility], , 06/27/2024 1:57 PM
--- NOTE | 2024-06-27 14:01 | XR ---
EXAMINATION TYPE: XR abdomen 1V DATE OF EXAM: 06/27/2024 COMPARISON: KUB 06/20/2024 HISTORY: Altered mental status, abdominal distention TECHNIQUE: Single supine KUB image of the abdomen is obtained FINDINGS: Small bowel demonstrates no evidence for dilatation or air fluid levels. Moderate to large colonic stool burden. No convincing evidence for pneumoperitoneum. No unusual calcifications. Splenic artery calcifications within the left upper quadrant. Pelvic phle boliths. Multilevel degenerative changes of the visualized spine. IMPRESSION: 1. Overall nonobstructive bowel gas pattern. 2. Moderate to large colonic stool burden. [facility], , 06/27/2024 1:59 PM
[2024-06-27 16:26] LABS: Glucose,Whole Blood 139 mg/dL (70-110)
[2024-06-27 20:30] LABS: Glucose,Whole Blood 221 mg/dL (70-110)
--- NOTE | 2024-06-27 21:59 | P.PN ---
Subjective Progress Note Date: 06/27/24 Principal diagnosis: Reason for follow-up is leukocytosis Patient is a 69-year-old female with a past medical history significant for diabetes mellitus hypertension hyperlipidemia pneumonia coronary artery disease who was recently admitted at this facility with left fifth toe gangrene diabetic foot infection status post amputation local culture positive for ESBL Proteus was on IV Invanz has been brought to the hospital concerning for elevated white count patient also noticed to have significant anemia no fever. On today's evaluation that is 06/27/2024,the patient remains to be afebrile he seemed to have a low blood sugar problem this morning and was noted to be slightly sleepy lethargic and did not provide any history no vomiting diarrhea or any other changes has been reported. Patient white count is down to 12.08 creat is 1.22 blood and urine culture curr ently pending Objective - Vital Signs Vital signs: Vital Signs Temp 98.6 F 06/27/24 07:13 Pulse 65 06/27/24 07:13 Resp 17 06/27/24 07:13 BP 98/61 06/27/24 07:13 Pulse Ox 94 L 06/27/24 07:13 FiO2 Intake & Output 06/26/24 06/27/24 06/27/24 18:59 06:59 18:59 Intake Total 360 52.362 Balance 360 52.362 Intake: Intake, IV Titration 52.362 Amount Heparin Sod,Pork in 0.45% 52.362 NaCl 25,000 unit In 0.45 % NaCl 1 250ml.bag @ 12 UNITS/KG/HR 7.076 mls/hr IV .Q24H [facility] Rx#: [id number] Oral 360 Other: Voiding Method Diaper Diaper # Voids 1 1 - Exam GENERAL DESCRIPTION: An elderly female lying in bed in no distress RESPIRATORY SYSTEM: Unlabored breathing , decreased breath sounds at bases HEART: S1 S2 regular rate and rhythm , ABDOMEN: Soft , no tenderness EXTREMITIES: Left foot is currently dressed - Labs CBC & Chem 7: 06/27/24 05:07 06/27/24 05:07 Labs: Abnormal Lab Results - Last 24 Hours (Table) 06/26/24 06/26/24 06/26/24 Range/Units 14:10 14:10 16:17 WBC 12.7 H (3.8-10.6) k/uL RBC 3.74 L (3.80-5.40) m/uL Hgb 11.0 L (11.4-16.0) gm/dL Hct (37.2-50.0) % MCHC (32.0-37.0) g/dL Immature Gran # (0.00-0.04) X 10*3/uL Neutrophils # 9.7 H (1.3-7.7) k/uL Monocytes # (0.20-1.00) X 10*3/uL Eosinophils # (0.04-0.35) X 10*3/uL PT (10.0-12.5) sec INR (<1.2) APTT (22.0-30.0) sec Sodium (137-145) mmol/L Chloride (98-107) mmol/L BUN 24 H (7-17) mg/dL Creatinine 1.20 H (0.52-1.04) mg/dL Glucose 135 H (74-99) mg/dL POC Glucose (mg/dL) 183 H (70-110) mg/dL Calcium 8.2 L (8.4-10.2) mg/dL 06/26/24 06/26/24 06/27/24 Range/Units 21:00 21:04 05:07 WBC 12.08 H (3.8-10.6) k/uL RBC 3.37 L (3.80-5.40) m/uL Hgb 10.0 L (11.4-16.0) gm/dL Hct 31.3 L (37.2-50.0) % MCHC 31.9 L (32.0-37.0) g/dL Immature Gran # 0.07 H (0.00-0.04) X 10*3/uL Neutrophils # 8.25 H (1.3-7.7) k/uL Monocytes # 1.18 H (0.20-1.00) X 10*3/uL Eosinophils # 0.58 H (0.04-0.35) X 10*3/uL PT (10.0-12.5) sec INR (<1.2) APTT 31.2 H (22.0-30.0) sec Sodium (137-145) mmol/L Chloride (98-107) mmol/L BUN (7-17) mg/dL Creatinine (0.52-1.04) mg/dL Glucose (74-99) mg/dL POC Glucose (mg/dL) 172 H (70-110) mg/dL Calcium (8.4-10.2) mg/dL 06/27/24 06/27/24 06/27/24 Range/Units 05:07 05:07 09:57 WBC (3.8-10.6) k/uL RBC (3.80-5.40) m/uL Hgb (11.4-16.0) gm/dL Hct (37.2-50.0) % MCHC (32.0-37.0) g/dL Immature Gran # (0.00-0.04) X 10*3/uL Neutrophils # (1.3-7.7) k/uL Monocytes # (0.20-1.00) X 10*3/uL Eosinophils # (0.04-0.35) X 10*3/uL PT 14.3 H (10.0-12.5) sec INR 1.4 H (<1.2) APTT 46.4 H (22.0-30.0) sec Sodium 134 L (137-145) mmol/L Chloride 109 H (98-107) mmol/L BUN 23 H (7-17) mg/dL Creatinine 1.22 H (0.52-1.04) mg/dL Glucose (74-99) mg/dL POC Glucose (mg/dL) 41 L* (70-110) mg/dL Calcium 8.1 L (8.4-10.2) mg/dL 06/27/24 06/27/24 Range/Units 10:10 11:17 WBC (3.8-10.6) k/uL RBC (3.80-5.40) m/uL Hgb (11.4-16.0) gm/dL Hct (37.2-50.0) % MCHC (32.0-37.0) g/dL Immature Gran # (0.00-0.04) X 10*3/uL Neutrophils # (1.3-7.7) k/uL Monocytes # (0.20-1.00) X 10*3/uL Eosinophils # (0.04-0.35) X 10*3/uL PT (10.0-12.5) sec INR (<1.2) APTT (22.0-30.0) sec Sodium (137-145) mmol/L Chloride (98-107) mmol/L BUN (7-17) mg/dL Creatinine (0.52-1.04) mg/dL Glucose (74-99) mg/dL POC Glucose (mg/dL) 204 H 139 H (70-110) mg/dL Calcium (8.4-10.2) mg/dL Microbiology - Last 24 Hours (Table) 06/25/24 14:30 Urine Culture - Preliminary Urine,Voided 06/24/24 13:03 Blood Culture - Preliminary Blood Assessment and Plan (1) Diabetic foot infection Current Visit: Yes Status: Acute Code(s): E11.628 - TYPE 2 DIABETES MELLITUS WITH OTHER SKIN COMPLICATIONS; L08.9 - LOCAL INFECTION OF THE SKIN AND SUBCUTANEOUS TISSUE, UNSP SNOMED Code(s): 847218761 (2) Foot osteomyelitis, left Current Visit: Yes Status: Acute Code(s): M86.9 - OSTEOMYELITIS, UNSPECIFIED SNOMED Code(s): 1103964584973088 (3) Leukocytosis Current Visit: Yes Status: Acute Code(s): D72.829 - ELEVATED WHITE BLOOD CELL COUNT, UNSPECIFIED SNOMED Code(s): 103206997 Plan: 1patient presented to hospital from local care home for elevated white count questionably reactive and the patient was noticed to have a drop in her hemoglobin with subsequent white count has shown a downward trend patient not running any fever other etiology could be PICC line however have no significant swelling redness was noticed at the left arm PICC site 2-blood culture are currently pending, also have a positive UA with cultures currently pending as well 3-patient did have improvement in her white count, to continue the vancomycin and Invanz 1 g daily for left foot osteomyelitis while waiting for repeat c ulture to be finalized to determine her discharge antibiotics at the bedside questions answered Dictation was produced using [employer] dictation software. please excuse any grammatical, word or spelling errors. Time with Patient: Less than 30
--- NOTE | 2024-06-27 22:28 | P.PN ---
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 Patient had left fifth metatarsal osteomyelitis and currently on antibiotics, ertapenem and Flagyl via PICC line on the left upper extremity. Otherwise denies any fever or chills. No cough or sputum production. No nausea or vomiting or diarrhea. Denied any worsening left foot pain. Chest x-ray showed cardiomegaly and mild pulmonary vascular congestion. Correlate with BNP for CHF. EKG showed sinus rhythm Laboratory showed WBC 18.4 and hemoglobin 6.4and subsequently repeated CBC minal wed WBC improved to 12.9 hemoglobin 10.7 and platelets 438 Sodium 136 potassium 4.3 chloride 107 bicarb is 23 BUN 33 and creatinine 1.12 and blood sugar 186 and calcium 8.2 liver enzymes not elevated albumin 2.7 FOBT negative Influenza A B RSV and and COVID-19 PCR not detected. 06/25/2024 Patient is lying in the bed. Awake alert and oriented. Currently on room air. Has been afebrile overnight. No complaints of chest pain or shortness of breath. Leg pain is controlled. Patient has been continued on antibiotics of vancomycin. Lab data showed WBC increased to 13.4 hemoglobin 10.6 and platelets 393 Sodium 137 potassium 4.1 chloride 108 bicarb is 27 BUN 32 and creatinine 1.25 and blood sugar 104 and calcium 8.4. FOBT negative. Urinalysis showed cloudy with 1+ protein large blood large leukocyte esterase with RBCs 55 and WBCs greater than 182. ID is on board. 06/26/2024 Patient is lying in the bed. Awake alert and oriented. States that she is not feeling very well. No complaints of chest pain or abdominal pain. No involvement for the past few days. Patient was noted to have left upper extremity swelling. Venous duplex was done which showed DVT within the left subclavian vein axillary and basilic veins. PICC line has been removed. Patient was started on heparin drip. Laboratory data showed WBC 12.7, hemoglobin 11.0 and platelets 380 BUN 24 and creatinine 1.2 and blood sugar 135 and calcium 8.2. Patient is being continued on antibiotics in the form of vancomycin and ertapenem. Cultures showed no growth so far. Current medications reviewed. Objective - Vital Signs Vital signs: Vital Signs Temp 99.0 F 06/26/24 19:31 Pulse 73 06/26/24 19:31 Resp 19 06/26/24 19:31 BP 118/82 06/26/24 19:31 Pulse Ox 97 06/26/24 19:31 FiO2 Intake & Output 06/26/24 06/26/24 06/27/24 06:59 18:59 06:59 Intake Total 1010 360 Balance 1010 360 Intake: Intake, IV Titration 650 Amount Sodium Chloride 0.9% 1, 400 000 ml @ 75 mls/hr IV . [id number] [facility] Rx#:[id number] Vancomycin 1,000 mg In 250 Sodium Chloride 0.9% 250 ml @ 125 mls/hr IVPB Q16H [facility] Rx#:[id number] Oral 360 360 Other: Voiding Method External Catheter Diaper # Voids 1 1 # Bowel Movements 1 - Exam PHYSICAL EXAMINATION: Patient is lying in the bed comfortably, no acute distress, awake alert and oriented but dysarthric.. HEENT: Normocephalic. Neck is supple. Pupils reactive. Nostrils clear. Oral cavity is moist. Neck reveals no JVD, carotid bruits, or thyromegaly. CHEST EXAMINATION: Trachea is central. Symmetrical expansion. Lung m[place] clear to auscultation and percussion. CARDIAC: Normal S1, S2 with no gallops. No murmurs ABDOMEN: Soft. Bowel sounds normal. No organomegaly. No abdominal bruits. Extremities: Right foot second third and fourth toe amputation and left fifth toe diabetic ulcer/wound.. Left upper extremity swelling about the elbow. No discharge from the PICC line site. No clubbing or cyanosis Neurologically awake, alert, oriented x3 with left-sided weakness and dysarthria. Skin: No rash or skin lesions. Psychiatric: Coperative. Nonsuicidal Musculoskeletal: No joint swelling or deformity. - Labs CBC & Chem 7: 06/27/24 05:07 06/27/24 05:07 Labs: Abnormal Lab Results - Last 24 Hours (Table) 06/26/24 06/26/24 06/26/24 Range/Units 04:18 06:59 11:25 WBC 12.60 H (4.50-10.00) X 10*3/uL RBC 3.48 L (4.10-5.60) X 10*6/uL Hgb 10.1 L (12.0-17.0) g/dL Hct 31.8 L (37.2-50.0) % MCHC 31.8 L (32.0-37.0) g/dL Immature Gran # 0.06 H (0.00-0.04) X 10*3/uL Neutrophils # 8.79 H (1.80-7.70) X 10*3/uL Monocytes # 1.26 H (0.20-1.00) X 10*3/uL Eosinophils # 0.51 H (0.04-0.35) X 10*3/uL APTT (22.0-30.0) sec BUN (7-17) mg/dL Creatinine (0.52-1.04) mg/dL Glucose (74-99) mg/dL POC Glucose (mg/dL) 60 L 165 H (70-110) mg/dL Calcium (8.4-10.2) mg/dL 06/26/24 06/26/24 06/26/24 Range/Units 14:10 14:10 16:17 WBC 12.7 H (4.50-10.00) X 10*3/uL RBC 3.74 L (4.10-5.60) X 10*6/uL Hgb 11.0 L (12.0-17.0) g/dL Hct (37.2-50.0) % MCHC (32.0-37.0) g/dL Immature Gran # (0.00-0.04) X 10*3/uL Neutrophils # 9.7 H (1.80-7.70) X 10*3/uL Monocytes # (0.20-1.00) X 10*3/uL Eosinophils # (0.04-0.35) X 10*3/uL APTT (22.0-30.0) sec BUN 24 H (7-17) mg/dL Creatinine 1.20 H (0.52-1.04) mg/dL Glucose 135 H (74-99) mg/dL POC Glucose (mg/dL) 183 H (70-110) mg/dL Calcium 8.2 L (8.4-10.2) mg/dL 06/26/24 06/26/24 Range/Units 21:00 21:04 WBC (4.50-10.00) X 10*3/uL RBC (4.10-5.60) X 10*6/uL Hgb (12.0-17.0) g/dL Hct (37.2-50.0) % MCHC (32.0-37.0) g/dL Immature Gran # (0.00-0.04) X 10*3/uL Neutrophils # (1.80-7.70) X 10*3/uL Monocytes # (0.20-1.00) X 10*3/uL Eosinophils # (0.04-0.35) X 10*3/uL APTT 31.2 H (22.0-30.0) sec BUN (7-17) mg/dL Creatinine (0.52-1.04) mg/dL Glucose (74-99) mg/dL POC Glucose (mg/dL) 172 H (70-110) mg/dL Calcium (8.4-10.2) mg/dL Microbiology - Last 24 Hours (Table) 06/24/24 13:03 Blood Culture - Preliminary Blood Assessment and Plan Assessment: Worsening leukocytosis possible reactive with no complaints of fever or chills and no signs of infection of the left upper extremity PICC line insertion site. WBC improving to 12.7 Diabetic foot infection with left fifth metatarsal osteomyelitis currently on antibiotics Flagyl via left arm PICC line Left upper extremity acute DVT likely with the presence of PICC line which has been removed.. Possible urinary tract infection History of CVA with left-sided weakness and dysarthria Coronary artery disease no history of PCI Peripheral vascular disease status post right Fuentes popliteal bypass on 10/17/2022 and an amputation of the second third and fourth on the right foot. Chronic CHF with raster dysfunction Hypertension Diabetes type 2 Hyperlipidemia Medical debility DVT prophylax with heparin subcu Plan: Patient was started on heparin drip due to left upper extremity DVT.. PICC line has been discontinued. Patient will be continued on Vanco and also started back on ertapenem. Blood cultures and urine cultures negative so far.. Wound dressing is being done.. Continue with insulin regimen and titrate dose as needed. Continue with other home medications. Continue with aspirin and Brilinta and statins. Continues to shortness and laxatives for constipation. ID is on board. Ordered CBC and BMP. Follow-up closely. Time with Patient: Greater than 30
--- NOTE | 2024-06-27 22:32 | P.PN ---
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 Patient had left fifth metatarsal osteomyelitis and currently on antibiotics, ertapenem and Flagyl via PICC line on the left upper extremity. Otherwise denies any fever or chills. No cough or sputum production. No nausea or vomiting or diarrhea. Denied any worsening left foot pain. Chest x-ray showed cardiomegaly and mild pulmonary vascular congestion. Correlate with BNP for CHF. EKG showed sinus rhythm Laboratory showed WBC 18.4 and hemoglobin 6.4and subsequently repeated CBC minal wed WBC improved to 12.9 hemoglobin 10.7 and platelets 438 Sodium 136 potassium 4.3 chloride 107 bicarb is 23 BUN 33 and creatinine 1.12 and blood sugar 186 and calcium 8.2 liver enzymes not elevated albumin 2.7 FOBT negative Influenza A B RSV and and COVID-19 PCR not detected. 06/25/2024 Patient is lying in the bed. Awake alert and oriented. Currently on room air. Has been afebrile overnight. No complaints of chest pain or shortness of breath. Leg pain is controlled. Patient has been continued on antibiotics of vancomycin. Lab data showed WBC increased to 13.4 hemoglobin 10.6 and platelets 393 Sodium 137 potassium 4.1 chloride 108 bicarb is 27 BUN 32 and creatinine 1.25 and blood sugar 104 and calcium 8.4. FOBT negative. Urinalysis showed cloudy with 1+ protein large blood large leukocyte esterase with RBCs 55 and WBCs greater than 182. ID is on board. 06/26/2024 Patient is lying in the bed. Awake alert and oriented. States that she is not feeling very well. No complaints of chest pain or abdominal pain. No involvement for the past few days. Patient was noted to have left upper extremity swelling. Venous duplex was done which showed DVT within the left subclavian vein axillary and basilic veins. PICC line has been removed. Patient was started on heparin drip. Laboratory data showed WBC 12.7, hemoglobin 11.0 and platelets 380 BUN 24 and creatinine 1.2 and blood sugar 135 and calcium 8.2. Patient is being continued on antibiotics in the form of vancomycin and ertapenem. Cultures showed no growth so far. 06/27/2024 Patient is lethargic and drowsy today. Able to answer appropriately with some baseline dysarthria. However his blood sugar was 41 this morning. Patient was given D50 and was started on D5 normal saline at 50 cc/h. Abdominal x-ray showed colonic stool burden. Other laboratory showed WBC 12.0 hemoglobin 10.0 and platelets 373 INR 1.4 sodium 134 potassium 3.8 chloride 109 bicarb is 22 BUN 23 and creatinine 1.22 and blood sugar 85. Calcium 8.1. Current medications reviewed. Objective - Vital Signs Vital signs: Vital Signs Temp 97.6 F 06/27/24 14:00 Pulse 66 06/27/24 14:00 Resp 16 06/27/24 14:00 BP 126/86 06/27/24 14:00 Pulse Ox 98 06/27/24 14:00 FiO2 Intake & Output 06/27/24 06/27/24 06/28/24 06:59 18:59 06:59 Intake Total 52.362 152.533 Balance 52.362 152.533 Weight 58.967 kg Intake: Intake, IV Titration 52.362 152.533 Amount Heparin Sod,Pork in 0.45% 52.362 152.533 NaCl 25,000 unit In 0.45 % NaCl 1 250ml.bag @ 12 UNITS/KG/HR 7.076 mls/hr IV .Q24H [facility] Rx#: [id number] Other: Voiding Method Diaper Diaper # Voids 1 1 - Exam PHYSICAL EXAMINATION: Patient is lying in the bed comfortably, no acute distress, awake alert and oriented but dysarthric. Patient is drowsy and weak.. HEENT: Normocephalic. Neck is supple. Pupils reactive. Nostrils clear. Oral cavity is moist. Neck reveals no JVD, carotid bruits, or thyromegaly. CHEST EXAMINATION: Trachea is central. Symmetrical expansion. Lung [place] clear to auscultation and percussion. CARDIAC: Normal S1, S2 with no gallops. No murmurs ABDOMEN: Soft. Bowel sounds normal. No organomegaly. No abdominal bruits. Extremities: Right foot second third and fourth toe amputation and left fifth toe diabetic ulcer/wound.. Left upper extremity swelling about the elbow.. No clubbing or cyanosis Neurologically awake, alert, oriented x 2-3 with left-sided weakness and dysarthria. Skin: No rash or skin lesions. Psychiatric: Coperative. Nonsuicidal Musculoskeletal: No joint swelling or deformity. - Labs CBC & Chem 7: 06/27/24 05:07 06/27/24 05:07 Labs: Abnormal Lab Results - Last 24 Hours (Table) 06/27/24 06/27/24 06/27/24 Range/Units 05:07 05:07 05:07 WBC 12.08 H (4.50-10.00) X 10*3/uL RBC 3.37 L (4.10-5.60) X 10*6/uL Hgb 10.0 L (12.0-17.0) g/dL Hct 31.3 L (37.2-50.0) % MCHC 31.9 L (32.0-37.0) g/dL Immature Gran # 0.07 H (0.00-0.04) X 10*3/uL Neutrophils # 8.25 H (1.80-7.70) X 10*3/uL Monocytes # 1.18 H (0.20-1.00) X 10*3/uL Eosinophils # 0.58 H (0.04-0.35) X 10*3/uL PT 14.3 H (10.0-12.5) sec INR 1.4 H (<1.2) APTT 46.4 H (22.0-30.0) sec Sodium 134 L (137-145) mmol/L Chloride 109 H (98-107) mmol/L BUN 23 H (7-17) mg/dL Creatinine 1.22 H (0.52-1.04) mg/dL POC Glucose (mg/dL) (70-110) mg/dL Calcium 8.1 L (8.4-10.2) mg/dL 06/27/24 06/27/24 06/27/24 Range/Units 09:57 10:10 11:17 WBC (4.50-10.00) X 10*3/uL RBC (4.10-5.60) X 10*6/uL Hgb (12.0-17.0) g/dL Hct (37.2-50.0) % MCHC (32.0-37.0) g/dL Immature Gran # (0.00-0.04) X 10*3/uL Neutrophils # (1.80-7.70) X 10*3/uL Monocytes # (0.20-1.00) X 10*3/uL Eosinophils # (0.04-0.35) X 10*3/uL PT (10.0-12.5) sec INR (<1.2) APTT (22.0-30.0) sec Sodium (137-145) mmol/L Chloride (98-107) mmol/L BUN (7-17) mg/dL Creatinine (0.52-1.04) mg/dL POC Glucose (mg/dL) 41 L* 204 H 139 H (70-110) mg/dL Calcium (8.4-10.2) mg/dL 06/27/24 06/27/24 Range/Units 16:24 20:28 WBC (4.50-10.00) X 10*3/uL RBC (4.10-5.60) X 10*6/uL Hgb (12.0-17.0) g/dL Hct (37.2-50.0) % MCHC (32.0-37.0) g/dL Immature Gran # (0.00-0.04) X 10*3/uL Neutrophils # (1.80-7.70) X 10*3/uL Monocytes # (0.20-1.00) X 10*3/uL Eosinophils # (0.04-0.35) X 10*3/uL PT (10.0-12.5) sec INR (<1.2) APTT (22.0-30.0) sec Sodium (137-145) mmol/L Chloride (98-107) mmol/L BUN (7-17) mg/dL Creatinine (0.52-1.04) mg/dL POC Glucose (mg/dL) 139 H 221 H (70-110) mg/dL Calcium (8.4-10.2) mg/dL Microbiology - Last 24 Hours (Table) 06/24/24 13:03 Blood Culture - Preliminary Blood 06/25/24 14:30 Urine Culture - Preliminary Urine,Voided Assessment and Plan Assessment: Acute hypoglycemic episode Worsening leukocytosis possible reactive with no complaints of fever or chills and no signs of infection of the left upper extremity PICC line insertion site. WBC improving to 12.7 Diabetic foot infection with left fifth metatarsal osteomyelitis currently on antibiotics Flagyl via left arm PICC line Left upper extremity acute DVT likely with the presence of PICC line which has been removed.. Possible urinary tract infection History of CVA with left-sided weakness and dysarthria Coronary artery disease no history of PCI Peripheral vascular disease status post right Fuentes popliteal bypass on 10/17/2022 and an amputation of the second third and fourth on the right foot. Chronic CHF with raster dysfunction Hypertension Diabetes type 2 Hyperlipidemia Medical debility DVT prophylax with heparin subcu Plan: Patient was given D50 IV push and continue to monitor CBG. Patient was started on D5 normal saline at 50 cc/h. Patient will be continued on heparin drip due to left upper extremity DVT.. PIC C line has been discontinued. Continue with Vanco and also started back on ertapenem as per ID recom mendations.. Blood cultures and urine cultures negative so far.. Wound dressing is being done.. Continue with insulin regimen and titrate dose as needed. Continue with other home medications. Continue with aspirin and Brilinta and statins. Continues to shortness and laxatives for constipation. ID is on board. Ordered CBC and BMP. Follow-up closely. Time with Patient: Greater than 30
[2024-06-28 06:49] LABS: Glucose,Whole Blood 223 mg/dL (70-110)
[2024-06-28 07:37] LABS: Basophils % (A) 0 %; Eosinophils # (A) 0.4 k/uL (0-0.7); Eosinophils % (A) 3 %; HCT 32.4 % (34.0-46.0); HGB 10.3 gm/dL (11.4-16.0); Lymphocytes # (A) 1.8 k/uL (1.0-4.8); Lymphocytes % (A) 15 %; MCH 29.5 pg (25.0-35.0); MCHC 31.8 g/dL (31.0-37.0); MCV 92.7 fL (80.0-100.0); Mean Platelet Volume 7.2; Monocytes # (A) 0.9 k/uL (0-1.0); Monocytes % (A) 7 %; Neutrophils # (A) 9.1 k/uL (1.3-7.7); Neutrophils % (A) 73 %; Platelet Count 371 k/uL (150-450); RBC 3.49 m/uL (3.80-5.40); RDW 13.4 % (11.5-15.5); WBC 12.4 k/uL (3.8-10.6)
[2024-06-28 11:43] LABS: Glucose,Whole Blood 236 mg/dL (70-110)
[2024-06-28] MEDS: SODIUM CHLORIDE 0.9% 1,000 ML IV SCH (14:03)
[2024-06-28 15:22] LABS: BUN/Creat Ratio 16.22 Ratio (12.00-20.00); Blood Urea Nitrogen 14.6 mg/dL (9.0-27.0); Calcium 7.9 mg/dL (8.7-10.3); Carbon Dioxide 22.1 mmol/L (21.6-31.8); Chloride 109 mmol/L (96-109); Glucose 225 mg/dL (70-110); Potassium 3.7 mmol/L (3.5-5.5); Sodium 142 mmol/L (135-145)
[2024-06-28 16:57] LABS: Glucose,Whole Blood 189 mg/dL (70-110)
[2024-06-28 20:42] LABS: Glucose,Whole Blood 191 mg/dL (70-110)
--- NOTE | 2024-06-28 21:51 | P.PN ---
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 Patient had left fifth metatarsal osteomyelitis and currently on antibiotics, ertapenem and Flagyl via PICC line on the left upper extremity. Otherwise denies any fever or chills. No cough or sputum production. No nausea or vomiting or diarrhea. Denied any worsening left foot pain. Chest x-ray showed cardiomegaly and mild pulmonary vascular congestion. Correlate with BNP for CHF. EKG showed sinus rhythm Laboratory showed WBC 18.4 and hemoglobin 6.4and subsequently repeated CBC minal wed WBC improved to 12.9 hemoglobin 10.7 and platelets 438 Sodium 136 potassium 4.3 chloride 107 bicarb is 23 BUN 33 and creatinine 1.12 and blood sugar 186 and calcium 8.2 liver enzymes not elevated albumin 2.7 FOBT negative Influenza A B RSV and and COVID-19 PCR not detected. 06/25/2024 Patient is lying in the bed. Awake alert and oriented. Currently on room air. Has been afebrile overnight. No complaints of chest pain or shortness of breath. Leg pain is controlled. Patient has been continued on antibiotics of vancomycin. Lab data showed WBC increased to 13.4 hemoglobin 10.6 and platelets 393 Sodium 137 potassium 4.1 chloride 108 bicarb is 27 BUN 32 and creatinine 1.25 and blood sugar 104 and calcium 8.4. FOBT negative. Urinalysis showed cloudy with 1+ protein large blood large leukocyte esterase with RBCs 55 and WBCs greater than 182. ID is on board. 06/26/2024 Patient is lying in the bed. Awake alert and oriented. States that she is not feeling very well. No complaints of chest pain or abdominal pain. No involvement for the past few days. Patient was noted to have left upper extremity swelling. Venous duplex was done which showed DVT within the left subclavian vein axillary and basilic veins. PICC line has been removed. Patient was started on heparin drip. Laboratory data showed WBC 12.7, hemoglobin 11.0 and platelets 380 BUN 24 and creatinine 1.2 and blood sugar 135 and calcium 8.2. Patient is being continued on antibiotics in the form of vancomycin and ertapenem. Cultures showed no growth so far. 06/27/2024 Patient is lethargic and drowsy today. Able to answer appropriately with some baseline dysarthria. However his blood sugar was 41 this morning. Patient was given D50 and was started on D5 normal saline at 50 cc/h. Abdominal x-ray showed colonic stool burden. Other laboratory showed WBC 12.0 hemoglobin 10.0 and platelets 373 INR 1.4 sodium 134 potassium 3.8 chloride 109 bicarb is 22 BUN 23 and creatinine 1.22 and blood sugar 85. Calcium 8.1. 06/28/2024 Patient is lying in the bed. Awake alert and oriented. Mentation is much improved today. No complaints of chest pain or shortness breath. Patient states that she feels better. Continued on heparin drip. Left upper extremity swelling is much improved. Will transition to Eliquis tomorrow. Rest patient did not have any involvement today. Abdominal x-ray showed overall nonobstructive bowel gas pattern. Moderate to large colonic stool burden. Enema was ordered. Otherwise urine cultures growing Enterococcus species. Daptomycin was added. Patient is also on EpiPen on. ID is on board. Laboratory data showed WBC 12.4 hemoglobin 10.3 and platelets 371 sodium 142 potassium 3.7 chloride 109 bicarb is 22.1 BUN 14.6 and creatinine 0.9 and calcium 7.9. Blood sugar is improved. IV fluids changed to normal saline at 50 cc/h. Current medications reviewed. Objective - Vital Signs Vital signs: Vital Signs Temp 99.6 F 06/28/24 07:58 Pulse 78 06/28/24 07:58 Resp 18 06/28/24 07:58 BP 118/87 06/28/24 07:58 Pulse Ox 99 06/28/24 07:58 FiO2 Intake & Output 06/27/24 06/28/24 06/28/24 18:59 06:59 18:59 Intake Total 152.533 Balance 152.533 Weight 58.967 kg Intake: Intake, IV Titration 152.533 Amount Heparin Sod,Pork in 0.45% 152.533 NaCl 25,000 unit In 0.45 % NaCl 1 250ml.bag @ 12 UNITS/KG/HR 7.076 mls/hr IV .Q24H [facility] Rx#: [id number] Other: Voiding Method Diaper Diaper Diaper # Voids 1 3 - Exam PHYSICAL EXAMINATION: Patient is lying in the bed comfortably, no acute distress, awake alert and oriented but dysarthric. HEENT: Normocephalic. Neck is supple. Pupils reactive. Nostrils clear. Oral cavity is moist. Neck reveals no JVD, carotid bruits, or thyromegaly. CHEST EXAMINATION: Trachea is central. Symmetrical expansion. Lung [place] clear to auscultation and percussion. CARDIAC: Normal S1, S2 with no gallops. No murmurs ABDOMEN: Soft. Bowel sounds normal. No organomegaly. No abdominal bruits. Extremities: Right foot second third and fourth toe amputation and left fifth toe diabetic ulcer/wound.. Left upper extremity minimal swelling above the elbow.. No clubbing or cyanosis Neurologically awake, alert, oriented x 2-3 with left-sided weakness and dysarthria. Skin: No rash or skin lesions except above. Psychiatric: Coperative. Nonsuicidal Musculoskeletal: No joint swelling or deformity. - Labs CBC & Chem 7: 06/28/24 06:41 06/28/24 06:41 Labs: Abnormal Lab Results - Last 24 Hours (Table) 06/27/24 06/27/24 06/28/24 Range/Units 16:24 20:28 06:41 WBC (3.8-10.6) k/uL RBC (3.80-5.40) m/uL Hgb (11.4-16.0) gm/dL Hct (34.0-46.0) % Neutrophils # (1.3-7.7) k/uL APTT 38.1 H (22.0-30.0) sec POC Glucose (mg/dL) 139 H 221 H (70-110) mg/dL 06/28/24 06/28/24 06/28/24 Range/Units 06:41 06:47 11:41 WBC 12.4 H (3.8-10.6) k/uL RBC 3.49 L (3.80-5.40) m/uL Hgb 10.3 L (11.4-16.0) gm/dL Hct 32.4 L (34.0-46.0) % Neutrophils # 9.1 H (1.3-7.7) k/uL APTT (22.0-30.0) sec POC Glucose (mg/dL) 223 H 236 H (70-110) mg/dL Microbiology - Last 24 Hours (Table) 06/25/24 14:30 Urine Culture - Final Urine,Voided Enterococ casseliflavus(grp d) 06/24/24 13:03 Blood Culture - Preliminary Blood Assessment and Plan Assessment: Acute hypoglycemic episode/metabolic encephalopathy improved. Worsening leukocytosis possible reactive with no complaints of fever or chills and no signs of infection of the left upper extremity PICC line insertion site. WBC improving. Diabetic foot infection with left fifth metatarsal osteomyelitis currently on antibiotics Flagyl via left arm PICC line Left upper extremity acute DVT likely with the presence of PICC line which has been removed.. Acute urinary tract infection with Enterococcus species. History of CVA with left-sided weakness and dysarthria Coronary artery disease no history of PCI Peripheral vascular disease status post right Fuentes popliteal bypass on 10/17/2022 and an amputation of the second third and fourth on the right foot. Chronic CHF with raster dysfunction Hypertension Diabetes type 2 Hyperlipidemia Medical debility DVT prophylax with heparin subcu Plan: IV fluids changed to normal segmental Disprol. Blood sugar level did improve. Patient will be continued on heparin drip due to left upper extremity DVT.. PICC line has been discontinued. Will transition to Eliquis tomorrow. Patient is being continued on ertapenem as per ID recommendations.. Added daptomycin. Blood cultures and urine cultures negative so far.. Wound dressing is being done.. Continue with insulin regimen and titrate dose as needed. Continue with other home medications. Continue with aspirin and Brilinta and statins. Continues to shortness and laxatives for constipation. ID is on board. Ordered CBC and BMP. Follow-up closely. Time with Patient: Greater than 30
[2024-06-28] MEDS: INSULIN DETEMIR (LEVEMIR) 100 UNIT/ML SYR SQ SCH (22:01)
[2024-06-29 06:28] LABS: Glucose,Whole Blood 133 mg/dL (70-110)
--- NOTE | 2024-06-29 10:00 | P.PN ---
Subjective Progress Note Date: 06/28/24 Principal diagnosis: Reason for follow-up is leukocytosis Patient is a 69-year-old female with a past medical history significant for diabetes mellitus hypertension hyperlipidemia pneumonia coronary artery disease who was recently admitted at this facility with left fifth toe gangrene diabetic foot infection status post amputation local culture positive for ESBL Proteus was on IV Invanz has been brought to the hospital concerning for elevated white count patient also noticed to have significant anemia no fever. On today's evaluation that is 06/28/2024,the patient remains to be afebrile, patient is on room air not requiring supplemental oxygen and denies any sh ortness of breath no chest pain or cough.Patient denies having any nausea or vomiting, no abdominal pain and no diarrhea has been reported. Patient white count is 12.4 creatinine 0.9 urine has been finalized with the VRE Objective - Vital Signs Vital signs: Vital Signs Temp 99.6 F 06/28/24 07:58 Pulse 78 06/28/24 07:58 Resp 18 06/28/24 07:58 BP 118/87 06/28/24 07:58 Pulse Ox 99 06/28/24 07:58 FiO2 Intake & Output 06/27/24 06/28/24 06/28/24 18:59 06:59 18:59 Intake Total 152.533 Balance 152.533 Weight 58.967 kg Intake: Intake, IV Titration 152.533 Amount Heparin Sod,Pork in 0.45% 152.533 NaCl 25,000 unit In 0.45 % NaCl 1 250ml.bag @ 12 UNITS/KG/HR 7.076 mls/hr IV .Q24H [facility] Rx#: [id number] Other: Voiding Method Diaper Diaper Diaper # Voids 1 3 - Exam GENERAL DESCRIPTION: An elderly female lying in bed in no distress RESPIRATORY SYSTEM: Unlabored breathing , decreased breath sounds at bases HEART: S1 S2 regular rate and rhythm , ABDOMEN: Soft , no tenderness EXTREMITIES: Left foot is currently dressed - Labs CBC & Chem 7: 06/28/24 06:41 06/28/24 06:41 Labs: Abnormal Lab Results - Last 24 Hours (Table) 06/27/24 06/27/24 06/28/24 Range/Units 16:24 20:28 06:41 WBC (3.8-10.6) k/uL RBC (3.80-5.40) m/uL Hgb (11.4-16.0) gm/dL Hct (34.0-46.0) % Neutrophils # (1.3-7.7) k/uL APTT 38.1 H (22.0-30.0) sec POC Glucose (mg/dL) 139 H 221 H (70-110) mg/dL 06/28/24 06/28/24 Range/Units 06:41 06:47 WBC 12.4 H (3.8-10.6) k/uL RBC 3.49 L (3.80-5.40) m/uL Hgb 10.3 L (11.4-16.0) gm/dL Hct 32.4 L (34.0-46.0) % Neutrophils # 9.1 H (1.3-7.7) k/uL APTT (22.0-30.0) sec POC Glucose (mg/dL) 223 H (70-110) mg/dL Microbiology - Last 24 Hours (Table) 06/25/24 14:30 Urine Culture - Final Urine,Voided Enterococ casseliflavus(grp d) 06/24/24 13:03 Blood Culture - Preliminary Blood Assessment and Plan (1) Diabetic foot infection Current Visit: Yes Status: Acute Code(s): E11.628 - TYPE 2 DIABETES MELLITUS WITH OTHER SKIN COMPLICATIONS; L08.9 - LOCAL INFECTION OF THE SKIN AND SUBCUTANEOUS TISSUE, UNSP SNOMED Code(s): 315388866 (2) Foot osteomyelitis, left Current Visit: Yes Status: Acute Code(s): M86.9 - OSTEOMYELITIS, UNSPECIFIED SNOMED Code(s): 8987321180665068 (3) Leukocytosis Current Visit: Yes Status: Acute Code(s): D72.829 - ELEVATED WHITE BLOOD CELL COUNT, UNSPECIFIED SNOMED Code(s): 379437603 Plan: 1patient presented to hospital from local intermediate for elevated white count questionably reactive and the patient was noticed to have a drop in her hemoglobin with subsequent white count has shown a downward trend patient not running any fever other etiology could be PICC line however have no significant swelling redness was noticed at the left arm PICC site 2-blood culture negative urine is growing out VRE 3-vancomycin has been discontinued patient started on daptomycin to cover for the VRE UTI continue with the Invanz for her left diabetic foot infection osteomyelitis Care discussed detail with as well as the admitting physician Dictation was produced using [employer] dictation software. please excuse any grammatical, word or spelling errors. Time with Patient: Less than 30
[2024-06-29 12:06] LABS: Glucose,Whole Blood 185 mg/dL (70-110)
--- NOTE | 2024-06-29 14:34 | P.PN ---
Subjective Progress Note Date: 06/29/24 Principal diagnosis: Reason for follow-up is leukocytosis Patient is a 69-year-old female with a past medical history significant for diabetes mellitus hypertension hyperlipidemia pneumonia coronary artery disease who was recently admitted at this facility with left fifth toe gangrene diabetic foot infection status post amputation local culture positive for ESBL Proteus was on IV Invanz has been brought to the hospital concerning for elevated white count patient also noticed to have significant anemia no fever. On today's evaluation that is 06/29/2024, the patient did have a low-grade fever of 99.9 negative for at this point the patient is afebrile since then, the patient is on room air and breathing comfortably, the Pt denies having any chest pain or cough, the patient denies having any abdominal pain no vomiting or any diarrhea has been reported by the nursing staff. Noted availability today blood culture negative Objective - Vital Signs Vital signs: Vital Signs Temp 99.9 F H 06/29/24 07:01 Pulse 73 06/29/24 07:01 Resp 17 06/29/24 07:01 BP 138/84 06/29/24 07:01 Pulse Ox 95 06/29/24 07:01 FiO2 Intake & Output 06/28/24 06/29/24 06/29/24 18:59 06:59 18:59 Intake Total 197.16 Balance 197.16 Intake: Intake, IV Titration 197.16 Amount Heparin Sod,Pork in 0.45% 197.16 NaCl 25,000 unit In 0.45 % NaCl 1 250ml.bag @ 12 UNITS/KG/HR 7.076 mls/hr IV .Q24H [facility] Rx#: [id number] Other: Voiding Method Diaper Diaper # Voids 4 - Exam GENERAL DESCRIPTION: An elderly female lying in bed in no distress RESPIRATORY SYSTEM: Unlabored breathing , decreased breath sounds at bases HEART: S1 S2 regular rate and rhythm , ABDOMEN: Soft , no tenderness EXTREMITIES: Left foot is currently dressed - Labs CBC & Chem 7: 06/28/24 06:41 06/28/24 06:41 Labs: Abnormal Lab Results - Last 24 Hours (Table) 06/28/24 06/28/24 06/28/24 Range/Units 06:41 14:48 16:55 APTT 47.5 H (22.0-30.0) sec Glucose 225 H (70-110) mg/dL POC Glucose (mg/dL) 189 H (70-110) mg/dL Calcium 7.9 L (8.7-10.3) mg/dL 06/28/24 06/29/24 06/29/24 Range/Units 20:38 05:24 06:26 APTT 47.6 H (22.0-30.0) sec Glucose (70-110) mg/dL POC Glucose (mg/dL) 191 H 133 H (70-110) mg/dL Calcium (8.7-10.3) mg/dL 06/29/24 Range/Units 12:05 APTT (22.0-30.0) sec Glucose (70-110) mg/dL POC Glucose (mg/dL) 185 H (70-110) mg/dL Calcium (8.7-10.3) mg/dL Assessment and Plan (1) Diabetic foot infection Current Visit: Yes Status: Acute Code(s): E11.628 - TYPE 2 DIABETES MELLITUS WITH OTHER SKIN COMPLICATIONS; L08.9 - LOCAL INFECTION OF THE SKIN AND SUBCUTANEOUS TISSUE, UNSP SNOMED Code(s): 090138090 (2) Foot osteomyelitis, left Current Visit: Yes Status: Acute Code(s): M86.9 - OSTEOMYELITIS, UNSPECIFIED SNOMED Code(s): 1917445185801835 (3) Leukocytosis Current Visit: Yes Status: Acute Code(s): D72.829 - ELEVATED WHITE BLOOD CELL COUNT, UNSPECIFIED SNOMED Code(s): 009711475 Plan: 1patient presented to hospital from local [place] [facility] for elevated white count questionably reactive and the patient was noticed to have a drop in her hemoglobin with subsequent white count has shown a downward trend patient not running any fever other etiology could be PICC line however have no significant swelling redness was noticed at the left arm PICC site 2-blood culture negative urine is growing out VRE 3-patient is currently covered with the daptomycin and Invanz she will get her PICC line on Monday and able to go back to the [place] [facility] at the bedside question answered Dictation was produced using [employer] dictation software. please excuse any grammatical, word or spelling errors. Time with Patient: Less than 30
[2024-06-29 16:44] LABS: Glucose,Whole Blood 215 mg/dL (70-110)
--- NOTE | 2024-06-29 20:23 | P.PN ---
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 Patient had left fifth metatarsal osteomyelitis and currently on antibiotics, ertapenem and Flagyl via PICC line on the left upper e xtremity. Otherwise denies any fever or chills. No cough or sputum production. No nausea or vomiting or diarrhea. Denied any worsening left foot pain. Chest x-ray showed cardiomegaly and mild pulmonary vascular congestion. Correlate with BNP for CHF. EKG showed sinus rhythm Laboratory showed WBC 18.4 and hemoglobin 6.4and subsequently repeated CBC showed WBC improved to 12.9 hemoglobin 10.7 and platelets 438 Sodium 136 potassium 4.3 chloride 107 bicarb is 23 BUN 33 and creatinine 1.12 and blood sugar 186 and calcium 8.2 liver enzymes not elevated albumin 2.7 FOBT negative Influenza A B RSV and and COVID-19 PCR not detected. 06/25/2024 Patient is lying in the bed. Awake alert and oriented. Currently on room air. Has been afebrile overnight. No complaints of chest pain or shortness of breath. Leg pain is controlled. Patient has been continued on antibiotics of vancomycin. Lab data showed WBC increased to 13.4 hemoglobin 10.6 and platelets 393 Sodium 137 potassium 4.1 chloride 108 bicarb is 27 BUN 32 and creatinine 1.25 and blood sugar 104 and calcium 8.4. FOBT negative. Urinalysis showed cloudy with 1+ protein large blood large leukocyte esterase with RBCs 55 and WBCs g reater than 182. ID is on board. 06/26/2024 Patient is lying in the bed. Awake alert and oriented. States that she is not feeling very well. No complaints of chest pain or abdominal pain. No invo lvement for the past few days. Patient was noted to have left upper extremity swelling. Venous duplex was done which showed DVT within the left subclavian vein axillary and basilic veins. PICC line has been removed. Patient was started on heparin drip. Laboratory data showed WBC 12.7, hemoglobin 11.0 and platelets 380 BUN 24 and creatinine 1.2 and blood sugar 135 and calcium 8.2. Patient is being continued on antibiotics in the form of vancomycin and ertapenem. Cultures showed no growth so far. 06/27/2024 Patient is lethargic and drowsy today. Able to answer appropriately with some baseline dysarthria. However his blood sugar was 41 this morning. Patient was given D50 and was started on D5 normal saline at 50 cc/h. Abdominal x-ray showed colonic stool burden. Other laboratory showed WBC 12.0 hemoglobin 10.0 and platelets 373 INR 1.4 sodium 134 potassium 3.8 chloride 109 bicarb is 22 BUN 23 and creatinine 1.22 and blood sugar 85. Calcium 8.1. 06/28/2024 Patient is lying in the bed. Awake alert and oriented. Mentation is much improved today. No complaints of chest pain or shortness breath. Patient states that she feels better. Continued on heparin drip. Left upper extremity swelling is much improved. Will transition to Eliquis tomorrow. Rest patient did not have any involvement today. Abdominal x-ray showed overall nonobstructive bowel gas pattern. Moderate to large colonic stool burden. Enema was ordered. Otherwise urine cultures growing Enterococcus species. Daptomycin was added. Patient is also on EpiPen on. ID is on board. Laboratory data showed WBC 12.4 hemoglobin 10.3 and platelets 371 sodium 142 potassium 3.7 chloride 109 bicarb is 22.1 BUN 14.6 and creatinine 0.9 and calcium 7.9. Blood sugar is improved. IV fluids changed to normal saline at 50 cc/h. 06/29/24 Patient still feels weak and lethargic. Also patient able to communicate through nodding her head yes/no when she is sleepy. Patient did not talk to me but per staff she was able to communicate through talking in earlier with mild facial droop on the left side She is mildly tachypneic. Patient also with severe left hemiplegia. also patient has dysarthria Left foot is in dressing Patient denies specific complaints Patient is a known case of coronary artery disease status post PCI to mid left anterior descending artery by Dr. Perez on 07/06/2023. At that time patient was started on dual antiplatelet therapy with Brilinta and aspirin. Since been almost a year since she got her stent and she was started on heparin we will going to hold Brilinta and continue with aspirin as well as heparin drip with a plan to switch to Eliquis upon discharge Objective - Vital Signs Vital signs: Vital Signs Temp 99.9 F H 06/29/24 07:01 Pulse 73 06/29/24 07:01 Resp 17 06/29/24 07:01 BP 138/84 06/29/24 07:01 Pulse Ox 95 06/29/24 07:01 FiO2 Intake & Output 06/28/24 06/29/24 06/29/24 18:59 06:59 18:59 Intake Total 197.16 Balance 197.16 Intake: Intake, IV Titration 197.16 Amount Heparin Sod,Pork in 0.45% 197.16 NaCl 25,000 unit In 0.45 % NaCl 1 250ml.bag @ 12 UNITS/KG/HR 7.076 mls/hr IV .Q24H [facility] Rx#: [id number] Other: Voiding Method Diaper Diaper # Voids 4 - Exam -Patient is lying in the bed comfortably, no acute distress, awake alert and oriented but dysarthric. HEENT: Normocephalic. Neck is supple. Pupils reactive. Nostrils clear. Oral cavity is moist. Neck reveals no JVD, carotid bruits, or thyromegaly. CHEST EXAMINATION: Trachea is central. Symmetrical expansion. Lung [place] clear to auscultation and percussion. CARDIAC: Normal S1, S2 with no gallops. No murmurs ABDOMEN: Soft. Bowel sounds normal. No organomegaly. No abdominal bruits. -Extremities: Right foot second third and fourth toe amputation and left fifth toe diabetic ulcer/wound. Seen in place. Left upper extremity minimal swelling. No clubbing or cyanosis -Neurologically awake, alert, oriented x 2-3 with left-sided weakness and dysarthria. Skin: No rash or skin lesions except above. Psychiatric: Coperative. Nonsuicidal Musculoskeletal: No joint swelling or deformity. - Labs CBC & Chem 7: 06/28/24 06:41 06/28/24 06:41 Labs: Abnormal Lab Results - Last 24 Hours (Table) 06/28/24 06/28/24 06/28/24 Range/Units 06:41 14:48 16:55 APTT 47.5 H (22.0-30.0) sec Glucose 225 H (70-110) mg/dL POC Glucose (mg/dL) 189 H (70-110) mg/dL Calcium 7.9 L (8.7-10.3) mg/dL 06/28/24 06/29/24 06/29/24 Range/Units 20:38 05:24 06:26 APTT 47.6 H (22.0-30.0) sec Glucose (70-110) mg/dL POC Glucose (mg/dL) 191 H 133 H (70-110) mg/dL Calcium (8.7-10.3) mg/dL 06/29/24 Range/Units 12:05 APTT (22.0-30.0) sec Glucose (70-110) mg/dL POC Glucose (mg/dL) 185 H (70-110) mg/dL Calcium (8.7-10.3) mg/dL Assessment and Plan Assessment: Acute hypoglycemic episode/metabolic encephalopathy improved. Worsening leukocytosis possible reactive with no complaints of fever or chills and no signs of infection of the left upper extremity PICC line insertion site. WBC improving. Diabetic foot infection with left fifth metatarsal osteomyelitis currently on antibiotics Flagyl via left arm PICC line Left upper extremity acute DVT likely with the presence of PICC line which has been removed.. Acute urinary tract infection with Enterococcus species. History of CVA with left-sided weakness and dysarthria Coronary artery disease no history of PCI Peripheral vascular disease status post right Fuentes popliteal bypass on 10/17/2022 and an amputation of the second third and fourth on the right foot. Chronic CHF with raster dysfunction Hypertension Diabetes type 2 Hyperlipidemia Medical debility Plan: Continue with antibiotic per ID team, currently on ertapenem and Daptomycin Plan for PICC line on Monday then discharged to senior living if she remains clinically stable On heparin drip for left upper extremity DVT patient currently is on aspirin and Brilinta. We will discontinue Brilinta continue with aspirin and heparin drip with a plan to switch to Eliquis upon discharge. To decrease the chances of bleeding Infectious disease consult on the case Labs and medication were reviewed.. Continue same treatment. Continue with symptomatic treatment. Resume home medication. Monitor labs and vitals. DVT and GI prophylaxis. Further recommendations as per clinical course of the patient DVT prophylaxis: heparin drip GI Prophylaxis: Ppi Prognosis is guarded
[2024-06-29 21:02] LABS: Glucose,Whole Blood 161 mg/dL (70-110)
[2024-06-30 06:51] LABS: Glucose,Whole Blood 100 mg/dL (70-110)
[2024-06-30 11:40] LABS: Glucose,Whole Blood 125 mg/dL (70-110)
--- NOTE | 2024-06-30 12:48 | P.PN ---
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 Patient had left fifth metatarsal osteomyelitis and currently on antibiotics, ertapenem and Flagyl via PICC line on the left upper e xtremity. Otherwise denies any fever or chills. No cough or sputum production. No nausea or vomiting or diarrhea. Denied any worsening left foot pain. Chest x-ray showed cardiomegaly and mild pulmonary vascular congestion. Correlate with BNP for CHF. EKG showed sinus rhythm Laboratory showed WBC 18.4 and hemoglobin 6.4and subsequently repeated CBC showed WBC improved to 12.9 hemoglobin 10.7 and platelets 438 Sodium 136 potassium 4.3 chloride 107 bicarb is 23 BUN 33 and creatinine 1.12 and blood sugar 186 and calcium 8.2 liver enzymes not elevated albumin 2.7 FOBT negative Influenza A B RSV and and COVID-19 PCR not detected. 06/25/2024 Patient is lying in the bed. Awake alert and oriented. Currently on room air. Has been afebrile overnight. No complaints of chest pain or shortness of breath. Leg pain is controlled. Patient has been continued on antibiotics of vancomycin. Lab data showed WBC increased to 13.4 hemoglobin 10.6 and platelets 393 Sodium 137 potassium 4.1 chloride 108 bicarb is 27 BUN 32 and creatinine 1.25 and blood sugar 104 and calcium 8.4. FOBT negative. Urinalysis showed cloudy with 1+ protein large blood large leukocyte esterase with RBCs 55 and WBCs g reater than 182. ID is on board. 06/26/2024 Patient is lying in the bed. Awake alert and oriented. States that she is not feeling very well. No complaints of chest pain or abdominal pain. No invo lvement for the past few days. Patient was noted to have left upper extremity swelling. Venous duplex was done which showed DVT within the left subclavian vein axillary and basilic veins. PICC line has been removed. Patient was started on heparin drip. Laboratory data showed WBC 12.7, hemoglobin 11.0 and platelets 380 BUN 24 and creatinine 1.2 and blood sugar 135 and calcium 8.2. Patient is being continued on antibiotics in the form of vancomycin and ertapenem. Cultures showed no growth so far. 06/27/2024 Patient is lethargic and drowsy today. Able to answer appropriately with some baseline dysarthria. However his blood sugar was 41 this morning. Patient was given D50 and was started on D5 normal saline at 50 cc/h. Abdominal x-ray showed colonic stool burden. Other laboratory showed WBC 12.0 hemoglobin 10.0 and platelets 373 INR 1.4 sodium 134 potassium 3.8 chloride 109 bicarb is 22 BUN 23 and creatinine 1.22 and blood sugar 85. Calcium 8.1. 06/28/2024 Patient is lying in the bed. Awake alert and oriented. Mentation is much improved today. No complaints of chest pain or shortness breath. Patient states that she feels better. Continued on heparin drip. Left upper extremity swelling is much improved. Will transition to Eliquis tomorrow. Rest patient did not have any involvement today. Abdominal x-ray showed overall nonobstructive bowel gas pattern. Moderate to large colonic stool burden. Enema was ordered. Otherwise urine cultures growing Enterococcus species. Daptomycin was added. Patient is also on EpiPen on. ID is on board. Laboratory data showed WBC 12.4 hemoglobin 10.3 and platelets 371 sodium 142 potassium 3.7 chloride 109 bicarb is 22.1 BUN 14.6 and creatinine 0.9 and calcium 7.9. Blood sugar is improved. IV fluids changed to normal saline at 50 cc/h. 06/29/24 Patient still feels weak and lethargic. Also patient able to communicate through nodding her head yes/no when she is sleepy. Patient did not talk to me but per staff she was able to communicate through talking in earlier with mild facial droop on the left side She is mildly tachypneic. Patient also with severe left hemiplegia. also patient has dysarthria Left foot is in dressing Patient denies specific complaints Patient is a known case of coronary artery disease status post PCI to mid left anterior descending artery by Dr. Perez on 07/06/2023. At that time patient was started on dual antiplatelet therapy with Brilinta and aspirin. Since been almost a year since she got her stent and she was started on heparin we will going to hold Brilinta and continue with aspirin as well as heparin drip with a plan to switch to Eliquis upon discharge 06/30 Patient awake alert today, she has mild dysarthria but answering questions appropriately Son at bedside Her left arm looks stable but weak for 1.5-year as patient explains. No redness or tenderness She remains on broad-spectrum antibiotics for her foot infection, no foot pain She is on heparin drip for her left upper extremity DVT. We will stop her Brilinta as she had a stent 1 year ago and continue with aspirin. This was discussed with the patient and son at bedside and they are agreeable Risk of bleeding explained extensively Objective - Vital Signs Vital signs: Vital Signs Temp 99.2 F 06/30/24 06:53 Pulse 69 06/30/24 06:53 Resp 17 06/30/24 06:53 BP 148/79 06/30/24 06:53 Pulse Ox 94 L 06/30/24 06:53 FiO2 Intake & Output 06/29/24 06/30/24 06/30/24 18:59 06:59 18:59 Intake Total 250 173.16 Balance 250 173.16 Intake: Intake, IV Titration 250 173.16 Amount Heparin Sod,Pork in 0.45% 250 173.16 NaCl 25,000 unit In 0.45 % NaCl 1 250ml.bag @ 12 UNITS/KG/HR 7.076 mls/hr IV .Q24H [facility] Rx#: [id number] Other: Voiding Method Diaper Diaper # Voids 5 2 # Bowel Movements 1 - Exam -Patient is lying in the bed comfortably, no acute distress, awake alert and oriented but dysarthric. HEENT: Normocephalic. Neck is supple. Pupils reactive. Nostrils clear. Oral cavity is moist. Neck reveals no JVD, carotid bruits, or thyromegaly. CHEST EXAMINATION: Trachea is central. Symmetrical expansion. Lung [place] clear to auscultation and percussion. CARDIAC: Normal S1, S2 with no gallops. No murmurs ABDOMEN: Soft. Bowel sounds normal. No organomegaly. No abdominal bruits. -Extremities: Right foot second third and fourth toe amputation and left fifth toe diabetic ulcer/wound. Seen in place. Left upper extremity minimal swelling. No clubbing or cyanosis -Neurologically awake, alert, oriented x 2-3 with left-sided weakness and dysarthria. Skin: No rash or skin lesions except above. Psychiatric: Coperative. Nonsuicidal Musculoskeletal: No joint swelling or deformity. - Labs CBC & Chem 7: 06/28/24 06:41 06/28/24 06:41 Labs: Abnormal Lab Results - Last 24 Hours (Table) 06/29/24 06/29/24 06/30/24 Range/Units 16:42 21:00 06:20 APTT 41.4 H (22.0-30.0) sec POC Glucose (mg/dL) 215 H 161 H (70-110) mg/dL 06/30/24 Range/Units 11:39 APTT (22.0-30.0) sec POC Glucose (mg/dL) 125 H (70-110) mg/dL Microbiology - Last 24 Hours (Table) 06/24/24 13:03 Blood Culture - Final Blood Assessment and Plan Assessment: Acute hypoglycemic episode/metabolic encephalopathy improved. Worsening leukocytosis possible reactive with no complaints of fever or chills and no signs of infection of the left upper extremity PICC line insertion site. WBC improving. Diabetic foot infection with left fifth metatarsal osteomyelitis currently on antibiotics Flagyl via left arm PICC line Left upper extremity acute DVT likely with the presence of PICC line which has been removed.. Acute urinary tract infection with Enterococcus species. History of CVA with left-sided weakness and dysarthria Coronary artery disease no history of PCI Peripheral vascular disease status post right Fuentes popliteal bypass on 10/17/2022 and an amputation of the second third and fourth on the right foot. Chronic CHF with raster dysfunction Hypertension Diabetes type 2 Hyperlipidemia Medical debility Plan: Continue with antibiotic per ID team, currently on ertapenem and Daptomycin Plan for PICC line on Monday then discharged to intermediate if she remains clinically stable On heparin drip for left upper extremity DVT patient currently is on aspirin and Brilinta. We will discontinue Brilinta con tinue with aspirin and heparin drip with a plan to switch to Eliquis upon discharge. To decrease the chances of bleeding Infectious disease consult on the case Labs and medication were reviewed.. Continue same treatment. Continue with symptomatic treatment. Resume home medication. Monitor labs and vitals. DVT and GI prophylaxis. Further recommendations as per clinical course of the patient DVT prophylaxis: heparin drip GI Prophylaxis: Ppi Prognosis is guarded
--- NOTE | 2024-06-30 15:25 | P.PN ---
Subjective Progress Note Date: 06/30/24 Principal diagnosis: Reason for follow-up is leukocytosis Patient is a 69-year-old female with a past medical history significant for diabetes mellitus hypertension hyperlipidemia pneumonia coronary artery disease who was recently admitted at this facility with left fifth toe gangrene diabetic foot infection status post amputation local culture positive for ESBL Proteus was on IV Invanz has been brought to the hospital concerning for elevated white count patient also noticed to have significant anemia no fever. On today's evaluation that is 06/30/2024, Patient did have a low-grade fever of 100.2 at 1 AM the patient is afebrile since then with comfortably on room air slightly more awake alert not with good historian though no vomiting diarrhea or any other changes reported. Did have a APTT of 44.1 no CBC was done blood culture remains to be negative Objective - Vital Signs Vital signs: Vital Signs Temp 99.3 F 06/30/24 14:10 Pulse 72 06/30/24 14:10 Resp 17 06/30/24 14:10 BP 119/74 06/30/24 14:10 Pulse Ox 97 06/30/24 14:10 FiO2 Intake & Output 06/29/24 06/30/24 06/30/24 18:59 06:59 18:59 Intake Total 250 240.787 Balance 250 240.787 Intake: Intake, IV Titration 250 240.787 Amount Heparin Sod,Pork in 0.45% 250 240.787 NaCl 25,000 unit In 0.45 % NaCl 1 250ml.bag @ 12 UNITS/KG/HR 7.076 mls/hr IV .Q24H [facility] Rx#: [id number] Other: Voiding Method Diaper Diaper # Voids 5 2 # Bowel Movements 1 - Exam GENERAL DESCRIPTION: An elderly female lying in bed in no distress RESPIRATORY SYSTEM: Unlabored breathing , decreased breath sounds at bases HEART: S1 S2 regular rate and rhythm , ABDOMEN: Soft , no tenderness EXTREMITIES: Left foot is currently dressed - Labs CBC & Chem 7: 06/28/24 06:41 06/28/24 06:41 Labs: Abnormal Lab Results - Last 24 Hours (Table) 06/29/24 06/29/24 06/30/24 Range/Units 16:42 21:00 06:20 APTT 41.4 H (22.0-30.0) sec POC Glucose (mg/dL) 215 H 161 H (70-110) mg/dL 06/30/24 06/30/24 Range/Units 11:39 13:46 APTT 44.1 H (22.0-30.0) sec POC Glucose (mg/dL) 125 H (70-110) mg/dL Microbiology - Last 24 Hours (Table) 06/24/24 13:03 Blood Culture - Final Blood Assessment and Plan (1) Diabetic foot infection Current Visit: Yes Status: Acute Code(s): E11.628 - TYPE 2 DIABETES MELLITUS WITH OTHER SKIN COMPLICATIONS; L08.9 - LOCAL INFECTION OF THE SKIN AND SUBCUTANEOUS TISSUE, UNSP SNOMED Code(s): 482125428 (2) Foot osteomyelitis, left Current Visit: Yes Status: Acute Code(s): M86.9 - OSTEOMYELITIS, UNSPECIFIED SNOMED Code(s): 9444882092511921 (3) Leukocytosis Current Visit: Yes Status: Acute Code(s): D72.829 - ELEVATED WHITE BLOOD CELL COUNT, UNSPECIFIED SNOMED Code(s): 676087844 Plan: 1[facility] count questionably reactive and the patient was noticed to have a drop in her hemoglobin with subsequent white count has shown a downward trend patient not running any fever other etiology could be PICC line however have no significant swelling redness was noticed at the left arm PICC site, subsequent ultrasound shows evidence of a DVT and the PICC line was discontinued however blood culture has been negative 2-blood culture negative urine is growing out VRE 3-patient did have a low-grade fever 100.2. Will monitor closely with repeat CBC with a.m. labs overall the patient is covered with Invanz and daptomycin , should be able to continue PICC line on the right side tomorrow to finish her course of therapy Dictation was produced using [employer] dictation software. please excuse any grammatical, word or spelling errors. Time with Patient: Less than 30
[2024-06-30 16:38] LABS: Glucose,Whole Blood 162 mg/dL (70-110)
[2024-06-30 21:20] LABS: Glucose,Whole Blood 172 mg/dL (70-110)
[2024-07-01 06:46] LABS: Glucose,Whole Blood 96 mg/dL (70-110)
[2024-07-01 07:30] LABS: Basophils % (A) 0 %; Eosinophils # (A) 0.5 k/uL (0-0.7); Eosinophils % (A) 4 %; HCT 32.7 % (34.0-46.0); HGB 10.7 gm/dL (11.4-16.0); Lymphocytes # (A) 2.2 k/uL (1.0-4.8); Lymphocytes % (A) 18 %; MCH 29.6 pg (25.0-35.0); MCHC 32.6 g/dL (31.0-37.0); MCV 91.1 fL (80.0-100.0); Mean Platelet Volume 7.1; Monocytes # (A) 0.6 k/uL (0-1.0); Monocytes % (A) 5 %; Neutrophils # (A) 8.5 k/uL (1.3-7.7); Neutrophils % (A) 71 %; Platelet Count 378 k/uL (150-450); RBC 3.59 m/uL (3.80-5.40); RDW 13.6 % (11.5-15.5)
[2024-07-01 11:26] LABS: BUN/Creat Ratio 13.86 Ratio (12.00-20.00); Blood Urea Nitrogen 9.7 mg/dL (9.0-27.0); Calcium 8.2 mg/dL (8.7-10.3); Carbon Dioxide 21.4 mmol/L (21.6-31.8); Chloride 108 mmol/L (96-109); Glucose 89 mg/dL (70-110); Potassium 3.7 mmol/L (3.5-5.5); Sodium 140 mmol/L (135-145)
[2024-07-01 12:13] LABS: Glucose,Whole Blood 109 mg/dL (70-110)
[2024-07-01 14:55] LABS: Prothrombin Time 11.4 sec (10.0-12.5)
[2024-07-01 16:42] LABS: Glucose,Whole Blood 78 mg/dL (70-110)
[2024-07-01 22:03] LABS: Glucose,Whole Blood 112 mg/dL (70-110)
--- NOTE | 2024-07-01 23:02 | P.PN ---
Subjective Progress Note Date: 07/01/24 Principal diagnosis: Reason for follow-up is leukocytosis Patient is a 69-year-old female with a past medical history significant for diabetes mellitus hypertension hyperlipidemia pneumonia coronary artery disease who was recently admitted at this facility with left fifth toe gangrene diabetic foot infection status post amputation local culture positive for ESBL Proteus was on IV Invanz has been brought to the hospital concerning for elevated white count patient also noticed to have significant anemia no fever. On today's evaluation that is 07/01/2024, patient has been afebrile, patient is breathing comfortably and is currently on room air, patient denies having any significant cough no chest pain, patient denies nausea vomiting or diarrhea and no abdominal pain. Patient white count is 12.0, creatinine 0.7 blood culture has been negative Objective - Vital Signs Vital signs: Vital Signs Temp 98.5 F 07/01/24 06:53 Pulse 68 07/01/24 06:53 Resp 17 07/01/24 06:53 BP 154/84 07/01/24 06:53 Pulse Ox 93 L 07/01/24 06:53 FiO2 Intake & Output 06/30/24 07/01/24 07/01/24 18:59 06:59 18:59 Intake Total 240.787 250 Balance 240.787 250 Intake: Intake, IV Titration 240.787 250 Amount Heparin Sod,Pork in 0.45% 240.787 250 NaCl 25,000 unit In 0.45 % NaCl 1 250ml.bag @ 12 UNITS/KG/HR 7.076 mls/hr IV .Q24H [facility] Rx#: [id number] Other: Voiding Method Diaper Diaper # Voids 5 3 1 - Exam GENERAL DESCRIPTION: An elderly female lying in bed in no distress RESPIRATORY SYSTEM: Unlabored breathing , decreased breath sounds at bases HEART: S1 S2 regular rate and rhythm , ABDOMEN: Soft , no tenderness EXTREMITIES: Left foot is currently dressed - Labs CBC & Chem 7: 07/01/24 06:52 07/01/24 06:52 Labs: Abnormal Lab Results - Last 24 Hours (Table) 06/30/24 06/30/24 06/30/24 Range/Units 13:46 16:37 21:19 WBC (3.8-10.6) k/uL RBC (3.80-5.40) m/uL Hgb (11.4-16.0) gm/dL Hct (34.0-46.0) % Neutrophils # (1.3-7.7) k/uL APTT 44.1 H (22.0-30.0) sec Carbon Dioxide (21.6-31.8) mmol/L POC Glucose (mg/dL) 162 H 172 H (70-110) mg/dL Calcium (8.7-10.3) mg/dL 07/01/24 07/01/24 07/01/24 Range/Units 06:52 06:52 06:52 WBC 12.0 H (3.8-10.6) k/uL RBC 3.59 L (3.80-5.40) m/uL Hgb 10.7 L (11.4-16.0) gm/dL Hct 32.7 L (34.0-46.0) % Neutrophils # 8.5 H (1.3-7.7) k/uL APTT 55.9 H (22.0-30.0) sec Carbon Dioxide 21.4 L (21.6-31.8) mmol/L POC Glucose (mg/dL) (70-110) mg/dL Calcium 8.2 L (8.7-10.3) mg/dL Assessment and Plan (1) Diabetic foot infection Current Visit: Yes Status: Acute Code(s): E11.628 - TYPE 2 DIABETES MELLITUS WITH OTHER SKIN COMPLICATIONS; L08.9 - LOCAL INFECTION OF THE SKIN AND SUBCUTANEOUS TISSUE, UNSP SNOMED Code(s): 274362968 (2) Foot osteomyelitis, left Current Visit: Yes Status: Acute Code(s): M86.9 - OSTEOMYELITIS, UNSPECIFIED SNOMED Code(s): 2273365976755380 (3) Leukocytosis Current Visit: Yes Status: Acute Code(s): D72.829 - ELEVATED WHITE BLOOD CELL COUNT, UNSPECIFIED SNOMED Code(s): 510706895 Plan: 1patient presented to hospital from local group home for elevated white count questionably reactive and the patient was noticed to have a drop in her hemoglobin with subsequent white count has shown a downward trend patient not running any fever other etiology could be PICC line however have no significant swelling redness was noticed at the left arm PICC site, subsequent ultrasound shows evidence of a DVT and the PICC line was discontinued however blood culture has been negative 2-blood culture negative urine is growing out VRE 3-patient did have resolution of the fever culture has been negative 4the patient is covered with Invanz and daptomycin plan is for a week of daptomycin on discharge for the UTI and she will complete remainder of 6-week course of Invanz on discharge Dictation was produced using [employer] software. please excuse any grammatical, word or spelling errors. Time with Patient: Less than 30
--- NOTE | 2024-07-02 03:11 | P.PN ---
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 Patient had left fifth metatarsal osteomyelitis and currently on antibiotics, ertapenem and Flagyl via PICC line on the left upper extremity. Otherwise denies any fever or chills. No cough or sputum production. No nausea or vomiting or diarrhea. Denied any worsening left foot pain. Chest x-ray showed cardiomegaly and mild pulmonary vascular congestion. Correlate with BNP for CHF. EKG showed sinus rhythm Laboratory showed WBC 18.4 and hemoglobin 6.4and subsequently repeated CBC showed WBC improved to 12.9 hemoglobin 10.7 and platelets 438 Sodium 136 potassium 4.3 chloride 107 bicarb is 23 BUN 33 and creatinine 1.12 and blood sugar 186 and calcium 8.2 liver enzymes not elevated albumin 2.7 FOBT negative Influenza A B RSV and and COVID-19 PCR not detected. 06/25/2024 Patient is lying in the bed. Awake alert and oriented. Currently on room air. Has been afebrile overnight. No complaints of chest pain or shortness of breath. Leg pain is controlled. Patient has been continued on antibiotics of vancomycin. Lab data showed WBC increased to 13.4 hemoglobin 10.6 and platelets 393 Sodium 137 potassium 4.1 chloride 108 bicarb is 27 BUN 32 and creatinine 1.25 and blood sugar 104 and calcium 8.4. FOBT negative. Urinalysis showed cloudy with 1+ protein large blood large leukocyte esterase with RBCs 55 and WBCs greater than 182. ID is on board. 06/26/2024 Patient is lying in the bed. Awake alert and oriented. States that she is not feeling very well. No complaints of chest pain or abdominal pain. No involvement for the past few days. Patient was noted to have left upper extremity swelling. Venous duplex was done which showed DVT within the left subclavian vein axillary and basilic veins. PICC line has been removed. Patient was started on heparin drip. Laboratory data showed WBC 12.7, hemoglobin 11.0 and platelets 380 BUN 24 and creatinine 1.2 and blood sugar 135 and calcium 8.2. Patient is being continued on antibiotics in the form of vancomycin and ertapenem. Cultures showed no growth so far. 06/27/2024 Patient is lethargic and drowsy today. Able to answer appropriately with some baseline dysarthria. However his blood sugar was 41 this morning. Patient was given D50 and was started on D5 normal saline at 50 cc/h. Abdominal x-ray showed colonic stool burden. Other laboratory showed WBC 12.0 hemoglobin 10.0 and platelets 373 INR 1.4 sodium 134 potassium 3.8 chloride 109 bicarb is 22 BUN 23 and creatinine 1.22 and blood sugar 85. Calcium 8.1. 06/28/2024 Patient is lying in the bed. Awake alert and oriented. Mentation is much imp roved today. No complaints of chest pain or shortness breath. Patient states that she feels better. Continued on heparin drip. Left upper extremity swelling is much improved. Will transition to Eliquis tomorrow. Rest patient did not have any involvement today. Abdominal x-ray showed overall nonobstructive bowel gas pattern. Moderate to large colonic stool burden. Enema was ordered. Otherwise urine cultures growing Enterococcus species. Daptomycin was added. Patient is also on EpiPen on. ID is on board. Laboratory data showed WBC 12.4 hemoglobin 10.3 and platelets 371 sodium 142 po tassium 3.7 chloride 109 bicarb is 22.1 BUN 14.6 and creatinine 0.9 and calcium 7.9. Blood sugar is improved. IV fluids changed to normal saline at 50 cc/h. 06/29/24 Patient still feels weak and lethargic. Also patient able to communicate through nodding her head yes/no when she is sleepy. Patient did not talk to me but per staff she was able to communicate through talking in earlier with mild facial droop on the left side She is mildly tachypneic. Patient also with severe left hemiplegia. also patient has dysarthria Left foot is in dressing Patient denies specific complaints Patient is a known case of coronary artery disease status post PCI to mid left anterior descending artery by Dr. Perez on 07/06/2023. At that time patient was started on dual antiplatelet therapy with Brilinta and aspirin. Since been almost a year since she got her stent and she was started on heparin we will going to hold Brilinta and continue with aspirin as well as heparin drip with a plan to switch to Eliquis upon discharge 06/30 Patient awake alert today, she has mild dysarthria but answering questions appropriately Son at bedside Her left arm looks stable but weak for 1.5-year as patient explains. No redness or tenderness She remains on broad-spectrum antibiotics for her foot infection, no foot pain She is on heparin drip for her left upper extremity DVT. We will stop her Brilinta as she had a stent 1 year ago and continue with aspirin. This was discussed with the patient and son at bedside and they are agreeable Risk of bleeding explained extensively 07/01/2024 Patient seen and evaluated in follow-up today with infectious disease following. Patient continues on daptomycin and Invanz and scheduled to receive a PICC line today. Patient is currently maintained on heparin IV and will transition to oral Eliquis on discharge. Patient is returning to [facility] once stabilized. Patient is afebrile with no reports of chest pain or shortness of breath. Patient does report a slight cough and will add Robitussin as needed. Review of systems: Constitutional: No reports of fatigue, fever, or chills Cardiovascular: No reports of chest pain or palpitations Respiratory: No reports of shortness of breath, reports occasional cough GI: No reports of nausea, vomiting, or diarrhea : No reports of dysuria or retention Neurovascular: reports of generalized weakness All medications have been reviewed Physical exam: Patient is lying in the bed comfortably, no acute distress, awake alert and oriented but dysarthric. Elderly appearing HEENT: Normocephalic. Neck is supple. Pupils reactive. Nostrils clear. Oral cavity is moist. Neck reveals no JVD, carotid bruits, or thyromegaly. CHEST EXAMINATION: Trachea is central. Symmetrical expansion. Lung [place] clear to auscultation and percussion. CARDIAC: Normal S1, S2 with no gallops. No murmurs ABDOMEN: Soft. Bowel sounds normal. No organomegaly. No abdominal bruits. Extremities: Right foot second third and fourth toe amputation and left fifth toe diabetic ulcer/wound. Seen in place. Left upper extremity minimal swell ing. No clubbing or cyanosis Neurologically awake, alert, oriented x 2-3 with left-sided weakness and dysarthria. Skin: No rash or skin lesions except above. Psychiatric: Cooperative. Non-suicidal Musculoskeletal: No joint swelling or deformity. Assessment: Acute hypoglycemic episode/metabolic encephalopathy, improved. Worsening leukocytosis possible reactive with no complaints of fever or chills and no signs of infection of the left upper extremity PICC line insertion site. WBC improving. Diabetic foot infection with left fifth metatarsal osteomyelitis currently on antibiotics Flagyl via left arm PICC line Left upper extremity acute DVT likely with the presence of PICC line which has been removed.. Acute urinary tract infection with Enterococcus species. History of CVA with left-sided weakness and dysarthria Coronary artery disease no history of PCI Peripheral vascular disease status post right Fuentes popliteal bypass on 10/17/2022 and an amputation of the second third and fourth on the right foot. Chronic CHF with diastolic dysfunction Hypertension Diabetes type 2 Hyperlipidemia Medical debility GI prophylaxis DVT prophylaxis Full code Plan: Continue with antibiotic per ID team, currently on ertapenem and Daptomycin. Patient will continue 1 week of daptomycin for the UTI and complete 6 weeks course of Invanz per ID recommendations on discharge Plan for PICC line today although no order was placed and PICC team is unav ailable and will place PICC line in the a.m. On heparin drip for left upper extremity DVT. Will transition to Eliquis on discharge patient was currently on aspirin and Brilinta. We will discontinue Brilinta continue with aspirin Plan is for patient to return to [facility] with case management following. Once PICC line is placed we will plan for discharge in the next 24 to 48 hours. The impression and plan of care has been dictated by Britany Zavala, Nurse Practitioner as directed. Dr. Jitendra MD I have performed a history and examination and MDM of this patient, discussed the same with the dictator, and agree with the dictator's assessment and plan as written ,documented as a scribe. Based on total visit time, I have performed more than 50% of the visit. Objective - Vital Signs Vital signs: Vital Signs Temp 98.5 F 07/01/24 06:53 Pulse 68 07/01/24 08:00 Resp 17 07/01/24 08:00 BP 154/84 07/01/24 06:53 Pulse Ox 93 L 07/01/24 06:53 FiO2 Intake & Output 06/30/24 07/01/24 07/01/24 18:59 06:59 18:59 Intake Total 240.787 250 Balance 240.787 250 Weight 58.967 kg Intake: Intake, IV Titration 240.787 250 Amount Heparin Sod,Pork in 0.45% 240.787 250 NaCl 25,000 unit In 0.45 % NaCl 1 250ml.bag @ 12 UNITS/KG/HR 7.076 mls/hr IV .Q24H [facility] Rx#: [id number] Other: Voiding Method Diaper Diaper Diaper # Voids 5 3 1 - Labs CBC & Chem 7: 07/01/24 06:52 07/01/24 06:52 Labs: Abnormal Lab Results - Last 24 Hours (Table) 06/30/24 06/30/24 06/30/24 Range/Units 13:46 16:37 21:19 WBC (3.8-10.6) k/uL RBC (3.80-5.40) m/uL Hgb (11.4-16.0) gm/dL Hct (34.0-46.0) % Neutrophils # (1.3-7.7) k/uL APTT 44.1 H (22.0-30.0) sec Carbon Dioxide (21.6-31.8) mmol/L POC Glucose (mg/dL) 162 H 172 H (70-110) mg/dL Calcium (8.7-10.3) mg/dL 07/01/24 07/01/24 07/01/24 Range/Units 06:52 06:52 06:52 WBC 12.0 H (3.8-10.6) k/uL RBC 3.59 L (3.80-5.40) m/uL Hgb 10.7 L (11.4-16.0) gm/dL Hct 32.7 L (34.0-46.0) % Neutrophils # 8.5 H (1.3-7.7) k/uL APTT 55.9 H (22.0-30.0) sec Carbon Dioxide 21.4 L (21.6-31.8) mmol/L POC Glucose (mg/dL) (70-110) mg/dL Calcium 8.2 L (8.7-10.3) mg/dL
[2024-07-02 06:34] LABS: Glucose,Whole Blood 90 mg/dL (70-110)
[2024-07-02 10:27] LABS: Glucose,Whole Blood 100 mg/dL (70-110)
[2024-07-02 12:48] VITALS: BP 122/82; PULSE 71; RESP 20; TEMP 99
--- NOTE | 2024-07-02 13:21 | P.PN ---
Subjective Progress Note Date: 07/02/24 Principal diagnosis: Reason for follow-up is leukocytosis Patient is a 69-year-old female with a past medical history significant for diabetes mellitus hypertension hyperlipidemia pneumonia coronary artery disease who was recently admitted at this facility with left fifth toe gangrene diabetic foot infection status post amputation local culture positive for ESBL Proteus was on IV Invanz has been brought to the hospital concerning for elevated white count patient also noticed to have significant anemia no fever. On today's evaluation that is 07/02/2024, Patient is afebrile this morning patient denies having any chest pain shortness of breath or cough, the patient is currently on room air, patient denies any abdominal pain no diarrhea no nausea no vomiting denies pain to the left foot wound area. No CBC was done today blood culture remains to be negative Objective - Vital Signs Vital signs: Vital Signs Temp 99 F 07/02/24 12:47 Pulse 71 07/02/24 12:47 Resp 20 07/02/24 12:47 BP 122/82 07/02/24 12:47 Pulse Ox 95 07/02/24 12:47 FiO2 Intake & Output 07/01/24 07/02/24 07/02/24 18:59 06:59 18:59 Intake Total 950 490 68.693 Balance 950 490 68.693 Weight 58.967 kg Intake: Intake, IV Titration 950 250 68.693 Amount DAPTOmycin 250 mg In 50 Sodium Chloride 0.9% 50 ml @ 100 mls/hr IVPB Q24HR [facility] Rx#:[id number] Ertapenem 1 gm In Sodium 50 Chloride 0.9% 50 ml @ 100 mls/hr IVPB DAILY [facility] Rx #:[id number] Heparin Sod,Pork in 0.45% 250 250 68.693 NaCl 25,000 unit In 0.45 % NaCl 1 250ml.bag @ 12 UNITS/KG/HR 7.076 mls/hr IV .Q24H [facility] Rx#: [id number] Sodium Chloride 0.9% 1, 600 000 ml @ 50 mls/hr IV . Q20H [facility] Rx#:[id number] Oral 240 Other: Voiding Method Diaper Diaper Diaper # Voids 2 6 1 - Exam GENERAL DESCRIPTION: An elderly female lying in bed in no distress RESPIRATORY SYSTEM: Unlabored breathing , decreased breath sounds at bases HEART: S1 S2 regular rate and rhythm , ABDOMEN: Soft , no tenderness EXTREMITIES: Left foot is dressed by the nursing staff mention overall wound looks good - Labs CBC & Chem 7: 07/01/24 06:52 07/01/24 06:52 Labs: Abnormal Lab Results - Last 24 Hours (Table) 07/01/24 07/02/24 Range/Units 22:00 08:04 APTT 78.8 H (22.0-30.0) sec POC Glucose (mg/dL) 112 H (70-110) mg/dL Assessment and Plan (1) Diabetic foot infection Current Visit: Yes Status: Acute Code(s): E11.628 - TYPE 2 DIABETES MELLITUS WITH OTHER SKIN COMPLICATIONS; L08.9 - LOCAL INFECTION OF THE SKIN AND SUBCUTANEOUS TISSUE, UNSP SNOMED Code(s): 577591226 (2) Foot osteomyelitis, left Current Visit: Yes Status: Acute Code(s): M86.9 - OSTEOMYELITIS, UNSPECIFIED SNOMED Code(s): 6638090475290023 (3) Leukocytosis Current Visit: Yes Status: Acute Code(s): D72.829 - ELEVATED WHITE BLOOD CELL COUNT, UNSPECIFIED SNOMED Code(s): 924051943 Plan: 1patient presented to hospital from local detention for elevated white count questionably reactive and the patient was noticed to have a drop in her hemoglobin with subsequent white count has shown a downward trend patient not running any fever other etiology could be PICC line however have no significant swelling redness was noticed at the left arm PICC site, subsequent ultrasound shows evidence of a DVT and the PICC line was discontinued however blood culture has been negative 2-blood culture negative urine is growing out VRE 3-patient did have resolution of the fever culture has been negative 4the patient is covered with Invanz and daptomycin plan is for a week of daptomycin on discharge for the UTI and she will complete remainder of 6-week course of Invanz on discharge Local wound care to continue current wound care, at the bedside questions were answered Dictation was produced using V[employer] software. please excuse any grammatical, word or spelling errors. Time with Patient: Less than 30
--- NOTE | 2024-07-02 13:45 | P.DS ---
Providers Date of admission: 06/24/24 15:20 Expected date of discharge: 07/02/24 Attending physician: Javon Ennis Consults: 06/24/24 15:18 Consult Physician Routine Consulting Provider: Jose Thapa Consult Reason/Comments: leukocytosis Do you want consulting provider notified?: Yes Primary care physician: Artemio Hartman Hospital Course: Final diagnosis Acute hypoglycemic episode/metabolic encephalopathy, improved. Worsening leukocytosis possible reactive with no complaints of fever or chills and no signs of infection of the left upper extremity PICC line insertion site. WBC improving. Diabetic foot infection with left fifth metatarsal osteomyelitis currently on antibiotics Flagyl via left arm PICC line Left upper extremity acute DVT likely with the presence of PICC line which has been removed.. Acute urinary tract infection with Enterococcus species. History of CVA with left-sided weakness and dysarthria Coronary artery disease no history of PCI Peripheral vascular disease status post right fem popliteal bypass on 10/17/2022 and an amputation of the second third and fourth on the right foot. Chronic CHF with diastolic dysfunction Hypertension Diabetes type 2 Hyperlipidemia Medical debility GI prophylaxis DVT prophylaxis Full code Discharge disposition Patient is being discharged in a stable condition with guarded prognosis to [facility]. Patient will follow-up with Dr. Hartman in the outpatient setting upon discharge. Patient is to continue with daptomycin for 1 week and IV Invanz for a total of 6 weeks per ID recommendations. Outpatient follow-up with infectious disease along with the wound care center as scheduled. Total time taken is greater than 35 minutes. Hospital course This is a 69-year-old female who was recently admitted with metabolic encephalopathy with multifactorial conditions including acute hypoglycemia along with worsening leukocytosis found to have a diabetic foot infection with left fifth metatarsal osteomyelitis with failure of outpatient treatment. Concerns of initially infection at the left upper extremity PICC line site although noted to have a left upper extremity DVT and the PICC line has been removed. Patient has received a PICC line on the right and was maintained on heparin and has transition to oral Eliquis. Monitor for any signs of bleeding and will continue on 5 mg twice daily. Patient is being followed by infectious disease with culture showing Enterococcus with multi resistance although sensitive to Dapto and will continue daptomycin for 1 week to complete the course for acute urinary tract infection. Patient will continue on a total of 6 weeks of IV Invanz for osteomyelitis of the left foot. Patient will be returning to [facility] for continued wound care and IV antibiotic therapy. Patient to follow-up with the wound care center outpatient in 1 to 2 weeks. Patient is medically stable and has been cleared by consultations for discharge. Please refer to other consulta tion notes for further HPI. Currently no reports of chest pain, shortness of breath, or palpitations. Patient is afebrile. No reports of nausea or vomiting and patient is tolerating diet. Patient will be going to [facility] on the babcock today. Guarded prognosis and high risk for readmissions given patient significant comorbidities. Physical exam: Gen: This is a 69-year-old female who is awake, alert and oriented x 3, well- developed, elderly appearing, ill-appearing HEENT: Head is atraumatic, normocephalic. Pupils equal, round. Sclerae is anicteric. NECK: Supple. No JVD. No lymphadenopathy. No thyromegaly. LUNGS: Diminished breath sounds bilaterally otherwise clear to auscultation. No wheezes or rhonchi. No intercostal retractions. HEART: S1, S2 are muffled ABDOMEN: Soft. Obese bowel sounds are present. No masses. No tenderness. EXTREMITIES: No pedal edema. No calf tenderness. Left foot dressing is dry and intact NEUROLOGICAL: Patient is awake, alert and oriented x3. Cranial nerves 2 through 12 are grossly intact. Diffusely weak Please refer to medication reconciliation sheet for a list of medications. The impression and plan of care has been dictated by Britany Zavala, Nurse Practitioner as directed. Dr. Jitendra MD I have performed a history and examination and MDM of this patient, discussed the same with the dictator, and agree with the dictator's assessment and plan as written ,documented as a scribe. Based on total visit time, I have performed more than 50% of the visit. Patient Condition at Discharge: Fair Plan - Discharge Summary New Discharge Prescriptions: New DAPTOmycin [Cubicin] 250 mg IVPB Q24HR 7 Days #7 each Ertapenem [INVanz] 1 gm IVPB DAILY 42 Days #42 each Apixaban [Eliquis] 5 mg PO BID #60 tab Collagenase [Santyl Ointment] 1 applic TOPICAL DAILY each Continue carvediloL [Coreg] 6.25 mg PO BID@0900,2100 Ammonium Lactate Lotion [Lac-Hydrin 12% Lotion] 1 applic TOPICAL BID Simethicone Chew [Mylicon Chew] 80 mg PO Q6H PRN PRN Reason: gas pain Albuterol Inhaler [Ventolin Hfa Inhaler] 2 puff INHALATION RT-Q6H PRN PRN Reason: Shortness Of Breath Vit C/E/Zn/Coppr/Lutein/Zeaxan [Preservision Areds 2 Softgel] 1 cap PO DAILY@0900 Lactulose 20 gm PO DAILY PRN PRN Reason: Constipation Magnesium Hydroxide [Milk of Magnesia] 2,400 mg PO ONETIME Insulin Aspart [NovoLOG Flexpen] See Protocol SQ ACHS Pantoprazole [Protonix] 40 mg PO AC-BRKFST@0600 amLODIPine [Norvasc] 5 mg PO HS@2100 Z-Guard 1 applic TOPICAL HS traMADol HCL 50 mg PO Q6H PRN #4 tab PRN Reason: Pain Aspirin EC [Ecotrin Low Dose] 81 mg PO DAILY@0900 Acetaminophen [Tylenol] 650 mg PO Q4H PRN PRN Reason: Fever And/ Or Pain Gabapentin [Neurontin] 300 mg PO TID@0600,1300,2100 Melatonin 3 mg PO HS@2100 Cetirizine HCl [Zyrtec] 10 mg PO DAILY@0900 Ferrous Sulfate [Iron (65 MG Elemental)] 325 mg PO DAILY@0900 Sennosides/Docusate Sodium [Senna Plus 8.6-50 mg Softgel] 1 cap PO DAILY PRN PRN Reason: Constipation Ketoconazole 2% Shampoo [Nizoral] 1 applic TOPICAL MOFR Atorvastatin [Lipitor] 80 mg PO HS@2100 Levothyroxine Sodium [Synthroid] 25 mcg PO SUTUTHSA@0600 Nuclezyme Forte Dietary Supplement 1 cap PO TID@0900,1300,1700 Levothyroxine Sodium [Synthroid] 50 mcg PO MOWEFR@0600 Glucerna Shake 1 can PO DAILY@0900 Changed Insulin Glargine,Hum.rec.anlog [Lantus Solostar Pen] 15 units SQ HS@2100 #0 Discontinued Ertapenem [INVanz] 1 gm IVPB HS Ticagrelor [Brilinta] 90 mg PO BID@0900,2100 metroNIDAZOLE [Flagyl] 500 mg PO TID@0600,1300,2100 Discharge Medication List Aspirin EC [Ecotrin Low Dose] 81 mg PO DAILY@89907/23/22 [History] Acetaminophen [Tylenol] 650 mg PO Q4H PRN 11/03/22 [History] carvediloL [Coreg] 6.25 mg PO BID@0900,209911/03/22 [History] Gabapentin [Neurontin] 300 mg PO TID@0600,1300,209901/26/23 [History] Melatonin 3 mg PO HS@209901/26/23 [History] Cetirizine HCl [Zyrtec] 10 mg PO DAILY@89905/05/23 [History] Ferrous Sulfate [Iron (65 MG Elemental)] 325 mg PO DAILY@89905/05/23 [History] Sennosides/Docusate Sodium [Senna Plus 8.6-50 mg Softgel] 1 cap PO DAILY PRN 05/05/23 [History] Ammonium Lactate Lotion [Lac-Hydrin 12% Lotion] 1 applic TOPICAL BID 07/05/23 [History] Ketoconazole 2% Shampoo [Nizoral] 1 applic TOPICAL MOFR 07/05/23 [History] Simethicone Chew [Mylicon Chew] 80 mg PO Q6H PRN 07/05/23 [History] Albuterol Inhaler [Ventolin Hfa Inhaler] 2 puff INHALATION RT-Q6H PRN 01/30/24 [History] Vit C/E/Zn/Coppr/Lutein/Zeaxan [Preservision Areds 2 Softgel] 1 cap PO DAILY@89901/30/24 [History] Atorvastatin [Lipitor] 80 mg PO HS@209905/31/24 [History] Lactulose 20 gm PO DAILY PRN 05/31/24 [History] Levothyroxine Sodium [Synthroid] 25 mcg PO SUTUTHSA@59905/31/24 [History] Glucerna Shake 1 can PO DAILY@89906/24/24 [History] Insulin Aspart [NovoLOG Flexpen] See Protocol SQ ACHS 06/24/24 [History] Levothyroxine Sodium [Synthroid] 50 mcg PO MOWEFR@0606/24/24 [History] Magnesium Hydroxide [Milk of Magnesia] 2,400 mg PO ONETIME 06/24/24 [History] Nuclezyme Forte Dietary Supplement 1 cap PO TID@0900,1300,1700 06/24/24 [History] Pantoprazole [Protonix] 40 mg PO AC-BRKFST@0600 06/24/24 [History] Z-Guard 1 applic TOPICAL HS 06/24/24 [History] amLODIPine [Norvasc] 5 mg PO HS@2100 06/24/24 [History] Apixaban [Eliquis] 5 mg PO BID #60 tab 07/02/24 [Rx] Collagenase [Santyl Ointment] 1 applic TOPICAL DAILY each 07/02/24 [Rx] DAPTOmycin [Cubicin] 250 mg IVPB Q24HR 7 Days #7 each 07/02/24 [Rx] Ertapenem [INVanz] 1 gm IVPB DAILY 42 Days #42 each 07/02/24 [Rx] Insulin Glargine,Hum.rec.anlog [Lantus Solostar Pen] 15 units SQ HS@2100 #0 07/02/24 [Rx] traMADol HCL 50 mg PO Q6H PRN #4 tab 07/02/24 [Rx] Follow up Appointment(s)/Referral(s): Artemio Hartman MD [Primary Care Provider] - 1-2 days Wound [facility] [NON-STAFF] - 07/05/24 9:00 am Activity/Diet/Wound Care/Special Instructions: Patient is going to [facility] on the babcock Activity as tolerated Follow-up with the wound care center as scheduled July 05 Continue with IV antibiotics in the form of daptomycin for 1 week per ID recommendations and has received a PICC line Continue with IV Invanz daily for the following 6 weeks Continue with local wound care by cleansing the left foot ulcer wound daily with normal saline and applying Santyl, saline moist gauze, dry gauze, rolled gauze and secure with tape and continued use of the heel protectors For the sacral wound continue with zinc barrier cream and turn every 2 hours and continue using air-filled cushion when sitting Follow-up with primary care provider on discharge Continue diabetic diet monitor blood sugars using sliding scale and long-acting NovoLog sliding scale 0-150 equals 0 units 151-200 equals 2 units 201-250 equals 4 units 251-300 equals 6 units 301-350 equals 8 units 351-400 equals 10 units Please notify provider if blood sugar is 400 or above Discharge Disposition: TRANSFER TO SNF/ECF
[2024-07-02] MEDS: APIXABAN 5 MG TAB PO SCH (14:01)
== END 2024-07-02 16:19 | DRG 299 ==
LOC: EC 12:19 → 4SSUR 15:20
PROVIDERS: ADMIT Hospitalist; ATTEND Hospitalist
PROC: 05HF33Z Insertion of Infusion Device into Left Cephalic Vein, Percutaneous Approach (ICD-10-PCS; 2024-06-26)
PROC: B548ZZA Ultrasonography of Superior Vena Cava, Guidance (ICD-10-PCS; 2024-07-02)
PROC: B5181ZA Fluoroscopy of Superior Vena Cava using Low Osmolar Contrast, Guidance (ICD-10-PCS; 2024-07-02)
PROC: 02HV33Z Insertion of Infusion Device into Superior Vena Cava, Percutaneous Approach (ICD-10-PCS; principal; 2024-07-02 12:00)
DX: E11.51 Type 2 diabetes mellitus with diabetic peripheral angiopathy without gangrene (principal); G93.41 Metabolic encephalopathy; I69.354 Hemiplegia and hemiparesis following cerebral infarction affecting left non-dominant side; I50.30 Unspecified diastolic (congestive) heart failure; M86.8X7 Other osteomyelitis, ankle and foot; N39.0 Urinary tract infection, site not specified; E11.628 Type 2 diabetes mellitus with other skin complications; E11.69 Type 2 diabetes mellitus with other specified complication; E78.5 Hyperlipidemia, unspecified; I11.0 Hypertensive heart disease with heart failure; I69.322 Dysarthria following cerebral infarction; N31.9 Neuromuscular dysfunction of bladder, unspecified; E11.621 Type 2 diabetes mellitus with foot ulcer; B95.2 Enterococcus as the cause of diseases classified elsewhere; F32.A Depression, unspecified; I82.B12 Acute embolism and thrombosis of left subclavian vein; L08.89 Other specified local infections of the skin and subcutaneous tissue; I70.245 Atherosclerosis of native arteries of left leg with ulceration of other part of foot; E11.649 Type 2 diabetes mellitus with hypoglycemia without coma; I25.10 Atherosclerotic heart disease of native coronary artery without angina pectoris; L89.152 Pressure ulcer of sacral region, stage 2; R29.810 Facial weakness; L97.523 Non-pressure chronic ulcer of other part of left foot with necrosis of muscle; Z79.02 Long term (current) use of antithrombotics/antiplatelets; Z79.82 Long term (current) use of aspirin; Z79.890 Hormone replacement therapy; Z79.899 Other long term (current) drug therapy; Z82.49 Family history of ischemic heart disease and other diseases of the circulatory system; Z93.1 Gastrostomy status; Z95.828 Presence of other vascular implants and grafts; Z98.61 Coronary angioplasty status; Z20.822 Contact with and (suspected) exposure to COVID-19
CPT/HCPCS: 36410; 36415; 36573; 71045; 71046; 74018; 76937; 80048; 80053; 80202; 81001; 82140; 82272; 83605; 83735; 85025; 85027; 85610; 85730; 87040; 87077; 87086; 87186; 87636; 93005; 96365; 96366; 99285

== ENCOUNTER → 2024-08-06 | Outpatient (CLI) | payer MEDICARE, OTHER ==
--- NOTE | 2024-08-07 16:59 | MM ---
Reason for Exam: Screening (asymptomatic). Patient History: Menarche at age 15. First Full-Term at age 21. Postmenopausal. Patient used Hormonal Contraceptives for 15 years. Paternal cousin had other cancer, age 55. Sister had breast cancer, age 50. Risk Values: Cami 5 year model risk: 3.1%. NCI Lifetime model risk: 10.5%. Tissue Density: The breasts are heterogeneously dense, which may obscure small masses. Findings: Analyzed By CAD. Limited as the exam was done while the patient was in a wheelchair. Benign secretory calcifications on the right. The upper border device posteriorly on the left. No significant mass, suspicious microcalcification, or other discrete abnormality is seen. Overall Assessment: Benign, BI-RAD 2 Management: Screening Mammogram of both breasts in 1 year. See note below in regards to patient's increased 5 year Cami score. Patient should continue monthly self-breast exams. A clinical breast exam by your physician is recommended on an annual basis. This exam should not preclude additional follow-up of suspicious palpable abnormalities. Note on Cami scores and lifetime risk: 1. A Cami score greater than 3% is considered moderate risk. If this is the case, consider specialist referral to assess eligibility for a risk reducing agent. 2. If overall lifetime risk for the development of breast cancer is 20% or higher, the patient may qualify for future screening with alternating mammogram and breast MRI. [facility], , 08/07/2024 4:56 PM. Electronically signed and approved by: Kylee Beth M.D. Radiologist
== END | disposition home or self-care (01) ==
LOC: RADMAMWWP 07:34
PROVIDERS: ATTEND Family Medicine
DX: Z12.31 Encounter for screening mammogram for malignant neoplasm of breast (principal); Z78.0 Asymptomatic menopausal state; Z80.3 Family history of malignant neoplasm of breast; R92.333 Mammographic heterogeneous density, bilateral breasts
CPT/HCPCS: 77063; 77067

== ENCOUNTER 2024-08-10 14:17 | Emergency (ER) | payer MEDICARE ==
[2024-08-10 14:23] VITALS: RESP 18
--- NOTE | 2024-08-10 14:59 | XR ---
EXAMINATION TYPE: XR pelvis AP view DATE OF EXAM: 08/10/2024 2:50 PM COMPARISON: None available. CLINICAL INDICATION: Female, 69 years old with history of Vaginal foreign body; [facility] TECHNIQUE: XR pelvis AP view, examined in a single projection. FINDINGS: No acute fracture or dislocation. Osseous structures demineralized. Vascular calcifications . Multiple phleboliths in the pelvis. No definite radiographic evidence of an unenhanced x-ray before body. Moderate degenerative arthritis of the hips. IMPRESSION: 1. No acute osseous pathology. 2. No unexpected radio-opaque foreign body identified. [facility], , 08/10/2024 2:56 PM
--- NOTE | 2024-08-10 15:09 | ED ---
General Adult HPI - General Chief complaint: Urogenital Stated complaint: foreign object Time Seen by Provider: 08/10/24 14:24 Source: patient, RN notes reviewed, old records reviewed Mode of arrival: EMS Limitations: no limitations - History of Present Illness Initial comments: 69-year-old female presenting with suspected vaginal foreign body. Patient had previous CVA and states that she was masturbating with what she believes was a glass bottle or glass. Patient believes this is still in her vagina. - Related Data Home Medications Medication Instructions Recorded Confirmed Aspirin EC [Ecotrin Low Dose] 81 mg PO DAILY@89907/23/22 06/24/24 Acetaminophen [Tylenol] 650 mg PO Q4H PRN 11/03/22 06/24/24 carvediloL [Coreg] 6.25 mg PO BID@09,209911/03/22 06/24/24 Gabapentin [Neurontin] 300 mg PO TID@0600,1300,209901/26/23 06/24/24 Melatonin 3 mg PO HS@209901/26/23 06/24/24 Cetirizine HCl [Zyrtec] 10 mg PO DAILY@89905/05/23 06/24/24 Ferrous Sulfate [Iron (65 MG 325 mg PO DAILY@89905/05/23 06/24/24 Elemental)] Sennosides/Docusate Sodium [Senna 1 cap PO DAILY PRN 05/05/23 06/24/24 Plus 8.6-50 mg Softgel] Ammonium Lactate Lotion 1 applic TOPICAL BID 07/05/23 06/24/24 [Lac-Hydrin 12% Lotion] Ketoconazole 2% Shampoo [Nizoral] 1 applic TOPICAL MOFR 07/05/23 06/24/24 Simethicone Chew [Mylicon Chew] 80 mg PO Q6H PRN 07/05/23 06/24/24 Albuterol Inhaler [Ventolin Hfa 2 puff INHALATION RT-Q6H PRN 01/30/24 06/24/24 Inhaler] Vit C/E/Zn/Coppr/Lutein/Zeaxan 1 cap PO DAILY@89901/30/24 06/24/24 [Preservision Areds 2 Softgel] Atorvastatin [Lipitor] 80 mg PO HS@209905/31/24 06/24/24 Lactulose 20 gm PO DAILY PRN 05/31/24 06/24/24 Levothyroxine Sodium [Synthroid] 25 mcg PO SUTUTHSA@0600 05/31/24 06/24/24 Glucerna Shake 1 can PO DAILY@0900 06/24/24 06/24/24 Insulin Aspart [NovoLOG Flexpen] See Protocol SQ ACHS 06/24/24 06/24/24 Levothyroxine Sodium [Synthroid] 50 mcg PO MOWEFR@0600 06/24/24 06/24/24 Magnesium Hydroxide [Milk of 2,400 mg PO ONETIME 06/24/24 06/24/24 Magnesia] Nuclezyme Forte Dietary Supplement 1 cap PO TID@0900,1300,1700 06/24/24 06/24/24 Pantoprazole [Protonix] 40 mg PO AC-BRKFST@0600 06/24/24 06/24/24 Z-Guard 1 applic TOPICAL HS 06/24/24 06/24/24 amLODIPine [Norvasc] 5 mg PO HS@2100 06/24/24 06/24/24 Previous Rx's Medication Instructions Recorded Apixaban [Eliquis] 5 mg PO BID #60 tab 07/02/24 Collagenase [Santyl Ointment] 1 applic TOPICAL DAILY each 07/02/24 DAPTOmycin [Cubicin] 250 mg IVPB Q24HR 7 Days #7 each 07/02/24 Ertapenem [INVanz] 1 gm IVPB DAILY 42 Days #42 each 07/02/24 Insulin Glargine,Hum.rec.anlog 15 units SQ HS@2100 #0 07/02/24 [Lantus Solostar Pen] traMADol HCL 50 mg PO Q6H PRN #4 tab 07/02/24 Allergies Allergy/AdvReac Type Severity Reaction Status Date / Time unknown sleep aid Allergy Severe Rash/Hives Uncoded 08/10/24 14:23 Review of Systems ROS Statement: Those systems with pertinent positive or pertinent negative responses have been documented in the HPI. ROS Other: All systems not noted in ROS Statement are negative. 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 Hx falls. Diverticulitis. PVD. Dysphagia. Has peg tube but is not in use. Needs 2 staff to pivot/transfer pt. Currently resides at [facility] since November 2022. Hx acute respiratory failure. Neuromuscular dysfunction of bladder. History of Any Multi-Drug Resistant Organisms: MRSA Date of last positivie culture/infection: 02/15/23 MDRO Source:: rt foot Past Surgical History: Section, Heart Catheterization, Orthopedic Surgery, Tonsillectomy Additional Past Surgical History / Comment(s): Right Femoral Popliteal bypass 10/19/22, at [facility], amputation of second third and fourth toes on right foot, carpal tunnel surgery. Past Anesthesia/Blood Transfusion Reactions: No Reported Reaction Additional Past Anesthesia/Blood Transfusion Reaction / Comment(s): Never received blood. Past Psychological History: Depression Smoking Status: Never smoker Past Alcohol Use History: None Reported Past Drug Use History: None Reported - Past Family History Mother Family Medical History: Cancer Additional Family Medical History / Comment(s): History of lower back fusion Father Family Medical History: Coronary Artery Disease (CAD) General Exam Limitations: no limitations General appearance: alert, in no apparent distress Head exam: Present: atraumatic, normocephalic Eye exam: Present: normal appearance, PERRL Respiratory exam: Present: normal lung sounds bilaterally. Absent: respiratory distress Cardiovascular Exam: Present: regular rate, normal rhythm External exam: Present: normal external exam Speculum exam: Present: normal speculum exam, vaginal bleeding (Scant mucosal bleeding posterior vaginal wall). Absent: foreign body Neurological exam: Present: alert Psychiatric exam: Present: normal affect, normal mood Skin exam: Present: warm, dry Course Vital Signs 08/10/24 14:19 Temperature 98.2 F Pulse Rate 67 Respiratory 18 Rate Blood Pressure 100/66 O2 Sat by Pulse 94 L Oximetry - Reevaluation(s) Reevaluation #1: 08/10/24 15:06 Speculum exam and bimanual exam performed with nursing staff and female tech Kamilah. No foreign body visualized. Medical Decision Making - Medical Decision Making Was pt. sent in by a medical professional or institution (, PA, GRAVITY PROSPECTOR, urgent care, hospital, or half-way...) When possible be specific @ -No Did you speak to anyone other than the patient for history (EMS, parent, family, police, friend...)? What history was obtained from this source @ -No Did you review nursing and triage notes (agree or disagree)? Why? @ -I reviewed and agree with nursing and triage notes Were old charts reviewed (outside hosp., previous admission, EMS record, old EKG, old radiological studies, urgent care reports/EKG's, half-way records)? Report findings @ -No old charts were reviewed Differential Diagnosis vaginal foreign body, vaginal laceration EKG interpreted by me (3pts min.). @ -As above X-rays interpreted by me (1pt min.). @X-ray of the pelvis does not reveal a radiopaque foreign body CT interpreted by me (1pt min.). @ -None done U/S interpreted by me (1pt. min.). @ -None done What testing was considered but not performed or refused? (CT, X-rays, U/S, labs)? Why? @ -None What meds were considered but not given or refused? Why? @ -None Did you discuss the management of the patient with other professionals (professionals i.e. , PA, GRAVITY PROSPECTOR, lab, RT, psych nurse, psychotherapist social worker, restaurant management internship, teacher, chief contract officer, case resource manager)? Give summary @ -No Was smoking cessation discussed for >3mins.? @ -No Was critical care preformed (if so, how long)? @ -No Were there social determinants of health that impacted care today? How? (Homelessness, low income, unemployed, alcoholism, drug addiction, transportation, low edu. Level, literacy, decrease access to med. care, fpc, rehab)? @ -No Was there de-escalation of care discussed even if they declined (Discuss DNR or withdrawal of care, Hospice)? DNR status @ -No What co-morbidities impacted this encounter? (DM, HTN, Smoking, COPD, CAD, Cancer, CVA, ARF, Chemo, Hep., AIDS, mental health diagnosis, sleep apnea, morbid obesity)? @Previous CVA Was patient admitted / discharged? Hospital course, mention meds given and route, prescriptions, significant lab abnormalities, going to OR and other perti nent info. @ -69-year-old female with reported vaginal foreign body. X-ray performed which is negative for radiopaque foreign body. Speculum and bimanual exam performed and does not show any foreign body within the vagina. Patient stable for discharge back to the half-way. Undiagnosed new problem with uncertain prognosis? @ -No Drug Therapy requiring intensive monitoring for toxicity (Heparin, Nitro, Insulin, Cardizem)? @ -No Were any procedures done? @ -No Diagnosis/symptom? @ -[Suspected vaginal foreign body none identified Acute, or Chronic, or Acute on Chronic? @ -Acute Uncomplicated (without systemic symptoms) or Complicated (systemic symptoms)? @ -[default Side effects of treatment? @ -No Exacerbation, Progression, or Severe Exacerbation? @ -No Poses a threat to life or bodily function? How? (Chest pain, [place], [place], pneumonia, PE, COPD, DKA, ARF, appy, cholecystitis, CVA, Diverticulitis, Homicidal, Suicidal, threat to staff... and all critical care pts) @ -No Disposition Clinical Impression: Vaginal foreign body Disposition: HOME SELF-CARE Condition: Fair Additional Instructions: No foreign body identified within the vagina Is patient prescribed a controlled substance at d/c from ED?: No Referrals: Laura Casas DO [Primary Care Provider] - 1-2 days Time of Disposition: 15:08
[2024-08-10 17:16] VITALS: BP 112/79; PULSE 68; TEMP 98
== END 2024-08-10 17:47 | disposition home or self-care (01) ==
LOC: EC 14:17
DX: T19.2XXA Foreign body in vulva and vagina, initial encounter (principal); Z86.73 Personal history of transient ischemic attack (TIA), and cerebral infarction without residual deficits; Z88.8 Allergy status to other drugs, medicaments and biological substances; W44.9XXA Unspecified foreign body entering into or through a natural orifice, initial encounter
CPT/HCPCS: 72170; 99284

== ENCOUNTER 2024-10-21 14:07 | Inpatient (IN) | payer MEDICARE ==
--- NOTE | 2024-10-21 14:23 | ED ---
General Adult HPI - General Stated complaint: L foot issue Time Seen by Provider: 10/21/24 14:09 - History of Present Illness Initial comments: Dictation was produced using E-Generator dictation software. please excuse any grammatical, word or spelling errors. Chief Complaint: 69-year-old female with multiple amputations of her lower extremities presents to the ER for a gangrenous toe History of Present Illness: Patient 69-year-old female she is currently being treated for foot gangrene. Patient has had multiple gangrenous toes in the past requiring multiple amputations. Patient was seen by wound nurse practitioner at shelter states that she noticed some redness traveling up from her gangrenous toe up her foot. EMS was called patient was brought to the ER. Patient currently being treated for foot gangrene. Patient has establish care with vascular and triage The ROS documented in this emergency department record has been reviewed and confirmed by me. Those systems with pertinent positive or negative responses have been documented in the HPI. All other systems are other negative and/or noncontributory. - Related Data Home Medications Medication Instructions Recorded Confirmed Aspirin EC [Ecotrin Low Dose] 81 mg PO DAILY@0907/23/22 10/21/24 Acetaminophen [Tylenol] 650 mg PO Q4H PRN 11/03/22 10/21/24 carvediloL [Coreg] 6.25 mg PO BID@0900,209911/03/22 10/21/24 Gabapentin [Neurontin] 300 mg PO TID@0600,1300,209901/26/23 10/21/24 Melatonin 3 mg PO HS@209901/26/23 10/21/24 Cetirizine HCl [Zyrtec] 10 mg PO DAILY@89905/05/23 10/21/24 Ferrous Sulfate [Iron (65 MG 325 mg PO DAILY@89905/05/23 10/21/24 Elemental)] Sennosides/Docusate Sodium [Senna 1 cap PO DAILY PRN 05/05/23 10/21/24 Plus 8.6-50 mg Softgel] Simethicone Chew [Mylicon Chew] 80 mg PO Q6H PRN 07/05/23 10/21/24 Vit C/E/Zn/Coppr/Lutein/Zeaxan 1 cap PO BID 01/30/24 10/21/24 [Preservision Areds 2 Softgel] Atorvastatin [Lipitor] 80 mg PO HS@2100 05/31/24 10/21/24 Lactulose 20 gm PO DAILY PRN 05/31/24 10/21/24 Levothyroxine Sodium [Synthroid] 25 mcg PO SUTUTHSA@0600 05/31/24 10/21/24 Glucerna Shake 1 can PO DAILY@0900 06/24/24 10/21/24 Levothyroxine Sodium [Synthroid] 50 mcg PO MOWEFR@0600 06/24/24 10/21/24 Magnesium Hydroxide [Milk of 2,400 mg PO DAILY PRN 06/24/24 10/21/24 Magnesia] amLODIPine [Norvasc] 5 mg PO HS@2100 06/24/24 06/24/24 Cholecalciferol [Vitamin D3 (25 25 mcg PO DAILY 10/21/24 10/21/24 Mcg = 1000 Iu)] Cyclobenzaprine [Flexeril] 5 mg PO TID PRN 10/21/24 10/21/24 Famotidine [Pepcid] 20 mg PO HS 10/21/24 10/21/24 Hydrocortisone Oint 1 applic TOPICAL HS 10/21/24 10/21/24 [Hydrocortisone 2.5% Oint] INSULIN LISPRO (HumaLOG) [humaLOG] See Protocol SQ ACHS 10/21/24 10/21/24 Oseltamivir 6Mg/ml Oral Susp 30 mg PO DAILY 10/21/24 10/21/24 [Tamiflu] Terbinafine [LamISIL] 250 mg PO DAILY 10/21/24 10/21/24 lisinopriL 2.5 mg PO DAILY 10/21/24 10/21/24 Previous Rx's Medication Instructions Recorded Insulin Glargine,Hum.rec.anlog 15 units SQ HS@2100 #0 07/02/24 [Lantus Solostar Pen] traMADol HCL 50 mg PO Q6H PRN #4 tab 07/02/24 Allergies Allergy/AdvReac Type Severity Reaction Status Date / Time unknown sleep aid Allergy Severe Rash/Hives Uncoded 10/21/24 15:46 Review of Systems ROS Statement: Those systems with pertinent positive or pertinent negative responses have been documented in the HPI. ROS Other: All systems not noted in ROS Statement are negative. 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 Hx falls. Diverticulitis. PVD. Dysphagia. Has peg tube but is not in use. Needs 2 staff to pivot/transfer pt. Currently resides at [facility] since November 2022. Hx acute respiratory failure. Neuromuscular dysfunction of bladder. History of Any Multi-Drug Resistant Organisms: MRSA Date of last positivie culture/infection: 02/15/23 MDRO Source:: rt foot Past Surgical History: Section, Heart Catheterization, Orthopedic Surgery, Tonsillectomy Additional Past Surgical History / Comment(s): Right Femoral Popliteal bypass 10/19/22, at [facility], amputation of second third and fourth toes on right foot, carpal tunnel surgery. Past Anesthesia/Blood Transfusion Reactions: No Reported Reaction Additional Past Anesthesia/Blood Transfusion Reaction / Comment(s): Never received blood. Past Psychological History: Depression Smoking Status: Never smoker Past Alcohol Use History: None Reported Past Drug Use History: None Reported - Past Family History Mother Family Medical History: Cancer Additional Family Medical History / Comment(s): History of lower back fusion Father Family Medical History: Coronary Artery Disease (CAD) General Exam - General Exam Comments Initial Comments: PHYSICAL EXAM: General Impression: Alert and oriented x3, not in acute distress HEENT: Normocephalic atraumatic, extra-ocular movements intact, pupils equal and reactive to light bilaterally, mucous membranes moist. Cardiovascular: Heart regular rate and rhythm Chest: Able to complete full sentences, no retractions, no tachypnea Abdomen: abdomen soft, non-tender, non-distended, no organomegaly Musculoskeletal: Pulses present and equal in all extremities, no peripheral edema Motor: no focal deficits noted Neurological: CN II-XII grossly intact, no focal motor or sensory deficits noted Skin: Intact with no visualized rashes Psych: Normal affect and mood Left foot: Gangrenous left third toe with erythema streaking over the dorsum of the foot foot is tender to palpation Course Vital Signs 10/21/24 14:17 Temperature 99.5 F Pulse Rate 70 Respiratory 16 Rate Blood Pressure 139/80 O2 Sat by Pulse 93 L Oximetry Medical Decision Making - Medical Decision Making Was pt. sent in by a medical professional or institution (, ELADIO, SPEECH THERAPIST TECHNICIAN, urgent care, hospital, or shelter...) When possible be specific @ -No Did you speak to anyone other than the patient for history (EMS, parent, family, police, friend...)? What history was obtained from this source @ - at the bedside as described above Did you review nursing and triage notes (agree or disagree)? Why? @ -I reviewed and agree with nursing and triage notes Were old charts reviewed (outside hosp., previous admission, EMS record, old EKG, old radiological studies, urgent care reports/EKG's, shelter records)? Report findings @ -No old charts were reviewed Differential Diagnosis (chest pain, altered mental status, abdominal pain women, abdominal pain men, vaginal bleeding, musculoskeletal, weakness, fever, dyspnea, syncope, headache, dizziness, GI bleed, back pain, seizure, CVA, palpatations, mental health)? @ -Differential Fever: Pneumonia, viral URI, endocarditis, myocarditis, pericarditis, otitis, sinusitis, peritonsillar Abscess, retropharyngeal Abscess, epiglottitis, peritonitis, appendicitis, Rachna cystitis, diverticulitis, hepatitis, colitis, UTI, PID, TOA, pyelonephritis, prostatitis, epididymitis, meningitis, encephalitis, pulmonary embolism, CVA, thyroid storm, pancreatitis, adrenal crisis, cavernous sinus thrombosis, this is not meant to be an all-inclusive list. EKG interpreted by me (3pts min.). @ -My EKG interpretation: Ventricular rate 73, sinus rhythm,. 177, QRS 90, QTc 426. No NH prolongation, no QTC prolongation, no ST or T-wave changes noted. Overall, this EKG is unremarkable X-rays interpreted by me (1pt min.). @ -None done CT interpreted by me (1pt min.). @ -None done U/S interpreted by me (1pt. min.). @ -None done What testing was considered but not performed or refused? (CT, X-rays, U/S, labs)? Why? @ -None What meds were considered but not given or refused? Why? @ -None Was smoking cessation discussed for >3mins.? @ -No Were there social determinants of health that impacted care today? How? (Homelessness, low income, unemployed, alcoholism, drug addiction, transpo rtation, low edu. Level, literacy, decrease access to med. care, skilled nursing, rehab)? @ -No Was there de-escalation of care discussed even if they declined (Discuss DNR or withdrawal of care, Hospice)? DNR status @ -No What co-morbidities impacted this encounter? (DM, HTN, Smoking, COPD, CAD, Cancer, CVA, ARF, Chemo, Hep., AIDS, mental health diagnosis, sleep apnea, morbid obesity)? @ -Diabetes, multiple toe amputations Was patient admitted / discharged? Hospital course, mention meds given and route , prescriptions, significant lab abnormalities, going to OR and other pertinent info. @ -69-year-old female presents to the emergency department for worsening gangrenous toe. She does have signs of cellulitis especially localized to the dorsum of the foot. Vital signs stable. Laboratory evaluation obtained. Leukocytosis of 17.7. Rest of labs within acceptable limits. Patient started broad-spectrum antibiotics. Will be admitted consultation to vascular surgeon infectious disease. Did you discuss the management of the patient with other professionals (professionals i.e. , PA, SPEECH THERAPIST TECHNICIAN, lab, RT, psych nurse, social studies teacher, sulfur burner, teacher, executive officer, protective services case worker)? Give summary @ -Case discussed with hospitalist for admission Was critical care preformed (if so, how long)? @ -No Undiagnosed new problem with uncertain prognosis? @ -No Drug Therapy requiring intensive monitoring for toxicity (Heparin, Nitro, Insulin, Cardizem)? @ -No Were any procedures done? @ -No Diagnosis/symptom? Acute, or Chronic, or Acute on Chronic? Uncomplicated (without systemic symptoms) or Complicated (systemic symptoms)? @ -Gangrene Side effects of treatment? @ -No Exacerbation, Progression, or Severe Exacerbation? @ -No Poses a threat to life or bodily function? How? (Chest pain, [place], [place], pneumonia, PE, COPD, DKA, ARF, appy, cholecystitis, CVA, Diverticulitis, Homicidal, Suicidal, threat to staff... and all critical care pts) @ -yes - Lab Data Result diagrams: 10/21/24 14:38 10/21/24 14:38 Lab Results 10/21/24 10/21/24 10/21/24 Range/Units 14:38 14:38 14:38 WBC 17.7 H (3.8-10.6) k/uL RBC 3.96 (3.80-5.40) m/uL Hgb 10.8 L (11.4-16.0) gm/dL Hct 34.0 (34.0-46.0) % MCV 85.7 (80.0-100.0) fL MCH 27.3 (25.0-35.0) pg MCHC 31.8 (31.0-37.0) g/dL RDW 14.6 (11.5-15.5) % Plt Count 522 H (150-450) k/uL MPV 7.0 Neutrophils % 81 % Lymphocytes % 12 % Monocytes % 5 % Eosinophils % 1 % Basophils % 0 % Neutrophils # 14.3 H (1.3-7.7) k/uL Lymphocytes # 2.2 (1.0-4.8) k/uL Monocytes # 1.0 (0-1.0) k/uL Eosinophils # 0.1 (0-0.7) k/uL Basophils # 0.0 (0-0.2) k/uL PT 11.7 (10.0-12.5) sec INR 1.1 (<1.2) APTT 30.3 H (22.0-30.0) sec Sodium 135 L (137-145) mmol/L Potassium 4.2 (3.5-5.1) mmol/L Chloride 103 (98-107) mmol/L Carbon Dioxide 24 (22-30) mmol/L Anion Gap 8 mmol/L BUN 24 H (7-17) mg/dL Creatinine 0.89 (0.52-1.04) mg/dL Est GFR (CKD-EPI)AfAm 78 (>60 ml/min/1.73 sqM) Est GFR (CKD-EPI)NonAf 67 (>60 ml/min/1.73 sqM) Glucose 302 H (74-99) mg/dL Calcium 8.5 (8.4-10.2) mg/dL Disposition Clinical Impression: Gangrene Disposition: ADMITTED IP TO THIS HOSP Condition: Fair Referrals: Artemio Hartman MD [Primary Care Provider] - 1-2 days Decision Time: 17:33
[2024-10-21 15:06] LABS: Basophils % (A) 0 %; Eosinophils # (A) 0.1 k/uL (0-0.7); Eosinophils % (A) 1 %; HGB 10.8 gm/dL (11.4-16.0); Lymphocytes # (A) 2.2 k/uL (1.0-4.8); Lymphocytes % (A) 12 %; MCH 27.3 pg (25.0-35.0); MCHC 31.8 g/dL (31.0-37.0); MCV 85.7 fL (80.0-100.0); Monocytes % (A) 5 %; Neutrophils # (A) 14.3 k/uL (1.3-7.7); Neutrophils % (A) 81 %; Platelet Count 522 k/uL (150-450); RBC 3.96 m/uL (3.80-5.40); RDW 14.6 % (11.5-15.5); WBC 17.7 k/uL (3.8-10.6)
[2024-10-21 15:19] LABS: INR 1.1 (<1.2); Partial Thromboplastin Time 30.3 sec (22.0-30.0); Prothrombin Time 11.7 sec (10.0-12.5)
[2024-10-21 16:08] LABS: African American GFR (CKD) 78 (>60 ml/min/1.73 sqM); Anion Gap 8 mmol/L; Blood Urea Nitrogen 24 mg/dL (7-17); Calcium 8.5 mg/dL (8.4-10.2); Carbon Dioxide 24 mmol/L (22-30); Chloride 103 mmol/L (98-107); Glucose 302 mg/dL (74-99); Non-African American GFR(CKD) 67 (>60 ml/min/1.73 sqM); Potassium 4.2 mmol/L (3.5-5.1); Sodium 135 mmol/L (137-145)
[2024-10-21] MEDS ORDERED: NALOXONE 0.4 MG/ML 1 ML VIAL IV PRN (17:30)
[2024-10-21] MEDS ORDERED: VANCOMYCIN IV PER PHARMACY 1 EACH MISC MISCELLANE PRN (17:30)
[2024-10-21] MEDS ORDERED: ACETAMINOPHEN TAB 325 MG TAB PO PRN (17:30)
[2024-10-21] MEDS: SODIUM CHLORIDE 0.9% 1,000 ML IV SCH (17:46)
[2024-10-21] MEDS: PIPERACILLIN-TAZOBACTAM 3.375 GM in SODIUM CHLORIDE 0.9% 100 ML IVPB SCH (17:50)
[2024-10-21] MEDS ORDERED: traMADol 50 MG TAB PO PRN (18:29)
[2024-10-21] MEDS: ATORVASTATIN 80 MG TAB PO SCH (21:09)
[2024-10-21] MEDS: VANCOMYCIN 1,250 MG in SODIUM CHLORIDE 0.9% 250 ML IVPB ONE (21:09)
[2024-10-21] MEDS: GABAPENTIN 300 MG CAP PO SCH (21:09)
[2024-10-21] MEDS: MELATONIN 3 MG TABLET PO SCH (21:09)
[2024-10-21] MEDS: FAMOTIDINE 20 MG TAB PO SCH (21:09)
[2024-10-21] MEDS: carvediloL 6.25 MG TAB PO SCH (21:09)
[2024-10-21] MEDS: INSULIN DETEMIR (LEVEMIR) 100 UNIT/ML SYR SQ SCH (21:14)
[2024-10-21 21:15] LABS: Glucose,Whole Blood 211 mg/dL (70-110)
[2024-10-21] MEDS: INSULIN ASPART (NovoLOG) 100 UNIT/ML VIAL SQ SCH (21:20)
[2024-10-22 06:31] LABS: Glucose,Whole Blood 66 mg/dL (70-110)
[2024-10-22 07:51] LABS: African American GFR (CKD) 79 (>60 ml/min/1.73 sqM); Non-African American GFR(CKD) 69 (>60 ml/min/1.73 sqM)
[2024-10-22] MEDS: CYCLOBENZAPRINE 5 MG TAB PO PRN (08:03)
[2024-10-22] MEDS: VANCOMYCIN 1,250 MG in SODIUM CHLORIDE 0.9% 250 ML IVPB SCH (09:14)
[2024-10-22 11:46] LABS: Glucose,Whole Blood 59 mg/dL (70-110)
--- NOTE | 2024-10-22 12:00 | P.GSCN ---
History of Present Illness Consult date: 10/22/24 Reason for Consult: Gangrene toe Requesting physician: Ho Smith History of present illness: This is a pleasant 69-year-old female well-known to Dr. Iglesias with vascular surgery who was sent in for concerns of left foot infection. She has a past medical history including peripheral arterial disease with previous right popliteal stent and right femoral to popliteal bypass, left fifth toe amputation, history of CVA with residual left-sided weakness, diabetes mellitus, coronary artery disease, heart failure, hypertension, hyperlipidemia and pressure ulcer to left third toe. Apparently patient had same Dr. Iglesias last week as well as a wound care nurse and patient had dry gangrene of the third toe. Yesterday it was noted that she was getting increased redness along the top of her foot and plantar aspect as well as drainage and foul odor. She was sent in to come to the emergency department for further evaluation. She was started on IV vancomycin and Zosyn. Patient states that she does have pain in the right foot and lower extremity. Apparently she had a arterial ultrasound done at the office on . She denies any fevers or chills, no abdominal pain, nausea or vomiting. Patient is nonambulatory with left-sided weakness. Denies any shortness of breath or chest pain. She also had a outpatient CTA abdomen/aorta with runoff 1 findings of occlusion of bilateral SFA with deep collateral vessels communicating with the distal bypass stent reconstituting in the right popliteal artery. Collateral vessels reconstitute the distal SFA at the articular canal. Trifurcation vessels on the left are patent to the ankle with areas of severe focal stenosis. Trifurcation vessels on the right appear to be occluded within the proximal Portion, peroneal artery in the proximal calf is most distal aspect of cannot contrast flow on the right. No distal vascular contrast identified. Review of Systems A 14 point review systems was completed all pertinent positives and negatives as stated in the HPI. 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 Hx falls. Diverticulitis. PVD. Dysphagia. Has peg tube but is not in use. Needs 2 staff to pivot/transfer pt. Currently resides at [facility] since November 2022. Hx acute respiratory failure. Neuromuscular dysfunction of bladder. History of Any Multi-Drug Resistant Organisms: MRSA Year Discovered:: 02/15/23 MDRO Source:: rt foot Past Surgical History: Section, Heart Catheterization, Orthopedic Surgery, Tonsillectomy Additional Past Surgical History / Comment(s): Right Femoral Popliteal bypass 10/19/22, at [facility], amputation of second third and fourth toes on right foot, carpal tunnel surgery. Past Anesthesia/Blood Transfusion Reactions: No Reported Reaction Additional Past Anesthesia/Blood Transfusion Reaction / Comm: Never received blood. Smoking Status: Never smoker - Past Family History Mother Family Medical History: Cancer Additional Family Medical History / Comment(s): History of lower back fusion Father Family Medical History: Coronary Artery Disease (CAD) Medications and Allergies Home Medications Medication Instructions Recorded Confirmed Type Aspirin EC [Ecotrin Low Dose] 81 mg PO DAILY@0907/23/22 10/21/24 History Acetaminophen [Tylenol] 650 mg PO Q4H PRN 11/03/22 10/21/24 History carvediloL [Coreg] 6.25 mg PO BID@0900,209911/03/22 10/21/24 History Gabapentin [Neurontin] 300 mg PO TID@0600,1300,209901/26/23 10/21/24 History Melatonin 3 mg PO HS@209901/26/23 10/21/24 History Cetirizine HCl [Zyrtec] 10 mg PO DAILY@89905/05/23 10/21/24 History Ferrous Sulfate [Iron (65 MG 325 mg PO DAILY@89905/05/23 10/21/24 History Elemental)] Sennosides/Docusate Sodium [Senna 1 cap PO DAILY PRN 05/05/23 10/21/24 History Plus 8.6-50 mg Softgel] Simethicone Chew [Mylicon Chew] 80 mg PO Q6H PRN 07/05/23 10/21/24 History Vit C/E/Zn/Coppr/Lutein/Zeaxan 1 cap PO BID 01/30/24 10/21/24 History [Preservision Areds 2 Softgel] Atorvastatin [Lipitor] 80 mg PO HS@2100 05/31/24 10/21/24 History Lactulose 20 gm PO DAILY PRN 05/31/24 10/21/24 History Levothyroxine Sodium [Synthroid] 25 mcg PO SUTUTHSA@0600 05/31/24 10/21/24 History Glucerna Shake 1 can PO DAILY@0900 06/24/24 10/21/24 History Levothyroxine Sodium [Synthroid] 50 mcg PO MOWEFR@0600 06/24/24 10/21/24 History Magnesium Hydroxide [Milk of 2,400 mg PO DAILY PRN 06/24/24 10/21/24 History Magnesia] amLODIPine [Norvasc] 5 mg PO HS@2100 06/24/24 06/24/24 History Insulin Glargine,Hum.rec.anlog 15 units SQ HS@2100 #0 07/02/24 10/21/24 Rx [Lantus Solostar Pen] traMADol HCL 50 mg PO Q6H PRN #4 tab 07/02/24 10/21/24 Rx Cholecalciferol [Vitamin D3 (25 25 mcg PO DAILY 10/21/24 10/21/24 History Mcg = 1000 Iu)] Cyclobenzaprine [Flexeril] 5 mg PO TID PRN 10/21/24 10/21/24 History Famotidine [Pepcid] 20 mg PO HS 10/21/24 10/21/24 History Hydrocortisone Oint 1 applic TOPICAL HS 10/21/24 10/21/24 History [Hydrocortisone 2.5% Oint] INSULIN LISPRO (HumaLOG) [humaLOG] See Protocol SQ ACHS 10/21/24 10/21/24 History Oseltamivir 6Mg/ml Oral Susp 30 mg PO DAILY 10/21/24 10/21/24 History [Tamiflu] Terbinafine [LamISIL] 250 mg PO DAILY 10/21/24 10/21/24 History lisinopriL 2.5 mg PO DAILY 10/21/24 10/21/24 History Allergies Allergy/AdvReac Type Severity Reaction Status Date / Time unknown sleep aid Allergy Severe Rash/Hives Uncoded 10/21/24 15:46 Surgical - Exam Vital Signs Temp Pulse Resp BP Pulse Ox 99.5 F 70 16 139/80 93 L 10/21/24 14:17 10/21/24 14:17 10/21/24 14:17 10/21/24 14:17 10/21/24 14:17 General appearance: The patient is alert, oriented, appears in no acute distress. HET: Head is normocephalic and atraumatic. Pupils are equal and reactive. Neck: Supple. Heart: Regular. Lungs: Equal expansion, normal respiratory effort. Abdomen: Soft, nondistended. Extremities: Normal skin color and turgor. Right palpable PT pulse. Right foot with previous second third and fourth toe amputation well-healed. Nonpalpable left DP or PT pulse. Foot warm to the touch with good capillary refill. Erythema to dorsal aspect as well as plantar aspect up to the midfoot. Previous fifth toe amputation well-healed. Gangrene left third toe, malodorous. Neurological: Left-sided weakness. Results - Labs 10/21/24 14:38 10/22/24 06:41 Abnormal Lab Results - Last 24 Hours (Table) 10/21/24 10/21/24 10/21/24 Range/Units 14:38 14:38 14:38 WBC 17.7 H (3.8-10.6) k/uL Hgb 10.8 L (11.4-16.0) gm/dL Plt Count 522 H (150-450) k/uL Neutrophils # 14.3 H (1.3-7.7) k/uL APTT 30.3 H (22.0-30.0) sec Sodium 135 L (137-145) mmol/L BUN 24 H (7-17) mg/dL Glucose 302 H (74-99) mg/dL POC Glucose (mg/dL) (70-110) mg/dL 10/21/24 10/22/24 Range/Units 21:13 06:29 WBC (3.8-10.6) k/uL Hgb (11.4-16.0) gm/dL Plt Count (150-450) k/uL Neutrophils # (1.3-7.7) k/uL APTT (22.0-30.0) sec Sodium (137-145) mmol/L BUN (7-17) mg/dL Glucose (74-99) mg/dL POC Glucose (mg/dL) 211 H 66 L (70-110) mg/dL Diabetes panel 10/21/24 10/22/24 Range/Units 14:38 06:41 Sodium 135 L (137-145) mmol/L Potassium 4.2 (3.5-5.1) mmol/L Chloride 103 (98-107) mmol/L Carbon Dioxide 24 (22-30) mmol/L BUN 24 H (7-17) mg/dL Creatinine 0.89 0.88 (0.52-1.04) mg/dL Glucose 302 H (74-99) mg/dL Calcium 8.5 (8.4-10.2) mg/dL Calcium panel 10/21/24 Range/Units 14:38 Calcium 8.5 (8.4-10.2) mg/dL Pituitary panel 10/21/24 10/22/24 Range/Units 14:38 06:41 Sodium 135 L (137-145) mmol/L Potassium 4.2 (3.5-5.1) mmol/L Chloride 103 (98-107) mmol/L Carbon Dioxide 24 (22-30) mmol/L BUN 24 H (7-17) mg/dL Creatinine 0.89 0.88 (0.52-1.04) mg/dL Glucose 302 H (74-99) mg/dL Calcium 8.5 (8.4-10.2) mg/dL Adrenal panel 10/21/24 10/22/24 Range/Units 14:38 06:41 Sodium 135 L (137-145) mmol/L Potassium 4.2 (3.5-5.1) mmol/L Chloride 103 (98-107) mmol/L Carbon Dioxide 24 (22-30) mmol/L BUN 24 H (7-17) mg/dL Creatinine 0.89 0.88 (0.52-1.04) mg/dL Glucose 302 H (74-99) mg/dL Calcium 8.5 (8.4-10.2) mg/dL Assessment and Plan Assessment: 1. Right foot with gangrene toes 2. Peripheral arterial disease, bilateral SFA occlusion 3. History of right popliteal stent and femoral to popliteal bypass 4. History of CVA with residual left-sided weakness 5. Nonambulatory 6. History of coronary artery disease status post stent Plan: 1. Continue antibiotics per recommendations from infectious disease 2. N.p.o. after midnight 3. Recommend offloading soft boots to bilateral feet 4. Will plan for surgical intervention tomorrow. Discussed with patient and possible second and third toe amputation versus transmetatarsal amputation versus possible [id number] amputation. They verbalized understanding. 5. Rest of medical management per primary medical team 6. Further recommendations forthcoming based on clinical course Thank you for this consultation, we will continue to follow. The impression and plan of care has been dictated as directed. Dr. Wong I performed a history and examination of this patient, discussed the same with the dictator. I agree with the dictator's note ,documented as a scribe. Any additional findings or plans will be noted.
[2024-10-22] MEDS ORDERED: LACTULOSE 200 GM/300 ML (FROM 1/2 GAL JUG) PO PRN (13:24)
[2024-10-22] MEDS ORDERED: SENNOSIDES-DOCUSATE SODIUM 1 EACH TAB PO PRN (13:24)
[2024-10-22] MEDS ORDERED: MELATONIN 3 MG TABLET PO PRN (13:24)
--- NOTE | 2024-10-22 13:32 | P.HPIM ---
History of Present Illness 69-year-old female with history of diabetes mellitus and prevascular disease came in for left third toe wet gangrene and infectious gangrene. Patient is presently on daptomycin and Zosyn. Vascular surgery and infectious disease were consulted patient will need amputation of the toe patient has malodorous discharge from the toe denied any fever chills abdominal pain nausea vomiting CT angio of the abdomen and aorta with runoff showed findings of occlusion of bilateral superficial femoral artery with deep collaterals communicating with the distal bypass stent reconstituting the right popliteal artery. Trifurcation vessels on the left are patent to the ankle with areas of several focal stenosis right appeared to be occluded within the proximal portion, peroneal artery proximal calf. REVIEW OF SYSTEMS: All other systems are negative except those mentioned in the HPI PHYSICAL EXAMINATION: GENERAL: The patient is alert and oriented x3, not in any acute distress. Well developed, well nourished. HEENT: Pupils are round and equally reacting to light. EOMI. No scleral icterus. No conjunctival pallor. Normocephalic, atraumatic. No pharyngeal erythema. No thyromegaly. CARDIOVASCULAR: S1 and S2 present. No murmurs, rubs, or gallops. PULMONARY: Chest is clear to auscultation, no wheezing or crackles. ABDOMEN: Soft, nontender, nondistended, normoactive bowel sounds. No palpable organomegaly. MUSCULOSKELETAL: No joint swelling or deformity. EXTREMITIES: No cyanosis, clubbing, or pedal edema. Gangrene of the third toe as mentioned above infectious and wet gangrene NEUROLOGICAL: Gross neurological examination did not reveal any focal deficits. SKIN: No rashes. Assessment and plan -Right foot third toe infection with gangrene: Vascular surgery evaluation probably need for amputation. Patient will be continued on daptomycin and Zosyn -Prophylactic vascular disease, arterial disease with bilateral superficial femoral artery occlusion -Coronary disease -Type 2 diabetes mellitus: Hold off on long-acting insulin now continue with sliding scale insulin patient will be resumed on long-acting insulin postsurgery -Hypertension hold off amlodipine continue on FRANCISCO inhibitor watch for any perioperative hypotension -Peripheral vascular disease Lovenox DVT prophylaxis: Lovenox Past Medical History Past Medical History: Coronary Artery Disease (CAD), Heart Failure, CVA/TIA, Diabetes Mellitus, Hyperlipidemia, Hypertension, Pneumonia, Skin Disorder, Va scular Disorder Additional Past Medical History / Comment(s): 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 Hx falls. Diverticulitis. PVD. Dysphagia. Has peg tube but is not in use. Needs 2 staff to pivot/transfer pt. Currently resides at [facility] since November 2022. Hx acute respiratory failure. Neuromuscular dysfunction of bladder. History of Any Multi-Drug Resistant Organisms: MRSA Date of last positivie culture/infection: 02/15/23 MDRO Source:: rt foot Past Surgical History: Section, Heart Catheterization, Orthopedic Surgery, Tonsillectomy Additional Past Surgical History / Comment(s): Right Femoral Popliteal bypass 10/19/22, at [facility], amputation of second third and fourth toes on right foot, carpal tunnel surgery. Past Anesthesia/Blood Transfusion Reactions: No Reported Reaction Additional Past Anesthesia/Blood Transfusion Reaction / Comment(s): Never received blood. Smoking Status: Never smoker - Past Family History Mother Family Medical History: Cancer Additional Family Medical History / Comment(s): History of lower back fusion Father Family Medical History: Coronary Artery Disease (CAD) Medications and Allergies Home Medications Medication Instructions Recorded Confirmed Type Aspirin EC [Ecotrin Low Dose] 81 mg PO DAILY@0900 07/23/22 10/21/24 History Acetaminophen [Tylenol] 650 mg PO Q4H PRN 11/03/22 10/21/24 History carvediloL [Coreg] 6.25 mg PO BID@0900,209911/03/22 10/21/24 History Gabapentin [Neurontin] 300 mg PO TID@0600,1300,209901/26/23 10/21/24 History Melatonin 3 mg PO HS@209901/26/23 10/21/24 History Cetirizine HCl [Zyrtec] 10 mg PO DAILY@89905/05/23 10/21/24 History Ferrous Sulfate [Iron (65 MG 325 mg PO DAILY@89905/05/23 10/21/24 History Elemental)] Sennosides/Docusate Sodium [Senna 1 cap PO DAILY PRN 05/05/23 10/21/24 History Plus 8.6-50 mg Softgel] Simethicone Chew [Mylicon Chew] 80 mg PO Q6H PRN 07/05/23 10/21/24 History Vit C/E/Zn/Coppr/Lutein/Zeaxan 1 cap PO BID 01/30/24 10/21/24 History [Preservision Areds 2 Softgel] Atorvastatin [Lipitor] 80 mg PO HS@2100 05/31/24 10/21/24 History Lactulose 20 gm PO DAILY PRN 05/31/24 10/21/24 History Levothyroxine Sodium [Synthroid] 25 mcg PO SUTUTHSA@0600 05/31/24 10/21/24 Hist kuldipy Glucerna Shake 1 can PO DAILY@0900 06/24/24 10/21/24 History Levothyroxine Sodium [Synthroid] 50 mcg PO MOWEFR@0600 06/24/24 10/21/24 History Magnesium Hydroxide [Milk of 2,400 mg PO DAILY PRN 06/24/24 10/21/24 History Magnesia] amLODIPine [Norvasc] 5 mg PO HS@2100 06/24/24 06/24/24 History Insulin Glargine,Hum.rec.anlog 15 units SQ HS@2100 #0 07/02/24 10/21/24 Rx [Lantus Solostar Pen] traMADol HCL 50 mg PO Q6H PRN #4 tab 07/02/24 10/21/24 Rx Cholecalciferol [Vitamin D3 (25 25 mcg PO DAILY 10/21/24 10/21/24 History Mcg = 1000 Iu)] Cyclobenzaprine [Flexeril] 5 mg PO TID PRN 10/21/24 10/21/24 History Famotidine [Pepcid] 20 mg PO HS 10/21/24 10/21/24 History Hydrocortisone Oint 1 applic TOPICAL HS 10/21/24 10/21/24 History [Hydrocortisone 2.5% Oint] INSULIN LISPRO (HumaLOG) [humaLOG] See Protocol SQ ACHS 10/21/24 10/21/24 History Oseltamivir 6Mg/ml Oral Susp 30 mg PO DAILY 10/21/24 10/21/24 History [Tamiflu] Terbinafine [LamISIL] 250 mg PO DAILY 10/21/24 10/21/24 History lisinopriL 2.5 mg PO DAILY 10/21/24 10/21/24 History Allergies Allergy/AdvReac Type Severity Reaction Status Date / Time unknown sleep aid Allergy Severe Rash/Hives Uncoded 10/21/24 15:46 Physical Exam Vitals: Vital Signs Temp Pulse Pulse Resp BP BP Pulse Ox 10/22/24 07:00 99.1 F 70 17 148/81 96 10/22/24 00:47 98.0 F 69 16 137/79 95 10/21/24 21:00 98.7 F 77 15 132/81 95 10/21/24 18:50 77 16 125/77 93 L 10/21/24 14:17 99.5 F 70 16 139/80 93 L Intake and Output 10/21/24 10/22/24 10/22/24 22:59 06:59 14:59 Intake Total 240 Balance 240 Intake: Oral 240 Other: Voiding Method Diaper Diaper Diaper # Voids 2 4 Weight 61.235 kg Results CBC & Chem 7: 10/21/24 14:38 10/22/24 06:41 Labs: Abnormal Lab Results - Last 24 Hours (Table) 10/21/24 10/21/24 10/21/24 Range/Units 14:38 14:38 14:38 WBC 17.7 H (3.8-10.6) k/uL Hgb 10.8 L (11.4-16.0) gm/dL Plt Count 522 H (150-450) k/uL Neutrophils # 14.3 H (1.3-7.7) k/uL APTT 30.3 H (22.0-30.0) sec Sodium 135 L (137-145) mmol/L BUN 24 H (7-17) mg/dL Glucose 302 H (74-99) mg/dL POC Glucose (mg/dL) (70-110) mg/dL 10/21/24 10/22/24 10/22/24 Range/Units 21:13 06:29 11:45 WBC (3.8-10.6) k/uL Hgb (11.4-16.0) gm/dL Plt Count (150-450) k/uL Neutrophils # (1.3-7.7) k/uL APTT (22.0-30.0) sec Sodium (137-145) mmol/L BUN (7-17) mg/dL Glucose (74-99) mg/dL POC Glucose (mg/dL) 211 H 66 L 59 L (70-110) mg/dL Thrombosis Risk Factor Assmnt - Choose All That Apply Any of the Below Risk Factors Present?: No Other Risk Factors: Yes Each Risk Factor Represents 2 Points: Age 61-74 years, Patient confined to bed Thrombosis Risk Factor Assessment Total Risk Factor Score: 4 Thrombosis Risk Factor Assessment Level: Moderate Risk
[2024-10-22] MEDS: DAPTOmycin 350 MG in SODIUM CHLORIDE 0.9% 50 ML IVPB SCH (14:37)
[2024-10-22 16:38] LABS: Glucose,Whole Blood 220 mg/dL (70-110)
[2024-10-22 19:40] LABS: Glucose,Whole Blood 193 mg/dL (70-110)
[2024-10-22] MEDS: HYDROCORTISONE 1% OINT 28.35 GM TUBE TOPICAL SCH (21:28)
[2024-10-22] MEDS: ATORVASTATIN 80 MG TAB PO SCH (21:28)
[2024-10-23] MEDS: LEVOTHYROXINE 50 MCG TAB PO SCH (05:47)
[2024-10-23 05:48] LABS: Glucose,Whole Blood 109 mg/dL (70-110)
[2024-10-23 07:37] LABS: Basophils % (A) 0 %; Eosinophils # (A) 0.2 k/uL (0-0.7); Eosinophils % (A) 1 %; HCT 36.3 % (34.0-46.0); HGB 11.2 gm/dL (11.4-16.0); Lymphocytes # (A) 1.5 k/uL (1.0-4.8); Lymphocytes % (A) 8 %; MCH 26.3 pg (25.0-35.0); MCHC 30.8 g/dL (31.0-37.0); MCV 85.4 fL (80.0-100.0); Mean Platelet Volume 7.4; Monocytes # (A) 0.8 k/uL (0-1.0); Monocytes % (A) 4 %; Neutrophils # (A) 15.8 k/uL (1.3-7.7); Neutrophils % (A) 85 %; Platelet Count 546 k/uL (150-450); RBC 4.25 m/uL (3.80-5.40); RDW 14.5 % (11.5-15.5); WBC 18.5 k/uL (3.8-10.6)
[2024-10-23 07:56] LABS: African American GFR (CKD) 80 (>60 ml/min/1.73 sqM); Anion Gap 8 mmol/L; Blood Urea Nitrogen 15 mg/dL (7-17); Calcium 8.9 mg/dL (8.4-10.2); Carbon Dioxide 25 mmol/L (22-30); Chloride 105 mmol/L (98-107); Glucose 97 mg/dL (74-99); Non-African American GFR(CKD) 69 (>60 ml/min/1.73 sqM); Potassium 3.9 mmol/L (3.5-5.1); Sodium 138 mmol/L (137-145)
--- NOTE | 2024-10-23 08:30 | P.CONS ---
History of Present Illness - Reason for Consult Consult date: 10/22/24 Toe gangrene Requesting physician: Ho Smith - Chief Complaint Left third toe discoloration x days - History of Present Illness Patient is a 69-year-old female with a past medical history significant for CVA TIA diabetes mellitus hypertension hyperlipidemia pneumonia coronary disease did have history of left fifth toe gangrene status post amputation and has completed antibiotic therapy now presenting to the hospital for evaluation of left third toe discoloration patient is not very clear how it started however apparently has been going on for about a week or so and the patient apparently noticed to have worsening of the discoloration by 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 was sent to the ER patient denies high-grade fever or any chills did have low-grade fever of 99.5 on presentation to hospital denies any headache or URI symptoms no chest pain shortness of breath or cough no nausea no vomiting no abdominal pain did have some mild dull aching pain to the left third toe without any radiation or foul-smelling drainage patient on presentation to the hospital did have a white count of 17.7 creatinine 0.88 patient was started on vancomycin and Zosyn admit to the hospital infectious disease was consulted for further management of antibiotic therapy Review of Systems Positive point and negatives has been mentioned in the HPI, complete review of systems was performed and all other systems are negative Past Medical History Past Medical History: Coronary Artery Disease (CAD), Heart Failure, CVA/TIA, Diabetes Mellitus, Hyperlipidemia, Hypertension, Pneumonia, Skin Disorder, Vascular Disorder Additional Past Medical History / Comment(s): 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 Hx falls. Diverticulitis. PVD. Dysphagia. Has peg tube but is not in use. Needs 2 staff to pivot/transfer pt. Currently resides at [facility] since November 2022. Hx acute respiratory failure. Neuromuscular dysfunction of bladder. History of Any Multi-Drug Resistant Organisms: MRSA Year Discovered:: 02/15/23 MDRO Source:: rt foot Past Surgical History: Section, Heart Catheterization, Orthopedic Surgery, Tonsillectomy Additional Past Surgical History / Comment(s): Right Femoral Popliteal bypass 10/19/22, at [facility], amputation of second third and fourth toes on right foot, carpal tunnel surgery. Past Anesthesia/Blood Transfusion Reactions: No Reported Reaction Additional Past Anesthesia/Blood Transfusion Reaction / Comm: Never received blood. Smoking Status: Never smoker - Past Family History Mother Family Medical History: Cancer Additional Family Medical History / Comment(s): History of lower back fusion Father Family Medical History: Coronary Artery Disease (CAD) Medications and Allergies Home Medications Medication Instructions Recorded Confirmed Type Aspirin EC [Ecotrin Low Dose] 81 mg PO DAILY@89907/23/22 10/21/24 History Acetaminophen [Tylenol] 650 mg PO Q4H PRN 11/03/22 10/21/24 History carvediloL [Coreg] 6.25 mg PO BID@0900,209911/03/22 10/21/24 History Gabapentin [Neurontin] 300 mg PO TID@0600,1300,209901/26/23 10/21/24 History Melatonin 3 mg PO HS@209901/26/23 10/21/24 History Cetirizine HCl [Zyrtec] 10 mg PO DAILY@89905/05/23 10/21/24 History Ferrous Sulfate [Iron (65 MG 325 mg PO DAILY@89905/05/23 10/21/24 History Elemental)] Sennosides/Docusate Sodium [Senna 1 cap PO DAILY PRN 05/05/23 10/21/24 History Plus 8.6-50 mg Softgel] Simethicone Chew [Mylicon Chew] 80 mg PO Q6H PRN 07/05/23 10/21/24 History Vit C/E/Zn/Coppr/Lutein/Zeaxan 1 cap PO BID 01/30/24 10/21/24 History [Preservision Areds 2 Softgel] Atorvastatin [Lipitor] 80 mg PO HS@209905/31/24 10/21/24 History Lactulose 20 gm PO DAILY PRN 05/31/24 10/21/24 History Levothyroxine Sodium [Synthroid] 25 mcg PO SUTUTHSA@59905/31/24 10/21/24 History Glucerna Shake 1 can PO DAILY@0906/24/24 10/21/24 History Levothyroxine Sodium [Synthroid] 50 mcg PO MOWEFR@59906/24/24 10/21/24 History Magnesium Hydroxide [Milk of 2,400 mg PO DAILY PRN 06/24/24 10/21/24 History Magnesia] amLODIPine [Norvasc] 5 mg PO HS@2100 06/24/24 06/24/24 History Insulin Glargine,Hum.rec.anlog 15 units SQ HS@2100 #0 07/02/24 10/21/24 Rx [Lantus Solostar Pen] traMADol HCL 50 mg PO Q6H PRN #4 tab 07/02/24 10/21/24 Rx Cholecalciferol [Vitamin D3 (25 25 mcg PO DAILY 10/21/24 10/21/24 History Mcg = 1000 Iu)] Cyclobenzaprine [Flexeril] 5 mg PO TID PRN 10/21/24 10/21/24 History Famotidine [Pepcid] 20 mg PO HS 10/21/24 10/21/24 History Hydrocortisone Oint 1 applic TOPICAL HS 10/21/24 10/21/24 History [Hydrocortisone 2.5% Oint] INSULIN LISPRO (HumaLOG) [humaLOG] See Protocol SQ ACHS 10/21/24 10/21/24 History Oseltamivir 6Mg/ml Oral Susp 30 mg PO DAILY 10/21/24 10/21/24 History [Tamiflu] Terbinafine [LamISIL] 250 mg PO DAILY 10/21/24 10/21/24 History lisinopriL 2.5 mg PO DAILY 10/21/24 10/21/24 History Allergies Allergy/AdvReac Type Severity Reaction Status Date / Time unknown sleep aid Allergy Severe Rash/Hives Uncoded 10/21/24 15:46 Physical Exam Vitals: Vital Signs Temp Pulse Pulse Resp BP BP Pulse Ox 10/22/24 07:00 99.1 F 70 17 148/81 96 10/22/24 00:47 98.0 F 69 16 137/79 95 10/21/24 21:00 98.7 F 77 15 132/81 95 10/21/24 18:50 77 16 125/77 93 L 10/21/24 14:17 99.5 F 70 16 139/80 93 L Intake and Output 10/21/24 10/22/24 10/22/24 22:59 06:59 14:59 Intake Total 240 Balance 240 Intake: Oral 240 Other: Voiding Method Diaper Diaper Diaper # Voids 2 4 Weight 61.235 kg GENERAL DESCRIPTION: Elderly female lying in bed, no distress. No tachypnea or accessory muscle of respiration use. HEENT: Shows Pallor , no scleral icterus. Oral mucous membrane is dry. NECK: Trachea central, no thyromegaly. LUNGS: Unlabored breathing. Clear to auscultation anteriorly. No wheeze or crackle. HEART: S1, S2, regular rate and rhythm. No loud murmur ABDOMEN: Soft, no tenderness , guarding or rigidity, no organomegaly EXTREMITIES: Left third toe is necrotic with some surrounding redness no foul- smelling drainage SKIN: No rash, no masses palpable. NEUROLOGICAL: The patient is awake, alert, oriented x3, mood and affect normal. Results CBC & Chem 7: 10/23/24 06:57 10/23/24 06:57 Labs: Abnormal Lab Results - Last 24 Hours (Table) 10/21/24 10/21/24 10/21/24 Range/Units 14:38 14:38 14:38 WBC 17.7 H (3.8-10.6) k/uL Hgb 10.8 L (11.4-16.0) gm/dL Plt Count 522 H (150-450) k/uL Neutrophils # 14.3 H (1.3-7.7) k/uL APTT 30.3 H (22.0-30.0) sec Sodium 135 L (137-145) mmol/L BUN 24 H (7-17) mg/dL Glucose 302 H (74-99) mg/dL POC Glucose (mg/dL) (70-110) mg/dL 10/21/24 10/22/24 Range/Units 21:13 06:29 WBC (3.8-10.6) k/uL Hgb (11.4-16.0) gm/dL Plt Count (150-450) k/uL Neutrophils # (1.3-7.7) k/uL APTT (22.0-30.0) sec Sodium (137-145) mmol/L BUN (7-17) mg/dL Glucose (74-99) mg/dL POC Glucose (mg/dL) 211 H 66 L (70-110) mg/dL Assessment and Plan (1) Diabetic infection of left foot Current Visit: Yes Status: Acute Code(s): E11.628 - TYPE 2 DIABETES MELLITUS WITH OTHER SKIN COMPLICATIONS; L08.9 - LOCAL INFECTION OF THE SKIN AND SUBCUTANEOUS TISSUE, UNSP SNOMED Code(s): 744801908 (2) Gangrene of toe of left foot Current Visit: No Status: Acute Code(s): I96 - GANGRENE, NOT ELSEWHERE CLASSIFIED SNOMED Code(s): 95193733380583515 (3) Type 2 diabetes mellitus with foot ulcer Current Visit: No Status: Acute Code(s): E11.621 - TYPE 2 DIABETES MELLITUS WITH FOOT ULCER; L97.509 - NON-PRESSURE CHRONIC ULCER OTH PRT UNSP FOOT W UNSP SEVERITY SNOMED Code(s): 8007987905415 Plan: 1patient presented to hospital with left third toe gangrene in this patient who had previous history of left fifth toe gangrene status post amputation culture at that time were positive for drug-resistant Proteus and subsequent the patient also have a urine culture positive for VRE we will need to cover for the resistant gram-positive as well as gram-negative pathogen. 2await amputation and deep culture for the patient being followed by vascular surgery. 3we will continue with Zosyn however switch vancomycin to daptomycin with a history of VRE while waiting for the workup to be completed We will follow on clinical condition and cultures to further adjust medication if needed Thank you for this consultation we will follow the patient along with you Dictation was produced using [employer] dictation software. please excuse any grammatical, word or spelling errors. Time with Patient: Greater than 30
[2024-10-23] MEDS: ENOXAPARIN 40 MG/0.4 ML SYRINGE SQ SCH (08:32)
[2024-10-23] MEDS: ASPIRIN 81 MG PO SCH (08:32)
[2024-10-23] MEDS ORDERED: NON FORMULARY DRUG (Glucerna Shake 1 CAN Ml) PO SCH (09:00)
[2024-10-23 11:53] LABS: Glucose,Whole Blood 68 mg/dL (70-110)
[2024-10-23] MEDS ORDERED: DEXTROSE 50% SYRINGE 50 ML IVP PRN (12:06)
[2024-10-23] MEDS: DEXTROSE 50% SYRINGE 50 ML IVP PRN (12:15)
[2024-10-23] MEDS: IV FLUID CONTINUATION 450 ML IV ONE (13:20)
[2024-10-23 13:30] LABS: Glucose,Whole Blood 109 mg/dL (70-110)
[2024-10-23] MEDS ORDERED: ePHEDrine 50 MG/ML 1 ML VIAL ONE (15:05)
[2024-10-23] MEDS ORDERED: PHENYLEPHRINE 10 MG/ML VIAL ONE (15:05)
[2024-10-23] MEDS ORDERED: PROPOFOL 10 MG/ML 20 ML VIAL IV ONE (15:05)
[2024-10-23] MEDS ORDERED: KETAMINE HCL IN 0.9 % NACL 50 MG/5 ML SYRINGE ONE (15:05)
[2024-10-23] MEDS ORDERED: LIDOCAINE 1% INJ 10MG/ML (20 ML MDV) ONE (15:05)
[2024-10-23] MEDS ORDERED: fentaNYL (PF) 50 MCG/ML 2 ML AMP ONE (15:05)
[2024-10-23] MEDS ORDERED: WATER FOR INJECTION, STERILE 10 ML VIAL IV ONE (15:05)
[2024-10-23] MEDS ORDERED: VASOPRESSIN 20 UNIT/ML 1 ML VIAL ONE (15:05)
[2024-10-23] MEDS: IV FLUID CONTINUATION 1,000 ML IV ONE (16:17)
--- NOTE | 2024-10-23 16:18 | P.OP ---
Date of Procedure: 10/23/24 Preoperative Diagnosis: 1: Gangrene second third toes left foot. 2: Diabetic vascular disease. Postoperative Diagnosis: Same. Procedure(s) Performed: Transmetatarsal amputation left foot. Anesthesia: LEENA Surgeon: Blayne Iglesias Estimated Blood Loss (ml): 5 Pathology: other (Amputated portion of the left foot) Condition: stable Disposition: no change Indications for Procedure: Patient is a 69-year-old female with a longstanding history of vascular disease. She previously had undergone a amputation of the left fifth toe and recently started developing ischemic changes of her third and second toes of the left foot. On clinical examination the plantar surface as well as the dorsal surface appeared to be relatively well-perfused and was felt that the patient would benefit by transmetatarsal amputation. The procedure, risk and benefits were discussed with the patient and her spouse. All questions answered to family and patient satisfaction and consent form was signed. Description of Procedure: Patient was brought the op room placed in the supine position administered general endotracheal anesthesia administered by the department of anesthesiology. Patient's intravenously administered antibiotic regimen was continued. The patient's left lower extremity was sterilely prepped and draped in usual manner. The third toe was gangrenous and the second toe was showing signs of increased inflammatory response concerning for early ischemia. It was felt that the patient would be best served by a transmetatarsal amputation. An incision was made along the plantar surface of the foot at the base of the toes. Hemostasis was achieved using electrocautery. The incision was brought anteriorly and again hemostasis was achieved with electrocautery. Good bleeding was identified. The incision on the dorsal surface was taken down to the level of the bone. Periosteal elevator was utilized to mobilize the periosteum and utilizing a power saw the 1st through 4th toes were transected at the metatarsal level. The soft tissues posteriorly were taken down from their attachments to the bone with electrocautery and the specimen sent to pathology. Flexor tendons were transected as far proximally as possible. There is no evidence of deep space abscess. The wound was copiously irrigated. The wound was closed with 4- 0 nylon placed in vertical mattress form. Appropriate noncompressive dressings were applied. Patient tolerated the procedure well, awoke without apparent complication was transferred to the recovery area in satisfactory and stable condition.
[2024-10-23] MEDS ORDERED: SIMETHICONE 80 MG CHEWABLE PO PRN (16:19)
[2024-10-23] MEDS ORDERED: ACETAMINOPHEN TAB 325 MG TAB PO PRN (16:19)
[2024-10-23] MEDS ORDERED: CYCLOBENZAPRINE 5 MG TAB PO PRN (16:19)
[2024-10-23 16:40] LABS: Glucose,Whole Blood 94 mg/dL (70-110)
[2024-10-23 17:59] LABS: Glucose,Whole Blood 90 mg/dL (70-110)
[2024-10-23] MEDS: MAGNESIUM HYDROXIDE 2,400 MG/30 ML CUP PO PRN (18:14)
[2024-10-23] MEDS: HYDROcodone/APAP 5-325MG 1 EACH TAB PO PRN (18:35)
[2024-10-23] MEDS ORDERED: NON FORMULARY DRUG (Insulin Glargine,Hum.Rec.Anlog [Lantus Solostar Pen] 100 UNIT/ML Insul SQ SCH (21:00)
[2024-10-23] MEDS: traMADol 50 MG TAB PO PRN (21:42)
[2024-10-23] MEDS: VIT A,C & E-LUTEIN-MINERALS 1 EACH TAB PO SCH (21:43)
[2024-10-23] MEDS: carvediloL 6.25 MG TAB PO SCH (21:43)
[2024-10-23] MEDS: GABAPENTIN 300 MG CAP PO SCH (21:43)
[2024-10-23] MEDS: amLODIPine 5 MG TAB PO SCH (21:43)
[2024-10-23] MEDS: FAMOTIDINE 20 MG TAB PO SCH (21:43)
--- NOTE | 2024-10-23 21:55 | P.PN ---
Subjective Progress Note Date: 10/23/24 69-year-old female with history of diabetes mellitus and prevascular disease came in for left third toe wet gangrene and infectious gangrene. Patient is presently on daptomycin and Zosyn. Vascular surgery and infectious disease were consulted patient will need amputation of the toe patient has malodorous discharge from the toe denied any fever chills abdominal pain nausea vomiting CT angio of the abdomen and aorta with runoff showed findings of occlusion of bilateral superficial femoral artery with deep collaterals communicating with the distal bypass stent reconstituting the right popliteal artery. Trifurcation vessels on the left are patent to the ankle with areas of several focal stenosis right appeared to be occluded within the proximal portion, peroneal artery proximal calf. 10/23/2024 Patient is evaluated today in follow up on the observation unit. She is resting in bed comfortably is at the bedside. Patient is pending left 2nd and 3rd toe amputation today scheduled tentatively for 1300. Patient reports that her pain today is minimal. She was noted to have decreased blood glucose as she has been NPO for surgery. dextrose will be given and monitored closely to avoid further hypoglycemic episodes. White blood cell count today is 18.5. Review of Systems Constitutional: Reports fatigue denied any fever. Cardio vascular: denied any chest pain, palpitations Gastrointestinal: denied any nausea, vomiting, diarrhea Pulmonary: Denied any shortness of breath cough Neurologic denied any new focal deficits All inpatient medications were reviewed and appropriate changes in these medications as dictated in the interval history and assessment and plan. PHYSICAL EXAMINATION: GENERAL: The patient is alert and oriented x2-3, not in any acute distress. Well developed, well nourished. Fatigued, pale. HEENT: Pupils are round and equally reacting to light. EOMI. No scleral icterus. No conjunctival pallor. Normocephalic, atraumatic. No pharyngeal erythema. No thyromegaly. CARDIOVASCULAR: S1 and S2 present. No murmurs, rubs, or gallops. PULMONARY: Chest is clear to auscultation, no wheezing or crackles. ABDOMEN: Soft, nontender, nondistended, normoactive bowel sounds. No palpable organomegaly. MUSCULOSKELETAL: No joint swelling or deformity. EXTREMITIES: No cyanosis, clubbing, or pedal edema. Gangrene of the third toe as mentioned above infectious and wet gangrene NEUROLOGICAL: Gross neurological examination did not reveal any focal deficits. SKIN: No rashes. Blackened 3rd toe with some bloody drainage. Assessment and plan -Right foot third toe infection with gangrene: Vascular surgery evaluation and patient will be going for left 2nd and 3rd toe amputation today. Patient will be continued on daptomycin and Zosyn -Peripheral vascular disease, arterial disease with bilateral superficial femoral artery occlusion -Coronary artery disease with prior cardiac stenting -Type 2 diabetes mellitus: Hold off on long-acting insulin now continue with sliding scale insulin patient will be resumed on long-acting insulin postsurgery -Hypoglycemia due to patient being NPO. Continue to monitor and treat per protocol with dextrose. NPO for surgery -Hypertension hold off amlodipine continue on FRANCISCO inhibitor watch for any perioperative hypotension -Peripheral vascular disease Lovenox -Hx of stroke with residual left weakness -Chronic medical debility patient is NWB at baseline DVT prophylaxis: Lovenox The impression and plan of care has been dictated by Domenica Mckeon, Nurse Practitioner as directed. Dr. Kaiser MD I have performed a history and physical examination and medical decision making of this patient, discussed the same with the dictator, and agree with the dictators assessment and plan as written, documented as a scribe. Based on total visit time, I have performed more than 50% of this visit. Objective - Vital Signs Vital signs: Vital Signs Temp 98.5 F 10/23/24 07:00 Pulse 73 10/23/24 07:00 Resp 16 10/23/24 07:00 BP 147/86 10/23/24 07:00 Pulse Ox 96 10/23/24 07:00 FiO2 Intake & Output 10/22/24 10/23/24 10/23/24 18:59 06:59 18:59 Intake Total 1070 Output Total 1000 Balance 1070 -1000 Intake: Intake, IV Titration 570 Amount Piperacillin-Tazobactam 3 100 .375 gm In Sodium Chloride 0.9% 100 ml @ 25 mls/hr IVPB Q8H [facility] Rx#: [id number] Sodium Chloride 0.9% 1, 220 000 ml @ 20 mls/hr IV . Q24H [facility] Rx#:[id number] Vancomycin 1,250 mg In 250 Sodium Chloride 0.9% 250 ml @ 125 mls/hr IVPB Q16H [facility] Rx#:[id number] Oral 500 Output: Urine 1000 Other: Voiding Method Diaper External Catheter # Voids 2 1 # Bowel Movements 0 0 - Labs CBC & Chem 7: 10/23/24 06:57 10/23/24 06:57 Labs: Abnormal Lab Results - Last 24 Hours (Table) 10/22/24 10/22/24 10/22/24 Range/Units 11:45 16:36 19:39 WBC (3.8-10.6) k/uL Hgb (11.4-16.0) gm/dL MCHC (31.0-37.0) g/dL Plt Count (150-450) k/uL Neutrophils # (1.3-7.7) k/uL POC Glucose (mg/dL) 59 L 220 H 193 H (70-110) mg/dL 10/23/24 Range/Units 06:57 WBC 18.5 H (3.8-10.6) k/uL Hgb 11.2 L (11.4-16.0) gm/dL MCHC 30.8 L (31.0-37.0) g/dL Plt Count 546 H (150-450) k/uL Neutrophils # 15.8 H (1.3-7.7) k/uL POC Glucose (mg/dL) (70-110) mg/dL Assessment and Plan Time with Patient: Less than 30
[2024-10-24 06:16] LABS: Glucose,Whole Blood 53 mg/dL (70-110)
[2024-10-24] MEDS: LEVOTHYROXINE 25 MCG TAB PO SCH (06:21)
[2024-10-24 07:44] LABS: Glucose,Whole Blood 102 mg/dL (70-110)
[2024-10-24 09:10] LABS: Basophils # (A) 0.05 X 10*3/uL (0.00-0.10); Basophils % (A) 0.3 %; Eosinophils # (A) 0.18 X 10*3/uL (0.04-0.35); Eosinophils % (A) 1.2 %; HGB 10.4 g/dL (12.0-17.0); Lymphocytes # (A) 2.16 X 10*3/uL (0.90-5.00); Lymphocytes % (A) 14.4 %; MCH 27.1 pg (27.0-32.0); MCHC 31.5 g/dL (32.0-37.0); MCV 85.9 FL (80.0-97.0); Mean Platelet Volume 9.3 FL (9.5-12.2); Monocytes # (A) 1.13 X 10*3/uL (0.20-1.00); Monocytes % (A) 7.5 %; NRBC Per 100 WBC 0 X 10*3/uL (0.00-0.01); Neutrophils # (A) 11.46 X 10*3/uL (1.80-7.70); Neutrophils % (A) 76.1 %; Platelet Count 583 X 10*3/uL (140-440); RBC 3.84 X 10*6/uL (4.10-5.60); RDW 14.7 % (11.5-14.5); WBC 15.05 X 10*3/uL (4.50-10.00)
[2024-10-24 09:41] LABS: Blood Urea Nitrogen 11.2 mg/dL (9.0-27.0); Calcium 8.6 mg/dL (8.7-10.3); Carbon Dioxide 22.8 mmol/L (21.6-31.8); Chloride 108 mmol/L (96-109); Glucose 54 mg/dL (70-110); Potassium 4.2 mmol/L (3.5-5.5); Sodium 143 mmol/L (135-145)
[2024-10-24] MEDS: FERROUS SULFATE 325 MG TAB PO SCH (10:56)
[2024-10-24] MEDS: CHOLECALCIFEROL 25 MCG (1000 IU) TABLET PO SCH (10:56)
[2024-10-24] MEDS: LORATADINE 10 MG TAB PO SCH (10:57)
[2024-10-24 11:33] LABS: Glucose,Whole Blood 160 mg/dL (70-110)
--- NOTE | 2024-10-24 12:18 | P.PN ---
Subjective Progress Note Date: 10/23/24 Principal diagnosis: Reason for follow-up is left diabetic foot infection with gangrenous toe Patient is a 69-year-old female with a past medical history significant for CVA TIA diabetes mellitus hypertension hyperlipidemia pneumonia coronary disease did have history of left fifth toe gangrene status post amputation now with admission to the hospital with left third toe gangrene and this patient is status post transmetatarsal amputation completed on 10/23/2024. On today's evaluation that is 10/23/2024,the patient denies any fever or any chills, patient is breathing comfortably on room air, the patient denies chest pain shortness of breath and no significant cough, patient denies abdominal pain, no nausea vomiting or diarrhea. Denies any worsening pain to the left foot. Patient white count is 18.5 creatinine 0.87 cultures currently pending Objective - Vital Signs Vital signs: Vital Signs Temp 98.2 F 10/23/24 18:03 Pulse 73 10/23/24 18:03 Resp 14 10/23/24 18:03 BP 133/76 10/23/24 18:03 Pulse Ox 95 10/23/24 18:03 FiO2 Intake & Output 10/23/24 10/23/24 10/24/24 06:59 18:59 06:59 Intake Total 700 Output Total 1000 5 Balance -1000 695 Intake: IV 700 Output: Urine 1000 Estimated Blood Loss 5 Other: Voiding Method External Catheter External Catheter # Voids 1 # Bowel Movements 0 - Exam GENERAL DESCRIPTION: An elderly female lying in bed in no distress RESPIRATORY SYSTEM: Unlabored breathing , decreased breath sounds at bases HEART: S1 S2 regular rate and rhythm , ABDOMEN: Soft , no tenderness EXTREMITIES: Left foot is currently dressed - Labs CBC & Chem 7: 10/24/24 03:24 10/24/24 03:24 Labs: Abnormal Lab Results - Last 24 Hours (Table) 10/23/24 10/23/24 Range/Units 06:57 11:51 WBC 18.5 H (3.8-10.6) k/uL Hgb 11.2 L (11.4-16.0) gm/dL MCHC 30.8 L (31.0-37.0) g/dL Plt Count 546 H (150-450) k/uL Neutrophils # 15.8 H (1.3-7.7) k/uL POC Glucose (mg/dL) 68 L (70-110) mg/dL Assessment and Plan (1) Diabetic infection of left foot Current Visit: Yes Status: Acute Code(s): E11.628 - TYPE 2 DIABETES MELLITUS WITH OTHER SKIN COMPLICATIONS; L08.9 - LOCAL INFECTION OF THE SKIN AND SUBCUTANEOUS TISSUE, UNSP SNOMED Code(s): 141511568 (2) Gangrene of toe of left foot Current Visit: No Status: Acute Code(s): I96 - GANGRENE, NOT ELSEWHERE CLASSIFIED SNOMED Code(s): 63025105414326151 (3) Type 2 diabetes mellitus with foot ulcer Current Visit: No Status: Acute Code(s): E11.621 - TYPE 2 DIABETES MELLITUS WITH FOOT ULCER; L97.509 - NON-PRESSURE CHRONIC ULCER OTH PRT UNSP FOOT W UNSP SEVERITY SNOMED Code(s): 7206248800260 Plan: 1patient presented to hospital with left third toe gangrene in this patient who had previous history of left fifth toe gangrene status post amputation culture at that time were positive for drug-resistant Proteus and subsequent the patient also have a urine culture positive for VRE we will need to cover for the resistant gram-positive as well as gram-negative pathogen. 2patient is status post transmetatarsal amputation of the left foot with a consultation performed 3patient is currently being treated with Zosyn and daptomycin while waiting for the culture to finalize Dictation was produced using [employer] dictation software. please excuse any grammatical, word or spelling errors. Time with Patient: Less than 30
--- NOTE | 2024-10-24 12:18 | P.PN ---
Subjective Progress Note Date: 10/24/24 Principal diagnosis: Left gangrene toes Patient is seen and examined today as a follow-up. She is postop day #1 for left transmetatarsal amputation. She states she is doing well. She has no pain of her left foot. She is afebrile. Wound cultures are currently pending. She remains on IV antibiotics per recommendations from infectious disease. Objective - Vital Signs Vital signs: Vital Signs Temp 98.3 F 10/24/24 02:43 Pulse 67 10/24/24 02:43 Resp 17 10/24/24 02:43 BP 160/81 10/24/24 02:43 Pulse Ox 96 10/24/24 02:43 FiO2 Intake & Output 10/23/24 10/24/24 10/24/24 18:59 06:59 18:59 Intake Total 700 Output Total 5 Balance 695 Intake: IV 700 Output: Estimated Blood Loss 5 Other: Voiding Method External Catheter External Catheter # Voids 3 - Exam General appearance: The patient is alert, oriented, appears in no acute distress. HET: Head is normocephalic and atraumatic. Neck: Supple. Heart: Regular. Lungs: Equal expansion, normal respiratory effort. Abdomen: Soft, nontender, nondistended. Extremities: Right foot with previous second third and fourth toe amputation well-healed. Left TMA with dressing clean dry and intact. Bilateral feet warm to the touch. Neurological: Hemiparesis from previous stroke on the left side. - Labs CBC & Chem 7: 10/24/24 03:24 10/24/24 03:24 Labs: Abnormal Lab Results - Last 24 Hours (Table) 10/23/24 10/24/24 Range/Units 11:51 06:15 POC Glucose (mg/dL) 68 L 53 L (70-110) mg/dL Microbiology - Last 24 Hours (Table) 10/23/24 15:46 Gram Stain - Preliminary Toe - Left First Assessment and Plan Assessment: 1. Left transmetatarsal amputation 2. Gangrene second and third toes of left foot 3. Diabetic vascular disease 4. Peripheral arterial disease, bilateral SFA occlusion 5. History of right popliteal stent and femoral to popliteal bypass 6. History of CVA with residual left-sided weakness 7. Nonambulatory 8. History of coronary artery disease status post stent Plan: 1. Daily dressing change to left TMA with Adaptic, 4 x 4, Kerlix and secured with tape 2. Continue antibiotics per recommendations from infectious disease 3. Recommend offloading soft boots to bilateral feet 4. Rest of medical management per primary medical team 5. Patient may shower starting tomorrow, no tub bathing or soaking Thank you for this consultation, we will continue to follow. The impression and plan of care has been dictated as directed. Dr. Esme Aviles performed a history and examination of this patient, discussed the same with the dictator. I agree with the dictator's note ,documented as a scribe. Any additional findings or plans will be noted.
--- NOTE | 2024-10-24 13:20 | P.PN ---
Subjective Progress Note Date: 10/24/24 Principal diagnosis: Reason for follow-up is left diabetic foot infection with gangrenous toe Patient is a 69-year-old female with a past medical history significant for CVA TIA diabetes mellitus hypertension hyperlipidemia pneumonia coronary disease did have history of left fifth toe gangrene status post amputation now with admission to the hospital with left third toe gangrene and this patient is status post transmetatarsal amputation completed on 10/23/2024. On today's evaluation that is 10/24/2024,the patient remains to be afebrile, patient is on room air not requiring supplemental oxygen and denies any shortness of breath no chest pain or cough.Patient denies having any nausea or vomiting, no abdominal pain and no diarrhea pain to the left foot is currently controlled. Patient white count is down to 15.05, creatinine 0.8 Objective - Vital Signs Vital signs: Vital Signs Temp 98.3 F 10/24/24 07:23 Pulse 70 10/24/24 07:23 Resp 17 10/24/24 07:23 BP 136/77 10/24/24 07:23 Pulse Ox 95 10/24/24 07:23 FiO2 Intake & Output 10/23/24 10/24/24 10/24/24 18:59 06:59 18:59 Intake Total 700 Output Total 5 Balance 695 Intake: IV 700 Output: Estimated Blood Loss 5 Other: Voiding Method External Catheter External Catheter # Voids 3 - Exam GENERAL DESCRIPTION: An elderly female lying in bed in no distress RESPIRATORY SYSTEM: Unlabored breathing , decreased breath sounds at bases HEART: S1 S2 regular rate and rhythm , ABDOMEN: Soft , no tenderness EXTREMITIES: Left foot is currently dressed - Labs CBC & Chem 7: 10/24/24 03:24 10/24/24 03:24 Labs: Abnormal Lab Results - Last 24 Hours (Table) 10/24/24 10/24/24 10/24/24 Range/Units 03:24 03:24 06:15 WBC 15.05 H (4.50-10.00) X 10*3/uL RBC 3.84 L (4.10-5.60) X 10*6/uL Hgb 10.4 L (12.0-17.0) g/dL Hct 33.0 L (37.2-50.0) % MCHC 31.5 L (32.0-37.0) g/dL RDW 14.7 H (11.5-14.5) % Plt Count 583 H (140-440) X 10*3/uL MPV 9.3 L (9.5-12.2) FL Immature Gran # 0.07 H (0.00-0.04) X 10*3/uL Neutrophils # 11.46 H (1.80-7.70) X 10*3/uL Monocytes # 1.13 H (0.20-1.00) X 10*3/uL Anion Gap 12.20 H (4.00-12.00) mmol/L Glucose 54 L (70-110) mg/dL POC Glucose (mg/dL) 53 L (70-110) mg/dL Calcium 8.6 L (8.7-10.3) mg/dL 10/24/24 Range/Units 11:32 WBC (4.50-10.00) X 10*3/uL RBC (4.10-5.60) X 10*6/uL Hgb (12.0-17.0) g/dL Hct (37.2-50.0) % MCHC (32.0-37.0) g/dL RDW (11.5-14.5) % Plt Count (140-440) X 10*3/uL MPV (9.5-12.2) FL Immature Gran # (0.00-0.04) X 10*3/uL Neutrophils # (1.80-7.70) X 10*3/uL Monocytes # (0.20-1.00) X 10*3/uL Anion Gap (4.00-12.00) mmol/L Glucose (70-110) mg/dL POC Glucose (mg/dL) 160 H (70-110) mg/dL Calcium (8.7-10.3) mg/dL Microbiology - Last 24 Hours (Table) 10/23/24 15:46 Gram Stain - Preliminary Toe - Left First Assessment and Plan (1) Diabetic infection of left foot Current Visit: Yes Status: Acute Code(s): E11.628 - TYPE 2 DIABETES MELLITUS WITH OTHER SKIN COMPLICATIONS; L08.9 - LOCAL INFECTION OF THE SKIN AND SUBCUTANEOUS TISSUE, UNSP SNOMED Code(s): 137827553 (2) Gangrene of toe of left foot Current Visit: No Status: Acute Code(s): I96 - GANGRENE, NOT ELSEWHERE CLASSIFIED SNOMED Code(s): 00373920073112860 (3) Type 2 diabetes mellitus with foot ulcer Current Visit: No Status: Acute Code(s): E11.621 - TYPE 2 DIABETES MELLITUS WITH FOOT ULCER; L97.509 - NON-PRESSURE CHRONIC ULCER OTH PRT UNSP FOOT W UNSP SEVERITY SNOMED Code(s): 3052247131028 Plan: 1patient presented to hospital with left third toe gangrene in this patient who had previous history of left fifth toe gangrene status post amputation culture at that time were positive for drug-resistant Proteus and subsequent the patient also have a urine culture positive for VRE we will need to cover for the res istant gram-positive as well as gram-negative pathogen. 2patient is status post transmetatarsal amputation of the left foot with infected part removed patient not bacteremic will not need IV antibiotic on discharge however will need to wait for the cultures and for now continue with Zosyn and daptomycin will discuss further with vascular surgery and reevaluate incision tomorrow as well as a white count Dictation was produced using [employer] dictation software. please excuse any grammatical, word or spelling errors. Time with Patient: Less than 30
[2024-10-24 16:43] LABS: Glucose,Whole Blood 246 mg/dL (70-110)
[2024-10-24] MEDS: INSULIN GLARGINE (LANTUS) 100 UNIT/ML SYR SQ SCH (21:27)
[2024-10-24 22:27] LABS: Glucose,Whole Blood 144 mg/dL (70-110)
--- NOTE | 2024-10-25 05:02 | P.PN ---
Subjective Progress Note Date: 10/24/24 69-year-old female with history of diabetes mellitus and prevascular disease came in for left third toe wet gangrene and infectious gangrene. Patient is presently on daptomycin and Zosyn. Vascular surgery and infectious disease were consulted patient will need amputation of the toe patient has malodorous discharge from the toe denied any fever chills abdominal pain nausea vomiting CT angio of the abdomen and aorta with runoff showed findings of occlusion of bilateral superficial femoral artery with deep collaterals communicating with the distal bypass stent reconstituting the right popliteal artery. Trifurcation vessels on the left are patent to the ankle with areas of several focal stenosis right appeared to be occluded within the proximal portion, peroneal artery proximal calf. 10/23/2024 Patient is evaluated today in follow up on the observation unit. She is resting in bed comfortably is at the bedside. Patient is pending left 2nd and 3rd toe amputation today scheduled tentatively for 1300. Patient reports that her pain today is minimal. She was noted to have decreased blood glucose as she has been NPO for surgery. dextrose will be given and monitored closely to avoid further hypoglycemic episodes. White blood cell count today is 18.5. 10/24/2024 Patient is seen in follow-up status post left second and third toe amputation with vascular surgery Dr. Olguin. Infectious disease following as well and patient is maintained on IV antibiotics and awaiting cultures at this time. Will await finalized cultures to determine discharge antibiotics and patient may not require IV antibiotic therapy on discharge. at the bedside with questions and concerns that were answered and reports plan is to return back to [facility] on discharge. Patient is afebrile with no reports of chest pain or shortness of breath. White count is trending down and will follow-up on repeat labs. Continue local wound care and elevating lower extremity while at rest. Monitor blood sugars closely and patient reports tolerating diet with no reported nausea or vomiting. Review of Systems Constitutional: Reports fatigue denied any fever. Cardio vascular: denied any chest pain, palpitations Gastrointestinal: denied any nausea, vomiting, diarrhea Pulmonary: Denied any shortness of breath cough Neurologic denied any new focal deficits All inpatient medications were reviewed and appropriate changes in these medications as dictated in the interval history and assessment and plan. PHYSICAL EXAMINATION: GENERAL: The patient is alert and oriented x2-3, not in any acute distress. Well developed, well nourished. pale. HEENT: Pupils are round and equally reacting to light. EOMI. No scleral icterus. No conjunctival pallor. Normocephalic, atraumatic. No pharyngeal erythema. No thyromegaly. CARDIOVASCULAR: S1 and S2 present. No murmurs, rubs, or gallops. PULMONARY: Diminished breath sounds bilaterally otherwise chest is clear to auscultation, no wheezing or crackles. ABDOMEN: Soft, nontender, nondistended, normoactive bowel sounds. No palpable organomegaly. MUSCULOSKELETAL: No joint swelling or deformity. EXTREMITIES: No cyanosis, clubbing, or pedal edema. Surgical dressing is dry and intact on the left foot NEUROLOGICAL: Gross neurological examination did not reveal any focal deficits. Diffusely weak SKIN: No rashes. Assessment: -Left foot third toe infection with gangrene: Vascular surgery following and patient is status post left 2nd and 3rd toe amputation 10/23/2024. Patient will be continued on daptomycin and Zosyn -Peripheral vascular disease, arterial disease with bilateral superficial femoral artery occlusion -Coronary artery disease with prior cardiac stenting -Type 2 diabetes mellitus: Hold off on long-acting insulin now continue with sl iding scale insulin patient will be resumed on long-acting insulin postsurgery -Hypoglycemia due to patient being NPO. Continue to monitor and treat per protocol with dextrose. NPO for surgery -Hypertension hold off amlodipine continue on FRANCISCO inhibitor watch for any perioperative hypotension -Peripheral vascular disease Lovenox -Hx of stroke with residual left weakness -Chronic medical debility patient is NWB at baseline DVT prophylaxis: Lovenox GI prophylaxis Full code Plan: Patient being followed by vascular surgery status post amputation of the left second and third toe yesterday. Surgical dressing is dry and intact Infectious disease following and patient is maintained on IV antibiotics while awaiting surgical cultures to finalize. Patient currently has no midline or PICC line and discussed with infectious disease regarding discharge planning and will await finalized cultures to determine if patient will require continued antibiotic therapy on discharge Patient resides at [facility] and plans on returning there on discharge Continue local wound care Follow-up with repeat labs as white count remains elevated although is trending down Possible discharge planning in the next 24 to 48 hours once we have finalized cultures The impression and plan of care has been dictated by Britany Zavala, Nurse Practitioner as directed. Dr. Kaiser MD I have performed a history and physical examination and medical decision making of this patient, discussed the same with the dictator, and agree with the dictators assessment and plan as written, documented as a scribe. Based on total visit time, I have performed more than 50% of this visit. Objective - Vital Signs Vital signs: Vital Signs Temp 98.3 F 10/24/24 02:43 Pulse 67 10/24/24 02:43 Resp 17 10/24/24 02:43 BP 160/81 10/24/24 02:43 Pulse Ox 96 10/24/24 02:43 FiO2 Intake & Output 10/23/24 10/24/24 10/24/24 18:59 06:59 18:59 Intake Total 700 Output Total 5 Balance 695 Intake: IV 700 Output: Estimated Blood Loss 5 Other: Voiding Method External Catheter External Catheter # Voids 3 - Labs CBC & Chem 7: 10/24/24 03:24 10/24/24 03:24 Labs: Abnormal Lab Results - Last 24 Hours (Table) 10/23/24 10/24/24 Range/Units 11:51 06:15 POC Glucose (mg/dL) 68 L 53 L (70-110) mg/dL Microbiology - Last 24 Hours (Table) 10/23/24 15:46 Gram Stain - Preliminary Toe - Left First
[2024-10-25 06:18] LABS: Glucose,Whole Blood 134 mg/dL (70-110)
--- NOTE | 2024-10-25 10:24 | P.PN ---
Subjective Progress Note Date: 10/25/24 Principal diagnosis: Left gangrene toes Patient is seen and examined today as a follow-up. She is postop day #2 for left TMA. She states her pain has been well-controlled. She has been afebrile. Wound cultures are currently pending. Infectious disease is following and patient possibly may not need outpatient IV antibiotics. Objective - Vital Signs Vital signs: Vital Signs Temp 98.6 F 10/25/24 08:12 Pulse 70 10/25/24 08:12 Resp 20 10/25/24 08:12 BP 154/89 10/25/24 08:12 Pulse Ox 98 10/25/24 01:48 FiO2 Intake & Output 10/24/24 10/25/24 10/25/24 18:59 06:59 18:59 Output Total 700 950 Balance -700 -950 Output: Urine 700 950 Other: Voiding Method External Catheter External Catheter # Bowel Movements 1 - Exam General appearance: The patient is alert, oriented, appears in no acute distress. HET: Head is normocephalic and atraumatic. Neck: Supple. Abdomen: Soft, nondistended. Extremities: Right foot with previous second third and fourth toe amputation well-healed. Left TMA surgical site well-approximated with sutures some mild surrounding erythema with minimal serosanguineous drainage. Neurological: Hemiparesis from previous stroke on the left side. - Labs CBC & Chem 7: 10/24/24 03:24 10/24/24 03:24 Labs: Abnormal Lab Results - Last 24 Hours (Table) 10/24/24 10/24/24 10/24/24 Range/Units 11:32 16:42 22:26 POC Glucose (mg/dL) 160 H 246 H 144 H (70-110) mg/dL 10/25/24 Range/Units 06:16 POC Glucose (mg/dL) 134 H (70-110) mg/dL Assessment and Plan Assessment: 1. Left transmetatarsal amputation 2. Gangrene second and third toes of left foot 3. Diabetic vascular disease 4. Peripheral arterial disease, bilateral SFA occlusion 5. History of right popliteal stent and femoral to popliteal bypass 6. History of CVA with residual left-sided weakness 7. Nonambulatory 8. History of coronary artery disease status post stent Plan: 1. Daily dressing change to left TMA with Adaptic, 4 x 4, Kerlix and secured with tape 2. Continue antibiotics per recommendations from infectious disease 3. Recommend offloading soft boots to bilateral feet 4. Rest of medical management per primary medical team 5. Patient may shower starting tomorrow, no tub bathing or soaking 6. Recommend outpatient follow-up with Dr. Iglesias in 1 week Thank you for this consultation, patient is cleared for discharge from vascular surgery The impression and plan of care has been dictated as directed. Dr. Wong I performed a history and examination of this patient, discussed the same with the dictator. I agree with the dictator's note ,documented as a scribe. Any additional findings or plans will be noted.
[2024-10-25] MEDS ORDERED: HYDROmorphone 0.5 MG/0.5 ML SYRINGE IVP PRN (10:34)
[2024-10-25] MEDS: ONDANSETRON 4 MG/2 ML VIAL IVP ONE (10:42)
[2024-10-25] MEDS: DEXAMETHASONE SOD PHOSPHATE 4 MG/ML 1 ML VIAL IV ONE (10:42)
[2024-10-25] MEDS: LACTATED RINGERS 1,000 ML IV SCH (10:42)
[2024-10-25 10:45] LABS: Basophils # (A) 0.05 X 10*3/uL (0.00-0.10); Basophils % (A) 0.4 %; Eosinophils # (A) 0.19 X 10*3/uL (0.04-0.35); Eosinophils % (A) 1.6 %; HCT 31.5 % (37.2-50.0); HGB 9.6 g/dL (12.0-17.0); Lymphocytes # (A) 2.41 X 10*3/uL (0.90-5.00); Lymphocytes % (A) 20.6 %; MCH 26.6 pg (27.0-32.0); MCHC 30.5 g/dL (32.0-37.0); MCV 87.3 FL (80.0-97.0); Mean Platelet Volume 9.4 FL (9.5-12.2); Monocytes # (A) 0.93 X 10*3/uL (0.20-1.00); NRBC Per 100 WBC 0 X 10*3/uL (0.00-0.01); Neutrophils # (A) 8.08 X 10*3/uL (1.80-7.70); Neutrophils % (A) 69.1 %; Platelet Count 547 X 10*3/uL (140-440); RBC 3.61 X 10*6/uL (4.10-5.60); RDW 14.6 % (11.5-14.5); WBC 11.69 X 10*3/uL (4.50-10.00)
[2024-10-25 11:29] LABS: Glucose,Whole Blood 156 mg/dL (70-110)
[2024-10-25 11:31] LABS: ALT 22 U/L (8-49); AST 22 U/L (13-35); Albumin 2.7 g/dL (3.8-4.9); Albumin/Globulin Ratio 0.96 Ratio (1.60-3.17); Alkaline Phosphatase 140 U/L (41-126); BUN/Creat Ratio 12.89 Ratio (12.00-20.00); Blood Urea Nitrogen 11.6 mg/dL (9.0-27.0); Calcium 8.5 mg/dL (8.7-10.3); Carbon Dioxide 24.8 mmol/L (21.6-31.8); Chloride 105 mmol/L (96-109); Globulin 2.8 g/dL (1.6-3.3); Glucose 124 mg/dL (70-110); Potassium 3.9 mmol/L (3.5-5.5); Sodium 140 mmol/L (135-145); Total Bilirubin <0.2 mg/dL (0.3-1.2); Total Protein 5.5 g/dL (6.2-8.2)
--- NOTE | 2024-10-25 12:17 | P.PN ---
Subjective Progress Note Date: 10/25/24 Principal diagnosis: Reason for follow-up is left diabetic foot infection with gangrenous toe Patient is a 69-year-old female with a past medical history significant for CVA TIA diabetes mellitus hypertension hyperlipidemia pneumonia coronary disease did have history of left fifth toe gangrene status post amputation now with admission to the hospital with left third toe gangrene and this patient is status post transmetatarsal amputation completed on 10/23/2024. On today's evaluation that is 10/25/2024, the patient continues to be afebrile, the patient is on room air and breathing comfortably, the Pt denies having any chest pain or cough, the patient denies having any abdominal pain no vomiting or any diarrhea and denies any worsening pain to the left foot area. Patient white count is 11.69, creatinine 0.9 culture currently growing Proteus and Streptococcus agalactiae Objective - Vital Signs Vital signs: Vital Signs Temp 98.6 F 10/25/24 08:12 Pulse 70 10/25/24 08:12 Resp 20 10/25/24 10:36 BP 154/89 10/25/24 08:12 Pulse Ox 98 10/25/24 01:48 FiO2 Intake & Output 10/24/24 10/25/24 10/25/24 18:59 06:59 18:59 Output Total 700 950 Balance -700 -950 Output: Urine 700 950 Other: Voiding Method External Catheter External Catheter External Catheter # Bowel Movements 1 - Exam GENERAL DESCRIPTION: An elderly female lying in bed in no distress RESPIRATORY SYSTEM: Unlabored breathing , decreased breath sounds at bases HEART: S1 S2 regular rate and rhythm , ABDOMEN: Soft , no tenderness EXTREMITIES: Left foot is currently dressed reviewed the patient taken by the surgical SEMAPHORE OPERATOR did show some erythema otherwise incision is intact - Labs CBC & Chem 7: 10/25/24 03:33 10/25/24 03:33 Labs: Abnormal Lab Results - Last 24 Hours (Table) 10/24/24 10/24/24 10/24/24 Range/Units 11:32 16:42 22:26 POC Glucose (mg/dL) 160 H 246 H 144 H (70-110) mg/dL 10/25/24 Range/Units 06:16 POC Glucose (mg/dL) 134 H (70-110) mg/dL Microbiology - Last 24 Hours (Table) 10/23/24 15:46 Gram Stain - Preliminary Toe - Left First Wound Culture - Preliminary Proteus mirabilis Strep agalactiae - (group b) Assessment and Plan (1) Diabetic infection of left foot Current Visit: Yes Status: Acute Code(s): E11.628 - TYPE 2 DIABETES MELLITUS WITH OTHER SKIN COMPLICATIONS; L08.9 - LOCAL INFECTION OF THE SKIN AND SUBCUTANEOUS TISSUE, UNSP SNOMED Code(s): 802009394 (2) Gangrene of toe of left foot Current Visit: No Status: Acute Code(s): I96 - GANGRENE, NOT ELSEWHERE CLASSIFIED SNOMED Code(s): 43649598297834041 (3) Type 2 diabetes mellitus with foot ulcer Current Visit: No Status: Acute Code(s): E11.621 - TYPE 2 DIABETES MELLITUS WITH FOOT ULCER; L97.509 - NON-PRESSURE CHRONIC ULCER OTH PRT UNSP FOOT W UNSP SEVERITY SNOMED Code(s): 3665203607014 Plan: 1patient presented to hospital with left third toe gangrene in this patient who had previous history of left fifth toe gangrene status post amputation culture at that time were positive for drug-resistant Proteus and subsequent the patient also have a urine culture positive for VRE we will need to cover for the resistant gram-positive as well as gram-negative pathogen. 2patient is status post transmetatarsal amputation of the left foot minimal erythema at the surgical site was noticed recommend keeping the patient on IV daptomycin, however the culture not showing Proteus with the previous history of ESBL Proteus I will discontinue Zosyn and start the patient on Invanz and see her response to the current empiric therapy over the weekend discussed with the SEMAPHORE OPERATOR for admitting team as well as Dictation was produced using [employer] dictation software. please excuse any grammatical, word or spelling errors.
[2024-10-25] MEDS: ERTAPENEM 1 GM in SODIUM CHLORIDE 0.9% 50 ML IVPB SCH (13:13)
[2024-10-25 16:46] LABS: Glucose,Whole Blood 228 mg/dL (70-110)
[2024-10-25 20:28] LABS: Glucose,Whole Blood 221 mg/dL (70-110)
[2024-10-25] MEDS: ONDANSETRON 4 MG/2 ML VIAL IVP PRN (23:42)
--- NOTE | 2024-10-26 05:17 | P.PN ---
Subjective Progress Note Date: 10/25/24 69-year-old female with history of diabetes mellitus and prevascular disease came in for left third toe wet gangrene and infectious gangrene. Patient is presently on daptomycin and Zosyn. Vascular surgery and infectious disease were consulted patient will need amputation of the toe patient has malodorous discharge from the toe denied any fever chills abdominal pain nausea vomiting CT angio of the abdomen and aorta with runoff showed findings of occlusion of bilateral superficial femoral artery with deep collaterals communicating with the distal bypass stent reconstituting the right popliteal artery. Trifurcation vessels on the left are patent to the ankle with areas of several focal stenosis right appeared to be occluded within the proximal portion, peroneal artery proximal calf. 10/23/2024 Patient is evaluated today in follow up on the observation unit. She is resting in bed comfortably is at the bedside. Patient is pending left 2nd and 3rd toe amputation today scheduled tentatively for 1300. Patient reports that her pain today is minimal. She was noted to have decreased blood glucose as she has been NPO for surgery. dextrose will be given and monitored closely to avoid further hypoglycemic episodes. White blood cell count today is 18.5. 10/24/2024 Patient is seen in follow-up status post left second and third toe amputation with vascular surgery Dr. Olguin. Infectious disease following as well and patient is maintained on IV antibiotics and awaiting cultures at this time. Will await finalized cultures to determine discharge antibiotics and patient may not require IV antibiotic therapy on discharge. at the bedside with questions and concerns that were answered and reports plan is to return back to [facility] on discharge. Patient is afebrile with no reports of chest pain or shortness of breath. White count is trending down and will follow-up on repeat labs. Continue local wound care and elevating lower extremity while at rest. Monitor blood sugars closely and patient reports tolerating diet with no reported nausea or vomiting. 10/25/2024 Patient is seen in follow-up today with vascular surgery and infectious disease following. Patient is continued on IV antibiotics and will continue for now as cultures show Proteus and strep group b. Patient to undergo surgical dressing changes per vascular surgery and per ID, recommend monitoring over the weekend as there is some erythema noted at the surgical site. WBC is trending down at 11 and patient is afebrile. Patient will be returning to [facility] on discharge. Review of Systems Constitutional: Reports fatigue denied any fever. Cardio vascular: denied any chest pain, palpitations Gastrointestinal: denied any nausea, vomiting, diarrhea Pulmonary: Denied any shortness of breath cough Neurologic denied any new focal deficits All inpatient medications were reviewed and appropriate changes in these medications as dictated in the interval history and assessment and plan PHYSICAL EXAMINATION: GENERAL: The patient is alert and oriented x2-3, baseline, not in any acute distress. Well developed, well nourished. HEENT: Pupils are round and equally reacting to light. EOMI. No scleral icterus. No conjunctival pallor. Normocephalic, atraumatic. No pharyngeal erythema. No thyromegaly. CARDIOVASCULAR: S1 and S2 present. No murmurs, rubs, or gallops. PULMONARY: Diminished breath sounds bilaterally otherwise chest is clear to auscultation, no wheezing or crackles. ABDOMEN: Soft, nontender, nondistended, normoactive bowel sounds. No palpable organomegaly. MUSCULOSKELETAL: No joint swelling or deformity. EXTREMITIES: No cyanosis, clubbing, or pedal edema. Surgical dressing is dry and intact on the left foot NEUROLOGICAL: Gross neurological examination did not reveal any focal deficits. Diffusely weak SKIN: No rashes. Assessment: -Left foot third toe infection with gangrene: Vascular surgery following and patient is status post left 2nd and 3rd toe amputation 10/23/2024. Patient will be continued on daptomycin and Zosyn -Peripheral vascular disease, arterial disease with bilateral superficial femoral artery occlusion -Coronary artery disease with prior cardiac stenting -Type 2 diabetes mellitus: continue insulin regimen -Hypoglycemia due to patient being NPO. improved -Hypertension, hold off amlodipine continue on FRANCISCO inhibitor watch for any perioperative hypotension -Peripheral vascular disease Lovenox -Hx of stroke with residual left weakness -Chronic medical debility patient is NWB at baseline DVT prophylaxis: Lovenox GI prophylaxis Full code Plan: Patient being followed by vascular surgery status post amputation of the left second and third toe yesterday. Surgical dressing is dry and intact. there is some erythema noted at the surgical site with no drainage noted. sutures are intact. Infectious disease following and patient is maintained on IV antibiotics while awaiting surgical cultures to finalize. Preliminary showing proteus and strep group b. Patient currently has no midline or PICC line and discussed with infectious disease regarding discharge planning and will await finalized cultures to determine if patient will require continued antibiotic therapy on discharge. ID recommends monitoring over the weekend. Patient resides at [facility] and plans on returning there on discharge Continue local wound care Follow-up with repeat labs as white count remains elevated although is trending down, currently 11 today The impression and plan of care has been dictated by Britany Zavala, Nurse Practitioner as directed. Dr. Kaiser MD I have performed a history and physical examination and medical decision making of this patient, discussed the same with the dictator, and agree with the dictators assessment and plan as written, documented as a scribe. Based on total visit time, I have performed more than 50% of this visit. Objective - Vital Signs Vital signs: Vital Signs Temp 98.6 F 10/25/24 08:12 Pulse 70 10/25/24 08:12 Resp 20 10/25/24 08:12 BP 154/89 10/25/24 08:12 Pulse Ox 98 10/25/24 01:48 FiO2 Intake & Output 10/24/24 10/25/24 10/25/24 18:59 06:59 18:59 Output Total 700 950 Balance -700 -950 Output: Urine 700 950 Other: Voiding Method External Catheter External Catheter # Bowel Movements 1 - Labs CBC & Chem 7: 10/25/24 03:33 10/25/24 03:33 Labs: Abnormal Lab Results - Last 24 Hours (Table) 10/24/24 10/24/24 10/24/24 Range/Units 11:32 16:42 22:26 POC Glucose (mg/dL) 160 H 246 H 144 H (70-110) mg/dL 10/25/24 Range/Units 06:16 POC Glucose (mg/dL) 134 H (70-110) mg/dL Microbiology - Last 24 Hours (Table) 10/23/24 15:46 Gram Stain - Preliminary Toe - Left First
[2024-10-26 06:09] LABS: Glucose,Whole Blood 190 mg/dL (70-110)
[2024-10-26 10:06] LABS: Basophils # (A) 0.05 X 10*3/uL (0.00-0.10); Basophils % (A) 0.5 %; Eosinophils # (A) 0.18 X 10*3/uL (0.04-0.35); Eosinophils % (A) 1.7 %; HCT 30.6 % (37.2-50.0); HGB 9.6 g/dL (12.0-17.0); Lymphocytes # (A) 1.94 X 10*3/uL (0.90-5.00); MCH 27.4 pg (27.0-32.0); MCHC 31.4 g/dL (32.0-37.0); MCV 87.4 FL (80.0-97.0); Mean Platelet Volume 9.4 FL (9.5-12.2); Monocytes # (A) 0.97 X 10*3/uL (0.20-1.00); NRBC Per 100 WBC 0 X 10*3/uL (0.00-0.01); Neutrophils # (A) 7.58 X 10*3/uL (1.80-7.70); Neutrophils % (A) 70.3 %; Platelet Count 524 X 10*3/uL (140-440); RDW 14.6 % (11.5-14.5); WBC 10.77 X 10*3/uL (4.50-10.00)
[2024-10-26 10:29] LABS: BUN/Creat Ratio 17.12 Ratio (12.00-20.00); Blood Urea Nitrogen 13.7 mg/dL (9.0-27.0); Calcium 8.4 mg/dL (8.7-10.3); Carbon Dioxide 25.8 mmol/L (21.6-31.8); Chloride 105 mmol/L (96-109); Glucose 197 mg/dL (70-110); Potassium 4.3 mmol/L (3.5-5.5); Sodium 139 mmol/L (135-145)
[2024-10-26 12:05] LABS: Glucose,Whole Blood 144 mg/dL (70-110)
--- NOTE | 2024-10-26 12:49 | P.PN ---
Subjective Progress Note Date: 10/26/24 Principal diagnosis: Reason for follow-up is left diabetic foot infection with gangrenous toe Patient is a 69-year-old female with a past medical history significant for CVA TIA diabetes mellitus hypertension hyperlipidemia pneumonia coronary disease did have history of left fifth toe gangrene status post amputation now with admission to the hospital with left third toe gangrene and this patient is status post transmetatarsal amputation completed on 10/23/2024. On today's evaluation that is 10/26/2024, patient did not have any fever and is breathing comfortably on room air, patient slightly sleepy today did not answer any question no vomiting diarrhea change reported by the nursing staff. Patient white count is down to 10.77, creatinine 0.8 cultures finalized with Proteus that is a sensitive pathogen along with Streptococcus agalactiae Objective - Vital Signs Vital signs: Vital Signs Temp 99.1 F 10/26/24 07:50 Pulse 72 10/26/24 07:50 Resp 17 10/26/24 07:50 BP 126/80 10/26/24 07:50 Pulse Ox 96 10/26/24 07:50 FiO2 Intake & Output 10/25/24 10/26/24 10/26/24 18:59 06:59 18:59 Output Total 600 700 Balance -600 -700 Output: Urine 600 700 Other: Voiding Method External Catheter External Catheter - Exam GENERAL DESCRIPTION: An elderly female lying in bed in no distress RESPIRATORY SYSTEM: Unlabored breathing , decreased breath sounds at bases HEART: S1 S2 regular rate and rhythm , ABDOMEN: Soft , no tenderness EXTREMITIES: Left foot is currently dressed reviewed the patient taken by the surgical FLOATMAN did show some erythema otherwise incision is intact - Labs CBC & Chem 7: 10/26/24 03:25 10/26/24 03:25 Labs: Abnormal Lab Results - Last 24 Hours (Table) 10/25/24 10/25/24 10/25/24 Range/Units 03:33 11:27 16:45 WBC (4.50-10.00) X 10*3/uL RBC (4.10-5.60) X 10*6/uL Hgb (12.0-17.0) g/dL Hct (37.2-50.0) % MCHC (32.0-37.0) g/dL RDW (11.5-14.5) % Plt Count (140-440) X 10*3/uL MPV (9.5-12.2) FL Immature Gran # (0.00-0.04) X 10*3/uL Glucose 124 H (70-110) mg/dL POC Glucose (mg/dL) 156 H 228 H (70-110) mg/dL Calcium 8.5 L (8.7-10.3) mg/dL Total Bilirubin <0.2 L (0.3-1.2) mg/dL Alkaline Phosphatase 140 H (41-126) U/L Total Protein 5.5 L (6.2-8.2) g/dL Albumin 2.7 L (3.8-4.9) g/dL Albumin/Globulin Ratio 0.96 L (1.60-3.17) Ratio 10/25/24 10/26/24 10/26/24 Range/Units 20:26 03:25 03:25 WBC 10.77 H (4.50-10.00) X 10*3/uL RBC 3.50 L (4.10-5.60) X 10*6/uL Hgb 9.6 L (12.0-17.0) g/dL Hct 30.6 L (37.2-50.0) % MCHC 31.4 L (32.0-37.0) g/dL RDW 14.6 H (11.5-14.5) % Plt Count 524 H (140-440) X 10*3/uL MPV 9.4 L (9.5-12.2) FL Immature Gran # 0.05 H (0.00-0.04) X 10*3/uL Glucose 197 H (70-110) mg/dL POC Glucose (mg/dL) 221 H (70-110) mg/dL Calcium 8.4 L (8.7-10.3) mg/dL Total Bilirubin (0.3-1.2) mg/dL Alkaline Phosphatase (41-126) U/L Total Protein (6.2-8.2) g/dL Albumin (3.8-4.9) g/dL Albumin/Globulin Ratio (1.60-3.17) Ratio 10/26/24 Range/Units 06:07 WBC (4.50-10.00) X 10*3/uL RBC (4.10-5.60) X 10*6/uL Hgb (12.0-17.0) g/dL Hct (37.2-50.0) % MCHC (32.0-37.0) g/dL RDW (11.5-14.5) % Plt Count (140-440) X 10*3/uL MPV (9.5-12.2) FL Immature Gran # (0.00-0.04) X 10*3/uL Glucose (70-110) mg/dL POC Glucose (mg/dL) 190 H (70-110) mg/dL Calcium (8.7-10.3) mg/dL Total Bilirubin (0.3-1.2) mg/dL Alkaline Phosphatase (41-126) U/L Total Protein (6.2-8.2) g/dL Albumin (3.8-4.9) g/dL Albumin/Globulin Ratio (1.60-3.17) Ratio Microbiology - Last 24 Hours (Table) 10/23/24 15:46 Gram Stain - Preliminary Toe - Left First Wound Culture - Preliminary Proteus mirabilis Strep agalactiae - (group b) Assessment and Plan (1) Diabetic infection of left foot Current Visit: Yes Status: Acute Code(s): E11.628 - TYPE 2 DIABETES MELLITUS WITH OTHER SKIN COMPLICATIONS; L08.9 - LOCAL INFECTION OF THE SKIN AND SUBCUTANEOUS TISSUE, UNSP SNOMED Code(s): 285331810 (2) Gangrene of toe of left foot Current Visit: No Status: Acute Code(s): I96 - GANGRENE, NOT ELSEWHERE CLASSIFIED SNOMED Code(s): 62183000124130972 (3) Type 2 diabetes mellitus with foot ulcer Current Visit: No Status: Acute Code(s): E11.621 - TYPE 2 DIABETES MELLITUS WITH FOOT ULCER; L97.509 - NON-PRESSURE CHRONIC ULCER OTH PRT UNSP FOOT W UNSP SEVERITY SNOMED Code(s): 0207077905335 Plan: 1patient presented to hospital with left third toe gangrene in this patient who had previous history of left fifth toe gangrene status post amputation culture at that time were positive for drug-resistant Proteus and subsequent the patient also have a urine culture positive for VRE we will need to cover for the resistant gram-positive as well as gram-negative pathogen. 2patient is status post transmetatarsal amputation of the left foot minimal erythema at the surgical site was noticed, culture now growing Streptococcus agalactiae and Proteus that is a sensitive pathogen we will discontinue daptomycin and Invanz start the patient on Rocephin 2 g daily Dictation was produced using [employer] dictation software. please excuse any grammatical, word or spelling errors. Time with Patient: Less than 30
[2024-10-26 16:56] LABS: Glucose,Whole Blood 174 mg/dL (70-110)
--- NOTE | 2024-10-26 19:38 | P.PN ---
Subjective Progress Note Date: 10/26/24 69-year-old female with history of diabetes mellitus and prevascular disease came in for left third toe wet gangrene and infectious gangrene. Patient is presently on daptomycin and Zosyn. Vascular surgery and infectious disease were consulted patient will need amputation of the toe patient has malodorous discharge from the toe denied any fever chills abdominal pain nausea vomiting CT angio of the abdomen and aorta with runoff showed findings of occlusion of bilateral superficial femoral artery with deep collaterals communicating with the distal bypass stent reconstituting the right popliteal artery. Trifurcation vessels on the left are patent to the ankle with areas of several focal stenosis right appeared to be occluded within the proximal portion, peroneal artery proximal calf. 10/23/2024 Patient is evaluated today in follow up on the observation unit. She is resting in bed comfortably is at the bedside. Patient is pending left 2nd and 3rd toe amputation today scheduled tentatively for 1300. Patient reports that her pain today is minimal. She was noted to have decreased blood glucose as she has been NPO for surgery. dextrose will be given and monitored closely to avoid further hypoglycemic episodes. White blood cell count today is 18.5. 10/24/2024 Patient is seen in follow-up status post left second and third toe amputation with vascular surgery Dr. Olguin. Infectious disease following as well and patient is maintained on IV antibiotics and awaiting cultures at this time. Will await finalized cultures to determine discharge antibiotics and patient may not require IV antibiotic therapy on discharge. at the bedside with questions and concerns that were answered and reports plan is to return back to [facility] on discharge. Patient is afebrile with no reports of chest pain or shortness of breath. White count is trending down and will follow-up on repeat labs. Continue local wound care and elevating lower extremity while at rest. Monitor blood sugars closely and patient reports tolerating diet with no reported nausea or vomiting. 10/25/2024 Patient is seen in follow-up today with vascular surgery and infectious disease following. Patient is continued on IV antibiotics and will continue for now as cultures show Proteus and strep group b. Patient to undergo surgical dressing changes per vascular surgery and per ID, recommend monitoring over the weekend as there is some erythema noted at the surgical site. WBC is trending down at 11 and patient is afebrile. Patient will be returning to [facility] on discharge. 10/26/2024 Patient is evaluated today in follow up on the medical floor. Patient is postoperative left 2 and 3 toe amputation. Wound cultures growing proteus and strep group B. Currently on IV ceftriaxone and ID following closely. White blood cell count 10.77. Electrolytes and renal function WNL. Patient with increased appetite today. Review of Systems Constitutional: Reports fatigue denied any fever. Cardio vascular: denied any chest pain, palpitations Gastrointestinal: denied any nausea, vomiting, diarrhea Pulmonary: Denied any shortness of breath cough Neurologic denied any new focal deficits All inpatient medications were reviewed and appropriate changes in these medications as dictated in the interval history and assessment and plan PHYSICAL EXAMINATION: GENERAL: The patient is alert and oriented x2-3, baseline, not in any acute distress. Well developed, well nourished. HEENT: Pupils are round and equally reacting to light. EOMI. No scleral icterus. No conjunctival pallor. Normocephalic, atraumatic. No pharyngeal erythema. No thyromegaly. CARDIOVASCULAR: S1 and S2 present. No murmurs, rubs, or gallops. PULMONARY: Diminished breath sounds bilaterally otherwise chest is clear to auscultation, no wheezing or crackles. ABDOMEN: Soft, nontender, nondistended, normoactive bowel sounds. No palpable organomegaly. MUSCULOSKELETAL: No joint swelling or deformity. EXTREMITIES: No cyanosis, clubbing, or pedal edema. Surgical dressing is dry and intact on the left foot NEUROLOGICAL: Gross neurological examination did not reveal any focal deficits. Diffusely weak SKIN: No rashes. Some erythma at the surgical site. Assessment: -Left foot third toe infection with gangrene: Vascular surgery following and patient is status post left 2nd and 3rd toe amputation 10/23/2024. -Peripheral vascular disease, arterial disease with bilateral superficial femoral artery occlusion -Coronary artery disease with prior cardiac stenting -Type 2 diabetes mellitus: continue insulin regimen -Hypoglycemia due to patient being NPO. improved -Hypertension, hold off amlodipine continue on FRANCISCO inhibitor watch for any perioperative hypotension -Peripheral vascular disease Lovenox -Hx of stroke with residual left weakness -Chronic medical debility patient is NWB at baseline DVT prophylaxis: Lovenox GI prophylaxis Full code Plan: Patient being followed by vascular surgery status post amputation of the left second and third toe yesterday. Surgical dressing is dry and intact. there is some erythema noted at the surgical site with no drainage noted. sutures are intact. Infectious disease following and patient is maintained on IV antibiotics while awaiting surgical cultures to finalize. Preliminary showing proteus and strep group b. Patient currently has no midline or PICC line and discussed with infectious disease regarding discharge planning and will await finalized cultures to determine if patient will require continued antibiotic therapy on discharge. ID recommends monitoring over the weekend. Antibiotics have been adjusted IV ceftriaxone. Patient resides at [facility] and plans on returning there on discharge discharge pending likely for Monday. Continue local wound care Follow-up with repeat labs as white count remains elevated although is trending down, currently 10.77 today. The impression and plan of care has been dictated by Domenica Mckeon Nurse Practitioner as directed. Dr. Kaiser MD I have performed a history and physical examination and medical decision making of this patient, discussed the same with the dictator, and agree with the dictators assessment and plan as written, documented as a scribe. Based on total visit time, I have performed more than 50% of this visit. Objective - Vital Signs Vital signs: Vital Signs Temp 98.5 F 10/26/24 13:35 Pulse 75 10/26/24 13:35 Resp 17 10/26/24 13:35 BP 122/77 10/26/24 13:35 Pulse Ox 93 L 10/26/24 13:35 FiO2 Intake & Output 10/26/24 10/26/24 10/27/24 06:59 18:59 06:59 Output Total 700 300 Balance -700 -300 Output: Urine 700 300 Other: Voiding Method External Catheter # Bowel Movements 1 - Labs CBC & Chem 7: 10/26/24 03:25 10/26/24 03:25 Labs: Abnormal Lab Results - Last 24 Hours (Table) 10/25/24 10/26/24 10/26/24 Range/Units 20:26 03:25 03:25 WBC 10.77 H (4.50-10.00) X 10*3/uL RBC 3.50 L (4.10-5.60) X 10*6/uL Hgb 9.6 L (12.0-17.0) g/dL Hct 30.6 L (37.2-50.0) % MCHC 31.4 L (32.0-37.0) g/dL RDW 14.6 H (11.5-14.5) % Plt Count 524 H (140-440) X 10*3/uL MPV 9.4 L (9.5-12.2) FL Immature Gran # 0.05 H (0.00-0.04) X 10*3/uL Glucose 197 H (70-110) mg/dL POC Glucose (mg/dL) 221 H (70-110) mg/dL Calcium 8.4 L (8.7-10.3) mg/dL 10/26/24 10/26/24 10/26/24 Range/Units 06:07 12:04 16:54 WBC (4.50-10.00) X 10*3/uL RBC (4.10-5.60) X 10*6/uL Hgb (12.0-17.0) g/dL Hct (37.2-50.0) % MCHC (32.0-37.0) g/dL RDW (11.5-14.5) % Plt Count (140-440) X 10*3/uL MPV (9.5-12.2) FL Immature Gran # (0.00-0.04) X 10*3/uL Glucose (70-110) mg/dL POC Glucose (mg/dL) 190 H 144 H 174 H (70-110) mg/dL Calcium (8.7-10.3) mg/dL Microbiology - Last 24 Hours (Table) 10/23/24 15:46 Anaerobic Culture - Preliminary Toe - Left First 10/23/24 15:46 Gram Stain - Final Toe - Left First Wound Culture - Final Proteus mirabilis Strep agalactiae - (group b) Assessment and Plan Time with Patient: Less than 30
[2024-10-26 20:38] LABS: Glucose,Whole Blood 204 mg/dL (70-110)
[2024-10-26] MEDS: INSULIN LISPRO (HumaLOG) 100 UNIT/ML 10 mL VL SQ SCH (20:51)
[2024-10-27 04:58] LABS: Hypochromasia Moderate; MCH 26.7 pg (25.0-35.0); MCHC 30.7 g/dL (31.0-37.0); Mean Platelet Volume 7.7; Platelet Count 569 k/uL (150-450); RBC 4.13 m/uL (3.80-5.40); RDW 14.3 % (11.5-15.5); WBC 13.5 k/uL (3.8-10.6)
[2024-10-27 06:15] LABS: Anisocytosis (M) Present; Eosinophils # (M) 0.14 k/uL (0-0.7); Lymphocytes # (M) 3.38 k/uL (1.0-4.8); Monocytes # (M) 0.14 k/uL (0-1.0); Neutrophils # (M) 9.86 k/uL (1.3-7.7); Neutrophils % (M) 73 %; Nucleated Red Blood Cells 0 /100 WBC (0-0); Poikilocytosis (M) Present; Total Cells Counted 100
[2024-10-27 06:33] LABS: Glucose,Whole Blood 156 mg/dL (70-110)
[2024-10-27 11:26] LABS: Glucose,Whole Blood 437 mg/dL (70-110)
[2024-10-27] MEDS: NYSTATIN 100,000 UNIT/GM POWD 15 GM TOPICAL SCH (12:18)
[2024-10-27] MEDS: ZINC OXIDE PASTE (Z-GUARD) 1 APPLIC TOPICAL PRN (12:18)
[2024-10-27 12:24] LABS: Glucose,Whole Blood 199 mg/dL (70-110)
--- NOTE | 2024-10-27 13:48 | P.PN ---
Subjective Progress Note Date: 10/27/24 Principal diagnosis: Reason for follow-up is left diabetic foot infection with gangrenous toe Patient is a 69-year-old female with a past medical history significant for CVA TIA diabetes mellitus hypertension hyperlipidemia pneumonia coronary disease did have history of left fifth toe gangrene status post amputation now with admission to the hospital with left third toe gangrene and this patient is status post transmetatarsal amputation completed on 10/23/2024. On today's evaluation that is 10/27/2024, Patient is afebrile patient is currently on room air and denies having any shortness of breath, the patient denies any chest pain or cough, the patient denies any nausea vomiting did not have any abdominal pain and no diarrhea and denies pain to the left foot. Patient white count is 13.5 creatinine 0.8 local culture with Proteus and Streptococcus agalactiae Objective - Vital Signs Vital signs: Vital Signs Temp 98.3 F 10/27/24 07:11 Pulse 73 10/27/24 07:11 Resp 17 10/27/24 07:11 BP 150/83 10/27/24 07:11 Pulse Ox 95 10/27/24 07:11 FiO2 Intake & Output 10/26/24 10/27/24 10/27/24 18:59 06:59 18:59 Output Total 300 500 Balance -300 -500 Output: Urine 300 500 Other: Voiding Method External Catheter External Catheter # Bowel Movements 1 - Exam GENERAL DESCRIPTION: An elderly female lying in bed in no distress RESPIRATORY SYSTEM: Unlabored breathing , decreased breath sounds at bases HEART: S1 S2 regular rate and rhythm , ABDOMEN: Soft , no tenderness EXTREMITIES: Left foot wound is currently dressed - Labs CBC & Chem 7: 10/27/24 03:51 10/26/24 03:25 Labs: Abnormal Lab Results - Last 24 Hours (Table) 10/26/24 10/26/24 10/27/24 Range/Units 16:54 20:37 03:51 WBC 13.5 H (3.8-10.6) k/uL Hgb 11.0 L (11.4-16.0) gm/dL MCHC 30.7 L (31.0-37.0) g/dL Plt Count 569 H (150-450) k/uL Neutrophils # (Manual) 9.86 H (1.3-7.7) k/uL POC Glucose (mg/dL) 174 H 204 H (70-110) mg/dL 10/27/24 10/27/24 10/27/24 Range/Units 06:32 11:24 12:22 WBC (3.8-10.6) k/uL Hgb (11.4-16.0) gm/dL MCHC (31.0-37.0) g/dL Plt Count (150-450) k/uL Neutrophils # (Manual) (1.3-7.7) k/uL POC Glucose (mg/dL) 156 H 437 H 199 H (70-110) mg/dL Microbiology - Last 24 Hours (Table) 10/23/24 15:46 Anaerobic Culture - Preliminary Toe - Left First 10/23/24 15:46 Gram Stain - Final Toe - Left First Wound Culture - Final Proteus mirabilis Strep agalactiae - (group b) Assessment and Plan (1) Diabetic infection of left foot Current Visit: Yes Status: Acute Code(s): E11.628 - TYPE 2 DIABETES MELLITUS WITH OTHER SKIN COMPLICATIONS; L08.9 - LOCAL INFECTION OF THE SKIN AND SUBCUTANEOUS TISSUE, UNSP SNOMED Code(s): 410179478 (2) Gangrene of toe of left foot Current Visit: No Status: Acute Code(s): I96 - GANGRENE, NOT ELSEWHERE CLASSIFIED SNOMED Code(s): 27512426832454778 (3) Type 2 diabetes mellitus with foot ulcer Current Visit: No Status: Acute Code(s): E11.621 - TYPE 2 DIABETES MELLITUS WITH FOOT ULCER; L97.509 - NON-PRESSURE CHRONIC ULCER OTH PRT UNSP FOOT W UNSP SEVERITY SNOMED Code(s): 8039882828522 Plan: 1patient presented to hospital with left third toe gangrene in this patient who had previous history of left fifth toe gangrene status post amputation culture at that time were positive for drug-resistant Proteus and subsequent the patient also have a urine culture positive for VRE we will need to cover for the resistant gram-positive as well as gram-negative pathogen. 2patient is status post transmetatarsal amputation of the left foot , culture now growing Streptococcus agalactiae and Proteus that is a sensitive pathogen currently on Rocephin 2 g daily consider short course of oral Ceftin on discharge Dictation was produced using [employer] software. please excuse any grammatical, word or spelling errors. Time with Patient: Less than 30
[2024-10-27 16:29] LABS: Glucose,Whole Blood 192 mg/dL (70-110)
--- NOTE | 2024-10-27 19:36 | P.PN ---
Subjective Progress Note Date: 10/27/24 69-year-old female with history of diabetes mellitus and prevascular disease came in for left third toe wet gangrene and infectious gangrene. Patient is presently on daptomycin and Zosyn. Vascular surgery and infectious disease were consulted patient will need amputation of the toe patient has malodorous discharge from the toe denied any fever chills abdominal pain nausea vomiting CT angio of the abdomen and aorta with runoff showed findings of occlusion of bilateral superficial femoral artery with deep collaterals communicating with the distal bypass stent reconstituting the right popliteal artery. Trifurcation vessels on the left are patent to the ankle with areas of several focal stenosis right appeared to be occluded within the proximal portion, peroneal artery proximal calf. 10/23/2024 Patient is evaluated today in follow up on the observation unit. She is resting in bed comfortably is at the bedside. Patient is pending left 2nd and 3rd toe amputation today scheduled tentatively for 1300. Patient reports that her pain today is minimal. She was noted to have decreased blood glucose as she has been NPO for surgery. dextrose will be given and monitored closely to avoid further hypoglycemic episodes. White blood cell count today is 18.5. 10/24/2024 Patient is seen in follow-up status post left second and third toe amputation with vascular surgery Dr. Olguin. Infectious disease following as well and patient is maintained on IV antibiotics and awaiting cultures at this time. Will await finalized cultures to determine discharge antibiotics and patient may not require IV antibiotic therapy on discharge. at the bedside with questions and concerns that were answered and reports plan is to return back to [facility] on discharge. Patient is afebrile with no reports of chest pain or shortness of breath. White count is trending down and will follow-up on repeat labs. Continue local wound care and elevating lower extremity while at rest. Monitor blood sugars closely and patient reports tolerating diet with no reported nausea or vomiting. 10/25/2024 Patient is seen in follow-up today with vascular surgery and infectious disease following. Patient is continued on IV antibiotics and will continue for now as cultures show Proteus and strep group b. Patient to undergo surgical dressing changes per vascular surgery and per ID, recommend monitoring over the weekend as there is some erythema noted at the surgical site. WBC is trending down at 11 and patient is afebrile. Patient will be returning to [facility] on discharge. 10/26/2024 Patient is evaluated today in follow up on the medical floor. Patient is postoperative left 2 and 3 toe amputation. Wound cultures growing proteus and strep group B. Currently on IV ceftriaxone and ID following closely. White blood cell count 10.77. Electrolytes and renal function WNL. Patient with increased appetite today. 10/27/2024 Patient evaluated today resting in bed. Having increased pain to the left 2 and 3 toe amputation. Dressing intact and wound vac remains off. Antibiotics have been adjusted to IV ceftriaxone. White blood cell count 13.5 today. Bowels are moving. Patient is urinating without difficulty. Patient is afebrile and oxygen saturations 96% on room air. Review of Systems Constitutional: Reports fatigue denied any fever. Cardio vascular: denied any chest pain, palpitations Gastrointestinal: denied any nausea, vomiting, diarrhea Pulmonary: Denied any shortness of breath cough Neurologic denied any new focal deficits All inpatient medications were reviewed and appropriate changes in these medications as dictated in the interval history and assessment and plan PHYSICAL EXAMINATION: GENERAL: The patient is alert and oriented x2-3, baseline, not in any acute distress. Well developed, well nourished. HEENT: Pupils are round and equally reacting to light. EOMI. No scleral icterus. No conjunctival pallor. Normocephalic, atraumatic. No pharyngeal erythema. No thyromegaly. CARDIOVASCULAR: S1 and S2 present. No murmurs, rubs, or gallops. PULMONARY: Diminished breath sounds bilaterally otherwise chest is clear to auscultation, no wheezing or crackles. ABDOMEN: Soft, nontender, nondistended, normoactive bowel sounds. No palpable organomegaly. MUSCULOSKELETAL: No joint swelling or deformity. EXTREMITIES: No cyanosis, clubbing, or pedal edema. Surgical dressing is dry and intact on the left foot NEUROLOGICAL: Gross neurological examination did not reveal any focal deficits. Diffusely weak SKIN: No rashes. Some erythma at the surgical site. Assessment: -Left foot third toe infection with gangrene: Vascular surgery following and patient is status post left 2nd and 3rd toe amputation 10/23/2024. -Peripheral vascular disease, arterial disease with bilateral superficial femoral artery occlusion -Coronary artery disease with prior cardiac stenting -Type 2 diabetes mellitus: continue insulin regimen -Hypoglycemia due to patient being NPO. improved -Hypertension, hold off amlodipine continue on FRANCISCO inhibitor watch for any perioperative hypotension -Peripheral vascular disease Lovenox -Hx of stroke with residual left weakness -Chronic medical debility patient is NWB at baseline DVT prophylaxis: Lovenox GI prophylaxis Full code Plan: Patient being followed by vascular surgery status post amputation of the left second and third toe yesterday. Surgical dressing is dry and intact. there is some erythema noted at the surgical site with no drainage noted. sutures are intact. Wound vac currently removed. Infectious disease following and patient is maintained on IV antibiotics, surgical cultures growing proteus and strep group b. ID with current recommendations for course of oral ceftin on discharge. Patient resides at [facility] and plans on returning there on discharge discharge pending likely for Monday. Continue local wound care Follow-up with repeat labs as white count remains elevated. The impression and plan of care has been dictated by Domenica Mckeon, Nurse Practitioner as directed. Dr. Kaiser MD I have performed a history and physical examination and medical decision making of this patient, discussed the same with the dictator, and agree with the dictators assessment and plan as written, documented as a scribe. Based on total visit time, I have performed more than 50% of this visit. Objective - Vital Signs Vital signs: Vital Signs Temp 98.6 F 10/27/24 12:57 Pulse 67 10/27/24 12:57 Resp 17 10/27/24 12:57 BP 144/81 10/27/24 12:57 Pulse Ox 96 10/27/24 12:57 FiO2 Intake & Output 10/27/24 10/27/24 10/28/24 06:59 18:59 06:59 Output Total 500 Balance -500 Output: Urine 500 Other: Voiding Method External Catheter External Catheter - Labs CBC & Chem 7: 10/27/24 03:51 10/26/24 03:25 Labs: Abnormal Lab Results - Last 24 Hours (Table) 10/26/24 10/27/24 10/27/24 Range/Units 20:37 03:51 06:32 WBC 13.5 H (3.8-10.6) k/uL Hgb 11.0 L (11.4-16.0) gm/dL MCHC 30.7 L (31.0-37.0) g/dL Plt Count 569 H (150-450) k/uL Neutrophils # (Manual) 9.86 H (1.3-7.7) k/uL POC Glucose (mg/dL) 204 H 156 H (70-110) mg/dL 10/27/24 10/27/24 10/27/24 Range/Units 11:24 12:22 16:27 WBC (3.8-10.6) k/uL Hgb (11.4-16.0) gm/dL MCHC (31.0-37.0) g/dL Plt Count (150-450) k/uL Neutrophils # (Manual) (1.3-7.7) k/uL POC Glucose (mg/dL) 437 H 199 H 192 H (70-110) mg/dL Microbiology - Last 24 Hours (Table) 10/23/24 15:46 Anaerobic Culture - Preliminary Toe - Left First Assessment and Plan Time with Patient: Less than 30
[2024-10-27 20:43] LABS: Glucose,Whole Blood 170 mg/dL (70-110)
[2024-10-28 06:19] LABS: Glucose,Whole Blood 132 mg/dL (70-110)
[2024-10-28 08:18] VITALS: BP 134/82; PULSE 69; RESP 16; TEMP 98.4
[2024-10-28 08:46] LABS: HCT 32.9 % (37.2-50.0); MCH 26.9 pg (27.0-32.0); MCHC 30.4 g/dL (32.0-37.0); MCV 88.4 FL (80.0-97.0); Mean Platelet Volume 9.3 FL (9.5-12.2); NRBC Per 100 WBC 0.03 X 10*3/uL (0.00-0.01); Platelet Count 554 X 10*3/uL (140-440); RBC 3.72 X 10*6/uL (4.10-5.60); RDW 14.6 % (11.5-14.5); WBC 10.63 X 10*3/uL (4.50-10.00)
[2024-10-28 08:47] LABS: Basophils # (A) 0.06 X 10*3/uL (0.00-0.10); Basophils % (A) 0.6 %; Eosinophils # (A) 0.28 X 10*3/uL (0.04-0.35); Eosinophils % (A) 2.6 %; Lymphocytes # (A) 2.56 X 10*3/uL (0.90-5.00); Lymphocytes % (A) 24.1 %; Monocytes # (A) 0.91 X 10*3/uL (0.20-1.00); Monocytes % (A) 8.6 %; Neutrophils # (A) 6.78 X 10*3/uL (1.80-7.70); Neutrophils % (A) 63.7 %
[2024-10-28 09:23] LABS: ALT 30 U/L (8-49); AST 32 U/L (13-35); Albumin 2.9 g/dL (3.8-4.9); Alkaline Phosphatase 127 U/L (41-126); BUN/Creat Ratio 17.12 Ratio (12.00-20.00); Blood Urea Nitrogen 13.7 mg/dL (9.0-27.0); Calcium 8.9 mg/dL (8.7-10.3); Carbon Dioxide 25.3 mmol/L (21.6-31.8); Chloride 106 mmol/L (96-109); Globulin 2.9 g/dL (1.6-3.3); Glucose 140 mg/dL (70-110); Potassium 4.4 mmol/L (3.5-5.5); Sodium 142 mmol/L (135-145); Total Bilirubin <0.2 mg/dL (0.3-1.2); Total Protein 5.8 g/dL (6.2-8.2)
[2024-10-28 11:51] LABS: Glucose,Whole Blood 232 mg/dL (70-110)
--- NOTE | 2024-10-28 12:31 | P.DS ---
Providers Date of admission: 10/21/24 17:30 Expected date of discharge: 10/28/24 Attending physician: Javon Ennis Consults: 10/21/24 14:18 Consult Physician Routine Consulting Provider: Robert Wong Consult Reason/Comments: gangrene Do you want consulting provider notified?: Yes 10/21/24 14:19 Consult Physician Routine Consulting Provider: Jose Thapa Consult Reason/Comments: foot gangrene Do you want consulting provider notified?: Yes Primary care physician: Artemio Hartman Hospital Course: Final diagnosis -Left foot third toe infection with gangrene: status post left 2nd and 3rd toe amputation 10/23/2024. -Peripheral vascular disease, arterial disease with bilateral superficial femoral artery occlusion -Coronary artery disease with prior cardiac stenting -Type 2 diabetes mellitus, uncontrolled with hyper and hypoglycemia -Hypoglycemia due to patient being NPO. improved -Hypertension history -Peripheral vascular disease, continue Lovenox -Hx of stroke with residual left weakness -Chronic medical debility patient is NWB at baseline DVT prophylaxis: Lovenox GI prophylaxis Full code Discharge disposition Patient is being discharged in a stable condition with guarded prognosis to [facility]. Patient will follow-up with Dr. Hartman in the outpatient setting upon discharge. Patient is to continue with oral Ceftin 500 mg twice daily for the next 10 days with close outpatient follow-up with vascular surgery as well as infectious disease as scheduled. Total time taken is greater than 35 minutes. Hospital course This is a 69-year-old female who was recently admitted with left foot third toe infection with gangrene being closely monitored and is status post left second and third toe amputation with vascular surgery Dr. Iglesias. Patient maintained on IV antibiotics with infectious disease following and cultures finalized showing Proteus along with group B and will continue on oral Ceftin 500 mg twice daily for the next 10 days. Patient was on IV antibiotics until discharge. Patient also to continue with local wound care per vascular surgery recommendations along with Medi boots and offloading. Patient has been cleared by consultations recommend outpatient follow-up closely and monitoring for any further signs of infection. Patient was noted to have some mild redness located around the surgical site which has slightly improved since Monday. Patient remains afebrile and reports is anxious to get going. Please refer to other consultation notes for further HPI. Currently no reports of chest pain, shortness of breath, or palpitations. Patient is afebrile. No reports of nausea or vomiting and patient is tolerating diet. Patient will be discharged to [facility] on the [place] today. High risk for readmissions given significant comorbidities and ongoing poor peripheral vascular disease with uncontrolled diabetes. Physical exam: Gen: This is a 69-year-old female who is awake, alert and oriented x 2-3, base line, well-developed, elderly appearing HEENT: Head is atraumatic, normocephalic. Pupils equal, round. Sclerae is anicteric. NECK: Supple. No JVD. No lymphadenopathy. No thyromegaly. LUNGS: Diminished breath sounds bilaterally otherwise clear to auscultation. No wheezes or rhonchi. No intercostal retractions. HEART: S1, S2 are muffled ABDOMEN: Soft. Bowel sounds are present. No masses. No tenderness. EXTREMITIES: No pedal edema. No calf tenderness. Left surgical dressing is dry and intact with no significant swelling, some mild erythema noted although slightly improved and no drainage noted surgically NEUROLOGICAL: Patient is awake, alert and oriented x 2. Cranial nerves 2 through 12 are grossly intact. Diffusely weak, mostly wheelchair bound Please refer to medication reconciliation sheet for a list of medications. The impression and plan of care has been dictated by Britany Zavala, Nurse Practitioner as directed. Dr. Kaiser MD I have performed a history and examination and MDM of this patient, discussed the same with the dictator, and agree with the dictator's assessment and plan as written ,documented as a scribe. Based on total visit time, I have performed more than 50% of the visit. Patient Condition at Discharge: Fair Plan - Discharge Summary Discharge Rx Participant: No New Discharge Prescriptions: New Enoxaparin [Lovenox] 40 mg SQ DAILY each Nystatin 100,000 Unit/gm Powd [Mycostatin Powder] 1 applic TOPICAL BID each cefuroxime axetiL [Ceftin] 500 mg PO BID 10 Days #20 tab Continue carvediloL [Coreg] 6.25 mg PO BID@0900,2100 Simethicone Chew [Mylicon Chew] 80 mg PO Q6H PRN PRN Reason: gas pain Vit C/E/Zn/Coppr/Lutein/Zeaxan [Preservision Areds 2 Softgel] 1 cap PO BID Lactulose 20 gm PO DAILY PRN PRN Reason: Constipation Magnesium Hydroxide [Milk of Magnesia] 2,400 mg PO DAILY PRN PRN Reason: Constipation amLODIPine [Norvasc] 5 mg PO HS@2100 Insulin Glargine,Hum.rec.anlog [Lantus Solostar Pen] 15 units SQ HS@2100 #0 Cyclobenzaprine [Flexeril] 5 mg PO TID PRN PRN Reason: Muscle Spasm Hydrocortisone Oint [Hydrocortisone 2.5% Oint] 1 applic TOPICAL HS INSULIN LISPRO (HumaLOG) [humaLOG] See Protocol SQ ACHS lisinopriL 2.5 mg PO DAILY traMADol HCL 50 mg PO Q6H PRN #4 tab PRN Reason: Pain Aspirin EC [Ecotrin Low Dose] 81 mg PO DAILY@0900 Acetaminophen [Tylenol] 650 mg PO Q4H PRN PRN Reason: Fever And/ Or Pain Gabapentin [Neurontin] 300 mg PO TID@0600,1300,2100 Melatonin 3 mg PO HS@2100 Cetirizine HCl [Zyrtec] 10 mg PO DAILY@0900 Ferrous Sulfate [Iron (65 MG Elemental)] 325 mg PO DAILY@0900 Sennosides/Docusate Sodium [Senna Plus 8.6-50 mg Softgel] 1 cap PO DAILY PRN PRN Reason: Constipation Atorvastatin [Lipitor] 80 mg PO HS@2100 Levothyroxine Sodium [Synthroid] 25 mcg PO SUTUTHSA@0600 Levothyroxine Sodium [Synthroid] 50 mcg PO MOWEFR@0600 Glucerna Shake 1 can PO DAILY@0900 Cholecalciferol [Vitamin D3 (25 Mcg = 1000 Iu)] 25 mcg PO DAILY Famotidine [Pepcid] 20 mg PO HS Discontinued Terbinafine [LamISIL] 250 mg PO DAILY Oseltamivir 6Mg/ml Oral Susp [Tamiflu] 30 mg PO DAILY Discharge Medication List Aspirin EC [Ecotrin Low Dose] 81 mg PO DAILY@0900 07/23/22 [History] Acetaminophen [Tylenol] 650 mg PO Q4H PRN 11/03/22 [History] carvediloL [Coreg] 6.25 mg PO BID@0900,2100 11/03/22 [History] Gabapentin [Neurontin] 300 mg PO TID@0600,1300,2100 01/26/23 [History] Melatonin 3 mg PO HS@209901/26/23 [History] Cetirizine HCl [Zyrtec] 10 mg PO DAILY@89905/05/23 [History] Ferrous Sulfate [Iron (65 MG Elemental)] 325 mg PO DAILY@89905/05/23 [History] Sennosides/Docusate Sodium [Senna Plus 8.6-50 mg Softgel] 1 cap PO DAILY PRN 05/05/23 [History] Simethicone Chew [Mylicon Chew] 80 mg PO Q6H PRN 07/05/23 [History] Vit C/E/Zn/Coppr/Lutein/Zeaxan [Preservision Areds 2 Softgel] 1 cap PO BID 01/30/24 [History] Atorvastatin [Lipitor] 80 mg PO HS@209905/31/24 [History] Lactulose 20 gm PO DAILY PRN 05/31/24 [History] Levothyroxine Sodium [Synthroid] 25 mcg PO SUTUTHSA@59905/31/24 [History] Glucerna Shake 1 can PO DAILY@89906/24/24 [History] Levothyroxine Sodium [Synthroid] 50 mcg PO MOWEFR@59906/24/24 [History] Magnesium Hydroxide [Milk of Magnesia] 2,400 mg PO DAILY PRN 06/24/24 [History] amLODIPine [Norvasc] 5 mg PO HS@209906/24/24 [History] Insulin Glargine,Hum.rec.anlog [Lantus Solostar Pen] 15 units SQ HS@2099 #0 07/02/24 [Rx] Cholecalciferol [Vitamin D3 (25 Mcg = 1000 Iu)] 25 mcg PO DAILY 10/21/24 [History] Cyclobenzaprine [Flexeril] 5 mg PO TID PRN 10/21/24 [History] Famotidine [Pepcid] 20 mg PO HS 10/21/24 [History] Hydrocortisone Oint [Hydrocortisone 2.5% Oint] 1 applic TOPICAL HS 10/21/24 [History] INSULIN LISPRO (HumaLOG) [humaLOG] See Protocol SQ ACHS 10/21/24 [History] lisinopriL 2.5 mg PO DAILY 10/21/24 [History] Enoxaparin [Lovenox] 40 mg SQ DAILY each 10/28/24 [Rx] Nystatin 100,000 Unit/gm Powd [Mycostatin Powder] 1 applic TOPICAL BID each 10/28/24 [Rx] cefuroxime axetiL [Ceftin] 500 mg PO BID 10 Days #20 tab 10/28/24 [Rx] traMADol HCL 50 mg PO Q6H PRN #4 tab 10/28/24 [Rx] Follow up Appointment(s)/Referral(s): Artemio Hartman MD [Primary Care Provider] - 1-2 days Blayne Iglesias DO [Doctor of Osteopathic Medicine] - 1 Week Jose Thapa MD [STAFF PHYSICIAN] - 1 Week Activity/Diet/Wound Care/Special Instructions: Daily dressing change to left TMA surgical site with Adaptic, 4 x 4 and Kerlix. Nonweightbearing to left foot Recommend patient continues to use soft offloading Medi boots Monitor surgical site for signs of infection including increased redness, drainage, fevers 100.4 or greater and call vascular surgical office May shower but no tub bathing or soaking Patient is returning to [facility] on the [place] Activity as tolerated with restrictions per vascular surgery of nonweightbearing to the left foot Continue local wound care Continue with oral Ceftin twice daily for 10 days per ID recommendations Follow-up with primary care provider on discharge Follow-up with vascular surgery outpatient as scheduled Follow-up with infectious disease outpatient Continue heart healthy diabetic diet dysphagia chopped with aspiration precautions with head of the bed elevated 30 to 45 degrees and supervision with meals Discharge Disposition: TRANSFER TO SNF/ECF
--- NOTE | 2024-10-28 12:42 | P.PN ---
Subjective Progress Note Date: 10/28/24 Principal diagnosis: Reason for follow-up is left diabetic foot infection with gangrenous toe Patient is a 69-year-old female with a past medical history significant for CVA TIA diabetes mellitus hypertension hyperlipidemia pneumonia coronary disease did have history of left fifth toe gangrene status post amputation now with admission to the hospital with left third toe gangrene and this patient is status post transmetatarsal amputation completed on 10/23/2024. On today's evaluation that is 10/28/2024, patient has been afebrile, patient is breathing comfortably and is currently on room air, patient denies having any significant cough no chest pain, patient denies nausea vomiting or diarrhea and no abdominal pain and denies pain to the left foot. Patient white count is down to 10.63 creatinine 0.8 Objective - Vital Signs Vital signs: Vital Signs Temp 98.4 F 10/28/24 07:38 Pulse 69 10/28/24 07:38 Resp 16 10/28/24 07:38 BP 134/82 10/28/24 07:38 Pulse Ox 95 10/28/24 07:38 FiO2 Intake & Output 10/27/24 10/28/24 10/28/24 18:59 06:59 18:59 Output Total 400 Balance -400 Output: Urine 400 Other: Voiding Method External Catheter External Catheter External Catheter # Voids 1 - Exam GENERAL DESCRIPTION: An elderly female lying in bed in no distress RESPIRATORY SYSTEM: Unlabored breathing , decreased breath sounds at bases HEART: S1 S2 regular rate and rhythm , ABDOMEN: Soft , no tenderness EXTREMITIES: Left foot wound picture reviewed taken by the [employer] minimal erythema some bloodstained drainage - Labs CBC & Chem 7: 10/28/24 03:44 10/28/24 03:44 Labs: Abnormal Lab Results - Last 24 Hours (Table) 10/27/24 10/27/24 10/27/24 Range/Units 11:24 12:22 16:27 WBC (4.50-10.00) X 10*3/uL RBC (4.10-5.60) X 10*6/uL Hgb (12.0-17.0) g/dL Hct (37.2-50.0) % MCH (27.0-32.0) pg MCHC (32.0-37.0) g/dL RDW (11.5-14.5) % Plt Count (140-440) X 10*3/uL MPV (9.5-12.2) FL NRBC/100 WBC Diff (0.00-0.01) X 10*3/uL Glucose (70-110) mg/dL POC Glucose (mg/dL) 437 H 199 H 192 H (70-110) mg/dL Total Bilirubin (0.3-1.2) mg/dL Alkaline Phosphatase (41-126) U/L Total Protein (6.2-8.2) g/dL Albumin (3.8-4.9) g/dL Albumin/Globulin Ratio (1.60-3.17) Ratio 10/27/24 10/28/24 10/28/24 Range/Units 20:42 03:44 03:44 WBC 10.63 H (4.50-10.00) X 10*3/uL RBC 3.72 L (4.10-5.60) X 10*6/uL Hgb 10.0 L (12.0-17.0) g/dL Hct 32.9 L (37.2-50.0) % MCH 26.9 L (27.0-32.0) pg MCHC 30.4 L (32.0-37.0) g/dL RDW 14.6 H (11.5-14.5) % Plt Count 554 H (140-440) X 10*3/uL MPV 9.3 L (9.5-12.2) FL NRBC/100 WBC Diff 0.03 H (0.00-0.01) X 10*3/uL Glucose 140 H (70-110) mg/dL POC Glucose (mg/dL) 170 H (70-110) mg/dL Total Bilirubin <0.2 L (0.3-1.2) mg/dL Alkaline Phosphatase 127 H (41-126) U/L Total Protein 5.8 L (6.2-8.2) g/dL Albumin 2.9 L (3.8-4.9) g/dL Albumin/Globulin Ratio 1.00 L (1.60-3.17) Ratio 10/28/24 Range/Units 06:17 WBC (4.50-10.00) X 10*3/uL RBC (4.10-5.60) X 10*6/uL Hgb (12.0-17.0) g/dL Hct (37.2-50.0) % MCH (27.0-32.0) pg MCHC (32.0-37.0) g/dL RDW (11.5-14.5) % Plt Count (140-440) X 10*3/uL MPV (9.5-12.2) FL NRBC/100 WBC Diff (0.00-0.01) X 10*3/uL Glucose (70-110) mg/dL POC Glucose (mg/dL) 132 H (70-110) mg/dL Total Bilirubin (0.3-1.2) mg/dL Alkaline Phosphatase (41-126) U/L Total Protein (6.2-8.2) g/dL Albumin (3.8-4.9) g/dL Albumin/Globulin Ratio (1.60-3.17) Ratio Microbiology - Last 24 Hours (Table) 10/23/24 15:46 Anaerobic Culture - Final Toe - Left First Assessment and Plan (1) Diabetic infection of left foot Current Visit: Yes Status: Acute Code(s): E11.628 - TYPE 2 DIABETES MELLITUS WITH OTHER SKIN COMPLICATIONS; L08.9 - LOCAL INFECTION OF THE SKIN AND SUBCUTANEOUS TISSUE, UNSP SNOMED Code(s): 833829783 (2) Gangrene of toe of left foot Current Visit: No Status: Acute Code(s): I96 - GANGRENE, NOT ELSEWHERE CLASSIFIED SNOMED Code(s): 28383871009381391 (3) Type 2 diabetes mellitus with foot ulcer Current Visit: No Status: Acute Code(s): E11.621 - TYPE 2 DIABETES MELLITUS WITH FOOT ULCER; L97.509 - NON-PRESSURE CHRONIC ULCER OTH PRT UNSP FOOT W UNSP SEVERITY SNOMED Code(s): 1124228660177 Plan: 1patient presented to hospital with left third toe gangrene in this patient who had previous history of left fifth toe gangrene status post amputation culture at that time were positive for drug-resistant Proteus and subsequent the patient also have a urine culture positive for VRE we will need to cover for the resi stant gram-positive as well as gram-negative pathogen. 2patient is status post transmetatarsal amputation of the left foot , culture now growing Streptococcus agalactiae and Proteus that is a sensitive pathogen. 3patient has received IV Rocephin in the hospital white count normalized we will consider 10-day course of oral Ceftin on discharge, this was discussed with [employer] for admitting team working on discharge Dictation was produced using [email or web address] dictation software. please excuse any grammatical, word or spelling errors. Time with Patient: Less than 30
== END 2024-10-28 14:47 | DRG 240 ==
LOC: EC 14:07 → 1SOBS 17:30 → 4SSUR 10-23 16:57
PROVIDERS: ADMIT Hospitalist; ATTEND Hospitalist
PROC: 0Y6N0Z5 Detachment at Left Foot, Complete 2nd Ray, Open Approach (ICD-10-PCS; principal; 2024-10-23 13:45)
PROC: 0Y6N0Z6 Detachment at Left Foot, Complete 3rd Ray, Open Approach (ICD-10-PCS; principal; 2024-10-23 13:45)
PROC: 0Y6N0Z7 Detachment at Left Foot, Complete 4th Ray, Open Approach (ICD-10-PCS; principal; 2024-10-23 13:45)
PROC: 0Y6N0Z4 Detachment at Left Foot, Complete 1st Ray, Open Approach (ICD-10-PCS; principal; 2024-10-23 13:45)
DX: E11.52 Type 2 diabetes mellitus with diabetic peripheral angiopathy with gangrene (principal); I69.354 Hemiplegia and hemiparesis following cerebral infarction affecting left non-dominant side; I11.0 Hypertensive heart disease with heart failure; E11.621 Type 2 diabetes mellitus with foot ulcer; B95.1 Streptococcus, group B, as the cause of diseases classified elsewhere; B96.4 Proteus (mirabilis) (morganii) as the cause of diseases classified elsewhere; E11.628 Type 2 diabetes mellitus with other skin complications; I70.203 Unspecified atherosclerosis of native arteries of extremities, bilateral legs; F32.A Depression, unspecified; I50.9 Heart failure, unspecified; E11.649 Type 2 diabetes mellitus with hypoglycemia without coma; E11.65 Type 2 diabetes mellitus with hyperglycemia; L97.509 Non-pressure chronic ulcer of other part of unspecified foot with unspecified severity; Z79.4 Long term (current) use of insulin; Z93.1 Gastrostomy status; E78.5 Hyperlipidemia, unspecified; I25.10 Atherosclerotic heart disease of native coronary artery without angina pectoris; N31.9 Neuromuscular dysfunction of bladder, unspecified; Z95.828 Presence of other vascular implants and grafts; Z95.820 Peripheral vascular angioplasty status with implants and grafts; Z79.82 Long term (current) use of aspirin; Z79.890 Hormone replacement therapy; Z79.899 Other long term (current) drug therapy; Z95.5 Presence of coronary angioplasty implant and graft; Z89.422 Acquired absence of other left toe(s); Z99.3 Dependence on wheelchair; Z91.81 History of falling; Z87.01 Personal history of pneumonia (recurrent)
CPT/HCPCS: 36415; 80048; 80053; 82565; 85025; 85610; 85730; 86140; 86850; 86900; 86901; 87070; 87075; 87077; 87186; 87205; 88307; 93005; 99285

== ENCOUNTER 2024-12-17 05:35 | Inpatient (IN) | payer MEDICARE ==
[2024-12-13 15:12] VITALS: BMI 23.8
[2024-12-17] MEDS ORDERED: LIDOCAINE 1% (10MG/ML) FOR IV START INTRADERMA PRN (06:04)
[2024-12-17 06:42] LABS: Glucose,Whole Blood 155 mg/dL (70-110)
[2024-12-17] MEDS: IV FLUID CONTINUATION 1,000 ML IV ONE (06:45)
[2024-12-17] MEDS ORDERED: HYDROmorphone 0.5 MG/0.5 ML SYRINGE IVP PRN (07:00)
[2024-12-17] MEDS ORDERED: MIDAZOLAM 2 MG/2 ML VIAL IV PRN (07:00)
[2024-12-17] MEDS ORDERED: fentaNYL (PF) 50 MCG/ML 2 ML AMP IVP PRN (07:00)
[2024-12-17] MEDS: DEXAMETHASONE SOD PHOSPHATE 4 MG/ML 1 ML VIAL IV ONE (07:04)
[2024-12-17] MEDS: LACTATED RINGERS 1,000 ML IV SCH (07:04)
[2024-12-17] MEDS: ONDANSETRON 4 MG/2 ML VIAL IVP ONE (07:04)
[2024-12-17] MEDS ORDERED: PROPOFOL 10 MG/ML 20 ML VIAL IV ONE (07:22)
[2024-12-17] MEDS ORDERED: KETAMINE HCL IN 0.9 % NACL 50 MG/5 ML SYRINGE ONE (07:22)
[2024-12-17] MEDS ORDERED: MIDAZOLAM 2 MG/2 ML VIAL ONE (07:22)
[2024-12-17] MEDS: ceFAZolin 2 GM in DEXTROSE 5% IN WATER 50 ML IVPB PRN (07:27)
[2024-12-17] MEDS ORDERED: NALOXONE 0.4 MG/ML 1 ML VIAL IV PRN (08:05)
--- NOTE | 2024-12-17 08:05 | P.OP ---
Date of Procedure: 12/17/24 Preoperative Diagnosis: Left transmetatarsal amputation wound Postoperative Diagnosis: Left transmetatarsal amputation infected wounds Left lateral transmetatarsal amputation wound measures 1 x 0.8 x 0.5 cm. Left medial transmetatarsal amputation wound measures 3 x 1.8 x 0.5 cm Procedure(s) Performed: Excisional debridement of left transmetatarsal amputation wound x 2 with wound VAC placement Anesthesia: MAC Surgeon: Robert Wong Estimated Blood Loss (ml): 5 Pathology: other (Deep wound culture) Condition: stable Disposition: PACU Indications for Procedure: 69-year-old female with history of left transmetatarsal amputation secondary to gangrene presented to the office for continued wound care and skin substitute placements but during her evaluation he was found to be draining more with malodor noted and therefore was scheduled for excisional debridement in the operating room. Operative Findings: Ischemic fat with purulent drainage noted at the subcutaneous tissue with small area of connection to the deep tissue. Description of Procedure: After written and informed consent was obtained with the patient all risks benefits and complications were discussed the patient was brought to the operative suite laid in the supine position. The area of the left foot was prepped and draped in usual sterile fashion. Timeout was performed normal fashion antibiotics were administered prior to procedure. Utilizing a 15 blade and 10 blade scalpel excisional debridement was performed at the 2 wounds on the medial and lateral aspect of her transmetatarsal amputation site. There was dense fibrinous tissue and ischemic fat noted and this was excised down to bleeding subcutaneous tissues. Culture was then obtained of the deep tissue. Once completed the area was copiously irrigated and a wound VAC was placed in no rmal fashion. Patient tolerated procedure well and was sent to PACU for recovery.
[2024-12-17 10:20] LABS: Glucose,Whole Blood 170 mg/dL (70-110)
[2024-12-17] MEDS ORDERED: DEXTROSE 50% SYRINGE 50 ML IVP PRN ×4 (12:12→18:10)
[2024-12-17 12:15] LABS: Glucose,Whole Blood 307 mg/dL (70-110)
[2024-12-17] MEDS ORDERED: VANCOMYCIN IV PER PHARMACY 1 EACH MISC MISCELLANE PRN (12:40)
[2024-12-17] MEDS: INSULIN LISPRO (HumaLOG) 100 UNIT/ML 10 mL VL SQ SCH (12:48)
[2024-12-17] MEDS: ERTAPENEM 1 GM in SODIUM CHLORIDE 0.9% 50 ML IVPB SCH (13:11)
[2024-12-17] MEDS: VANCOMYCIN 1,250 MG in SODIUM CHLORIDE 0.9% 250 ML IVPB ONE (13:51)
[2024-12-17 13:56] LABS: African American GFR (CKD) >90 (>60 ml/min/1.73 sqM); Anion Gap 10 mmol/L; Blood Urea Nitrogen 26 mg/dL (7-17); C Reactive Protein <0.5 mg/dL (<1.0); Calcium 9.5 mg/dL (8.4-10.2); Carbon Dioxide 24 mmol/L (22-30); Chloride 104 mmol/L (98-107); Glucose 292 mg/dL (74-99); Non-African American GFR(CKD) 86 (>60 ml/min/1.73 sqM); Potassium 4.7 mmol/L (3.5-5.1); Sodium 138 mmol/L (137-145)
[2024-12-17] MEDS: ceFAZolin 2 GM in DEXTROSE 5% IN WATER 50 ML IVPB SCH (16:08)
[2024-12-17 16:47] LABS: Glucose,Whole Blood 225 mg/dL (70-110)
[2024-12-17] MEDS ORDERED: LACTULOSE 20 GM/30 ML CUP PO PRN (18:08)
[2024-12-17 18:10] LABS: Basophils # (A) 0.01 X 10*3/uL (0.00-0.10); Basophils % (A) 0.1 %; Eosinophils # (A) 0.01 X 10*3/uL (0.04-0.35); Eosinophils % (A) 0.1 %; HCT 44.3 % (37.2-50.0); HGB 13.7 g/dL (12.0-17.0); Lymphocytes # (A) 0.77 X 10*3/uL (0.90-5.00); Lymphocytes % (A) 8.6 %; MCH 27.5 pg (27.0-32.0); MCHC 30.9 g/dL (32.0-37.0); Mean Platelet Volume 10.4 FL (9.5-12.2); Monocytes % (A) 1.1 %; NRBC Per 100 WBC 0 X 10*3/uL (0.00-0.01); Neutrophils # (A) 8.04 X 10*3/uL (1.80-7.70); Neutrophils % (A) 89.8 %; Platelet Count 289 X 10*3/uL (140-440); RBC 4.98 X 10*6/uL (4.10-5.60); RDW 14.7 % (11.5-14.5); WBC 8.96 X 10*3/uL (4.50-10.00)
[2024-12-17] MEDS: traMADol 50 MG TAB PO PRN (18:34)
--- NOTE | 2024-12-17 18:50 | P.CONS ---
History of Present Illness - Reason for Consult Consult date: 12/17/24 Medical management - Chief Complaint Amputation site debridement - History of Present Illness Patient is a 69-year-old male with a past medical history of coronary artery disease with history of stenting, type 2 diabetes uncontrolled, hypertension, history of CVA with residual left-sided weakness and chronic medical debility was admitted to the hospital for elective debridement of the wound amputation site. Patient is status post excisional debridement of left transmetatarsal amputation wound on 12/17/2024. Wound VAC was applied. Patient had 2nd and 3rd toe amputation on 10/23/2024 due to severe peripheral vascular disease with bilateral superficial femoral artery occlusion. Patient is currently resting in the bed. Awake alert and oriented. No complaints of chest pain. Or shortness of breath. Complains of pain at the surgical site. No fever no chills. No nausea vomiting. No cough or sputum production. Laboratory data WBC 8.9 hemoglobin 13.7 and platelets 289, sodium 138 potassium 4.7 chloride 104 bicarb is 24 BUN 16 creatinine 0.73 and blood sugar 292. CRP less than 0.5 Review of Systems Constitutional: Patient denies any fever or chills . No generalized weakness or weight loss. Abdomen: Patient denied nausea vomiting and diarrhea and abdominal pain. Cardiovascular: Patient denies any chest pain or short of breath no palpitations. Respiratory: patient denied any cough or sputum production. No shortness of breath Neurologic: Patient denied any numbness or tingling. no headache. Musculoskeletal: Patient denies any complaints of joint swelling or deformity. Left foot pain at surgical site Skin: Negative Psychiatric: Negative Endocrine: No heat or cold intolerance. No recent weight gain. Genitourinary: No dysuria or hematuria. All other 14 point ROS negative except the above Past Medical History Past Medical History: Coronary Artery Disease (CAD), Heart Failure, CVA/TIA, Diabetes Mellitus, Hyperlipidemia, Hypertension, Pneumonia, Skin Disorder, Vascular Disorder Additional Past Medical History / Comment(s): wound dehiscence left TMA, Hx CVA Jul 2022/Oct 2022 with residual/hemiplegia left arm and leg, dysphonia/dysarthia - speech is now understandable,able to swallow have regular diet . Hx falls. Diverticulitis. PVD. Dysphagia. Has peg tube removed. norman lift. Currently resides at [facility] since November 2022. Hx acute respiratory failure. Neuromuscular dysfunction of bladder. History of Any Multi-Drug Resistant Organisms: ESBL, MRSA Year Discovered:: 11/19/24,12-06-24 ESBL urine MDRO Source:: lt ankle, rt foot Past Surgical History: Section, Heart Catheterization, Orthopedic Surgery, Tonsillectomy Additional Past Surgical History / Comment(s): Right Femoral Popliteal bypass 10/19/22, at [facility], amputation of second third and fourth toes on right foot, carpal tunnel surgery,peg removed February 2023,left Transmetatarsal amputation (TMA) 10-25-24 Past Anesthesia/Blood Transfusion Reactions: No Reported Reaction Additional Past Anesthesia/Blood Transfusion Reaction / Comm: Never received blood. had CVA upon waking rt lower bypass 2022 Past Psychological History: Depression Smoking Status: Never smoker Past Alcohol Use History: None Reported Past Drug Use History: None Reported - Past Family History Mother Family Medical History: Cancer Additional Family Medical History / Comment(s): History of lower back fusion Father Family Medical History: Coronary Artery Disease (CAD) Sister(s) Family Medical History: Diabetes Mellitus, Vascular Disorder Medications and Allergies Home Medications Medication Instructions Recorded Confirmed Type Aspirin EC [Ecotrin Low Dose] 81 mg PO DAILY@0900 07/23/22 12/17/24 History Acetaminophen [Tylenol] 650 mg PO Q4H PRN 11/03/22 12/17/24 History carvediloL [Coreg] 6.25 mg PO BID@0900,209911/03/22 12/17/24 History Gabapentin [Neurontin] 300 mg PO TID@0600,1300,209901/26/23 12/17/24 History Melatonin 3 mg PO HS@209901/26/23 12/17/24 History Cetirizine HCl [Zyrtec] 10 mg PO DAILY@00 05/05/23 12/17/24 History Ferrous Sulfate [Iron (65 MG 325 mg PO DAILY@89905/05/23 12/17/24 History Elemental)] Sennosides/Docusate Sodium [Senna 1 cap PO DAILY PRN 05/05/23 12/13/24 History Plus 8.6-50 mg Softgel] Simethicone Chew [Mylicon Chew] 80 mg PO Q6H PRN 07/05/23 12/13/24 History Vit C/E/Zn/Coppr/Lutein/Zeaxan 1 cap PO BID 01/30/24 12/13/24 History [Preservision Areds 2 Softgel] Atorvastatin [Lipitor] 80 mg PO HS@2100 05/31/24 12/17/24 History Lactulose 20 gm PO DAILY PRN 05/31/24 12/13/24 History Levothyroxine Sodium [Synthroid] 25 mcg PO SUTUTHSA@0600 05/31/24 12/17/24 History Glucerna Shake 1 can PO DAILY@0900 06/24/24 12/17/24 History Levothyroxine Sodium [Synthroid] 50 mcg PO MOWEFR@0600 06/24/24 12/17/24 History Magnesium Hydroxide [Milk of 2,400 mg PO DAILY PRN 06/24/24 12/13/24 History Magnesia] amLODIPine [Norvasc] 5 mg PO HS@2100 06/24/24 12/17/24 History Insulin Glargine,Hum.rec.anlog 15 units SQ HS@2100 #0 07/02/24 12/17/24 Rx [Lantus Solostar Pen] Cholecalciferol [Vitamin D3 (25 25 mcg PO DAILY 10/21/24 12/17/24 History Mcg = 1000 Iu)] Cyclobenzaprine [Flexeril] 5 mg PO TID PRN 10/21/24 12/17/24 History Famotidine [Pepcid] 20 mg PO HS 10/21/24 12/17/24 History INSULIN LISPRO (HumaLOG) [humaLOG] See Protocol SQ ACHS 10/21/24 12/17/24 History lisinopriL 2.5 mg PO QAM 10/21/24 12/17/24 History Enoxaparin [Lovenox] 40 mg SQ DAILY each 10/28/24 12/17/24 Rx traMADol HCL 50 mg PO Q6H PRN #4 tab 10/28/24 12/17/24 Rx Doxycycline [Vibramycin] 100 mg PO BID 12/13/24 12/17/24 History Allergies Allergy/AdvReac Type Severity Reaction Status Date / Time unknown sleep aid Allergy Severe Rash/Hives Uncoded 12/17/24 06:47 Physical Exam Vitals: Vital Signs Temp Pulse Pulse Resp BP BP BP 12/17/24 12:08 98.0 F 76 17 120/81 12/17/24 11:45 78 18 126/78 12/17/24 11:00 68 16 145/71 12/17/24 10:25 69 16 157/69 12/17/24 09:55 70 17 140/66 12/17/24 09:40 71 16 150/77 12/17/24 09:25 70 16 170/78 12/17/24 09:10 72 16 148/71 12/17/24 08:55 72 17 165/64 12/17/24 08:40 66 16 157/80 12/17/24 08:25 67 15 148/72 12/17/24 08:11 67 16 96/62 12/17/24 07:56 97.2 F L 66 14 91/69 12/17/24 06:45 97.2 F L 62 17 126/65 Pulse Ox 12/17/24 12:08 97 12/17/24 11:45 96 12/17/24 11:00 92 L 12/17/24 10:25 95 12/17/24 09:55 95 12/17/24 09:40 92 L 12/17/24 09:25 100 12/17/24 09:10 100 12/17/24 08:55 100 12/17/24 08:40 100 12/17/24 08:25 100 12/17/24 08:11 100 12/17/24 07:56 100 12/17/24 06:45 97 Intake and Output 12/16/24 12/17/24 12/17/24 22:59 06:59 14:59 Intake Total 100 450 Output Total 5 Balance 100 445 Intake: IV 100 450 Output: Estimated Blood Loss 5 Other: Weight 67 kg 67 kg PHYSICAL EXAMINATION: Patient is lying in the bed comfortably, no acute distress, awake alert and oriented.. HEENT: Normocephalic. Neck is supple. Pupils reactive. Nostrils clear. Oral cavity is moist. Neck reveals no JVD, carotid bruits, or thyromegaly. CHEST EXAMINATION: Trachea is central. Symmetrical expansion. Lung [place] clear to auscultation and percussion. CARDIAC: Normal S1, S2 with no gallops. No murmurs ABDOMEN: Soft. Bowel sounds normal. No organomegaly. No abdominal bruits. Extremities: reveal no edema. Left foot transmetatarsal surgical site with wound VAC in place. No clubbing or cyanosis Neurologically awake, alert, oriented x 2-3. Dysarthria and residual left-sided weakness. Skin: No rash or skin lesions. Psychiatric: Coperative. Nonsuicidal Musculoskeletal: No joint swelling or deformity. Results CBC & Chem 7: 12/17/24 13:02 12/17/24 13:02 Labs: Abnormal Lab Results - Last 24 Hours (Table) 12/17/24 12/17/24 12/17/24 Range/Units 06:39 10:18 12:11 POC Glucose (mg/dL) 155 H 170 H 307 H (70-110) mg/dL Assessment and Plan Assessment: Status post excisional debridement of left metatarsal amputation wound. Postop day 0 Peripheral vascular disease with history of transmetatarsal amputation Diabetes type 2 insulin-dependent uncontrolled with hyperglycemia Hypertension Coronary history of stent placement History of CVA in July 2022 and October 2022 with residual left sided weakness and dysarthria Depression Hypothyroidism GI and DVT prophylaxis Plan: Patient will be continued on pain management, bowel regimen and encourage incentive spirometry. Follow-up intraoperative wound cultures. Patient was started back on insulin regimen and titrate dose as needed. Started back on home blood pressure medications. Will start aspirin once cleared by surgical team. Follow-up CBC and BMP tomorrow. Further recommendations based on the clinical course. Thank you kindly for your consult.
[2024-12-17 19:47] LABS: Erythrocyte Sedimentation Rate 42 mm/Hr (0-30)
[2024-12-17 20:30] LABS: Glucose,Whole Blood 214 mg/dL (70-110)
[2024-12-17] MEDS: amLODIPine 5 MG TAB PO SCH (21:10)
[2024-12-17] MEDS: ATORVASTATIN 80 MG TAB PO SCH (21:10)
[2024-12-17] MEDS: MELATONIN 3 MG TABLET PO SCH (21:11)
[2024-12-17] MEDS: GABAPENTIN 300 MG CAP PO SCH (21:11)
[2024-12-17] MEDS: carvediloL 6.25 MG TAB PO SCH (21:11)
[2024-12-17] MEDS: FAMOTIDINE 20 MG TAB PO SCH (21:11)
[2024-12-17] MEDS: INSULIN GLARGINE (LANTUS) 100 UNIT/ML SYR SQ SCH (21:47)
--- NOTE | 2024-12-17 22:36 | P.CONS ---
History of Present Illness - Reason for Consult Consult date: 12/17/24 Left TMA wound Requesting physician: Robert Wong - Chief Complaint Left foot nonhealing wound x days - History of Present Illness Patient is a 69-year-old female with a past medical history significant for Coronary Artery Disease (CAD), Heart Failure, CVA/TIA, Diabetes Mellitus, Hyperlipidemia, Hypertension, Pneumonia, Skin Disorder, Vascular Disorder in this patient who was recently admitted to the hospital with left third toe gangrene status post transmetatarsal amputation completed on 10/23/2024 culture data was positive for Streptococcus agalactiae and Proteus and the patient was treated with a course of IV followed by oral Ceftin therapy subsequently patient has been evaluated in follow-up in the outpatient setting where she was noticed to have dehiscence of her transmetatarsal potation site wound culture positive for MRSA has been treated with oral antibiotic patient now electively admitted to the hospital status post excisional debridement of the left transmetatarsal amputation wound and application of the wound VAC patient has been admitted to hospital postprocedure infectious disease was consulted for further management of antibiotic therapy patient currently denies having any fever or any chills the patient is breathing comfortably on room air denies any chest pain shortness of breath or cough no nausea vomiting abdominal pain or diarrhea pain to the left foot is currently controlled Review of Systems Positive point and negatives has been mentioned in the HPI, complete review of systems was performed and all other systems are negative Past Medical History Past Medical History: Coronary Artery Disease (CAD), Heart Failure, CVA/TIA, Diabetes Mellitus, Hyperlipidemia, Hypertension, Pneumonia, Skin Disorder, Vascular Disorder Additional Past Medical History / Comment(s): wound dehiscence left TMA, Hx CVA Jul 2022/Oct 2022 with residual/hemiplegia left arm and leg, dysphonia/dysarthia - speech is now understandable,able to swallow have regular diet . Hx falls. Diverticulitis. PVD. Dysphagia. Has peg tube removed. norman lift. Currently resides at [facility] since November 2022. Hx acute respiratory failure. Neuromuscular dysfunction of bladder. History of Any Multi-Drug Resistant Organisms: ESBL, MRSA Year Discovered:: 11/19/24,12-06-24 ESBL urine MDRO Source:: lt ankle, rt foot Past Surgical History: Section, Heart Catheterization, Orthopedic Surgery, Tonsillectomy Additional Past Surgical History / Comment(s): Right Femoral Popliteal bypass 10/19/22, at [facility], amputation of second third and fourth toes on right foot, carpal tunnel surgery,peg removed February 2023,left Transmetatarsal amputation (TMA) 10-25-24 Past Anesthesia/Blood Transfusion Reactions: No Reported Reaction Additional Past Anesthesia/Blood Transfusion Reaction / Comm: Never received blood. had CVA upon waking rt lower bypass 2022 Smoking Status: Never smoker - Past Family History Mother Family Medical History: Cancer Additional Family Medical History / Comment(s): History of lower back fusion Father Family Medical History: Coronary Artery Disease (CAD) Sister(s) Family Medical History: Diabetes Mellitus, Vascular Disorder Medications and Allergies Home Medications Medication Instructions Recorded Confirmed Type Aspirin EC [Ecotrin Low Dose] 81 mg PO DAILY@0900 07/23/22 12/17/24 History Acetaminophen [Tylenol] 650 mg PO Q4H PRN 11/03/22 12/17/24 History carvediloL [Coreg] 6.25 mg PO BID@0900,209911/03/22 12/17/24 History Gabapentin [Neurontin] 300 mg PO TID@0600,1300,209901/26/23 12/17/24 History Melatonin 3 mg PO HS@209901/26/23 12/17/24 History Cetirizine HCl [Zyrtec] 10 mg PO DAILY@89905/05/23 12/17/24 History Ferrous Sulfate [Iron (65 MG 325 mg PO DAILY@89905/05/23 12/17/24 History Elemental)] Sennosides/Docusate Sodium [Senna 1 cap PO DAILY PRN 05/05/23 12/13/24 History Plus 8.6-50 mg Softgel] Simethicone Chew [Mylicon Chew] 80 mg PO Q6H PRN 07/05/23 12/13/24 History Vit C/E/Zn/Coppr/Lutein/Zeaxan 1 cap PO BID 01/30/24 12/13/24 History [Preservision Areds 2 Softgel] Atorvastatin [Lipitor] 80 mg PO HS@209905/31/24 12/17/24 History Lactulose 20 gm PO DAILY PRN 05/31/24 12/13/24 History Levothyroxine Sodium [Synthroid] 25 mcg PO SUTUTHSA@0600 05/31/24 12/17/24 History Glucerna Shake 1 can PO DAILY@0900 06/24/24 12/17/24 History Levothyroxine Sodium [Synthroid] 50 mcg PO MOWEFR@0600 06/24/24 12/17/24 History Magnesium Hydroxide [Milk of 2,400 mg PO DAILY PRN 06/24/24 12/13/24 History Magnesia] amLODIPine [Norvasc] 5 mg PO HS@2100 06/24/24 12/17/24 History Insulin Glargine,Hum.rec.anlog 15 units SQ HS@2100 #0 07/02/24 12/17/24 Rx [Lantus Solostar Pen] Cholecalciferol [Vitamin D3 (25 25 mcg PO DAILY 10/21/24 12/17/24 History Mcg = 1000 Iu)] Cyclobenzaprine [Flexeril] 5 mg PO TID PRN 10/21/24 12/17/24 History Famotidine [Pepcid] 20 mg PO HS 10/21/24 12/17/24 History INSULIN LISPRO (HumaLOG) [humaLOG] See Protocol SQ ACHS 10/21/24 12/17/24 History lisinopriL 2.5 mg PO QAM 10/21/24 12/17/24 History Enoxaparin [Lovenox] 40 mg SQ DAILY each 10/28/24 12/17/24 Rx traMADol HCL 50 mg PO Q6H PRN #4 tab 10/28/24 12/17/24 Rx Doxycycline [Vibramycin] 100 mg PO BID 12/13/24 12/17/24 History Allergies Allergy/AdvReac Type Severity Reaction Status Date / Time unknown sleep aid Allergy Severe Rash/Hives Uncoded 12/17/24 06:47 Physical Exam Vitals: Vital Signs Temp Pulse Pulse Resp BP BP BP 12/17/24 12:08 98.0 F 76 17 120/81 12/17/24 11:45 78 18 126/78 12/17/24 11:00 68 16 145/71 12/17/24 10:25 69 16 157/69 12/17/24 09:55 70 17 140/66 12/17/24 09:40 71 16 150/77 04/15/25 09:25 70 16 170/78 12/17/24 09:10 72 16 148/71 12/17/24 08:55 72 17 165/64 12/17/24 08:40 66 16 157/80 12/17/24 08:25 67 15 148/72 12/17/24 08:11 67 16 96/62 12/17/24 07:56 97.2 F L 66 14 91/69 12/17/24 06:45 97.2 F L 62 17 126/65 Pulse Ox 12/17/24 12:08 97 12/17/24 11:45 96 12/17/24 11:00 92 L 12/17/24 10:25 95 12/17/24 09:55 95 12/17/24 09:40 92 L 12/17/24 09:25 100 12/17/24 09:10 100 12/17/24 08:55 100 12/17/24 08:40 100 12/17/24 08:25 100 12/17/24 08:11 100 12/17/24 07:56 100 12/17/24 06:45 97 Intake and Output 12/16/24 12/17/24 12/17/24 22:59 06:59 14:59 Intake Total 100 450 Output Total 5 Balance 100 445 Intake: IV 100 450 Output: Estimated Blood Loss 5 Other: Weight 67 kg GENERAL DESCRIPTION: Elderly female lying in bed, no distress. No tachypnea or accessory muscle of respiration use. HEENT: Shows Pallor , no scleral icterus. Oral mucous membrane is dry. NECK: Trachea central, no thyromegaly. LUNGS: Unlabored breathing. Clear to auscultation anteriorly. No wheeze or crackle. HEART: S1, S2, regular rate and rhythm. No loud murmur ABDOMEN: Soft, no tenderness , guarding or rigidity, no organomegaly EXTREMITIES: Left foot wound is covered with a wound VAC SKIN: No rash, no masses palpable. NEUROLOGICAL: The patient is awake, alert, oriented x3, mood and affect normal. Results CBC & Chem 7: 12/17/24 13:02 12/17/24 13:02 Labs: Abnormal Lab Results - Last 24 Hours (Table) 12/17/24 12/17/24 12/17/24 Range/Units 06:39 10:18 12:11 POC Glucose (mg/dL) 155 H 170 H 307 H (70-110) mg/dL Assessment and Plan (1) Diabetic infection of left foot Current Visit: No Status: Acute Code(s): E11.628 - TYPE 2 DIABETES MELLITUS WITH OTHER SKIN COMPLICATIONS; L08.9 - LOCAL INFECTION OF THE SKIN AND SUBCUTANEOUS TISSUE, UNSP SNOMED Code(s): 027812347 (2) Foot osteomyelitis, left Current Visit: No Status: Acute Code(s): M86.9 - OSTEOMYELITIS, UNSPECIFIED SNOMED Code(s): 1983335091885385 Plan: 1patient who recently did have a left third toe gangrene status post left transmetatarsal amputation on 10/23/2024 subsequently did have dehiscence of the left foot incision noted to be to the hospital status post debridement of the wound and placement of the wound VAC recent outpatient culture positive for MRSA however the patient also have a history of ESBL E. coli infection and will need to cover for resistant gram-positive as well as gram-negative while waiting for the cultures to be completed 2-we will repeat blood cultures and inflammatory markers and follow-up on the local cultures done in the OR 3-I will start the patient on vancomycin pharmacy to dose and Invanz pending finalization of the culture she will likely need a PICC line and IV antibiotic on discharge We will follow on clinical condition and cultures to further adjust medication if needed Thank you for this consultation we will follow the patient along with you Dictation was produced using [employer] dictation software. please excuse any grammatical, word or spelling errors. Time with Patient: Greater than 30
[2024-12-18] MEDS: VANCOMYCIN 1,250 MG in SODIUM CHLORIDE 0.9% 250 ML IVPB SCH (00:25)
[2024-12-18 04:40] LABS: African American GFR (CKD) >90 (>60 ml/min/1.73 sqM); Anion Gap 6 mmol/L; Blood Urea Nitrogen 24 mg/dL (7-17); Calcium 9.3 mg/dL (8.4-10.2); Carbon Dioxide 27 mmol/L (22-30); Chloride 105 mmol/L (98-107); Glucose 124 mg/dL (74-99); Non-African American GFR(CKD) 90 (>60 ml/min/1.73 sqM); Potassium 3.9 mmol/L (3.5-5.1); Sodium 138 mmol/L (137-145)
[2024-12-18 06:10] LABS: Glucose,Whole Blood 148 mg/dL (70-110)
[2024-12-18] MEDS: LEVOTHYROXINE 50 MCG TAB PO SCH (06:20)
[2024-12-18] MEDS: ENOXAPARIN 40 MG/0.4 ML SYRINGE SQ SCH (08:29)
[2024-12-18] MEDS: FERROUS SULFATE 325 MG TAB PO SCH (08:29)
[2024-12-18] MEDS: CHOLECALCIFEROL 25 MCG (1000 IU) TABLET PO SCH (08:29)
[2024-12-18] MEDS: LORATADINE 10 MG TAB PO SCH (08:29)
--- NOTE | 2024-12-18 09:20 | P.PN ---
Subjective Progress Note Date: 12/18/24 Principal diagnosis: Left transmetatarsal amputation wound Patient is seen and examined today as a follow-up. She is postop day #1 for left transmetatarsal amputation excisional debridement with wound VAC placement. Patient is afebrile. Preliminary Gram stain wound culture with rare growth. Wound VAC in place with good suction. Infectious disease on consultation and IV Kefzol and vancomycin. Infectious disease reported patient will likely need PICC line placement prior to discharge. Medicine was consulted for medical management. Patient is without any other complaints at this time. Objective - Vital Signs Vital signs: Vital Signs Temp 97.6 F 12/18/24 07:25 Pulse 54 L 12/18/24 07:25 Resp 16 12/18/24 07:25 BP 113/71 12/18/24 07:25 Pulse Ox 96 12/18/24 07:25 FiO2 Intake & Output 12/17/24 12/18/24 12/18/24 18:59 06:59 18:59 Intake Total 450 Output Total 5 Balance 445 Weight 67 kg Intake: IV 450 Output: Estimated Blood Loss 5 Other: Voiding Method Diaper Diaper Incontinent Incontinent # Voids 1 2 - Exam General appearance: The patient is alert, oriented, appears in no acute distress. HET: Head is normocephalic and atraumatic. Pupils are equal and reactive. Neck: Supple. Heart: Regular. Lungs: Equal expansion, normal respiratory effort. Abdomen: Soft, nontender, nondistended. Extremities: Right foot with previous second third and fourth toe amputation well-healed. Left foot TMA site with wound VAC in place with good suction. Neurological: Left hemiparesis. - Labs CBC & Chem 7: 12/17/24 13:02 12/18/24 02:52 Labs: Abnormal Lab Results - Last 24 Hours (Table) 12/17/24 12/17/24 12/17/24 Range/Units 10:18 12:11 13:02 MCHC 30.9 L (32.0-37.0) g/dL RDW 14.7 H (11.5-14.5) % Neutrophils # 8.04 H (1.80-7.70) X 10*3/uL Lymphocytes # 0.77 L (0.90-5.00) X 10*3/uL Monocytes # 0.10 L (0.20-1.00) X 10*3/uL Eosinophils # 0.01 L (0.04-0.35) X 10*3/uL ESR 42 H (0-30) mm/Hr BUN (7-17) mg/dL Glucose (74-99) mg/dL POC Glucose (mg/dL) 170 H 307 H (70-110) mg/dL Hemoglobin A1c (<=6.0) % 12/17/24 12/17/24 12/17/24 Range/Units 13:02 16:41 20:28 MCHC (32.0-37.0) g/dL RDW (11.5-14.5) % Neutrophils # (1.80-7.70) X 10*3/uL Lymphocytes # (0.90-5.00) X 10*3/uL Monocytes # (0.20-1.00) X 10*3/uL Eosinophils # (0.04-0.35) X 10*3/uL ESR (0-30) mm/Hr BUN 26 H (7-17) mg/dL Glucose 292 H (74-99) mg/dL POC Glucose (mg/dL) 225 H 214 H (70-110) mg/dL Hemoglobin A1c (<=6.0) % 12/18/24 12/18/24 12/18/24 Range/Units 02:52 02:52 06:09 MCHC (32.0-37.0) g/dL RDW (11.5-14.5) % Neutrophils # (1.80-7.70) X 10*3/uL Lymphocytes # (0.90-5.00) X 10*3/uL Monocytes # (0.20-1.00) X 10*3/uL Eosinophils # (0.04-0.35) X 10*3/uL ESR (0-30) mm/Hr BUN 24 H (7-17) mg/dL Glucose 124 H (74-99) mg/dL POC Glucose (mg/dL) 148 H (70-110) mg/dL Hemoglobin A1c 7.6 H (<=6.0) % Microbiology - Last 24 Hours (Table) 12/17/24 07:41 Gram Stain - Preliminary Foot - Left Assessment and Plan Assessment: 1. Excisional debridement of left transmetatarsal amputation wound x 2 with wound VAC placement 2. Left transmetatarsal amputation with infected wounds 3. Diabetic vascular disease 4. Peripheral arterial disease, bilateral SFA occlusion 5. History of right popliteal stent and femoral to popliteal bypass 6. History of CVA with residual left-sided weakness 7. Nonambulatory 8. History of coronary artery disease status post stent Plan: 1. Continue with wound VAC application, change home Tuesdays, and Saturdays 2. Consult to infectious disease 3. Antibiotics per recommendations from infectious disease 4. Consult to medicine team for medical management 5. Await wound cultures The impression and plan of care has been dictated as directed. I performed a history and examination of this patient, discussed the same with the dictator. I agree with the dictator's note ,documented as a scribe. Any additional findings or plans will be noted.
[2024-12-18 11:44] LABS: Glucose,Whole Blood 192 mg/dL (70-110)
[2024-12-18 16:54] LABS: Glucose,Whole Blood 223 mg/dL (70-110)
[2024-12-18 20:52] LABS: Glucose,Whole Blood 179 mg/dL (70-110)
[2024-12-19 06:11] LABS: Glucose,Whole Blood 168 mg/dL (70-110)
[2024-12-19] MEDS: LEVOTHYROXINE 25 MCG TAB PO SCH (06:38)
--- NOTE | 2024-12-19 09:12 | P.PN ---
Subjective Progress Note Date: 12/19/24 Principal diagnosis: Left transmetatarsal amputation wound Patient seen and examined today as a follow-up. She states she is doing well. Pain is well-controlled. Wound VAC is intact with good suction. Preliminary wound culture with presumptive staph aureus. Patient is afebrile. Objective - Vital Signs Vital signs: Vital Signs Temp 98.1 F 12/19/24 07:17 Pulse 62 12/19/24 07:17 Resp 16 12/19/24 07:17 BP 126/75 12/19/24 07:17 Pulse Ox 96 12/19/24 07:17 FiO2 Intake & Output 12/18/24 12/19/24 12/19/24 18:59 06:59 18:59 Other: Voiding Method Diaper Incontinent # Voids 2 - Exam General appearance: The patient is alert, oriented, appears in no acute distress. HET: Head is normocephalic and atraumatic. Pupils are equal and reactive. Neck: Supple. Heart: Regular. Lungs: Equal expansion, normal respiratory effort. Abdomen: Soft, nontender, nondistended. Extremities: Right foot with previous second third and fourth toe amputation well-healed. Left foot TMA site with wound VAC in place with good suction. Neurological: Left hemiparesis. - Labs CBC & Chem 7: 12/17/24 13:02 12/18/24 02:52 Labs: Abnormal Lab Results - Last 24 Hours (Table) 12/18/24 12/18/24 12/18/24 Range/Units 11:42 16:51 20:50 POC Glucose (mg/dL) 192 H 223 H 179 H (70-110) mg/dL 12/19/24 Range/Units 06:09 POC Glucose (mg/dL) 168 H (70-110) mg/dL Microbiology - Last 24 Hours (Table) 12/17/24 13:02 Blood Culture - Preliminary Blood 12/17/24 07:41 Gram Stain - Preliminary Foot - Left Wound Culture - Preliminary Presumptive Staph aureus Gram Neg Bacilli Assessment and Plan Assessment: 1. Excisional debridement of left transmetatarsal amputation wound x 2 with wound VAC placement 2. Left transmetatarsal amputation with infected wounds 3. Diabetic vascular disease 4. Peripheral arterial disease, bilateral SFA occlusion 5. History of right popliteal stent and femoral to popliteal bypass 6. History of CVA with residual left-sided weakness 7. Nonambulatory 8. History of coronary artery disease status post stent Plan: 1. Continue with wound VAC application, change dressing Tuesdays, and Saturdays 2. Consult to infectious disease 3. Antibiotics per recommendations from infectious disease 4. Consult to medicine team for medical management 5. Await wound cultures 6. Patient is cleared from vascular surgery for discharge, await further recommendations from infectious disease. The impression and plan of care has been dictated as directed. Dr. Kiya Salgado I performed a history and examination of this patient, discussed the same with the dictator. I agree with the dictator's note ,documented as a scribe. Any additional findings or plans will be noted.
--- NOTE | 2024-12-19 10:21 | P.PN ---
Subjective Progress Note Date: 12/18/24 Patient is a 69-year-old male with a past medical history of coronary artery disease with history of stenting, type 2 diabetes uncontrolled, hypertension, history of CVA with residual left-sided weakness and chronic medical debility was admitted to the hospital for elective debridement of the wound amputation site. Patient is status post excisional debridement of left transmetatarsal amputation wound on 12/17/2024. Wound VAC was applied. Patient had 2nd and 3rd toe amputation on 10/23/2024 due to severe peripheral vascular disease with bilateral superficial femoral artery occlusion. Patient is currently resting in the bed. Awake alert and oriented. No complaints of chest pain. Or shortness of breath. Complains of pain at the surgical site. No fever no chills. No nausea vomiting. No cough or sputum production. Laboratory data WBC 8.9 hemoglobin 13.7 and platelets 289, sodium 138 potassium 4.7 chloride 104 bicarb is 24 BUN 16 creatinine 0.73 and blood sugar 292. CRP less than 0.5 12/18/2024 Patient is postoperative day 1. Transmetatarsal excision wound debridement. Currently patient is resting in the bed. Awake alert and oriented x 2-3. On room air. Pain is better controlled. Continued on wound VAC. Also antibiotics involve cefazolin and vancomycin as per ID recommendations. Intraoperative surgical wound cultures showed presumptive staph. Presented to. Patient has been afebrile. No complaints of chest pain or shortness of breath. Laboratory data showed sodium 138 potassium 3.9 chloride 105 bicarb is 27 BUN 24 and creatinine 0.7 blood sugar 124. Current medications reviewed. Vascular surgery and ID is on board. Objective - Vital Signs Vital signs: Vital Signs Temp 98.1 F 12/19/24 07:17 Pulse 62 12/19/24 07:17 Resp 16 12/19/24 07:17 BP 126/75 12/19/24 07:17 Pulse Ox 96 12/19/24 07:17 FiO2 Intake & Output 12/18/24 12/19/24 12/19/24 18:59 06:59 18:59 Other: Voiding Method Diaper Incontinent # Voids 2 - Exam PHYSICAL EXAMINATION: Patient is lying in the bed comfortably, no acute distress, awake alert and oriented.. HEENT: Normocephalic. Neck is supple. Pupils reactive. Nostrils clear. Oral ca vity is moist. Neck reveals no JVD, carotid bruits, or thyromegaly. CHEST EXAMINATION: Trachea is central. Symmetrical expansion. Lung [place] clear to auscultation and percussion. CARDIAC: Normal S1, S2 with no gallops. No murmurs ABDOMEN: Soft. Bowel sounds normal. No organomegaly. No abdominal bruits. Extremities: reveal no edema. Left foot transmetatarsal surgical site with wound VAC in place. No clubbing or cyanosis Neurologically awake, alert, oriented x 2-3. Dysarthria and residual left-sided weakness. Skin: No rash or skin lesions. Psychiatric: Coperative. Nonsuicidal Musculoskeletal: No joint swelling or deformity. - Labs CBC & Chem 7: 12/17/24 13:02 12/18/24 02:52 Labs: Abnormal Lab Results - Last 24 Hours (Table) 12/18/24 12/18/24 12/18/24 Range/Units 11:42 16:51 20:50 POC Glucose (mg/dL) 192 H 223 H 179 H (70-110) mg/dL 12/19/24 Range/Units 06:09 POC Glucose (mg/dL) 168 H (70-110) mg/dL Microbiology - Last 24 Hours (Table) 12/17/24 13:02 Blood Culture - Preliminary Blood 12/17/24 07:41 Gram Stain - Preliminary Foot - Left Wound Culture - Preliminary Presumptive Staph aureus Gram Neg Bacilli Assessment and Plan Assessment: Status post excisional debridement of left metatarsal amputation wound. Postop day 1 Peripheral vascular disease with history of transmetatarsal amputation Diabetes type 2 insulin-dependent uncontrolled with hyperglycemia. A1c 7.6 Hypertension Coronary artery disease with history of stent placement History of CVA in July 2022 and October 2022 with residual left sided weakness and dysarthria Depression Hypothyroidism GI and DVT prophylaxis Plan: Patient will be continued on pain management, bowel regimen and encourage incentive spirometry. Intraoperative culture showed presumptive staph. Patient will be continued on vancomycin and cefazolin. Patient was started back on insulin regimen and titrate dose as needed. Started back on home blood pressure medications. Will start aspirin once cleared by surgical team. Follow-up CBC and BMP tomorrow. Further recommendations based on the clinical course. Time with Patient: Greater than 30
[2024-12-19 11:27] LABS: Glucose,Whole Blood 182 mg/dL (70-110)
[2024-12-19 11:59] LABS: African American GFR (CKD) >90 (>60 ml/min/1.73 sqM); Anion Gap 5 mmol/L; Blood Urea Nitrogen 19 mg/dL (7-17); Calcium 9.2 mg/dL (8.4-10.2); Carbon Dioxide 28 mmol/L (22-30); Chloride 103 mmol/L (98-107); Glucose 182 mg/dL (74-99); Non-African American GFR(CKD) 78 (>60 ml/min/1.73 sqM); Potassium 4.1 mmol/L (3.5-5.1); Sodium 136 mmol/L (137-145)
[2024-12-19] MEDS: VANCOMYCIN TROUGH DUE 1 EACH MISC MISCELLANE ONE (13:17)
[2024-12-19] MEDS: VANCOMYCIN 1,000 MG in SODIUM CHLORIDE 0.9% 250 ML IVPB SCH (13:17)
--- NOTE | 2024-12-19 14:48 | P.PN ---
Subjective Progress Note Date: 12/18/24 Principal diagnosis: Reason for follow-up is left foot infection/osteomyelitis Patient is a 69-year-old female with a past medical history significant for Coronary Artery Disease (CAD), Heart Failure, CVA/TIA, Diabetes Mellitus, Hyperlipidemia, Hypertension, Pneumonia, Skin Disorder, Vascular Disorder in this patient who was recently admitted to the hospital with left third toe gangrene status post transmetatarsal amputation completed on 10/23/2024 subsequent dehiscence of the wound status post I&D and application of the wound VAC. On today's evaluation that is 12/18/2024,the patient denies any fever or any chills, patient is breathing comfortably on room air, the patient denies chest pain shortness of breath and no significant cough, patient denies abdominal pain, no nausea vomiting or diarrhea. Patient did have a creatinine 0.70 no CBC was done today Objective - Vital Signs Vital signs: Vital Signs Temp 97.6 F 12/18/24 07:25 Pulse 54 L 12/18/24 07:25 Resp 16 12/18/24 07:25 BP 113/71 12/18/24 07:25 Pulse Ox 96 12/18/24 07:25 FiO2 Intake & Output 12/17/24 12/18/24 12/18/24 18:59 06:59 18:59 Intake Total 450 Output Total 5 Balance 445 Weight 67 kg Intake: IV 450 Output: Estimated Blood Loss 5 Other: Voiding Method Diaper Diaper Incontinent Incontinent # Voids 1 2 - Exam GENERAL DESCRIPTION: An elderly female lying in bed in no distress RESPIRATORY SYSTEM: Unlabored breathing , decreased breath sounds at bases HEART: S1 S2 regular rate and rhythm , ABDOMEN: Soft , no tenderness EXTREMITIES: Left foot wound is covered with a wound VAC - Labs CBC & Chem 7: 12/17/24 13:02 12/19/24 11:01 Labs: Abnormal Lab Results - Last 24 Hours (Table) 12/17/24 12/17/24 12/17/24 Range/Units 13:02 13:02 16:41 MCHC 30.9 L (32.0-37.0) g/dL RDW 14.7 H (11.5-14.5) % Neutrophils # 8.04 H (1.80-7.70) X 10*3/uL Lymphocytes # 0.77 L (0.90-5.00) X 10*3/uL Monocytes # 0.10 L (0.20-1.00) X 10*3/uL Eosinophils # 0.01 L (0.04-0.35) X 10*3/uL ESR 42 H (0-30) mm/Hr BUN 26 H (7-17) mg/dL Glucose 292 H (74-99) mg/dL POC Glucose (mg/dL) 225 H (70-110) mg/dL Hemoglobin A1c (<=6.0) % 12/17/24 12/18/24 12/18/24 Range/Units 20:28 02:52 02:52 MCHC (32.0-37.0) g/dL RDW (11.5-14.5) % Neutrophils # (1.80-7.70) X 10*3/uL Lymphocytes # (0.90-5.00) X 10*3/uL Monocytes # (0.20-1.00) X 10*3/uL Eosinophils # (0.04-0.35) X 10*3/uL ESR (0-30) mm/Hr BUN 24 H (7-17) mg/dL Glucose 124 H (74-99) mg/dL POC Glucose (mg/dL) 214 H (70-110) mg/dL Hemoglobin A1c 7.6 H (<=6.0) % 12/18/24 12/18/24 Range/Units 06:09 11:42 MCHC (32.0-37.0) g/dL RDW (11.5-14.5) % Neutrophils # (1.80-7.70) X 10*3/uL Lymphocytes # (0.90-5.00) X 10*3/uL Monocytes # (0.20-1.00) X 10*3/uL Eosinophils # (0.04-0.35) X 10*3/uL ESR (0-30) mm/Hr BUN (7-17) mg/dL Glucose (74-99) mg/dL POC Glucose (mg/dL) 148 H 192 H (70-110) mg/dL Hemoglobin A1c (<=6.0) % Microbiology - Last 24 Hours (Table) 12/17/24 07:41 Gram Stain - Preliminary Foot - Left Wound Culture - Preliminary Presumptive Staph aureus Gram Neg Bacilli Assessment and Plan (1) Diabetic infection of left foot Current Visit: No Status: Acute Code(s): E11.628 - TYPE 2 DIABETES MELLITUS WITH OTHER SKIN COMPLICATIONS; L08.9 - LOCAL INFECTION OF THE SKIN AND SUBCUTANEOUS TISSUE, UNSP SNOMED Code(s): 721304462 (2) Foot osteomyelitis, left Current Visit: No Status: Acute Code(s): M86.9 - OSTEOMYELITIS, UNSPECIFIED SNOMED Code(s): 9384261938882678 Plan: 1patient who recently did have a left third toe gangrene status post left transmetatarsal amputation on 10/23/2024 subsequently did have dehiscence of the left foot incision noted to be to the hospital status post debridement of the wound and placement of the wound VAC recent outpatient culture positive for MRSA however the patient also have a history of ESBL E. coli infection and will need to cover for resistant gram-positive as well as gram-negative while waiting for the cultures to be completed 2-patient is currently being treated vancomycin pharmacy to dose and Invanz pending finalization of the culture and monitor clinical course close Dictation was produced using [employer] dictation software. please excuse any grammatical, word or spelling errors. Time with Patient: Less than 30
--- NOTE | 2024-12-19 14:49 | P.PN ---
Subjective Progress Note Date: 12/19/24 Principal diagnosis: Reason for follow-up is left foot infection/osteomyelitis Patient is a 69-year-old female with a past medical history significant for Coronary Artery Disease (CAD), Heart Failure, CVA/TIA, Diabetes Mellitus, Hyperlipidemia, Hypertension, Pneumonia, Skin Disorder, Vascular Disorder in this patient who was recently admitted to the hospital with left third toe gangrene status post transmetatarsal amputation completed on 10/23/2024 subsequent dehiscence of the wound status post I&D and application of the wound VAC. On today's evaluation that is 12/19/2024,the patient remains to be afebrile, patient is on room air not requiring supplemental oxygen and denies any shortness of breath no chest pain or cough.Patient denies having any nausea or vomiting, no abdominal pain and no diarrhea has been reported, pain to the left foot is currently controlled. Patient did have a creatinine 0.7 and Vanco trough is 20.7 culture growing ESBL Proteus and MRSA Objective - Vital Signs Vital signs: Vital Signs Temp 98.1 F 12/19/24 07:17 Pulse 62 12/19/24 07:17 Resp 16 12/19/24 07:17 BP 126/75 12/19/24 07:17 Pulse Ox 96 12/19/24 07:17 FiO2 Intake & Output 12/18/24 12/19/24 12/19/24 18:59 06:59 18:59 Intake Total 10 Balance 10 Intake: IV 10 Invasive Line 1 10 Other: Voiding Method Diaper Diaper Incontinent # Voids 2 - Exam GENERAL DESCRIPTION: An elderly female lying in bed in no distress RESPIRATORY SYSTEM: Unlabored breathing , decreased breath sounds at bases HEART: S1 S2 regular rate and rhythm , ABDOMEN: Soft , no tenderness EXTREMITIES: Left foot wound is covered with a wound VAC - Labs CBC & Chem 7: 12/17/24 13:02 12/19/24 11:01 Labs: Abnormal Lab Results - Last 24 Hours (Table) 12/18/24 12/18/24 12/18/24 Range/Units 11:42 16:51 20:50 POC Glucose (mg/dL) 192 H 223 H 179 H (70-110) mg/dL 12/19/24 Range/Units 06:09 POC Glucose (mg/dL) 168 H (70-110) mg/dL Microbiology - Last 24 Hours (Table) 12/17/24 07:41 Gram Stain - Final Foot - Left Wound Culture - Final Methicillin resist S. aureus Proteus mirabilis ESBL MDRO 12/17/24 13:02 Blood Culture - Preliminary Blood Assessment and Plan (1) Diabetic infection of left foot Current Visit: No Status: Acute Code(s): E11.628 - TYPE 2 DIABETES MELLITUS WITH OTHER SKIN COMPLICATIONS; L08.9 - LOCAL INFECTION OF THE SKIN AND SUBCUTANEOUS TISSUE, UNSP SNOMED Code(s): 697434486 (2) Foot osteomyelitis, left Current Visit: No Status: Acute Code(s): M86.9 - OSTEOMYELITIS, UNSPECIFIED SNOMED Code(s): 4788123533501954 Plan: 1patient who recently did have a left third toe gangrene status post left transmetatarsal amputation on 10/23/2024 subsequently did have dehiscence of the left foot incision noted to be to the hospital status post debridement of the wound and placement of the wound VAC recent outpatient culture positive for MRSA however the patient also have a history of ESBL E. coli infection and will need to cover for resistant gram-positive as well as gram-negative culture have been finalized with MDRO Proteus and MRSA 2patient is covered with vancomycin pharmacy to dose and Invanz, we will order PICC line for outpatient IV in the therapy Dictation was produced using [employer] dictation software. please excuse any grammatical, word or spelling errors. Time with Patient: Less than 30
[2024-12-19 16:02] LABS: Glucose,Whole Blood 170 mg/dL (70-110)
[2024-12-19 20:37] LABS: Glucose,Whole Blood 177 mg/dL (70-110)
[2024-12-20 01:35] VITALS: RESP 16
--- NOTE | 2024-12-20 04:10 | P.PN ---
Subjective Progress Note Date: 12/19/24 Patient is a 69-year-old male with a past medical history of coronary artery disease with history of stenting, type 2 diabetes uncontrolled, hypertension, history of CVA with residual left-sided weakness and chronic medical debility was admitted to the hospital for elective debridement of the wound amputation site. Patient is status post excisional debridement of left transmetatarsal amputation wound on 12/17/2024. Wound VAC was applied. Patient had 2nd and 3rd toe amputation on 10/23/2024 due to severe peripheral vascular disease with bilateral superficial femoral artery occlusion. Patient is currently resting in the bed. Awake alert and oriented. No complaints of chest pain. Or shortness of breath. Complains of pain at the surgical site. No fever no chills. No nausea vomiting. No cough or sputum production. Laboratory data WBC 8.9 hemoglobin 13.7 and platelets 289, sodium 138 potassium 4.7 chloride 104 bicarb is 24 BUN 16 creatinine 0.73 and blood sugar 292. CRP less than 0.5 12/18/2024 Patient is postoperative day 1. Transmetatarsal excision wound debridement. Currently patient is resting in the bed. Awake alert and oriented x 2-3. On room air. Pain is better controlled. Continued on wound VAC. Also antibiotics involve cefazolin and vancomycin as per ID recommendations. Intraoperative surgical wound cultures showed presumptive staph. Presented to. Patient has b een afebrile. No complaints of chest pain or shortness of breath. Laboratory data showed sodium 138 potassium 3.9 chloride 105 bicarb is 27 BUN 24 and creatinine 0.7 blood sugar 124. Current medications reviewed. Vascular surgery and ID is on board. 12/19/2024 Patient is seen and evaluated in follow-up today admitted under vascular surgery services with infectious disease following. Patient is status post transmetatarsal excision with wound debridement continues with IV antibiotics and also wound VAC has been applied. Dressing is being changed today per nursing staff. Plan will be for return to [facility] on discharge with continued IV antibiotic therapy as well as wound VAC. Apparently per family last admission patient did not have wound VAC placed back on when returning to [facility]. Will ensure this is obtained and wound VAC is planned prior to discharging. Patient is currently afebrile denies any nausea or vomiting and tolerating diet. Patient with no reports of chest pain or shortness of breath awaiting cultures and antibiotic recommendations per ID. Plan will be for PICC line on discharge as well. review of systems: Constitutional: No reports of fatigue, fever, or chills Cardiovascular: No reports of chest pain or palpitations Respiratory: No reports of shortness of breath or cough GI: No reports of nausea, vomiting, or diarrhea : No reports of dysuria or retention Neurovascular: reports of generalized weakness All medications have been reviewed Physical exam: Gen: This is a pleasant 69-year-old female who is awake, alert and oriented x 2- 3, baseline, well-developed, elderly appearing HEENT: Head is atraumatic, normocephalic. Pupils equal, round. Sclerae is anicteric. NECK: Supple. No JVD. No lymphadenopathy. No thyromegaly. LUNGS: Diminished breath sounds bilaterally otherwise clear to auscultation. No wheezes or rhonchi. No intercostal retractions. HEART: S1, S2 are muffled ABDOMEN: Soft. Bowel sounds are present. No masses. No tenderness. EXTREMITIES: No pedal edema. No calf tenderness. Wound VAC noted on the left foot with good suction NEUROLOGICAL: Patient is awake, alert and oriented x3. Cranial nerves 2 through 12 are grossly intact. Diffusely weak Assessment: Status post excisional debridement of left metatarsal amputation wound. Postop day 2 Peripheral vascular disease with history of transmetatarsal amputation Diabetes type 2 insulin-dependent uncontrolled with hyperglycemia. A1c 7.6 Hypertension Coronary artery disease with history of stent placement History of CVA in July 2022 and October 2022 with residual left sided weakness and dysarthria Depression Hypothyroidism GI and DVT prophylaxis Plan: Patient will be continued on pain management, bowel regimen and encourage incentive spirometry. Intraoperative culture showed presumptive staph. Patient will be continued on vancomycin and cefazolin with infectious disease following and will plan on PICC line on discharge Patient to continue with local wound care and has a wound VAC currently on the left foot and will ensure this is arranged for discharge back to [facility] with wound VAC Home medications reviewed and resumed as appropriate Continue monitoring Accu-Cheks AC and at bedtime and will continue current insulin regimen and adjust as needed Vascular surgery has cleared the patient for discharge pending ID recommendations. Discussed with infectious disease and will plan for PICC line on DC. Recommend repeat labs in a.m. and also to replace electrolytes per protocol We will continue to follow with vascular surgery during hospitalization. Thank you kindly for this consultation. The impression and plan of care has been dictated by Britany Zavala, Nurse Practitioner as directed. Dr. Jitendra MD I have performed a history and examination and MDM of this patient, discussed the same with the dictator, and agree with the dictator's assessment and plan as written ,documented as a scribe. Based on total visit time, I have performed more than 50% of the visit. Objective - Vital Signs Vital signs: Vital Signs Temp 98.1 F 12/19/24 07:17 Pulse 62 12/19/24 07:17 Resp 16 12/19/24 07:17 BP 126/75 12/19/24 07:17 Pulse Ox 96 12/19/24 07:17 FiO2 Intake & Output 12/18/24 12/19/24 12/19/24 18:59 06:59 18:59 Intake Total 10 Balance 10 Intake: IV 10 Invasive Line 1 10 Other: Voiding Method Diaper Incontinent # Voids 2 - Labs CBC & Chem 7: 12/17/24 13:02 12/19/24 11:01 Labs: Abnormal Lab Results - Last 24 Hours (Table) 12/18/24 12/18/24 12/18/24 Range/Units 11:42 16:51 20:50 POC Glucose (mg/dL) 192 H 223 H 179 H (70-110) mg/dL 12/19/24 Range/Units 06:09 POC Glucose (mg/dL) 168 H (70-110) mg/dL Microbiology - Last 24 Hours (Table) 12/17/24 07:41 Gram Stain - Final Foot - Left Wound Culture - Final Methicillin resist S. aureus Proteus mirabilis ESBL MDRO 12/17/24 13:02 Blood Culture - Preliminary Blood
[2024-12-20 05:46] LABS: African American GFR (CKD) >90 (>60 ml/min/1.73 sqM); Anion Gap 5 mmol/L; Blood Urea Nitrogen 20 mg/dL (7-17); Calcium 9.3 mg/dL (8.4-10.2); Carbon Dioxide 27 mmol/L (22-30); Chloride 104 mmol/L (98-107); Glucose 139 mg/dL (74-99); Non-African American GFR(CKD) 89 (>60 ml/min/1.73 sqM); Potassium 3.9 mmol/L (3.5-5.1); Sodium 136 mmol/L (137-145)
[2024-12-20 06:18] LABS: Glucose,Whole Blood 136 mg/dL (70-110)
[2024-12-20 07:40] VITALS: BP 132/78; PULSE 63; TEMP 98.3
[2024-12-20 10:16] LABS: INR 0.95 sec (0.93-1.11); Prothrombin Time 10.9 sec (9.9-11.9)
--- NOTE | 2024-12-20 10:45 | P.DS ---
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 Patient was scheduled for excisional debridement in the operating room. She is postop day #3 status postdebridement with wound VAC placement. Dr. Thapa with infectious disease has been following along. Wound culture positive for MRSA and Proteus Mirabella's ESBL MDRO. Patient currently on IV vancomycin and Invanz. Preliminary blood cultures with no growth at 48 hours. Patient has been afebrile. Wound VAC changes for Tuesdays and Saturdays. Wound VAC was changed yesterday. Currently in place with good suction. Surrounding tissue without any erythema. Plan is for discharge back to [facility]. Insurance authorization was obtained for IV antibiotics. Exam: General appearance: The patient is alert, oriented, appears in no acute distress. HET: Head is normocephalic and atraumatic. Pupils are equal and reactive. Neck: Supple. Heart: Regular. Lungs: Equal expansion, normal respiratory effort. Abdomen: Soft, nontender, nondistended. Extremities: Right foot with previous second third and fourth toe amputation well-healed. Left foot TMA site with wound VAC in place with good suction. Neurological: Left hemiparesis. Assessment: 1. Excisional debridement of left transmetatarsal amputation wound x 2 with wo und VAC placement 2. Left transmetatarsal amputation with infected wounds 3. Diabetic vascular disease 4. Peripheral arterial disease, bilateral SFA occlusion 5. History of right popliteal stent and femoral to popliteal bypass 6. History of CVA with residual left-sided weakness 7. Nonambulatory 8. History of coronary artery disease status post stent Plan: 1. Continue with wound VAC application, change dressing Tuesdays, and Saturdays 2. Antibiotics per recommendations from infectious disease. Currently recommending IV vancomycin and IV Invanz as ordered 3. Outpatient follow-up with Dr. Thapa 4. Follow-up with Dr. Wong in 2 weeks 5. Patient is stable for discharge. Plan is for return back to [facility]. The impression and plan of care has been dictated as directed. I performed a history and examination of this patient, discussed the same with the dictator. I agree with the dictator's note ,documented as a scribe. Any additional findings or plans will be noted. Procedures: Postoperative Diagnosis: Left transmetatarsal amputation infected wounds Left lateral transmetatarsal amputation wound measures 1 x 0.8 x 0.5 cm. Left medial transmetatarsal amputation wound measures 3 x 1.8 x 0.5 cm Procedure(s) Performed: Excisional debridement of left transmetatarsal amputation wound x 2 with wound VAC placement Patient Condition at Discharge: Stable Plan - Discharge Summary Discharge Rx Participant: No New Discharge Prescriptions: New Vancomycin 1,000 mg IVPB Q12H each Ertapenem [INVanz] 1 gm IVPB DAILY each Continue carvediloL [Coreg] 6.25 mg PO BID@0900,2100 Simethicone Chew [Mylicon Chew] 80 mg PO Q6H PRN PRN Reason: gas pain Vit C/E/Zn/Coppr/Lutein/Zeaxan [Preservision Areds 2 Softgel] 1 cap PO BID Lactulose 20 gm PO DAILY PRN PRN Reason: Constipation Magnesium Hydroxide [Milk of Magnesia] 2,400 mg PO DAILY PRN PRN Reason: Constipation amLODIPine [Norvasc] 5 mg PO HS@2100 Insulin Glargine,Hum.rec.anlog [Lantus Solostar Pen] 15 units SQ HS@2100 #0 Cyclobenzaprine [Flexeril] 5 mg PO TID PRN PRN Reason: Muscle Spasm INSULIN LISPRO (HumaLOG) [humaLOG] See Protocol SQ ACHS lisinopriL 2.5 mg PO QAM Aspirin EC [Ecotrin Low Dose] 81 mg PO DAILY@0900 Acetaminophen [Tylenol] 650 mg PO Q4H PRN PRN Reason: Fever And/ Or Pain Gabapentin [Neurontin] 300 mg PO TID@0600,1300,2100 Melatonin 3 mg PO HS@2099 Cetirizine HCl [Zyrtec] 10 mg PO DAILY@0900 Ferrous Sulfate [Iron (65 MG Elemental)] 325 mg PO DAILY@0900 Sennosides/Docusate Sodium [Senna Plus 8.6-50 mg Softgel] 1 cap PO DAILY PRN PRN Reason: Constipation Atorvastatin [Lipitor] 80 mg PO HS@2099 Levothyroxine Sodium [Synthroid] 25 mcg PO SUTUTHSA@0600 Levothyroxine Sodium [Synthroid] 50 mcg PO MOWEFR@06 Glucerna Shake 1 can PO DAILY@0900 Cholecalciferol [Vitamin D3 (25 Mcg = 1000 Iu)] 25 mcg PO DAILY Famotidine [Pepcid] 20 mg PO HS Enoxaparin [Lovenox] 40 mg SQ DAILY each traMADol HCL 50 mg PO Q6H PRN 3 Days #12 tab PRN Reason: Pain Discontinued Doxycycline [Vibramycin] 100 mg PO BID Discharge Medication List Aspirin EC [Ecotrin Low Dose] 81 mg PO DAILY@89907/23/22 [History] Acetaminophen [Tylenol] 650 mg PO Q4H PRN 11/03/22 [History] carvediloL [Coreg] 6.25 mg PO BID@899,209911/03/22 [History] Gabapentin [Neurontin] 300 mg PO TID@0600,1300,2100 01/26/23 [History] Melatonin 3 mg PO HS@209901/26/23 [History] Cetirizine HCl [Zyrtec] 10 mg PO DAILY@89905/05/23 [History] Ferrous Sulfate [Iron (65 MG Elemental)] 325 mg PO DAILY@89905/05/23 [History] Sennosides/Docusate Sodium [Senna Plus 8.6-50 mg Softgel] 1 cap PO DAILY PRN 05/05/23 [History] Simethicone Chew [Mylicon Chew] 80 mg PO Q6H PRN 07/05/23 [History] Vit C/E/Zn/Coppr/Lutein/Zeaxan [Preservision Areds 2 Softgel] 1 cap PO BID 01/30/24 [History] Atorvastatin [Lipitor] 80 mg PO HS@209924 [History] Lactulose 20 gm PO DAILY PRN 05/31/24 [History] Levothyroxine Sodium [Synthroid] 25 mcg PO SUTUTHSA@0600 05/31/24 [History] Glucerna Shake 1 can PO DAILY@0900 06/24/24 [History] Levothyroxine Sodium [Synthroid] 50 mcg PO MOWEFR@0600 06/24/24 [History] Magnesium Hydroxide [Milk of Magnesia] 2,400 mg PO DAILY PRN 06/24/24 [History] amLODIPine [Norvasc] 5 mg PO HS@2100 06/24/24 [History] Insulin Glargine,Hum.rec.anlog [Lantus Solostar Pen] 15 units SQ HS@2100 #0 07/02/24 [Rx] Cholecalciferol [Vitamin D3 (25 Mcg = 1000 Iu)] 25 mcg PO DAILY 10/21/24 [History] Cyclobenzaprine [Flexeril] 5 mg PO TID PRN 10/21/24 [History] Famotidine [Pepcid] 20 mg PO HS 10/21/24 [History] INSULIN LISPRO (HumaLOG) [humaLOG] See Protocol SQ ACHS 10/21/24 [History] lisinopriL 2.5 mg PO QAM 10/21/24 [History] Enoxaparin [Lovenox] 40 mg SQ DAILY each 10/28/24 [Rx] Ertapenem [INVanz] 1 gm IVPB DAILY each 12/20/24 [Rx] Vancomycin 1,000 mg IVPB Q12H each 12/20/24 [Rx] traMADol HCL 50 mg PO Q6H PRN 3 Days #12 tab 12/20/24 [Rx] Follow up Appointment(s)/Referral(s): Robert Wong DO [STAFF PHYSICIAN] - 2 Weeks Activity/Diet/Wound Care/Special Instructions: Per Dr. Thapa: Invanz IV 1gm daily for 6 weeks and Vancomycin IV Pharmacy to dose for 6 weeks. Current dose of Vancomycin IV 1000mg q12 hours. Keep wound VAC in place, change dressing Tuesdays and Saturdays May shower no tub bathing until cleared by surgeon Discharge Disposition: TRANSFER TO SNF/ECF
[2024-12-20] MEDS: VANCOMYCIN TROUGH DUE 1 EACH MISC MISCELLANE ONE (11:02)
[2024-12-20 11:38] LABS: Glucose,Whole Blood 165 mg/dL (70-110)
--- NOTE | 2024-12-20 15:04 | P.PN ---
Subjective Progress Note Date: 12/20/24 Principal diagnosis: Reason for follow-up is left foot infection/osteomyelitis Patient is a 69-year-old female with a past medical history significant for Coronary Artery Disease (CAD), Heart Failure, CVA/TIA, Diabetes Mellitus, Hyperlipidemia, Hypertension, Pneumonia, Skin Disorder, Vascular Disorder in this patient who was recently admitted to the hospital with left third toe gangrene status post transmetatarsal amputation completed on 10/23/2024 subsequent dehiscence of the wound status post I&D and application of the wound VAC. On today's evaluation that is 12/20/2024, the patient continues to be afebrile, the patient is on room air and breathing comfortably, the Pt denies having any chest pain or cough, the patient denies having any abdominal pain no vomiting or any diarrhea mention feeling better. Patient did have a creatinine 0.71 Vanco trough is 18.9 culture with MRSA and ESBL Proteus blood culture negative Objective - Vital Signs Vital signs: Vital Signs Temp 98.3 F 12/20/24 07:05 Pulse 63 12/20/24 07:05 Resp 16 12/20/24 07:05 BP 132/78 12/20/24 07:05 Pulse Ox 96 12/20/24 07:05 FiO2 Intake & Output 12/19/24 12/20/24 12/20/24 18:59 06:59 18:59 Intake Total 20 120 Output Total 300 300 Balance -280 -300 120 Intake: IV 20 Invasive Line 1 10 Invasive Line 2 10 Oral 120 Output: Urine 300 300 Other: Voiding Method Diaper Diaper Diaper External Catheter External Catheter - Exam GENERAL DESCRIPTION: An elderly female lying in bed in no distress RESPIRATORY SYSTEM: Unlabored breathing , decreased breath sounds at bases HEART: S1 S2 regular rate and rhythm , ABDOMEN: Soft , no tenderness EXTREMITIES: Left foot wound is covered with a wound VAC - Labs CBC & Chem 7: 12/17/24 13:02 12/20/24 05:00 Labs: Abnormal Lab Results - Last 24 Hours (Table) 12/19/24 12/19/24 12/19/24 Range/Units 11:01 16:01 20:36 Sodium 136 L (137-145) mmol/L BUN 19 H (7-17) mg/dL Glucose 182 H (74-99) mg/dL POC Glucose (mg/dL) 170 H 177 H (70-110) mg/dL 12/20/24 12/20/24 Range/Units 05:00 06:16 Sodium 136 L (137-145) mmol/L BUN 20 H (7-17) mg/dL Glucose 139 H (74-99) mg/dL POC Glucose (mg/dL) 136 H (70-110) mg/dL Microbiology - Last 24 Hours (Table) 12/17/24 13:02 Blood Culture - Preliminary Blood 12/17/24 07:41 Anaerobic Culture - Preliminary Foot - Left 12/17/24 07:41 Gram Stain - Final Foot - Left Wound Culture - Final Methicillin resist S. aureus Proteus mirabilis ESBL MDRO Assessment and Plan (1) Diabetic infection of left foot Status: Acute Code(s): E11.628 - TYPE 2 DIABETES MELLITUS WITH OTHER SKIN COMPLICATIONS; L08.9 - LOCAL INFECTION OF THE SKIN AND SUBCUTANEOUS TISSUE, UNSP SNOMED Code(s): 892412592 (2) Foot osteomyelitis, left Status: Acute Code(s): M86.9 - OSTEOMYELITIS, UNSPECIFIED SNOMED Code(s): 3397943440741273 Plan: 1patient who recently did have a left third toe gangrene status post left transmetatarsal amputation on 10/23/2024 subsequently did have dehiscence of the left foot incision noted to be to the hospital status post debridement of the wound and placement of the wound VAC recent outpatient culture positive for MRSA however the patient also have a history of ESBL E. coli infection and will need to cover for resistant gram-positive as well as gram-negative culture have been finalized with MDRO Proteus and MRSA 2plan is for 6-week course of IV vancomycin pharmacy to dose and Invanz, and weekly monitoring of CRP and sed rate, close out patient follow-up Dictation was produced using [employer] dictation software. please excuse any grammatical, word or spelling errors. Time with Patient: Less than 30
--- NOTE | 2024-12-22 11:27 | P.PN ---
Subjective Progress Note Date: 12/20/24 Patient is a 69-year-old male with a past medical history of coronary artery disease with history of stenting, type 2 diabetes uncontrolled, hypertension, history of CVA with residual left-sided weakness and chronic medical debility was admitted to the hospital for elective debridement of the wound amputation site. Patient is status post excisional debridement of left transmetatarsal amputation wound on 12/17/2024. Wound VAC was applied. Patient had 2nd and 3rd toe amputation on 10/23/2024 due to severe peripheral vascular disease with bilateral superficial femoral artery occlusion. Patient is currently resting in the bed. Awake alert and oriented. No complaints of chest pain. Or shortness of breath. Complains of pain at the surgical site. No fever no chills. No nausea vomiting. No cough or sputum production. Laboratory data WBC 8.9 hemoglobin 13.7 and platelets 289, sodium 138 potassium 4.7 chloride 104 bicarb is 24 BUN 16 creatinine 0.73 and blood sugar 292. CRP less than 0.5 12/18/2024 Patient is postoperative day 1. Transmetatarsal excision wound debridement. Currently patient is resting in the bed. Awake alert and oriented x 2-3. On room air. Pain is better controlled. Continued on wound VAC. Also antibiotics involve cefazolin and vancomycin as per ID recommendations. Intraoperative surgical wound cultures showed presumptive staph. Presented to. Patient has b een afebrile. No complaints of chest pain or shortness of breath. Laboratory data showed sodium 138 potassium 3.9 chloride 105 bicarb is 27 BUN 24 and creatinine 0.7 blood sugar 124. Current medications reviewed. Vascular surgery and ID is on board. 12/19/2024 Patient is seen and evaluated in follow-up today admitted under vascular surgery services with infectious disease following. Patient is status post transmetatarsal excision with wound debridement continues with IV antibiotics and also wound VAC has been applied. Dressing is being changed today per nursing staff. Plan will be for return to [facility] on discharge with continued IV antibiotic therapy as well as wound VAC. Apparently per family last admission patient did not have wound VAC placed back on when returning to [facility]. Will ensure this is obtained and wound VAC is planned prior to discharging. Patient is currently afebrile denies any nausea or vomiting and tolerating diet. Patient with no reports of chest pain or shortness of breath awaiting cultures and antibiotic recommendations per ID. Plan will be for PICC line on discharge as well. 12/20/2024 Patient is seen in follow-up today has wound VAC and per case management has authorization and will be going to [facility] today. Patient is afebrile with no reports of chest pain or shortness of breath. Patient has received her PICC line and will be continued on outpatient IV antibiotics per ID recommendations. Patient is medically stable once cleared by infectious disease. Patient has been cleared by vascular surgery recommending outpatient follow-up. review of systems: Constitutional: No reports of fatigue, fever, or chills Cardiovascular: No reports of chest pain or palpitations Respiratory: No reports of shortness of breath or cough GI: No reports of nausea, vomiting, or diarrhea : No reports of dysuria or retention Neurovascular: reports of generalized weakness All medications have been reviewed Physical exam: Gen: This is a pleasant 69-year-old female who is awake, alert and oriented x 2- 3, baseline, well-developed, elderly appearing HEENT: Head is atraumatic, normocephalic. Pupils equal, round. Sclerae is anicteric. NECK: Supple. No JVD. No lymphadenopathy. No thyromegaly. LUNGS: Diminished breath sounds bilaterally otherwise clear to auscultation. No wheezes or rhonchi. No intercostal retractions. HEART: S1, S2 are muffled ABDOMEN: Soft. Bowel sounds are present. No masses. No tenderness. EXTREMITIES: No pedal edema. No calf tenderness. Wound VAC noted on the left foot with good suction NEUROLOGICAL: Patient is awake, alert and oriented x3. Cranial nerves 2 through 12 are grossly intact. Diffusely weak Assessment: Status post excisional debridement of left metatarsal amputation wound. Continues with wound VAC Peripheral vascular disease with history of transmetatarsal amputation Diabetes type 2 insulin-dependent uncontrolled with hyperglycemia. A1c 7.6 Hypertension Coronary artery disease with history of stent placement History of CVA in July 2022 and October 2022 with residual left sided weak ness and dysarthria Depression Hypothyroidism GI and DVT prophylaxis Plan: Patient will be continued on pain management, bowel regimen and encourage incentive spirometry. Intraoperative culture showed presumptive staph. Patient will be continued on cefazolin with infectious disease following and has received a PICC line with outpatient IV antibiotics arranged. Patient to continue with local wound care and has a wound VAC currently on the left foot and this has been ordered at [facility] and will be continued. Patient to continue local wound longterm medications reviewed and resumed as appropriate Continue monitoring Accu-Cheks AC and at bedtime and will continue current insulin regimen and adjust as needed Vascular surgery has cleared the patient for discharge pending ID recommendatio ns. We will continue to follow with vascular surgery during hospitalization. Patient is medically stable once cleared by infectious disease regarding antibiotic recommendations. Thank you kindly for this consultation. The impression and plan of care has been dictated by Britany Zavala, Nurse Practitioner as directed. Dr. Jitendra MD I have performed a history and examination and MDM of this patient, discussed the same with the dictator, and agree with the dictator's assessment and plan as written ,documented as a scribe. Based on total visit time, I have performed more than 50% of the visit. Objective - Vital Signs Vital signs: Vital Signs Temp 98.3 F 12/20/24 07:05 Pulse 63 12/20/24 07:05 Resp 16 12/20/24 07:05 BP 132/78 12/20/24 07:05 Pulse Ox 96 12/20/24 07:05 FiO2 Intake & Output 12/19/24 12/20/24 12/20/24 18:59 06:59 18:59 Intake Total 20 120 Output Total 300 300 Balance -280 -300 120 Intake: IV 20 Invasive Line 1 10 Invasive Line 2 10 Oral 120 Output: Urine 300 300 Other: Voiding Method Diaper Diaper Diaper External Catheter External Catheter - Labs CBC & Chem 7: 12/17/24 13:02 12/20/24 05:00 Labs: Abnormal Lab Results - Last 24 Hours (Table) 12/19/24 12/19/24 12/19/24 Range/Units 11:01 11:25 16:01 Sodium 136 L (137-145) mmol/L BUN 19 H (7-17) mg/dL Glucose 182 H (74-99) mg/dL POC Glucose (mg/dL) 182 H 170 H (70-110) mg/dL 12/19/24 12/20/24 12/20/24 Range/Units 20:36 05:00 06:16 Sodium 136 L (137-145) mmol/L BUN 20 H (7-17) mg/dL Glucose 139 H (74-99) mg/dL POC Glucose (mg/dL) 177 H 136 H (70-110) mg/dL Microbiology - Last 24 Hours (Table) 12/17/24 13:02 Blood Culture - Preliminary Blood 12/17/24 07:41 Anaerobic Culture - Preliminary Foot - Left 12/17/24 07:41 Gram Stain - Final Foot - Left Wound Culture - Final Methicillin resist S. aureus Proteus mirabilis ESBL MDRO
== END 2024-12-20 01:30 | DRG 464 ==
LOC: OR 05:35 → 4SSUR 05:36
PROVIDERS: ADMIT Surgery; ATTEND Surgery
PROC: 0JBR0ZZ Excision of Left Foot Subcutaneous Tissue and Fascia, Open Approach (ICD-10-PCS; 2024-12-17)
PROC: 0JBR0ZZ Excision of Left Foot Subcutaneous Tissue and Fascia, Open Approach (ICD-10-PCS; principal; 2024-12-17 07:30)
PROC: 02HV33Z Insertion of Infusion Device into Superior Vena Cava, Percutaneous Approach (ICD-10-PCS; 2024-12-20)
DX: T87.44 Infection of amputation stump, left lower extremity (principal); I69.354 Hemiplegia and hemiparesis following cerebral infarction affecting left non-dominant side; M86.8X7 Other osteomyelitis, ankle and foot; I11.0 Hypertensive heart disease with heart failure; I50.9 Heart failure, unspecified; B95.62 Methicillin resistant Staphylococcus aureus infection as the cause of diseases classified elsewhere; E11.51 Type 2 diabetes mellitus with diabetic peripheral angiopathy without gangrene; B96.4 Proteus (mirabilis) (morganii) as the cause of diseases classified elsewhere; E03.9 Hypothyroidism, unspecified; F32.A Depression, unspecified; I70.203 Unspecified atherosclerosis of native arteries of extremities, bilateral legs; Z16.12 Extended spectrum beta lactamase (ESBL) resistance; Z16.24 Resistance to multiple antibiotics; E11.65 Type 2 diabetes mellitus with hyperglycemia; E11.69 Type 2 diabetes mellitus with other specified complication; Z79.4 Long term (current) use of insulin; R53.81 Other malaise; I25.10 Atherosclerotic heart disease of native coronary artery without angina pectoris; Z95.820 Peripheral vascular angioplasty status with implants and grafts; Z95.828 Presence of other vascular implants and grafts; Z95.5 Presence of coronary angioplasty implant and graft; Z86.19 Personal history of other infectious and parasitic diseases; Z79.82 Long term (current) use of aspirin; Z79.899 Other long term (current) drug therapy; Z79.890 Hormone replacement therapy
CPT/HCPCS: 36573; 80048; 80202; 83036; 85025; 85610; 85652; 86140; 87040; 87070; 87075; 87077; 87186; 87205